=== PATIENT | male | born 1950 | race Caucasian/White ===

== ENCOUNTER → 2017-11-22 | Outpatient (CLI) | payer OTHER ==
[~2017-11-22] MED LIST: AMLO10TA2 PO; AMLO5TAB2 PO; ASP325T NG; CEFA-4 PO; ENAL10TA PO; HCT25T PO; METO100T5 PO; OLME20TA21 PO; OMG1KC PO; PRAS10TA6 PO; PRAV40TA PO; ROSU20TA PO; RT-ALBUINH IH; SIMV40TA4 PO
--- NOTE | 2017-11-22 08:09 | Diagnostic Imaging Report ---
PROCEDURE: CT head without contrast. TECHNIQUE: Multiple contiguous axial images were obtained through the brain without the use of intravenous contrast. INDICATION: Memory loss. No prior studies are available for comparison. The ventricles and sulci are within normal limits. There is moderate periventricular hypodensity consistent with chronic microvascular ischemia. 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 There is no sulcal effacement or midline shift. No acute intra-axial or extra-axial hemorrhage is seen. The cisterns are patent. The visualized paranasal sinuses are clear. Impression: Chronic changes, as described. No acute intracranial process is detected. Dictated by: Dictated on workstation # [id number]
== END ==
LOC: RAD 07:39
PROVIDERS: ATTEND Internal Medicine
DX: R41.3 Other amnesia (principal)
CPT/HCPCS: 70450

== ENCOUNTER → 2018-03-27 | Outpatient (CLI) | payer OTHER ==
[~2018-03-27] MED LIST changes: -AMLO10TA2 PO; +AMLO10TA6 PO
== END | disposition home or self-care (01) ==
LOC: PREOP 08:21
PROVIDERS: ATTEND Surgery
DX: Z01.818 Encounter for other preprocedural examination (principal)

== ENCOUNTER 2018-05-14 06:57 | Day surgery (SDC) | payer OTHER ==
[~2018-05-14] VITALS: Ht 172.7 cm; Wt 99.8 kg
[~2018-05-14 06:57] MED LIST changes: -AMLO10TA6 PO; +AMLO10TA7 PO; +CLOP75TA69 PO; +METO100T12 PO
--- OUTSIDE RECORDS SUMMARY | 2018-05-14 07:01 | XMS REPORT ---
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 [address] [address] Sep, Essential hypertension I10 ; Coronary artery disease involving eagle heart, angina presence unspecified, unspecified vessel or lesion type I25.10 and Tubular adenoma of colon D12.6 [facility] [address], [place] [address] Jul, Bronchitis J40 ; Mixed hyperlipidemia E78.2 ; Essential hypertension I10 and Noncompliance with medication regimen Z91.14 [facility] [id number] [place] [address] 28037- 2328 Apr, Coronary artery disease involving eagle heart, angina presence unspecified, unspecified vessel or lesion type I25.10 ; Mixed hyperlipidemia E78.2 ; Essential hypertension I10 and Thoracic aneurysm without mention of rupture I71.2 [place] [id number] [place] [address] 11265- 3626 Mar, [facility] [id number] [place] [address] 52963- 3529 August, Coronary artery disease involving eagle heart, angina presence unspecified, unspecified vessel or lesion type I25.10 ; Mixed hyperlipidemia E78.2 ; Essential hypertension I10 and Thoracic aneurysm without mention of rupture I71.2 [place] [id number] [place] [address] 66910- 7340 August, Coronary atherosclerosis of unspecified type of vessel, eagle or graft 414.00 ; Essential hypertension, benign 401.1 ; Thoracic aneurysm without mention of rupture 441.[address] [facility] [id number] [place] [address] 91540- 8439 Jul, [place] [id number] [place] [address] 74513- 0638 Jul, [place] [id number] [place] [address] 73377- 8587 Jul, [facility] [id number] [address] Jun, [facility] [id number] [address] Jun, [facility] [id number] [address] Mar, [facility] [id number] [address] Mar, [facility] [address] [address] Jan, [facility] [address] [address] Jan, [facility] [address] [address] Dec, [facility] [address] [address] Dec, [facility] [id number], [place] [address] Oct, [facility] [id number], [place] [address] Oct, IMMUNIZATIONS No Known Immunizations SOCIAL HISTORY Never Assessed REASON FOR VISIT Refill request PLAN OF CARE VITAL SIGNS MEDICATIONS Medication Instructions Dosage Frequency Start Date End Date Duration Status Amlodipine Besylate 10 mg Orally Once a day 1 tablet 24h Active RESULTS No Results PROCEDURES No Known procedures INSTRUCTIONS MEDICATIONS ADMINISTERED No Known Medications MEDICAL (GENERAL) HISTORY Type Description Date Medical History hypertension Medical History coronary artery disease Medical History abdominal aortic aneurysm- disected Surgical History coronary artery bypass graft x4 ([facility]) 2004 Surgical History abdominal aortic aneurysm repair ([facility]) 08/2013 Surgical History colon polyps removed 2015
--- OUTSIDE RECORDS SUMMARY | 2018-05-14 07:01 | XMS REPORT ---
Author Author WILVER SIMS [facility] Address [address] [place] [address] Care Team Providers Care Siebel Administrator Name Role Phone WILVER SIMS Unavailable PROBLEMS Type Condition ICD9-CM Code [id number]-SK Code Onset Dates Condition Status SNOMED Code Problem Essential hypertension I10 Active 58938456 Problem Memory loss R41.3 Active 504053422 Problem Mixed hyperlipidemia E78.2 Active 968018220 Problem Tubular adenoma of colon D12.6 Active 804305705 Problem Thoracic aneurysm without mention of rupture I71.2 Active 190596925 Problem Coronary artery disease involving [place] heart, angina presence unspecified, unspecified vessel or lesion type I25.10 Active 40617474 Problem Umbilical hernia without obstruction and without gangrene K42.9 Active 2494996 Problem Benign prostatic hyperplasia with lower urinary tract symptoms N40.1 Active 601442722 Problem Vascular dementia without behavioral disturbance F01.50 Active 718461954686692 Problem Unspecified atherosclerosis of [place] arteries of extremities, 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 Active 955286760623768 Problem Prediabetes R73.03 Active 346316835 Problem 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 [address], [place] [address] Feb, Urinary frequency R35.0 ; Prediabetes R73.03 ; Tubular adenoma of colon D12.6 ; Encounter for immunization Z23 ; Umbilical hernia without obstruction and without gangrene K42.9 and Benign prostatic hyperplasia with lower urinary tract symptoms N40.1 [facility] [address], [place] [address] Feb, 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 [id number] [place] [address] 81662- 3823 Nov, Unspecified atherosclerosis of [place] arteries of extremities, 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 and Vascular dementia without behavioral disturbance F01.50 [place] [id number] [place] [address] 37982- 6942 Nov, Essential hypertension I10 ; Memory loss R41.3 ; Mixed hyperlipidemia E78.2 and Coronary artery disease involving [place] heart, angina presence unspecified, unspecified vessel or lesion type I25.10 [place] [id number] [place] [address] 86855- 1907 Sep, Essential hypertension I10 ; Coronary artery disease involving [place] heart, angina presence unspecified, unspecified vessel or lesion type I25.10 and Tubular adenoma of colon D12.6 [facility] [id number] [place] [address]4029 -[address]10 Jul, Bronchitis J40 ; Mixed hyperlipidemia E78.2 ; Essential hypertension I10 and Noncompliance with medication regimen Z91.14 [place] [id number] [place] [address] 84955- 1243 Apr, Coronary artery disease involving big sandy heart, angina presence unspecified, unspecified vessel or lesion type I25.10 ; Mixed hyperlipidemia E78.2 ; Essential hypertension I10 and Thoracic aneurysm without mention of rupture I71.2 [place] [id number] [place] [address] 95578- 4993 Mar, [place] [id number] [place] [address] 74494- 6778 August, Coronary artery disease involving big sandy heart, angina presence unspecified, unspecified vessel or lesion type I25.10 ; Mixed hyperlipidemia E78.2 ; Essential hypertension I10 and Thoracic aneurysm without mention of rupture I71.2 [facility] [address] [address] August, Coronary atherosclerosis of unspecified type of vessel, big sandy or graft 414.00 ; Essential hypertension, benign 401.1 ; Thoracic aneurysm without mention of rupture 441.[address] [facility] [id number] [place] [address] 612105- 9416 Jul, [facility] [id number] [place] [address] 801230- 6924 Jul, [facility] [id number] [place] [address] 792187- 2989 Jul, [facility] [id number] [place] [address] 48661- 1306 Jun, [facility] [id number] [place] [address] 913777- 4113 Jun, [facility] [address] [address] Mar, [facility] [id number] [address] Mar, [facility] [address] [address] Jan, [facility] [address] [address] Jan, [facility] [address] [address] Dec, [facility] [id number] [address] Dec, [facility] [address], [place] [address]- [address] Oct, [facility] [address], [place] [address]- 4[address] Oct, IMMUNIZATIONS Vaccine Route Administration Date Status TDAP (BOOSTRIX) IM Intramuscular Feb 22, 2018 Administered FLULAVAL QUAD 0.5ML (6 MO & UP) 2018 IM Intramuscular Feb 22, 2018 Administered PPSV23 (PNEUMOVAX) IM Intramuscular Feb 22, 2018 Administered SOCIAL HISTORY Never Assessed REASON FOR VISIT blood sugar concerns Naida HICKMAN , A1C done in visit Naida Hickman , gets tired and has problem urinating then before Naida Hickman , will get shots in visit Naida Hickman PLAN OF CARE Activity Details Follow Up 6 Months Reason: VITAL SIGNS Height 68 in 2018-02-22 Weight 211 lbs 2018-02-22 Temperature 97.5 degrees Fahrenheit 2018-02-22 Heart Rate 58 bpm 2018-02-22 Respiratory Rate 20 2018-02-22 Oximetry on room air:96 % 2018-02-22 BMI 32.08 kg/m2 2018-02-22 Blood pressure systolic 142 mmHg 2018-02-22 Blood pressure diastolic 64 mmHg 2018-02-22 MEDICATIONS Medication Instructions Dosage Frequency Start Date End Date Duration Status Plavix 75 MG Orally Once a day 1 tablet 24h 30 day(s) Active Albuterol 90 mcg/actuation inhallation 3 times a day prn 2 puffs by Inhalation route 4 times per day PRN Mar, 30 days Not-Taking Clopidogrel Bisulfate 75 MG Orally Once a day 1 tablet 24h 30 Not- Taking Rosuvastatin Calcium 20 MG Orally Once a day 1 tablet 24h 30 day(s) Active Amlodipine Besylate 10 mg Orally Once a day 1 tablet 24h 30 Active Crestor 20 mg Orally Once a day 1 tablet 24h 30 days Not-Taking Metoprolol Tartrate 100 mg Orally Twice a day 1 tablet with food 12h 30 Active Benicar 20 mg Orally Once a day 1 tablet by Oral route 1 time per day 24h 30 Active RESULTS Name Result Date Reference Range A1C (IN HOUSE) 2018-02-22 A1C IN HOUSE 6.0 4.3 - 5.6 % Previous A1c Lot [id number] Exp date 06/2019 PROCEDURES Procedure Date Ordered Result Body Site GLYCATED HEMOGLOBIN TEST Feb 22, 2018 IMMUNIZATION ADMIN, EACH ADD (please include units) Feb 22, 2018 TDAP (BOOSTRIX) Feb 22, 2018 FLULAVAL QUAD 0.5ML (6 MO AND UP) 2018 Feb 22, 2018 SINGLE IMMUNIZATION ADMIN Feb 22, 2018 PPSV23 (PNEUMOVAX) Feb 22, 2018 INSTRUCTIONS MEDICATIONS ADMINISTERED No Known Medications MEDICAL (GENERAL) HISTORY Type Description Date Medical History hypertension Medical History coronary artery disease Medical History abdominal aortic aneurysm- disected Surgical History coronary artery bypass graft x4 ([facility]) 2004 Surgical History abdominal aortic aneurysm repair ([facility]) 08/2013 Surgical History colon polyps removed 2015
--- OUTSIDE RECORDS SUMMARY | 2018-05-14 07:01 | XMS REPORT ---
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 Active 69555490 Problem Vascular dementia without behavioral disturbance F01.50 Active 035528397750537 Problem Coronary artery disease involving [place] heart, angina presence unspecified, unspecified vessel or lesion type I25.10 Active 28607446 Problem Essential hypertension I10 Active 63677674 Problem Unspecified atherosclerosis of [place] arteries of extremities, 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 Active 226940291343943 Problem Memory loss R41.3 Active 011529871 ALLERGIES No Information ENCOUNTERS Encounter Location Date Diagnosis [place] [id number] [place] [address] 07988- 2448 Feb, [facility] [id number] [place] [address] 83564- 9695 Feb, [facility] [id number] [place] [address] 67894- 7473 Nov, Essential hypertension I10 [facility] [address] [address]- [address] Nov, 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 [facility] [id number] [place] [address] 95564- 2898 Nov, Unspecified atherosclerosis of [place] arteries of extremities, 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 and Vascular dementia without behavioral disturbance F01.50 [facility] [address] [address]- 1475 Nov, Essential hypertension I10 ; Memory loss R41.3 ; Mixed hyperlipidemia E78.2 and Coronary artery disease involving [place] heart, angina presence unspecified, unspecified vessel or lesion type I25.10 [place] [id number] [place] [address] 74865- 4378 Sep, Essential hypertension I10 ; Coronary artery disease involving [place] heart, angina presence unspecified, unspecified vessel or lesion type I25.10 and Tubular adenoma of colon D12.6 [facility] [id number] [place] [address] 71258 -3444 Jul, Bronchitis J40 ; Mixed hyperlipidemia E78.2 ; Essential hypertension I10 and Noncompliance with medication regimen Z91.14 [place] [id number] [place] [address] 08079- 7847 Apr, Coronary artery disease involving [place] heart, angina presence unspecified, unspecified vessel or lesion type I25.10 ; Mixed hyperlipidemia E78.2 ; Essential hypertension I10 and Thoracic aneurysm without mention of rupture I71.2 [place] [id number] [place] [address] 68775- 7537 Mar, [place] [id number] [place] [address] 16925- 3277 August, Coronary artery disease involving [place] heart, angina presence unspecified, unspecified vessel or lesion type I25.10 ; Mixed hyperlipidemia E78.2 ; Essential hypertension I10 and Thoracic aneurysm without mention of rupture I71.2 [place] [id number] [place] [address] 48281- 9164 August, Coronary atherosclerosis of unspecified type of vessel, [place] or graft 414.00 ; Essential hypertension, benign 401.1 ; Thoracic aneurysm without mention of rupture 441.2 and Hyperlipidemia 272.4 [place] [id number] [place] [address] 01251- 6606 Jul, [place] [address] [place] [address]- [address] 14 Jul, 2014 [facility] [id number] [address]- 0257 Jul, [facility] [id number] [address]- 4096 Jun, [facility] [address] [address]- 0946 Jun, [facility] [address] [address]- 7323 Mar, [facility] [address] [address]- 7323 Mar, [facility] [address] [address]- 5448 Jan, [facility] [address] [address]- 8283 Jan, [facility] [address] [address]- 7433 Dec, [facility] [id number] [address]- 3868 Dec, [facility] [id number] Oct, [facility] [id number] [address]- 8590 Oct, IMMUNIZATIONS No Known Immunizations SOCIAL HISTORY Never Assessed REASON FOR VISIT Blood Sugar concerns PLAN OF CARE VITAL SIGNS MEDICATIONS Unknown Medications RESULTS No Results PROCEDURES No Known procedures INSTRUCTIONS MEDICATIONS ADMINISTERED No Known Medications MEDICAL (GENERAL) HISTORY Type Description Date Medical History hypertension Medical History coronary artery disease Medical History abdominal aortic aneurysm- disected Surgical History coronary artery bypass graft x4 ([facility]) 2004 Surgical History abdominal aortic aneurysm repair ([facility]) 08/2013 Surgical History colon polyps removed 2015
--- OUTSIDE RECORDS SUMMARY | 2018-05-14 07:02 | XMS REPORT ---
Author Author WILVER SIMS 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 [id number] [place] [address] 39154- 2764 Nov, Unspecified atherosclerosis of elem arteries of extremities, 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 and Vascular dementia without behavioral disturbance F01.50 [place] [id number] [place] [address] 71568- 0536 Nov, Essential hypertension I10 ; Memory loss R41.3 ; Mixed hyperlipidemia E78.2 and Coronary artery disease involving elem heart, angina presence unspecified, unspecified vessel or lesion type I25.10 [facility] [address], [place] [address] Sep, Essential hypertension I10 ; Coronary artery disease involving elem heart, angina presence unspecified, unspecified vessel or lesion type I25.10 and Tubular adenoma of colon D12.6 [facility] [address], [place] [address] Jul, Bronchitis J40 ; Mixed hyperlipidemia E78.2 ; Essential hypertension I10 and Noncompliance with medication regimen Z91.14 [facility] [id number] [place] [address] 78254- 4191 Apr, Coronary artery disease involving elem heart, angina presence unspecified, unspecified vessel or lesion type I25.10 ; Mixed hyperlipidemia E78.2 ; Essential hypertension I10 and Thoracic aneurysm without mention of rupture I71.2 [place] [id number] [place] [address] 20109[address] 5489 Mar, [facility] [id number] [place] [address] 52327- 5091 August, Coronary artery disease involving elem heart, angina presence unspecified, unspecified vessel or lesion type I25.10 ; Mixed hyperlipidemia E78.2 ; Essential hypertension I10 and Thoracic aneurysm without mention of rupture I71.2 [place] [id number] [place] [address] 79244- 0579 August, Coronary atherosclerosis of unspecified type of vessel, elem or graft 414.00 ; Essential hypertension, benign 401.1 ; Thoracic aneurysm without mention of rupture 441.[address] [facility] [id number] [place] [address] 29721- 2367 Jul, [place] [id number] [place] [address] 20111- 9980 Jul, [place] [id number] [place] [address] 73479- [address]64 Jul, [facility] [id number] [place] [address] [place] [address] Jun, [facility] [id number] [address] Jun, [facility] [id number] [address] Mar, [facility] [id number] [address] Mar, [facility] [address] [address] Jan, [facility] [address] [address] Jan, [facility] [address] [address] Dec, [facility] [address] [address] Dec, [facility] [id number], [place] [address] Oct, [facility] [id number] [address] Oct, IMMUNIZATIONS No Known Immunizations SOCIAL HISTORY Never Assessed REASON FOR VISIT PLAN OF CARE VITAL SIGNS MEDICATIONS Unknown Medications RESULTS No Results PROCEDURES No Known procedures INSTRUCTIONS MEDICATIONS ADMINISTERED No Known Medications MEDICAL (GENERAL) HISTORY Type Description Date Medical History hypertension Medical History coronary artery disease Medical History abdominal aortic aneurysm- disected Surgical History coronary artery bypass graft x4 ([place]) 2004 Surgical History abdominal aortic aneurysm repair ([facility]) 08/2013 Surgical History colon polyps removed 2015
--- OUTSIDE RECORDS SUMMARY | 2018-05-14 07:02 | XMS REPORT ---
Author Author VICKI LISA [facility] Address [address] [place] [address] Care Team Providers Care Car Driver Name Role Phone VICKI LISA Unavailable PROBLEMS Type Condition ICD9-CM Code YAO14-LV Code Onset Dates Condition Status SNOMED Code Problem Mixed hyperlipidemia E78.2 Active 849017238 Problem Coronary artery disease involving [place] heart, angina presence unspecified, unspecified vessel or lesion type I25.10 Active 52252156 Problem Tubular adenoma of colon D12.6 Active 335229339 Problem Essential hypertension I10 Active 31514569 Problem Thoracic aneurysm without mention of rupture I71.2 Active 034186978 ALLERGIES No Known Allergies SOCIAL HISTORY No smoking Hx information available PLAN OF CARE VITAL SIGNS MEDICATIONS No Known Medications RESULTS No Results PROCEDURES No Known procedures IMMUNIZATIONS No Known Immunizations
--- OUTSIDE RECORDS SUMMARY | 2018-05-14 07:02 | XMS REPORT ---
Author Author VICKI LISA [facility] Address [address] [place] [address] Care Team Providers Care Trail Construction Worker Name Role Phone VICKI LISA Unavailable PROBLEMS Type Condition ICD9-CM Code RXB89-PB Code Onset Dates Condition Status SNOMED Code Problem Mixed hyperlipidemia E78.2 Active 494009796 Problem Essential hypertension I10 Active 30811903 Problem Tubular adenoma of colon D12.6 Active 214695049 Problem Coronary artery disease involving [place] heart, angina presence unspecified, unspecified vessel or lesion type I25.10 Active 06568069 Problem Thoracic aneurysm without mention of rupture I71.2 Active 900718563 ALLERGIES Substance Reaction Event Type Date Status Penicillin V Potassium Unknown Drug Allergy Apr, Active SOCIAL HISTORY No smoking Hx information available PLAN OF CARE Activity Details Follow Up 6 Months, prn Reason:BP VITAL SIGNS Height 68 in 2016-05-03 Weight 213 lbs 2016-05-03 Temperature 97.8 degrees Fahrenheit 2016-05-03 Heart Rate 92 bpm 2016-05-03 Respiratory Rate 20 2016-05-03 BMI 32.38 kg/m2 2016-05-03 Blood pressure systolic 196 mmHg 2016-05-03 Blood pressure diastolic 100 mmHg 2016-05-03 MEDICATIONS Medication Instructions Dosage Frequency Start Date End Date Duration Status Crestor 20 MG Orally Once a day 1 tablet 24h 30 days Active Clopidogrel Bisulfate 75 MG Orally Once a day 1 tablet 24h 30 Active Amlodipine Besylate 10 mg Orally Once a day 1 tablet 24h Active Benicar 20 MG Orally Once a day 1 tablet by Oral route 1 time per day 24h 30 days Active Crestor 20 MG TAKE ONE TABLET BY MOUTH ONCE DAILY 30 Active Albuterol 90 mcg/actuation inhallation 3 times a day prn 2 puffs by Inhalation route 4 times per day PRN Mar, 30 days Active Metoprolol Tartrate 100 MG Orally Twice a day 1 tablet with food 12h 30 Active RESULTS Name Result Date Reference Range CMP 2016-05-03 Glucose, Serum 89 65-99 BUN 17 8-27 Creatinine, Serum 1.04 0.76-1.27 eGFR If NonAfricn Am 76 >59 eGFR If Africn Am 87 >59 BUN/Creatinine Ratio 16 10-22 Sodium, Serum 143 134-144 Potassium, Serum 4.3 3.5-5.2 Chloride, Serum 102 96-106 Carbon Dioxide, Total 22 18-29 Calcium, Serum 9.3 8.6-10.2 Protein, Total, Serum 7.4 6.0-8.5 Albumin, Serum 4.5 3.6-4.8 Globulin, Total 2.9 1.5-4.5 A/G Ratio 1.6 1.1-2.5 Bilirubin, Total 0.4 0.0-1.2 Alkaline Phosphatase, S 64 39-117 AST (SGOT) 27 0-40 ALT (SGPT) 23 0-44 PROCEDURES Procedure Date Ordered Related Diagnosis Body Site COMPREHEN METABOLIC PANEL May 03, 2016 VENIPUNCT, ROUTINE* May 03, 2016 Office Visit, Est Pt., Level 4 May 03, 2016 IMMUNIZATIONS No Known Immunizations
--- OUTSIDE RECORDS SUMMARY | 2018-05-14 07:02 | XMS REPORT ---
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 Active 21054396 Problem Vascular dementia without behavioral disturbance F01.50 Active 677568936770412 Problem Coronary artery disease involving [place] heart, angina presence unspecified, unspecified vessel or lesion type I25.10 Active 24610004 Problem Essential hypertension I10 Active 58147342 Problem Unspecified atherosclerosis of [place] arteries of extremities, 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 Active 100530350133744 Problem Memory loss R41.3 Active 341010561 ALLERGIES No Information ENCOUNTERS Encounter Location Date Diagnosis [facility] [id number] [place] [address]2431- [address]1 Nov, Essential hypertension I10 [place] [id number] [place] [address] 67879- 1902 Nov, 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 [facility] [id number] [place] [address] 72504- 1427 Nov, Unspecified atherosclerosis of [place] arteries of extremities, 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 and Vascular dementia without behavioral disturbance F01.50 [place] [id number] [place] [address] 25190- 9620 Nov, Essential hypertension I10 ; Memory loss R41.3 ; Mixed hyperlipidemia E78.2 and Coronary artery disease involving [place] heart, angina presence unspecified, unspecified vessel or lesion type I25.10 [facility] [address] [address] Sep, Essential hypertension I10 ; Coronary artery disease involving [place] heart, angina presence unspecified, unspecified vessel or lesion type I25.10 and Tubular adenoma of colon D12.6 [facility] [address] [address] Jul, Bronchitis J40 ; Mixed hyperlipidemia E78.2 ; Essential hypertension I10 and Noncompliance with medication regimen Z91.14 [facility] [id number] [place] [address] 33666- 5505 Apr, Coronary artery disease involving [place] heart, angina presence unspecified, unspecified vessel or lesion type I25.10 ; Mixed hyperlipidemia E78.2 ; Essential hypertension I10 and Thoracic aneurysm without mention of rupture I71.2 [place] [id number] [place] [address] 60986- 6305 Mar, [facility] [id number] [place] [address] 87806- 8091 August, Coronary artery disease involving [place] heart, angina presence unspecified, unspecified vessel or lesion type I25.10 ; Mixed hyperlipidemia E78.2 ; Essential hypertension I10 and Thoracic aneurysm without mention of rupture I71.2 [place] [id number] [place] [address] 28410- 0772 August, Coronary atherosclerosis of unspecified type of vessel, [place] or graft 414.00 ; Essential hypertension, benign 401.1 ; Thoracic aneurysm without mention of rupture 441.2 and Hyperlipidemia 272.4 [facility] [address] [place] [address] 44304- 9746 Jul, [place] [id number] [place] [address] 78081- 5586 Jul, [place] [id number] [place] [address] 30753- 6365 Jul, [facility] [id number] [place] [address] [place] [address]- 3861 Jun, [facility] [id number] [address]- 4083 Jun, [facility] [id number] [address]- 3675 Mar, [facility] [id number] [address]- 3365 Mar, [facility] [address] [address]- 45[address] Jan, [facility] [address] [address]- 6[address] Jan, [facility] [address] Dec, [facility] [address] [address]- 7117 Dec, [facility] [id number] [address]- 0577 Oct, [facility] [id number] [address] Oct, IMMUNIZATIONS No Known Immunizations SOCIAL HISTORY [...] 2004 Surgical History abdominal aortic aneurysm repair ([facility]) 08/2013 Surgical History colon polyps removed 2015
--- OUTSIDE RECORDS SUMMARY | 2018-05-14 07:02 | XMS REPORT ---
Author Author VICKI LISA Organization [facility] Address [address] [place] [address] Care Team Providers Care Border Inspector Name Role Phone RAJESHBela VICKI Unavailable PROBLEMS Type Condition ICD9-CM Code PML76-EJ Code Onset Dates Condition Status SNOMED Code Problem Mixed hyperlipidemia E78.2 Active 229099366 Problem Essential hypertension I10 Active 02272154 Problem Tubular adenoma of colon D12.6 Active 716925324 Problem Coronary artery disease involving [place] heart, angina presence unspecified, unspecified vessel or lesion type I25.10 Active 01527332 Problem Thoracic aneurysm without mention of rupture I71.2 Active 056996010 ALLERGIES Substance Reaction Event Type Date Status Penicillin V Potassium Unknown Drug Allergy Jul, Active ENCOUNTERS Encounter Location Date Diagnosis [place] [address] [address] Nov, [facility] [address] [place] [address] 78800- 4671 Sep, Essential hypertension I10 ; Coronary artery disease involving [place] heart, angina presence unspecified, unspecified vessel or lesion type I25.10 and Tubular adenoma of colon D12.6 [facility] [id number] [place] [address] Jul, Bronchitis J40 ; Mixed hyperlipidemia E78.2 ; Essential hypertension I10 and Noncompliance with medication regimen Z91.14 [facility] [address] [address]- [address] Apr, Coronary artery disease involving [place] heart, angina presence unspecified, unspecified vessel or lesion type I25.10 ; Mixed hyperlipidemia E78.2 ; Essential hypertension I10 and Thoracic aneurysm without mention of rupture I71.2 [place] [address] [address]- 7565 Mar, [facility] [id number] [place] [address]65- 8087 August, Coronary artery disease involving [place] heart, angina presence unspecified, unspecified vessel or lesion type I25.10 ; Mixed hyperlipidemia E78.2 ; Essential hypertension I10 and Thoracic aneurysm without mention of rupture I71.2 [facility] [id number] [place] [address] 99632- 9325 August, Coronary atherosclerosis of unspecified type of vessel, [place] or graft 414.00 ; Essential hypertension, benign 401.1 ; Thoracic aneurysm without mention of rupture 441.2 and Hyperlipidemia 272.4 [facility] [id number] [place] [address] 20559- 8500 Jul, [facility] [id number] [place] [address] 26877- 1960 Jul, [facility] [id number] [place] [address] 87158- 2824 Jul, [facility] [id number] [place] [address] 13243- 1259 Jun, [facility] [id number] [place] [address] 66968- 3830 Jun, [facility] [address], [place] [address] Mar, [facility] [id number] [place] [address] 51173- 4455 Mar, [facility] [address] [place] [address] 62977- 0917 Jan, [facility] [id number] [place] [address] [id number]- 3706 Jan, [facility] [address] [address] 05 Dec, 2013 [facility] [id number] [place] [address] 91357- 2546 Dec, [facility] [address] [facility] [id number] [address]- 27[address] Oct, [facility] [address] [facility] [id number] [address] Oct, IMMUNIZATIONS No Known Immunizations SOCIAL HISTORY Never Assessed REASON FOR VISIT Cough, trouble breathing started about 2 weeks ago DUKE[facility] PLAN OF CARE Activity Details Follow Up if not improving with PCP or reg follow up Reason: VITAL SIGNS Height 68 in 2017-08-05 Weight 210.2 lbs 2017-08-05 Temperature 97.0 degrees Fahrenheit 2017-08-05 Heart Rate 90 bpm 2017-08-05 Respiratory Rate 20 2017-08-05 BMI 31.96 kg/m2 2017-08-05 Blood pressure systolic 170 mmHg 2017-08-05 Blood pressure diastolic 98 mmHg 2017-08-05 MEDICATIONS Medication Instructions Dosage Frequency Start Date End Date Duration Status Doxycycline Hyclate 100 mg Orally twice a day 1 capsule 12h Jul, August, 14 days Active Benzonatate 100 mg Orally Three times a day 1 capsule as needed 8h Jul, August, 10 days Active Metoprolol Tartrate 100 mg Orally Twice a day 1 tablet with food 12h 30 Active Crestor 20 mg Orally Once a day 1 tablet 24h 30 days Active Benicar 20 mg Orally Once a day 1 tablet by Oral route 1 time per day 24h 30 days Active Albuterol 90 mcg/actuation inhallation 3 times a day prn 2 puffs by Inhalation route 4 times per day PRN Mar, 30 days Active Amlodipine Besylate 10 mg Orally Once a day 1 tablet 24h Active PredniSONE 20 mg Orally Once a day 1 tablet 24h 05 days Active Crestor 20 MG TAKE ONE TABLET BY MOUTH ONCE DAILY 30 Active Clopidogrel Bisulfate 75 MG Orally Once a day 1 tablet 24h 30 Active RESULTS No Results PROCEDURES No Known procedures INSTRUCTIONS MEDICATIONS ADMINISTERED No Known Medications MEDICAL (GENERAL) HISTORY Type Description Date Medical History hypertension Medical History coronary artery disease Medical History abdominal aortic aneurysm- disected Surgical History coronary artery bypass graft x4 ([place]) 2004 Surgical History abdominal aortic aneurysm repair ([facility]) 08/2013 Surgical History colon polyps removed 2015
--- OUTSIDE RECORDS SUMMARY | 2018-05-14 07:02 | XMS REPORT ---
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 Active 09622042 Problem Vascular dementia without behavioral disturbance F01.50 Active 173119234137085 Problem Coronary artery disease involving [place] heart, angina presence unspecified, unspecified vessel or lesion type I25.10 Active 86552973 Problem Essential hypertension I10 Active 88473640 Problem Unspecified atherosclerosis of [place] arteries of extremities, 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 Active 353467571732085 Problem Memory loss R41.3 Active 251415564 ALLERGIES Substance Reaction Event Type Date Status Penicillin V Potassium Unknown Drug Allergy Sep, Active ENCOUNTERS Encounter Location Date Diagnosis [place] [address] [address] Nov, Essential hypertension I10 [place] [address] [address] Nov, 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 [facility] [address] [address] Nov, Unspecified atherosclerosis of [place] arteries of extremities, 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 and Vascular dementia without behavioral disturbance F01.50 [place] [address] [address] [place] [id number] [place] [address] Nov, Essential hypertension I10 ; Memory loss R41.3 ; Mixed hyperlipidemia E78.2 and Coronary artery disease involving [place] heart, angina presence unspecified, unspecified vessel or lesion type I25.10 [facility] [address] [place] [address] Sep, Essential hypertension I10 ; Coronary artery disease involving [place] heart, angina presence unspecified, unspecified vessel or lesion type I25.10 and Tubular adenoma of colon D12.6 [facility] [address] [place] [id number] [place] [address] Jul, Bronchitis J40 ; Mixed hyperlipidemia E78.2 ; Essential hypertension I10 and Noncompliance with medication regimen Z91.14 [facility] [address] [place] [id number] [place] [address] Apr, Coronary artery disease involving [place] heart, angina presence unspecified, unspecified vessel or lesion type I25.10 ; Mixed hyperlipidemia E78.2 ; Essential hypertension I10 and Thoracic aneurysm without mention of rupture I71.2 [place] [address] [place] [id number] [place] [address] Mar, [facility] [address] [place] [id number] [place] [address] August, Coronary artery disease involving [place] heart, angina presence unspecified, unspecified vessel or lesion type I25.10 ; Mixed hyperlipidemia E78.2 ; Essential hypertension I10 and Thoracic aneurysm without mention of rupture I71.2 [place] [address] [place] [id number] [place] [address] August, Coronary atherosclerosis of unspecified type of vessel, [place] or graft 414.00 ; Essential hypertension, benign 401.1 ; Thoracic aneurysm without mention of rupture 441.2 and Hyperlipidemia 272.4 [facility] [address] [place] [id number] [place] [address] Jul, [facility] [address] [place] [id number] [place] [address] Jul, [facility] [address] [place] [id number] [place] [address] Jul, [facility] [address] [place] [id number] [address] Jun, [facility] [address] [place] [id number] Jun, [facility] [address] [place] [id number] [address] Mar, [facility] [address] [facility] [id number] [address] Mar, [facility] [address] [facility] [id number] [address] Jan, [facility] [address] [address] Jan, [facility] [address] [place] [address] Dec, [facility] [address] [address] Dec, [facility] [address] [place] [address] Oct, [facility] [address] [place] [id number] [address] Oct, IMMUNIZATIONS No Known Immunizations SOCIAL HISTORY Never Assessed REASON FOR VISIT Establish Care-[facility] PLAN OF CARE Activity Details Follow Up 1 Year Reason: VITAL SIGNS Height 68 in 2017-10-02 Weight 211.4 lbs 2017-10-02 Temperature 98.9 degrees Fahrenheit 2017-10-02 Heart Rate 69 bpm 2017-10-02 Respiratory Rate 18 2017-10-02 Oximetry 96 % 2017-10-02 BMI 32.14 kg/m2 2017-10-02 Blood pressure systolic 148 mmHg 2017-10-02 Blood pressure diastolic 86 mmHg 2017-10-02 MEDICATIONS Medication Instructions Dosage Frequency Start Date End Date Duration Status Crestor 20 mg Orally Once a day 1 tablet 24h 30 days Active Clopidogrel Bisulfate 75 MG Orally Once a day 1 tablet 24h 30 Active Albuterol 90 mcg/actuation inhallation 3 times a day prn 2 puffs by Inhalation route 4 times per day PRN Mar, 30 days Active Amlodipine Besylate 10 mg Orally Once a day 1 tablet 24h Active Metoprolol Tartrate 100 mg Orally Twice a day 1 tablet with food 12h 30 Active Benicar 20 mg Orally Once a day 1 tablet by Oral route 1 time per day 24h 30 days Active RESULTS No Results PROCEDURES No Known procedures INSTRUCTIONS MEDICATIONS ADMINISTERED No Known Medications MEDICAL (GENERAL) HISTORY Type Description Date Medical History hypertension Medical History coronary artery disease Medical History abdominal aortic aneurysm- disected Surgical History coronary artery bypass graft x4 ([place]) 2004 Surgical History abdominal aortic aneurysm repair ([facility]) 08/2013 Surgical History colon polyps removed 2015
--- OUTSIDE RECORDS SUMMARY | 2018-05-14 07:02 | XMS REPORT ---
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 Active 89548485 Problem Vascular dementia without behavioral disturbance F01.50 Active 893298208343081 Problem Coronary artery disease involving [place] heart, angina presence unspecified, unspecified vessel or lesion type I25.10 Active 28103097 Problem Essential hypertension I10 Active 32183905 Problem Unspecified atherosclerosis of [place] arteries of extremities, 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 Active 134785595061561 Problem Memory loss R41.3 Active 223803325 ALLERGIES Substance Reaction Event Type Date Status Penicillin V Potassium Unknown Drug Allergy Nov, Active Watermelon anaphylaxis Non Drug Allergy Nov, Active ENCOUNTERS Encounter Location Date Diagnosis [place] [address] [place] [id number] [address] Nov, Essential hypertension I10 [facility] [address] [place] [address] Nov, 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 [facility] [address] [place] [address] Nov, Unspecified atherosclerosis of [place] arteries of extremities, 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 and Vascular dementia without behavioral disturbance F01.50 [facility] [address] [place] [id number] [address] Nov, Essential hypertension I10 ; Memory loss R41.3 ; Mixed hyperlipidemia E78.2 and Coronary artery disease involving [place] heart, angina presence unspecified, unspecified vessel or lesion type I25.10 [place] [address] [address] Sep, Essential hypertension I10 ; Coronary artery disease involving [place] heart, angina presence unspecified, unspecified vessel or lesion type I25.10 and Tubular adenoma of colon D12.6 [facility] [address] [address] Jul, Bronchitis J40 ; Mixed hyperlipidemia E78.2 ; Essential hypertension I10 and Noncompliance with medication regimen Z91.14 [place] [address] [address] Apr, Coronary artery disease involving [place] heart, angina presence unspecified, unspecified vessel or lesion type I25.10 ; Mixed hyperlipidemia E78.2 ; Essential hypertension I10 and Thoracic aneurysm without mention of rupture I71.2 [place] [address] [address] Mar, [place] [address] [address] August, Coronary artery disease involving [place] heart, angina presence unspecified, unspecified vessel or lesion type I25.10 ; Mixed hyperlipidemia E78.2 ; Essential hypertension I10 and Thoracic aneurysm without mention of rupture I71.2 [place] [address] [address] August, Coronary atherosclerosis of unspecified type of vessel, [place] or graft 414.00 ; Essential hypertension, benign 401.1 ; Thoracic aneurysm without mention of rupture 441.2 and Hyperlipidemia 272.4 [facility] [address] [address] Jul, [place] [address] [address] Jul, [place] [address] [address] Jul, [facility] [address] [place] [id number] [address] Jun, [facility] [address] [place] [id number] [address] Jun, [facility] [address] [address] Mar, [facility] [address] [address] Mar, [facility] [address] [address] Jan, [facility] [address] [place] [address] Jan, [facility] [address] [address] Dec, [facility] [address] [address] Dec, [facility] [address] [place] [id number] Oct, [facility] [address] [address] Oct, IMMUNIZATIONS No Known Immunizations SOCIAL HISTORY Never Assessed REASON FOR VISIT Physical - VICK Cool, Out of all medications, cannot afford to refill, Problems with short term memory PLAN OF CARE Activity Details Follow Up 3 Months Reason: VITAL SIGNS Height 68 in 2017-11-17 Weight 209.7 lbs 2017-11-17 Temperature 97.3 degrees Fahrenheit 2017-11-17 Heart Rate 74 bpm 2017-11-17 Respiratory Rate 20 2017-11-17 BMI 31.88 kg/m2 2017-11-17 Blood pressure systolic 160 mmHg 2017-11-17 Blood pressure diastolic 92 mmHg 2017-11-17 MEDICATIONS Medication Instructions Dosage Frequency Start Date End Date Duration Status Benicar 20 mg Orally Once a day 1 tablet by Oral route 1 time per day 24h 30 days Not-Taking Crestor 20 mg Orally Once a day 1 tablet 24h 30 days Not-Taking Albuterol 90 mcg/actuation inhallation 3 times a day prn 2 puffs by Inhalation route 4 times per day PRN Mar, 30 days Not-Taking Clopidogrel Bisulfate 75 MG Orally Once a day 1 tablet 24h 30 Not- Taking Amlodipine Besylate 10 mg Orally Once a day 1 tablet 24h Not- Taking Metoprolol Tartrate 100 mg Orally Twice a day 1 tablet with food 12h 30 Not-Taking RESULTS No Results PROCEDURES No Known procedures INSTRUCTIONS MEDICATIONS ADMINISTERED No Known Medications MEDICAL (GENERAL) HISTORY Type Description Date Medical History hypertension Medical History coronary artery disease Medical History abdominal aortic aneurysm- disected Surgical History coronary artery bypass graft x4 ([place]) 2004 Surgical History abdominal aortic aneurysm repair ([facility]) 08/2013 Surgical History colon polyps removed 2015
--- OUTSIDE RECORDS SUMMARY | 2018-05-14 07:03 | XMS REPORT | Continuity of Care Document ---
Author Author [facility] Address Unknown Phone Unavailable Allergies Active Description Code Type Severity Reaction Onset Reported/Identified Relationship to Patient Clinical Status Yes PENICILLIN PENICILLIN Unknown N/A 05/27/2010 Yes Penicillins Drug Allergy N/A N/A 11/13/2013 Yes Penicillins [id number] Drug Allergy Unknown N/A 07/16/2015 Medications There is no data. Problems Date Dx Coded Attending Type Code Diagnosis Diagnosed By 03/03/2013 ZEV TAVARES, BRADEN M Ot 250.00 03/03/2013 ZEV TAVARES, BRADEN M Ot 272.4 03/03/2013 ZEV TAVARES, BRADEN M Ot 278.00 03/03/2013 ZEV TAVARES, BRADEN M Ot 401.9 03/03/2013 ZEV TAVARES, BRADEN M Ot 414.00 03/03/2013 ZEV TAVARES, BRADEN M Ot 414.8 03/03/2013 ZEV TAVARES, BRADEN M Ot 424.1 03/03/2013 ZEV TAVARES, BRADEN M Ot 486 03/03/2013 ZEV TAVARES, BRADEN M Ot 553.1 03/03/2013 ZEV TAVARES, BRADEN M Ot 786.09 03/03/2013 ZEV TAVARES, BRADEN M Ot 786.59 03/03/2013 ZEV TAVARES, BRADEN M Ot 790.4 03/03/2013 BRADEN BROTHERS MD M Ot V15.81 03/03/2013 BRADEN BROTHERS MD M Ot V45.81 03/03/2013 BRADEN BROTHERS MD M Ot V85.34 11/13/2013 VICKI LISA APRN 401.1 HYPERTENSION, BENIGN ESSENTIAL 11/13/2013 VICKI LISA APRN L 414.00 CORONARY ATHEROSCLEROSIS OF UNSPECIFIED TYPE OF VESSEL COMANCHE OR GRAFT 11/13/2013 VICKI LISA APRN 441.2 THORACIC ANEURYSM WITHOUT RUPTURE 11/13/2013 WAYNE REYNA MD 401.1 HYPERTENSION, BENIGN ESSENTIAL 11/13/2013 WAYNE REYNA MD 414.00 CORONARY ATHEROSCLEROSIS OF UNSPECIFIED TYPE OF VESSEL COMANCHE OR GRAFT 11/13/2013 WAYNE REYNA MD 441.2 THORACIC ANEURYSM WITHOUT RUPTURE 07/15/2015 Ot 397.0 07/15/2015 Ot 414.00 07/15/2015 Ot 424.0 07/15/2015 Ot 786.09 07/15/2015 Ot 414.00 07/15/2015 Ot 786.09 07/15/2015 BRADEN BROTHERS MD Ot 786.50 07/15/2015 REBA REYNOLDS Ot 396.3 07/15/2015 REBA REYNOLDS Ot 397.0 07/15/2015 REBA REYNOLDS Ot 401.9 07/15/2015 REBA REYNOLDS Ot 414.00 07/15/2015 REBA REYNOLDS Ot 428.0 07/15/2015 AXEL TAVARES, WAYNE Bailey Ot 272.4 07/15/2015 AXEL TAVARES, WAYNE Bailey Ot 401.9 07/15/2015 AXEL TAVARES, WAYNE Bailey Ot 414.00 07/15/2015 AXEL TAVARES, WAYNE Bailey Ot 428.0 07/15/2015 AXEL TAVARES, WAYNE Bailey Ot 433.10 07/15/2015 WAYNE REYNA MD Ot 433.30 07/16/2015 Ot Z01.818 ENCOUNTER FOR OTHER PREPROCEDURAL EXAMIN 07/16/2015 Ot Z12.11 ENCOUNTER FOR SCREENING FOR MALIGNANT NE 07/20/2015 Ot 397.0 07/20/2015 Ot 414.00 07/20/2015 Ot 424.0 07/20/2015 Ot 786.09 07/20/2015 Ot 414.00 07/20/2015 Ot 786.09 07/20/2015 BRADEN BROTHERS MD Ot 786.50 07/20/2015 REBA REYNOLDS Ot 396.3 07/20/2015 REBA REYNOLDS Ot 397.0 07/20/2015 REBA REYNOLDS Ot 401.9 07/20/2015 REBA REYNOLDS Ot 414.00 07/20/2015 WILLIAM PA, REBA K Ot 428.0 07/20/2015 AXEL TAVARES, WAYNE Bailey Ot 272.4 07/20/2015 AXEL TAVARES, WAYNE Bailey Ot 401.9 07/20/2015 AXEL TAVARES, WAYNE Bailey Ot 414.00 07/20/2015 AXEL TAVARES, WAYNE Bailey Ot 428.0 07/20/2015 AXEL TAVARES, WAYNE Bailey Ot 433.10 07/20/2015 AXEL TAVARES, WAYNE Bailey Ot 433.30 07/20/2015 Ot 397.0 07/20/2015 Ot 414.00 07/20/2015 Ot 424.0 07/20/2015 Ot 786.09 07/20/2015 Ot 414.00 07/20/2015 Ot 786.09 07/20/2015 ZEV TAVARES, BRADEN Gandhi Ot 786.50 07/20/2015 WILLIAM KAPADIA, REBA K Ot 396.3 07/20/2015 WILLIAM KAPADIA, REBA K Ot 397.0 07/20/2015 WILLIAM PA, REBA K Ot 401.9 07/20/2015 WILLIAM PA, REBA K Ot 414.00 07/20/2015 WILLIAM KAPADIA, REBA K Ot 428.0 07/20/2015 AXEL TAVARES, WAYNE Bailey Ot 272.4 07/20/2015 AXEL TAVARES, WAYNE Bailey Ot 401.9 07/20/2015 AXEL TAVARES, WAYNE Bailey Ot 414.00 07/20/2015 AXEL TAVARES, WAYNE Bailey Ot 428.0 07/20/2015 WAYNE REYNA MD Ot 433.10 07/20/2015 WAYNE REYNA MD Ot 433.30 07/20/2015 MENDEZ TAVARES, FRED Gandhi Ot K57.90 DVRTCLOS OF INTEST, PART UNSP, W/O PERF 07/20/2015 FRED SIMMS MD Ot K63.5 POLYP OF COLON 07/20/2015 FRED SIMMS MD Ot Z12.11 ENCOUNTER FOR SCREENING FOR MALIGNANT NE 07/21/2015 FRED SIMMS MD Ot K57.90 07/21/2015 FRED SIMMS MD Ot K63.5 07/21/2015 APRIL SIMMS MDVIER M Ot Z12.11 03/28/2018 MENDEZ TAVARES, FRED Gandhi Ot Z01.818 ENCOUNTER FOR OTHER PREPROCEDURAL EXAMIN 05/08/2018 MENDEZ TAVARES, FRED Gandhi Ot Z01.818 ENCOUNTER FOR OTHER PREPROCEDURAL EXAMIN 05/08/2018 MENDEZ TAVARES, FRED Gandhi Ot Z01.818 ENCOUNTER FOR OTHER PREPROCEDURAL EXAMIN 05/08/2018 MENDEZ TAVARES, FRED Gandhi Ot Z01.818 ENCOUNTER FOR OTHER PREPROCEDURAL EXAMIN Procedures Code Description Performed By Performed On CARDIOLOG WAYNE REYNA 11/13/2013 Results Test Result Range Comp. Metabolic Panel (14) - 05/03/16 17:39 Glucose, Serum 89 mg/dL 65-99 BUN 17 mg/dL 8-27 Creatinine, Serum 1.04 mg/dL 0.76-1.27 eGFR If NonAfricn Am 76 mL/min/1.73 >59 eGFR If Africn Am 87 mL/min/1.73 >59 BUN/Creatinine Ratio 16 10-22 Sodium, Serum 143 mmol/L 134-144 Potassium, Serum 4.3 mmol/L 3.5-5.2 Chloride, Serum 102 mmol/L 96-106 Carbon Dioxide, Total 22 mmol/L 18-29 Calcium, Serum 9.3 mg/dL 8.6-10.2 Protein, Total, Serum 7.4 g/dL 6.0-8.5 Albumin, Serum 4.5 g/dL 3.6-4.8 Globulin, Total 2.9 g/dL 1.5-4.5 A/G Ratio 1.6 1.1-2.5 Bilirubin, Total 0.4 mg/dL 0.0-1.2 Alkaline Phosphatase, S 64 IU/L 39-117 AST (SGOT) 27 IU/L 0-40 ALT (SGPT) 23 IU/L 0-44 Encounters ACCT No. Visit Date/Time Discharge Status Pt. Type Provider Facility Loc./Unit Complaint [id number] 12/20/2013 10:14:00 12/20/2013 23:59:59 CLS Outpatient WAYNE REYNA MD [id number] 11/13/2013 14:45:00 11/13/2013 23:59:59 CLS Outpatient VICKI LISA APRN [id number] 05/04/2016 10:05:00 Document Registration [id number] 05/08/2018 12:56:00 05/08/2018 13:15:00 DIS Outpatient FRED SIMMS MD [facility] PREOP COLONOSCOPY [id number] 04/02/2018 12:45:00 04/02/2018 23:59:59 CLS Preadmit FRED SIMMS MD [facility] ENDO HX POLYPS/FX HX CANCER [id number] 03/27/2018 08:21:00 03/27/2018 23:59:59 CLS Outpatient FRED SIMMS MD [facility] PREOP COLONOSCOPY [id number] 07/20/2015 11:47:00 07/20/2015 14:50:00 DIS Outpatient FRED SIMMS MD [facility] [id number] 12/05/2013 14:31:00 12/05/2013 23:59:59 CLS Outpatient WAYNE REYNA MD [facility] RAD [id number] 10/22/2013 10:51:00 10/22/2013 23:59:59 CLS Outpatient REBA REYNOLDS [facility] CARD [id number] 03/19/2013 06:36:00 03/19/2013 23:59:59 CLS Outpatient BRADEN BROTHERS MD [facility] RAD [id number] 03/02/2013 04:15:00 03/03/2013 17:00:00 DIS Inpatient BRADEN BROTHERS MD [facility] [id number] 07/16/2015 05:38:00 Document Registration [id number] 05/30/2012 10:04:00 Document Registration [id number] 05/23/2012 13:36:00 Document Registration [id number] 08/05/2017 09:20:00 08/05/2017 23:59:59 CLS Outpatient [facility]
[2018-05-14] MEDS ORDERED: NS IV 500 ML 500 ML ONE (07:11)
[2018-05-14 07:23] VITALS: BP 163/89
[2018-05-14] MEDS ORDERED: NS IV 500 ML 500 ML IV PRN (07:25)
[2018-05-14] MEDS ORDERED: fentaNYL INJECTION 100 MCG/2 ML AMP IVP ONE (07:30)
[2018-05-14] MEDS ORDERED: MIDAZOLAM 2 MG/2 ML (VERSED) VIAL IVP ONE (07:30)
[2018-05-14] MEDS ORDERED: fentaNYL INJECTION 100 MCG/2 ML AMP ONE (07:54)
[2018-05-14] MEDS ORDERED: MIDAZOLAM 2 MG/2 ML (VERSED) VIAL ONE ×2 (07:54→07:55)
--- NOTE | 2018-05-14 07:56 | History & Physicial ---
History of Present Illness History of Present Illness Reason for visit/HPI to undergo surveillance colonoscopy. Personal history of adenomatous polyps 3 years ago Date of Admission 05/14/18 Date Seen by a Provider: May 14, 2018 Time Seen by a Provider: 07:54 I consulted on this patient on 05/14/18 07:53 Attending Physician Fred Simms MD Admitting Physician Gregory Stephenson MD Consult Allergies and Home Medications Allergies Coded Allergies: Penicillins (Verified Allergy, Unknown, 07/16/15) Home Medications Albuterol Sulfate 8.5 Gm Hfa.aer.ad, 1-2 PUFF IH Q4H PRN for WHEEZING, (Reported ) Amlodipine Besylate 10 Mg Tablet, 10 MG PO DAILY, (Reported) Clopidogrel Bisulfate 75 Mg Tablet, 75 MG PO DAILY, (Reported) Metoprolol Tartrate 100 Mg Tablet, 100 MG PO BID, (Reported) Olmesartan Medoxomil 20 Mg Tablet, 20 MG PO DAILY, (Reported) Rosuvastatin Calcium 20 Mg Tablet, 20 MG PO HS, (Reported) Patient Home Medication List Home Medication List Reviewed: Yes Past Cuukxym-Nlbpzg-Bqfvac Hx Patient Social History Marrital Status: Employed/Student: retired Alcohol Use: Denies Use Recreational Drug Use: No Smoking Status: Former Smoker Former Smoker, Quit: May 08, 1997 Type Used: Cigarettes 2nd Hand Smoke Exposure: Yes Recent Foreign Travel: No Contact w/other who traveled: No Recent Hopitalizations: No Recent Infectious Disease Expo: No Immunizations Up To Date Tetanus Booster (TDap): More than 5yrs Pediatric: No Seasonal Allergies Seasonal Allergies: No Surgeries Yes (QUAD BYPASS, AORTIC ANYERSUM, GANGLION CYST ON WRIST) CABG Respiratory Yes Currently Using CPAP: No Currently Using BIPAP: No Cardiovascular Yes (QUAD BYPASS, ) Aneurysm, Hypertension Neurological No Reproductive System Hx Reproductive Disorders: No Sexually Transmitted Disease: No HIV/AIDS: No Genitourinary No Gastrointestinal Yes Polyps Musculoskeletal No Endocrine History of Endocrine Disorders: No HEENT History of HEENT Disorders: No Loss of Vision: Bilateral Hearing Impairment: Denies Cancer No Psychosocial History of Psychiatric Problem: No Integumentary History of Skin or Integumenta: No Blood Transfusions History of Blood Disorders: No Family Medical History Family Hx: Alcoholism 09 BROTHER Cancer 03 MOTHER 09 SISTER Chest pain 03 FATHER 09 BROTHER Family history: Allergy Family history: Arthritis 09 SISTER Family history: Breast disease 03 MOTHER Family history: Cardiovascular disease 03 FATHER 03 MOTHER 09 BROTHER Family history: Coronary thrombosis 03 FATHER Family history: Diabetes mellitus 03 MOTHER Family history: Hypertension 03 FATHER 03 MOTHER 09 BROTHER Heart disease 03 FATHER 03 MOTHER 09 BROTHER History of drug abuse 09 SISTER Hypercholesterolemia 09 SISTER Myocardial infarction 03 FATHER 03 MOTHER Stroke 03 FATHER No Family History of: Abdominal aortic aneurysm [place]'s disease Aphasia Cancer of colon Cataract Congenital heart disease Congestive heart failure Cystic fibrosis Dementia Dysphagia Family history: Alzheimer's disease Family history: Asthma Family history: Gastrointestinal disease Family history: Glaucoma Family history: Osteoporosis Family history: Thyroid disorder Headache Hearing loss Hereditary disease History of - anemia History of - disorder History of - respiratory disease Human immunodeficiency virus (HIV) seropositivity Infertile Kidney disease Malignant neoplasm of lung Parkinson's disease Prostate cancer Psychotic disorder Seizure disorder Tuberculosis Visual impairment Review of Systems Constitutional: no symptoms reported EENTM: no symptoms reported Respiratory: no symptoms reported Cardiovascular: no symptoms reported Gastrointestinal: no symptoms reported Genitourinary: no symptoms reported Musculoskeletal: no symptoms reported Skin: no symptoms reported Psychiatric/Neurological: No Symptoms Reported Physical Exam Vital Signs Vital Signs - First Documented 05/14/18 07:23 Temp 97.7 Pulse 61 Resp 18 B/P (MAP) 163/89 (113) Pulse Ox 94 O2 Delivery Room Air Capillary Refill : Height, Weight, BMI Height: 5'8.00" Weight: 220lbs. 0.6oz. [id number]; 33.5 BMI Method:Stated General Appearance: No Apparent Distress Neck: Normal Inspection Respiratory: Lungs Clear Cardiovascular: Regular Rate, Rhythm Gastrointestinal: Non Tender, Soft Rectal: Deferred Extremity: Normal Inspection Neurologic/Psychiatric: Alert, Oriented x3 Skin: Warm/Dry Assessment/Plan Assessment and Plan gentleman with a personal history of adenomatous polyps. Endovascular repair of abdominal aortic aneurysm, antiplatelet therapy has been recommended to be continued and therefore risk of bleeding is high, should polypectomy be warranted. I have made him explicitly aware of this. With regard to the risk benefit analysis, benefits of continuing antiplatelet therapy outweigh the risks and therefore, it is reasonable to proceed. Admission Diagnosis Admission Status: Other (Outpt Proc) FRED SIMMS MD May 14, 2018 07:56
--- NOTE | 2018-05-14 07:57 | Conscious Sedation/ASA ---
Conscious Sedation Pre-Proced Time 07:56 ASA Score 2 For ASA 3 and 4: Consider anesthesia and medical clearance. Also, for patients with a history of failed moderate sedation consider anesthesia. Airway Lungs Heart ASA score ASA 1: a normal healthy patient ASA 2: a patient with a mild systemic disease (mid diabetes, controlled hypertension, obesity ASA 3: a patient with a severe systemic disease that limits activity (angina , COPD, prior Myocardial infarction) ASA 4: a patient with an incapacitating disease that is a constant threat to life (CHF, renal failure) ASA 5: a moribund patient not expected to survive 24 hrs. (ruptured aneurysm) ASA 6: a declared brain patient whose organs are being harvested. For emergent operations, add the letter E after the classification Mallampati Classification Grade 1 Sedation Plan Discussed options with patient/fam The patient is an appropriate candidate to undergo the planned procedure, sedation, and anesthesia. The patient immediately re-assessed prior to indication. FRED SIMMS MD May 14, 2018 07:57
--- NOTE | 2018-05-14 08:24 | Endo Procedure Record ---
Endo Procedure Report Date of Procedure Last Colonoscopy: Yes May 14, 2018 Surgeon (s) FRED SIMMS MD Post Procedure/Op Diagnosis sigmoid diverticulosis Procedure Performed colonoscopy to cecum Description of Procedure Anesthesia Type: Conscious Sedation Specimen(s) collected/removed none Description of the Procedure Indication for the procedure: This gentleman came in for surveillance colonoscopy. He was found to have adenomatous polyps, about 3 years ago. Informed consent was obtained after reviewing the procedure in detail. Due to endovascular intervention regarding an aortic aneurysm and coronary artery disease, it was felt reasonable to continue antiplatelet therapy. Description of the procedure: He was placed in left lateral rectus position and his vital signs were monitored. Conscious sedation was achieved using Versed and fentanyl. Digital rectal examination was unremarkable. The colonoscope was then introduced into the rectum and advanced all the way to the cecum. The scope was then withdrawn slowly and the mucosa examined in a systematic fashion. Finding: Very few sigmoid diverticulae. No recurrent polyps were found. He tolerated the procedure well and was taken back to the nursing area in a stable condition. Impression: Polyp surveillance. No recurrence. Recommend repeating in 5 years. Copy Copies To 1: WILVER SIMS MD, XAVIER M MD May 14, 2018 08:24
--- NOTE | 2018-05-14 08:26 | Discharge Inst-Simple/Standard ---
Discharge Inst-Standard Discharge Medications New, Converted or Re-Newed RX: Other Patient Instructions/Follow Up Plan of Care/Instructions/FU: repeat colonoscopy in 5 years Activity as Tolerated: Yes Discharge Diet: No Restrictions FRED SIMMS MD May 14, 2018 08:26
[2018-05-14 08:35] VITALS: BP 163/89
[2018-05-14 09:05] VITALS: BP 121/63
[2018-05-14 11:06] VITALS: BP 121/63
== END 2018-05-14 09:25 | disposition home or self-care (01) ==
LOC: ENDO 06:57
PROVIDERS: ATTEND Surgery
DX: Z12.11 Encounter for screening for malignant neoplasm of colon (principal); K57.30 Diverticulosis of large intestine without perforation or abscess without bleeding; Z86.010 Personal history of colon polyps; I10 Essential (primary) hypertension; Z87.891 Personal history of nicotine dependence; Z79.899 Other long term (current) drug therapy; Z86.79 Personal history of other diseases of the circulatory system; Z79.02 Long term (current) use of antithrombotics/antiplatelets

== ENCOUNTER 2018-12-03 09:22 | Emergency (ER) | payer OTHER ==
[~2018-12-03] VITALS: Ht 172.7 cm; Wt 96.6 kg
[~2018-12-03 09:22] MED LIST changes: -ROSU20TA PO; +ROSU20TA2 PO
[2018-12-03] MEDS ORDERED: RT-ALBUTEROL/IPRATROPIUM 3 ML (DUONEB) VIAL INH ONE (10:00)
[2018-12-03 10:12] LABS: BILIRUBIN,URINE NEGATIVE (NEGATIVE); CLARITY,URINE CLEAR; COLOR,URINE YELLOW; GLUCOSE, URINE (UA) NEGATIVE (NEGATIVE); KETONES,URINE NEGATIVE (NEGATIVE); LEUKOCYTE ESTERASE ,URINE 1+ (NEGATIVE); NITRITE,URINE NEGATIVE (NEGATIVE); PH,URINE 5 (5-9); PROTEIN,URINE 3+ (NEGATIVE); UROBILINOGEN,URINE NORMAL (NORMAL)
[2018-12-03 10:22] LABS: BACTERIA,URINE TRACE /HPF; SQUAMOUS EPITHELIAL CELL,UR RARE /HPF
[2018-12-03 10:24] LABS: BASOPHILS % (AUTO) 0 % (0-10); EOSINOPHILS # (AUTO) 0.2 10^3/uL (0.0-0.3); EOSINOPHILS % (AUTO) 2 % (0-10); HEMATOCRIT 43 % (40-54); HEMOGLOBIN 14.6 G/DL (13.3-17.7); LYMPHOCYTES # (AUTO) 2.2 X 10^3 (1.0-4.0); LYMPHOCYTES % (AUTO) 25 % (12-44); MEAN CORPUSCULAR HEMOGLOBIN 29 PG (25-34); MEAN CORPUSCULAR HGB CONC 34 G/DL (32-36); MEAN CORPUSCULAR VOLUME 86 FL (80-99); MEAN PLATELET VOLUME 11.2 FL (7.4-10.4); MONOCYTES # (AUTO) 0.7 X 10^3 (0.0-1.0); MONOCYTES % (AUTO) 8 % (0-12); NEUTROPHILS # (AUTO) 5.6 X 10^3 (1.8-7.8); NEUTROPHILS % (AUTO) 65 % (42-75); PLATELET COUNT 196 10^3/uL (130-400); RED CELL DISTRIBUTION WIDTH 14.6 % (10.0-14.5); WHITE BLOOD COUNT 8.6 10^3/uL (4.3-11.0)
--- NOTE | 2018-12-03 10:30 | NUR ---
PT SITTING ON SIDE OF BED. STATES HE IS BREATHING BETTER AND NEEDS NOTHING AT THIS TIME.
[2018-12-03 10:36] LABS: INR 0.9 (0.8-1.4); PROTHROMBIN TIME PATIENT 12.8 SEC (12.2-14.7)
[2018-12-03 10:44] LABS: ALANINE AMINOTRANSFERASE 31 U/L (0-55); ALBUMIN 4.3 GM/DL (3.2-4.5); ALKALINE PHOSPHATASE 68 U/L (40-136); BILIRUBIN,TOTAL 0.9 MG/DL (0.1-1.0); BUN/CREATININE RATIO 20; CARBON DIOXIDE 22 MMOL/L (21-32); CHLORIDE 106 MMOL/L (98-107); CREATININE SERUM 1.01 MG/DL (0.60-1.30); GFR ESTIMATED > 60; GLUCOSE 144 MG/DL (70-105); MAGNESIUM 1.7 MG/DL (1.6-2.4); POTASSIUM 4.8 MMOL/L (3.6-5.0); SODIUM 138 MMOL/L (135-145); TOTAL PROTEIN 7.5 GM/DL (6.4-8.2)
--- NOTE | 2018-12-03 10:50 | Diagnostic Imaging Report ---
CLINICAL INDICATION: Patient with shortness of air starting this morning at approximately 0600 hours. EXAM: Portable chest x-ray, upright view. COMPARISON: Chest x-ray dated 03/02/2013. FINDINGS: Again seen are postop changes to the chest, consistent with CABG, with sternotomy wires and mediastinal clips. There is cardiomegaly noted. There is interval progression of mild pulmonary vascular congestion and increased interstitial thickening. There is no pleural effusion. There are mild patchy airspace opacities and groundglass opacification seen bilaterally. There is No pneumothorax. The remainder of this exam shows no significant interval change compared to the prior study of comparison. IMPRESSION: 1. There is cardiomegaly with progression of pulmonary vascular congestion, concerning for congestive heart failure. 2. There are mild patchy airspace opacifications/ground glass opacifications which may related to pulmonary congestion. Superimposed infectious lung infiltrates cannot be completely excluded. 3. Again seen are postop changes to the chest, consistent with CABG. Dictated by: Dictated on workstation # [id number]
[2018-12-03] MEDS ORDERED: HOLD METFORMIN - RECEIVED CONTRAST 20 ML VIAL IV SCH (11:00)
[2018-12-03] MEDS ORDERED: NS 100 ML (IVPB) BAG IV ONE (11:00)
[2018-12-03] MEDS ORDERED: CATHETER FLUSH 10 ML SYR IV PRN (11:00)
[2018-12-03] MEDS ORDERED: IOHEXOL 350 MG/ML 100 ML (OMNIPAQUE 350) VIAL IV ONE (11:00)
--- NOTE | 2018-12-03 11:15 | NUR ---
PT SITTING ON SIDE OF BED IN TRIPOD POSITION ON BED SIDE TABLE. STATES HE IS BREATHING OKAY AND NEEDS NOTHING AT THIS TIME.
[2018-12-03] MEDS ORDERED: LEVOFLOXACIN 750 MG/150 ML IV 150 ML IV ONE (11:30)
--- NOTE | 2018-12-03 12:18 | Diagnostic Imaging Report ---
PROCEDURE: CT angiography of the chest with contrast. TECHNIQUE: Multiple contiguous axial images were obtained through the chest after uneventful bolus administration of intravenous contrast. 3D reconstructed CTA MIP acquisitions were also performed. Auto Exposure Controls were utilized during the CT exam to meet ALARA standards for radiation dose reduction. INDICATION: Elevated blood pressure and shortness of air. Patient's prior history of thoracic aortic dissection and repair. No prior studies are available for comparison. There are postsurgical changes involving the ascending thoracic aorta. No dissection is seen involving the ascending aorta or aortic arch. There appears to be dissection involving the descending thoracic aorta just proximal to the hiatus. This extends into the abdomen. The celiac and SMA appear to arise from the true lumen. The right renal artery arises from the true lumen. A left renal was not entirely included on the study. Contrast is seen within the false lumen. No definite aneurysmal dilatation is seen. No retroperitoneal hemorrhage is seen. No pericardial fluid is identified. There are changes of median sternotomy. There is a small right and trace left pleural effusion. There are some prominent lymph nodes in the mediastinum. AP window node measures 2.4 x 1.6 cm. There is fullness in the subcarinal region as well. Areas of subsegmental atelectasis or scarring in the right middle lobe and lingula as well as the right upper lobe is noted. Impression: Ascending thoracic aortic repair. 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 Contrast does extend into the false lumen. Small right and trace left pleural effusion. Bilateral regions of subsegmental atelectasis or scarring. Indeterminate mediastinal lymphadenopathy. Dictated by: Dictated on workstation # [id number]
--- NOTE | 2018-12-03 12:27 | ED General ---
General Chief Complaint: Respiratory Problems Stated Complaint: SOA Nursing Triage Note: PT AMBULATE TO ROOM 04 WITH C/O SOA STARTING THIS MORNING APPROX 0600. Nursing Sepsis Screen: No Definite Risk Source of Information: Patient Exam Limitations: No Limitations History of Present Illness Date Seen by Provider: Dec 03, 2018 Time Seen by Provider: 09:51 Initial Comments This 68 gentleman presents to the emergency room with complaints of shortness of breath and diaphoresis. He denies any chest pain. He is notably hypertensive on arrival. He has not taken most of his medications for the past week according to his . He did take his blood pressure medication this morning. He has a history of CABG and aortic dissection repair. His CABG was performed at [facility]. His aortic dissection was identified at [facility] and he was flown to [facility] in [place] for the repair. Patient is hypoxic on room air and nasal cannula was applied. He has had some mild cough recently as well. He woke this morning with the significant shortness of breath. He comments that he felt similar to this when he was diagnosed with aortic dissection. Allergies and Home Medications Allergies Coded Allergies: Penicillins (Verified Allergy, Unknown, 07/16/15) Home Medications Albuterol Sulfate 8.5 Gm Hfa.aer.ad, 1-2 PUFF IH Q4H PRN for WHEEZING, ( Reported) Amlodipine Besylate 10 Mg Tablet, 10 MG PO DAILY, (Reported) Clopidogrel Bisulfate 75 Mg Tablet, 75 MG PO DAILY, (Reported) Metoprolol Tartrate 100 Mg Tablet, 100 MG PO BID, (Reported) Olmesartan Medoxomil 20 Mg Tablet, 20 MG PO DAILY, (Reported) Rosuvastatin Calcium 20 Mg Tablet, 20 MG PO HS, (Reported) Patient Home Medication List Home Medication List Reviewed: Yes Review of Systems Review of Systems Constitutional: see HPI, diaphoresis EENTM: no symptoms reported Respiratory: see HPI Cardiovascular: see HPI Gastrointestinal: no symptoms reported Genitourinary: no symptoms reported Musculoskeletal: no symptoms reported Skin: see HPI Psychiatric/Neurological: No Symptoms Reported Hematologic/Lymphatic: No Symptoms Reported Immunological/Allergic: no symptoms reported Past Hvmidqp-Ujypou-Rrcdyn Hx Patient Social History Alcohol Use: Denies Use Recreational Drug Use: No Smoking Status: Former Smoker Type Used: Cigarettes Former Smoker, Quit: May 08, 1997 2nd Hand Smoke Exposure: Yes Recent Foreign Travel: No Contact w/Someone Who Travel: No Recent Infectious Disease Expo: No Recent Hopitalizations: No Physical Abuse: No Sexual Abuse: No Mistreated: No Fear: No Immunizations Up To Date Tetanus Booster (TDap): More than 5yrs PED Vaccines UTD: No Seasonal Allergies Seasonal Allergies: No Past Medical History Surgeries: Yes (QUAD BYPASS, AORTIC ANYERSUM, GANGLION CYST ON WRIST) CABG Respiratory: Yes COPD Currently Using CPAP: No Currently Using BIPAP: No Cardiac: Yes (thoracic aortic dissection with a sending aortic dissection repair, congestive heart failure) Aneurysm, Coronary Artery Disease, Hypertension Neurological: No Reproductive Disorders: No Sexually Transmitted Disease: No HIV/AIDS: No Genitourinary: No Gastrointestinal: Yes Polyps Musculoskeletal: No Endocrine: No HEENT: No Loss of Vision: Bilateral Hearing Impairment: Denies Cancer: No Psychosocial: No Integumentary: No Blood Disorders: No Family Medical History Alcoholism 09 BROTHER Cancer 03 MOTHER 09 SISTER Chest pain 03 FATHER 09 BROTHER Family history: Allergy Family history: Arthritis 09 SISTER Family history: Breast disease 03 MOTHER Family history: Cardiovascular disease 03 FATHER 03 MOTHER 09 BROTHER Family history: Coronary thrombosis 03 FATHER Family history: Diabetes mellitus 03 MOTHER Family history: Hypertension 03 FATHER 03 MOTHER 09 BROTHER Heart disease 03 FATHER 03 MOTHER 09 BROTHER History of drug abuse 09 SISTER Hypercholesterolemia 09 SISTER Myocardial infarction 03 FATHER 03 MOTHER Stroke 03 FATHER No Family History of: Abdominal aortic aneurysm Raymond's disease Aphasia Cancer of colon Cataract Congenital heart disease Congestive heart failure Cystic fibrosis Dementia Dysphagia Family history: Alzheimer's disease Family history: Asthma Family history: Gastrointestinal disease Family history: Glaucoma Family history: Osteoporosis Family history: Thyroid disorder Headache Hearing loss Hereditary disease History of - anemia History of - disorder History of - respiratory disease Human immunodeficiency virus (HIV) seropositivity Infertile Kidney disease Malignant neoplasm of lung Parkinson's disease Prostate cancer Psychotic disorder Seizure disorder Tuberculosis Visual impairment Physical Exam-Suspected Sepsis Physical Exam Vital Signs Vital Signs - First Documented Capillary Refill : Less Than 3 Seconds Blood Pressure Mean: 101 Height, Weight, BMI Height: 5'8.00" Weight: 213lbs. 0.6oz. 96.313000ug; 33.5 BMI Method:Stated General Appearance: WD/WN, Moderate Distress HEENT: PERRL/EOMI, Normal ENT Inspection Neck: Normal Inspection Respiratory: Accessory Muscle Use; No Crackles; Decreased Breath Sounds, Respiratory Distress, Wheezing Cardiovascular: Regular Rate, Rhythm, No Edema, No Murmur, Normal Peripheral Pulses Gastrointestinal: Non Tender, Soft Extremity: Normal Inspection, No Pedal Edema Neurologic/Psychiatric: Alert, Oriented x3, No Motor/Sensory Deficits, Normal Mood/Affect, attendant honor bar II-XII Norm as Tested Skin: normal color, diaphoresis Focused Exam Lactate Level 12/03/18 10:09: Lactic Acid Level 1.23 Lactic Acid Level Progress/Results/Core Measures Suspected Sepsis Recent Fever Within 48 Hours: No Infection Criteria Present: None New/Unexplained Altered Menta: No Sepsis Screen: No Definite Risk SIRS Temperature:98.6 Pulse: 75 Respiratory Rate: 19 Laboratory Tests 12/03/18 09:34: White Blood Count 8.6 Blood Pressure 138 /83 Mean: 101 12/03/18 10:09: Lactic Acid Level 1.23 Laboratory Tests 12/03/18 09:34: Creatinine 1.01, INR Comment 0.9, Platelet Count 196, Total Bilirubin 0.9 Results/Orders Lab Results Laboratory Tests Test 12/03/18 08:19 12/03/18 09:14 12/03/18 09:34 12/03/18 10:09 Range/Units Urine Color YELLOW Urine Clarity CLEAR Urine pH 5 5-9 Urine Specific [place] 1.020 1.016-1.022 Urine Protein 3+ H NEGATIVE Urine Glucose (UA) NEGATIVE NEGATIVE Urine Ketones NEGATIVE NEGATIVE Urine Nitrite NEGATIVE NEGATIVE Urine Bilirubin NEGATIVE NEGATIVE Urine Urobilinogen NORMAL NORMAL MG/DL Urine Leukocyte Esterase 1+ H NEGATIVE Urine RBC (Auto) NEGATIVE NEGATIVE Urine RBC NONE /HPF Urine WBC 5-10 H /HPF Urine Squamous Epithelial Cells RARE /HPF Urine Crystals NONE /LPF Urine Bacteria TRACE /HPF Urine Casts PRESENT /LPF Urine Hyaline Casts 5-10 H /LPF Urine Mucus SMALL H /LPF Urine Culture Indicated CULTURE PENDING C-Reactive Protein High Sensitivity 0.66 H 0.00-0.50 MG/DL White Blood Count 8.6 4.3-11.0 10^3/uL Red Blood Count 4.99 4.35-5.85 10^6/uL Hemoglobin 14.6 13.3-17.7 G/DL Hematocrit 43 40-54 % Mean Corpuscular Volume 86 80-99 FL Mean Corpuscular Hemoglobin 29 25-34 PG Mean Corpuscular Hemoglobin Concent 34 32-36 G/DL Red Cell Distribution Width 14.6 H 10.0-14.5 % Platelet Count 196 130-400 10^3/uL Mean Platelet Volume 11.2 H 7.4-10.4 FL Neutrophils (%) (Auto) 65 42-75 % Lymphocytes (%) (Auto) 25 12-44 % Monocytes (%) (Auto) 8 0-12 % Eosinophils (%) (Auto) 2 0-10 % Basophils (%) (Auto) 0 0-10 % Neutrophils # (Auto) 5.6 1.8-7.8 X 10^3 Lymphocytes # (Auto) 2.2 1.0-4.0 X 10^3 Monocytes # (Auto) 0.7 0.0-1.0 X 10^3 Eosinophils # (Auto) 0.2 0.0-0.3 10^3/uL Basophils # (Auto) 0.0 0.0-0.1 10^3/uL Prothrombin Time 12.8 12.2-14.7 SEC INR Comment 0.9 0.8-1.4 Activated Partial Thromboplast Time 35 24-35 SEC Sodium Level 138 135-145 MMOL/L Potassium Level 4.8 3.6-5.0 MMOL/L Chloride Level 106 98-107 MMOL/L Carbon Dioxide Level 22 21-32 MMOL/L Anion Gap 10 5-14 MMOL/L Blood Urea Nitrogen 20 H 7-18 MG/DL Creatinine 1.01 0.60-1.30 MG/DL Estimat Glomerular Filtration Rate > 60 BUN/Creatinine Ratio 20 Glucose Level 144 H 70-105 MG/DL Calcium Level 9.0 8.5-10.1 MG/DL Corrected Calcium 8.8 8.5-10.1 MG/DL Magnesium Level 1.7 1.6-2.4 MG/DL Total Bilirubin 0.9 0.1-1.0 MG/DL Aspartate Amino Transf (AST/SGOT) 37 H 5-34 U/L Alanine Aminotransferase (ALT/SGPT) 31 0-55 U/L Alkaline Phosphatase 68 40-136 U/L Myoglobin 63.9 10.0-92.0 NG/ML Troponin I 0.060 H <0.028 NG/ML B-Type Natriuretic Peptide 705.2 H <100.0 PG/ML Total Protein 7.5 6.4-8.2 GM/DL Albumin 4.3 3.2-4.5 GM/DL Lactic Acid Level 1.23 0.50-2.00 MMOL/L My Orders Orders - ANA MARIA VELAZQUEZ MD Cbc With Automated Diff (12/03/18 09:59) Comprehensive Metabolic Panel (12/03/18 09:59) Blood Culture (12/03/18 09:59) Sputum Culture (12/03/18 09:59) Urinalysis (12/03/18 09:59) Urine Culture (12/03/18 09:59) Protime With Inr (12/03/18 09:59) Partial Thromboplastin Time (12/03/18 09:59) Chest 1 View, Ap/Pa Only (12/03/18 09:59) Ed Iv/Invasive Line Start (12/03/18 09:59) Ed Iv/Invasive Line Start (12/03/18 09:59) Vital Signs Adult Sepsis Patie Q15M (12/03/18 09:59) O2 (12/03/18 09:59) Remove Rings In Anticipation O (12/03/18 09:59) Lactic Acid Analyzer (12/03/18 09:59) Magnesium (12/03/18 09:59) Ekg Tracing (12/03/18 09:59) Cardiac Profile 1 (12/03/18 09:59) Myoglobin Serum (12/03/18 09:59) O2 (12/03/18 09:59) Monitor-Rhythm Ecg Trace Only (12/03/18 09:59) Lipid Panel (12/04/18 06:00) Albuterol/Ipra Inhalation Soln (Duoneb I (12/03/18 10:00) Svn Small Volume Nebulizer (12/03/18 09:59) Ct Angio Chest W (12/03/18 10:53) Iohexol Injection (Omnipaque 350 Mg/Ml 1 (12/03/18 11:00) Received Contrast (Hold Metformin- Contr (12/03/18 11:00) Sodium Chloride Flush (Catheter Flush Sy (12/03/18 11:00) Ns (Ivpb) (Sodium Chloride 0.9% Ivpb Bag (12/03/18 11:00) Ekg Tracing (12/03/18 11:10) Levofloxacin 750 Mg/150 Ml Iv (Levaquin (12/03/18 11:30) BNP (12/03/18 12:38) Hs C Reactive Protein (12/03/18 12:47) Furosemide Injection (Lasix Injection) (12/03/18 13:45) Medications Given in ED Current Medications Medications Dose Ordered Sig/Reyes Route Start Time Stop Time Status Last Admin Dose Admin Albuterol/ Ipratropium 3 ml ONCE ONCE INH 12/03/18 10:00 12/03/18 10:02 DC 12/03/18 10:15 3 ML Furosemide 40 mg ONCE ONCE IVP 12/03/18 13:45 12/03/18 13:46 DC 12/03/18 13:47 40 MG Iohexol 100 ml ONCE ONCE IV 12/03/18 11:00 12/03/18 11:05 DC 12/03/18 11:35 80 ML Levofloxacin/ Dextrose 150 ml @ 100 mls/hr ONCE ONCE IV 12/03/18 11:30 12/03/18 12:59 DC 12/03/18 12:27 100 MLS/HR Sodium Chloride 10 ml NEEDED PRN IV 12/03/18 11:00 12/03/18 11:36 10 ML Sodium Chloride 100 ml ONCE ONCE IV 12/03/18 11:00 12/03/18 11:05 DC 12/03/18 11:36 80 ML Vital Signs/I&O 12/03/18 12/03/18 12/03/18 12/03/18 09:31 09:31 10:15 10:57 Temp 97.6 98.6 Pulse 81 75 Resp 19 B/P (MAP) 175/122 (139) 138/83 Pulse Ox 94 94 95 94 O2 Delivery Nasal Cannula Nasal Cannula Nasal Cannula Nasal Cannula O2 Flow Rate 2.00 2.00 2.00 2.00 Capillary Refill : Less Than 3 Seconds Blood Pressure Mean: 101 Progress Note #1: Time: 13:27 Progress Note Patient was immediately assessed. Chest pain and septic workups were initiated. DuoNeb treatment was administered which improved his breathing. Chest x-ray showed scarring versus infiltrate. Blood cultures and lactic acid were drawn. Levaquin was started for empiric antibiotic therapy. CT angiogram of the chest was pursued due to history of aortic dissection in patients, that his presentation today similar to the presentation he had with his aortic dissection. CT did show aortic dissection. This was discussed with the radiolo gist. Repair could be seen at the ascending aorta. The more distal dissection could be chronic in nature. Patient denied any chest pain throughout his ER stay. Troponin was slightly elevated at 0.06 but was not critical. EKG showed no significant change from prior. CT images were loaded to the clouded at [facility] for comparison review wih his prior CT. CT suggested possible pulmonary edema versus scarring. Case was discussed with Dr. Leone at [facility] who accepted transfer. She communicated the last ejection fraction at [facility] was 35 percent. Further evaluation was pursued with CRP and BNP. BNP was elevated but CRP was not significantly elevated. I communicated this update to Dr. Clayton who recommended Lasix 40 mg. Patient is awaiting transfer at this time and is much more comfortable. Progress Note #2: Time: 18:43 Progress Note Patient remained stable and fairly comfortable throughout the remainder of his ER stay. Transfer was delayed due to bed availability at [facility] and EMS transport availability with [facility]. Patient was eventually transferred. After Lasix 40 mg IV he diuresed about 1500 mL. Vital signs remained stable. ECG EKG #1: EKG Time: 10:10 Rate: 87 Rhythm: Normal Sinus Comment Sinus rhythm with ST elevation in the anterior leads, likely secondary to LVH. EKG #2: EKG Time: 11:40 Rate: 74 Rhythm: Normal Sinus Comment Sinus rhythm with ST elevation secondary to LVH. This was compared with old EKG and with prior EKG today. There is no significant change. There is questionable incomplete left bundle branch block. Diagnostic Imaging Diagonstic Imaging: Xray Plain Films/CT/US/NM/MRI: chest Comments Chest x-ray viewed by me and report reviewed. See report below: NAME: LUCINA PATEL [facility] REC#: [id number] PT STATUS: REG ER : 1950 PHYSICIAN: ANA MARIA VELAZQUEZ MD ADMIT DATE: 12/03/18/ER Draft Date of Exam:12/03/18 CHEST 1 VIEW, AP/PA ONLY CLINICAL INDICATION: Patient with shortness of air starting this morning at approximately 0600 hours. EXAM: Portable chest x-ray, upright view. COMPARISON: Chest x-ray dated 03/02/2013. FINDINGS: Again seen are postop changes to the chest, consistent with CABG, with sternotomy wires and mediastinal clips. There is cardiomegaly noted. There is interval progression of mild pulmonary vascular congestion and increased interstitial thickening. There is no pleural effusion. There are mild patchy airspace opacities and groundglass opacification seen bilaterally. There is No pneumothorax. The remainder of this exam shows no significant interval change compared to the prior study of comparison. IMPRESSION: 1. There is cardiomegaly with progression of pulmonary vascular congestion, concerning for congestive heart failure. 2. There are mild patchy airspace opacifications/ground glass opacifications which may related to pulmonary congestion. Superimposed infectious lung infiltrates cannot be completely excluded. 3. Again seen are postop changes to the chest, consistent with CABG. Dictated on workstation # [id number] Dict: 12/03/18 1042 Trans: 12/03/18 1049 [id number] Interpreted by: JENIFER OROZCO MD Diagonstic Imaging: CT Plain Films/CT/US/NM/MRI: chest Comments CT angiogram of the chest viewed by me. Discussed with radiologist. Report reviewed. See report below: NAME: LUCINA PATEL [facility] REC#: [id number] PT STATUS: REG ER : 1950 PHYSICIAN: ANA MARIA VELAZQUEZ MD ADMIT DATE: 12/03/18/ER Draft Date of Exam:12/03/18 CT ANGIO CHEST W PROCEDURE: CT angiography of the chest with contrast. TECHNIQUE: Multiple contiguous axial images were obtained through the chest after uneventful bolus administration of intravenous contrast. 3D reconstructed CTA MIP acquisitions were also performed. Auto Exposure Controls were utilized during the CT exam to meet ALARA standards for radiation dose reduction. INDICATION: Elevated blood pressure and shortness of air. Patient's prior history of thoracic aortic dissection and repair. No prior studies are available for comparison. There are postsurgical changes involving the ascending thoracic aorta. No dissection is seen involving the ascending aorta or aortic arch. There appears to be dissection involving the descending thoracic aorta just proximal to the hiatus. This extends into the abdomen. The celiac and SMA appear to arise from the true lumen. The right renal artery arises from the true lumen. A left renal was not entirely included on the study. Contrast is seen within the false lumen. No definite aneurysmal dilatation is seen. No retroperitoneal hemorrhage is seen. No pericardial fluid is identified. There are changes of median sternotomy. There is a small right and trace left pleural effusion. There are some prominent lymph nodes in the mediastinum. AP window node measures 2.4 x 1.6 cm. There is fullness in the subcarinal region as well. Areas of subsegmental atelectasis or scarring in the right middle lobe and lingula as well as the right upper lobe is noted. Impression: Ascending thoracic aortic repair. 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 Contrast does extend into the false lumen. Small right and trace left pleural effusion. Bilateral regions of subsegmental atelectasis or scarring. Indeterminate mediastinal lymphadenopathy. Dictated on workstation # [id number] Dict: 12/03/18 1205 Trans: 12/03/18 1217 [facility] [id number] Interpreted by: ISMAEL BRAN MD Departure Impression Primary Impression: Respiratory failure Qualified Codes: J96.01 - Acute respiratory failure with hypoxia Additional Impressions: Pneumonia Qualified Codes: J18.1 - Lobar pneumonia, unspecified organism Hypoxia Chronic thoracic aortic dissection Congestive heart failure Qualified Codes: I50.9 - Heart failure, unspecified Disposition: 02 XFER SHT-TRM HOSP Condition: Improved Transfer Time Spoke to Accepting Phy: 12:18 Transfer Progress Notes Transfer accepted by Dr. Leone at [facility] Transfer Time: 18:40 Transfer Facility: [facility] Method of Transfer: EMS Departure-Patient Inst. Referrals: WILVER SIMS MD (PCP/Family) Primary Care Physician ANA MARIA VELAZQUEZ MD Dec 03, 2018 12:27
--- NOTE | 2018-12-03 12:45 | NUR ---
PT REMAINS SITTING ON SIDE OF BED. PT HAS NO NEEDS AT THIS TIME.
[2018-12-03] MEDS ORDERED: FUROSEMIDE 40 MG/4 ML INJ (LASIX) IVP ONE (13:45)
--- NOTE | 2018-12-03 13:55 | NUR ---
PT GIVEN LASIX. PT GIVEN URINAL AND INSTRUCTED TO USE URINAL TO DRAIN BLADDER. PT INSTRUCTED TO USE CALL LIGHT IF HE NEEDS ASSISTANCE. PT VOICED UNDERSTANDING.
--- NOTE | 2018-12-03 14:20 | NUR ---
[facility] ONE-CALL REPROTS STILL WAITING ON BED ASSIGNMENT AT THIS TIME.
--- NOTE | 2018-12-03 14:31 | NUR ---
PT AND INFORMED OF TRANSPORT AND BED ASSIGNMENT STATUS AT [facility] AT THIS TIME.
--- NOTE | 2018-12-03 15:17 | NUR ---
PT SITTING ON SIDE OF BED. PT INFORMED THAT [facility] PT STATES UNDERSTANDING. PT REMAINS IN PLEASANT MOOD.
--- NOTE | 2018-12-03 16:16 | NUR ---
PT SITTING ON SIDE OF BED WITH FAMILY IN ROOM. PT STATES THERE IS NOTHING HE NEEDS AT THIS TIME. PT INSTRUCTED TO USE CALL LIGHT IF HE NEEDS ANYTHING.
--- NOTE | 2018-12-03 17:01 | NUR ---
REPORT CALLED TO NORAH VILLAFUERTE AT [facility]. PT INFORMED THAT A ROOM NUMBER HAS BEEN ASSIGNED AND WE ARE WAITING ON TRANSPORT.
[2018-12-03 18:45] VITALS: BP 159/81
== END 2018-12-03 18:44 | disposition short-term general hospital (02) ==
LOC: EDUNIT# 09:22 → ER 09:23
DX: J96.91 Respiratory failure, unspecified with hypoxia (principal); J18.9 Pneumonia, unspecified organism; I71.01 Dissection of thoracic aorta; I11.0 Hypertensive heart disease with heart failure; I50.9 Heart failure, unspecified; J44.9 Chronic obstructive pulmonary disease, unspecified; I25.10 Atherosclerotic heart disease of native coronary artery without angina pectoris; Z95.1 Presence of aortocoronary bypass graft; Z88.0 Allergy status to penicillin; Z79.02 Long term (current) use of antithrombotics/antiplatelets; Z87.891 Personal history of nicotine dependence; Z77.22 Contact with and (suspected) exposure to environmental tobacco smoke (acute) (chronic); Z82.49 Family history of ischemic heart disease and other diseases of the circulatory system
CPT/HCPCS: 36415; 71045; 71275; 80053; 81000; 83605; 83735; 83874; 83880; 84484; 85025; 85610; 85730; 86141; 87040; 87088; 93005; 93041; 94640

== ENCOUNTER 2019-01-17 08:23 | Outpatient (CLI) | payer OTHER ==
[~2019-01-17] VITALS: Ht 172.7 cm; Wt 100.2 kg
[2019-01-17 08:43] VITALS: BP 170/88
[2019-01-17 09:28] LABS: BASOPHILS % (AUTO) 0 % (0-10); EOSINOPHILS # (AUTO) 0.2 10^3/uL (0.0-0.3); EOSINOPHILS % (AUTO) 4 % (0-10); HEMATOCRIT 41 % (40-54); HEMOGLOBIN 14.1 G/DL (13.3-17.7); LYMPHOCYTES # (AUTO) 1.6 X 10^3 (1.0-4.0); LYMPHOCYTES % (AUTO) 33 % (12-44); MEAN CORPUSCULAR HEMOGLOBIN 29 PG (25-34); MEAN CORPUSCULAR HGB CONC 34 G/DL (32-36); MEAN CORPUSCULAR VOLUME 85 FL (80-99); MEAN PLATELET VOLUME 10.8 FL (7.4-10.4); MONOCYTES # (AUTO) 0.4 X 10^3 (0.0-1.0); MONOCYTES % (AUTO) 9 % (0-12); NEUTROPHILS # (AUTO) 2.5 X 10^3 (1.8-7.8); NEUTROPHILS % (AUTO) 54 % (42-75); PLATELET COUNT 145 10^3/uL (130-400); RED CELL DISTRIBUTION WIDTH 13.7 % (10.0-14.5); WHITE BLOOD COUNT 4.7 10^3/uL (4.3-11.0)
[2019-01-18] MEDS ORDERED: FURO-124 PO (11:16)
[2019-01-18] MEDS ORDERED: POTA10TA10 PO (11:16)
== END 2019-01-17 10:11 | disposition home or self-care (01) ==
LOC: PREOP 08:23
PROVIDERS: ATTEND Surgery
DX: Z01.818 Encounter for other preprocedural examination (principal); K42.9 Umbilical hernia without obstruction or gangrene
CPT/HCPCS: 36415; 85025; 87081

== ENCOUNTER 2019-01-25 06:00 | Day surgery (SDC) | payer OTHER ==
[~2019-01-25] VITALS: Ht 172 cm; Wt 100.2 kg
[2019-01-25] VITALS (11 sets, daily range): BP systolic 121–148; BP diastolic 67–83
[~2019-01-25 06:00] MED LIST changes: +FURO-124 PO; +POTA10TA10 PO
[2019-01-25] MEDS ORDERED: CLINDAMYCIN 600 MG/50 ML IVPB 50 ML IV ONE ×2 (06:30→06:33)
[2019-01-25] MEDS: LACTATED RINGERS 1,000 ML IV PRN ×2 (06:31→08:50)
[2019-01-25] MEDS ORDERED: CATHETER FLUSH 10 ML SYR IV PRN (07:00)
[2019-01-25] MEDS ORDERED: MIDAZOLAM 2 MG/2 ML (VERSED) VIAL ONE (07:20)
[2019-01-25] MEDS ORDERED: fentaNYL INJECTION 100 MCG/2 ML AMP ONE (07:20)
--- NOTE | 2019-01-25 08:05 | Progress Note-Pre Operative ---
Pre-Operative Progress Note H&P Reviewed The H&P was reviewed, patient examined and no changes noted. Date Seen by Provider: Jan 25, 2019 Time Seen by Provider: 08:05 Date H&P Reviewed: Jan 25, 2019 Time H&P Reviewed: 08:05 Pre-Operative Diagnosis: umbilical hernia DERECK DECKER DO Jan 25, 2019 08:05
[2019-01-25] MEDS ORDERED: BUP/EPI 0.5% 1:200,000 (SENSORCAINE) 30 ML VIAL ONE (08:10)
[2019-01-25] MEDS ORDERED: ONDANSETRON 4 MG/2 ML (SDV) Z0FRAN ONE (08:55)
[2019-01-25] MEDS ORDERED: SEVOFLURANE (ULTANE) 15 ML INHAL SOLN ONE ×2 (08:55→09:36)
[2019-01-25] MEDS ORDERED: LIDOCAINE PF 2% 5 ML (XYLOCAINE) VIAL ONE (08:55)
[2019-01-25] MEDS ORDERED: proPOfol 200 MG/20 ML (DIPRIVAN) VIAL IV ONE (08:55)
[2019-01-25] MEDS ORDERED: DEXAMETHASONE 10 MG/ML (DECADRON) 1 ML VIAL ONE (08:55)
--- NOTE | 2019-01-25 09:09 | Progress Note-Post Operative ---
Post-Operative Progess Note Surgeon (s)/Bulk Tank Car Unloader (s) Surgeon DERECK DECKER DO Bulk Tank Car Unloader: Dr. Irwin Pre-Operative Diagnosis umbilical hernia Post-Operative Diagnosis incarcerated umbilical hernia Procedure & Operative Findings Date of Procedure 01/25/19 Procedure Performed/Findings lap incarcerated umbilical hernia repair Anesthesia Type gen Estimated Blood Loss Estimated blood loss (mL): min Specimens/Packing Specimens Removed none DERECK DECKER DO Jan 25, 2019 09:09
[2019-01-25] MEDS ORDERED: DOCU-143 PO (09:11)
[2019-01-25] MEDS ORDERED: ACHD5005 PO (09:11)
--- NOTE | 2019-01-25 09:13 | Discharge Inst-Simple/Standard ---
Discharge Inst-Standard Discharge Medications New, Converted or Re-Newed RX: RX on Chart Patient Instructions/Follow Up Plan of Care/Instructions/FU: 2-3 weeks Brian Activity as Tolerated: Yes Discharge Diet: Regular Diet Other Inst to Patient Follow up Appt: Make appointment for 2-3 weeks. Instructions: No lifting greater than 10 pounds. No strenuous activity. May shower in 24 hours, no tub bath or soaking. Use incentive spirometer at home as directed. No Smoking Skin/Wound Care: May remove bandage in 48 hours. You need to leave the glue over incisions it will fall off on its own. Symptoms to Report: Appetite Changes, Extremity Discoloration, Numbness/Tingling, Swelling Increased, Bleeding Excessive, Eyesight Changes, Pain Increased, Urine Color Change, Constipation(Persistent), Fever over 101 degree F, Pain/Pressure in chest, Urinating Difficulty, Cough Up/Vomit Blood, Heart Beat Irreg/Pounding, Pain/Pressure in jaw, Vaginal Bleeding Increase, Cramps in feet or legs, Lightheadedness, Pain/Pressure in shoulder, Diarrhea(Persistent), Memory Changes Suddenly, Questions/Concerns, Weight gain consecutive days, Dizziness/Fainting, Nausea/Vomiting, Shortness of Breath, Weight gain over 2 pounds If questions or concerns contact your physician Or seek help at emergency department. DERECK DECKER DO Jan 25, 2019 09:13
[2019-01-25] MEDS ORDERED: KETOROLAC 30 MG/ML VIAL ONE ×2 (09:17→09:36)
[2019-01-25] MEDS ORDERED: morphine INJ 10 MG/ML 1ML (SYR OR VIAL) IVP ONE (09:45)
[2019-01-25] MEDS ORDERED: ONDANSETRON 4 MG/2 ML (SDV) Z0FRAN IVP PRN (09:45)
[2019-01-25] MEDS ORDERED: HYDROmorphone 2 MG/ML VIAL (DILAUDID) IV ONE (09:45)
[2019-01-25] MEDS ORDERED: ACETAMINOPHEN 500 MG TAB (TYLENOL) ONE (10:42)
[2019-01-25] MEDS ORDERED: ACETAMINOPHEN 500 MG TAB (TYLENOL) PO ONE (10:45)
--- NOTE | 2019-01-25 11:18 | Anesthesia-General Post-Op ---
General Patient Condition Mental Status/LOC: Same as Preop Cardiovascular: Satisfactory Nausea/Vomiting: Absent Respiratory: Satisfactory Pain: Controlled Complications: Absent Post Op Complications Complications None Follow Up Care/Instructions Patient Instructions None needed. Anesthesia/Patient Condition Patient Condition Patient is doing well, no complaints, stable vital signs, no apparent adverse anesthesia problems. No complications reported per nursing. ANDRE HOLT CRNA Jan 25, 2019 11:18
--- NOTE | 2019-01-25 19:22 | OPERATIVE REPORT ---
DATE OF SERVICE: 01/25/2019 PREOPERATIVE DIAGNOSIS: Umbilical hernia. POSTOPERATIVE DIAGNOSIS: Incarcerated incisional hernia. PROCEDURE PERFORMED: Laparoscopic incarcerated umbilical hernia repair. SURGEON: Dereck Torres DO CLASSROOM TECHNOLOGY COACH: Addison Irwin DO, assisted in retraction, dissection and closure. ESTIMATED BLOOD LOSS: Minimal. COMPLICATIONS: None. ANESTHESIA: General. INDICATIONS: The patient is a 68-year-old male with umbilical hernia. He understands risks and benefits of procedure and he would like to have it repaired. He wishes to proceed. Consent was signed in the chart. DESCRIPTION OF PROCEDURE: The patient was taken to the operating suite, was prepped and draped in sterile fashion. Surgical pause was performed. Local anesthetic was infiltrated in left upper quadrant. An incision was made and cautery dissection was taken down through the abdominal wall. After the muscle was bluntly divided, the abdomen was then entered. A balloon trocar was inserted and pneumoperitoneum was achieved. Under direct visualization of the laparoscope, a 5 mm trocar was placed in the right lower quadrant and one in the left lower quadrant. The hernia was incarcerated with omental fat. This was then taken down and reduced with a hook dissection as well. The falciform ligament was divided with a L-hook cautery. Once the contents were reduced, the hernia defect was then closed using Gary-Viky and a #0 Vicryl. An Echo 4-inch Ventralight mesh was then inserted in the abdomen and grasped with a Gary-Viky and then this was then secured with SecureStrap Tacker circumferentially. The balloon was removed and inner crown was created as well holding it in place. Adequate coverage was present. When the mesh was being placed, the abdominal pressure was decreased. The 12 mm fascial defect was then closed using Gary-Viky and #0 Vicryl in a eeczid-mo-ofpma fashion. The abdomen was then desufflated, the trocars were removed. The skin was then closed with 4-0 Monocryl in subcuticular fashion and Skin Affix was placed over the incisions. The patient tolerated procedure well without any complications. He was taken to recovery room in stable condition. Job ID: [id number] DocumentID: [id number] Dictated Date: 01/25/2019 10:38:30 Test Equipment Mechanic Date: 01/25/2019 19:21:49 Dictated By: DERECK TORRES DO
== END 2019-01-25 12:00 | disposition home or self-care (01) ==
LOC: SDC 06:00
PROVIDERS: ATTEND Surgery
DX: K42.0 Umbilical hernia with obstruction, without gangrene (principal); I10 Essential (primary) hypertension; I08.3 Combined rheumatic disorders of mitral, aortic and tricuspid valves; I25.10 Atherosclerotic heart disease of native coronary artery without angina pectoris; E78.5 Hyperlipidemia, unspecified; E66.9 Obesity, unspecified; Z88.0 Allergy status to penicillin; Z79.899 Other long term (current) drug therapy; Z87.891 Personal history of nicotine dependence; Z95.1 Presence of aortocoronary bypass graft; Z68.39 Body mass index [BMI] 39.0-39.9, adult; Z79.02 Long term (current) use of antithrombotics/antiplatelets; Z82.49 Family history of ischemic heart disease and other diseases of the circulatory system; Z83.3 Family history of diabetes mellitus

== ENCOUNTER 2019-01-27 02:14 | Inpatient (IN) | payer OTHER ==
[2019-01-27] VITALS (8 sets, daily range): BP systolic 96–152; BP diastolic 55–78
[~2019-01-27] VITALS: Ht 172 cm; Wt 100.0 kg
[~2019-01-27 02:14] MED LIST changes: +ACHD5005 PO; +DOCU-143 PO
--- NOTE | 2019-01-27 02:20 | NUR ---
Patient placed on oxygen via 2 LPM by NC due to oxygen saturation of 88% on room air. Patient's oxygen saturation rises to 94% with oxygen.
[2019-01-27] MEDS ORDERED: methylPREDNISolone 125 MG (Solu-MEDROL) VIAL IV STA (02:27)
[2019-01-27] MEDS ORDERED: RT-ALBUTEROL/IPRATROPIUM 3 ML (DUONEB) VIAL INH ONE (02:30)
--- NOTE | 2019-01-27 02:35 | ED Respiratory ---
General Chief Complaint: Respiratory Problems Stated Complaint: COUGHING UP BLOOD Source: patient History of Present Illness Date Seen by Provider: Jan 27, 2019 Time Seen by Provider: 02:20 Initial Comments PT ARRIVES VIA POV FROM HOME STATES HE HAS HAD A COUGH ALL DAY TODAY STATES AROUND 2000 TONIGHT, HE COUGHED UP BLOOD, AND HAS STARTED GETTING SHORT O F BREATH NO KNOWN FEVER NO CHEST PAIN OR PAIN WITH BREATHING PT HAD HERNIA SURGERY ON Monday01/24/[address] DECKER, AND HAS HAD SWELLING IN HIS LEGS SINCE SURGERY PT HAS HX OF 4 VESSEL CABG IN 2004, AND HAD AORTIC DISSECTION REPAIR 2013 PT STOPPED TAKING PLAVIX 01/17/19, AND HAS NOT RESTARTED IT YET. NO HISTORY OF CHF, NO ACTUAL DX OF COPD--QUIT SMOKING 30 YEARS AGO. DOES NOT N ORMALLY HAVE ANY RESPIRATORY PROBLEMS. PT WAS SEEN HERE 12/03/18 FOR RESPIRATORY FAILURE AND TRANSFERRED TO [facility] AT THAT TIME. PCP: DR. SIMS SURGEON: DR. DECKER Allergies and Home Medications Allergies Coded Allergies: Penicillins (Verified Allergy, Unknown, 07/16/15) Home Medications Albuterol Sulfate 8.5 Gm Hfa.aer.ad, 1-2 PUFF IH Q4H PRN for WHEEZING, (Reported) Amlodipine Besylate 10 Mg Tablet, 10 MG PO DAILY, (Reported) Clopidogrel Bisulfate 75 Mg Tablet, 75 MG PO DAILY, (Reported) Docusate Sodium 100 Mg Capsule, 100 MG PO BID Prescribed by: DERECK DECKER on 01/25/19910 Furosemide 40 Mg Tablet, 40 MG PO DAILY, (Reported) Hydrocodone Bit/Acetaminophen 1 Tab Tab, 1-2 TAB PO Q6H PRN for PAIN-MODERATE Prescribed by: DERECK DECKER on 01/25/19 09 Metoprolol Tartrate 100 Mg Tablet, 100 MG PO BID, (Reported) Olmesartan Medoxomil 20 Mg Tablet, 20 MG PO DAILY, (Reported) Potassium Chloride 10 Meq Tablet.er, 10 MEQ PO DAILY, (Reported) Rosuvastatin Calcium 20 Mg Tablet, 20 MG PO HS, (Reported) Review of Systems Review of Systems Constitutional: No chills, No diaphoresis, No dizziness, No fever EENTM: no symptoms reported Respiratory: see HPI, cough, dyspnea on exertion, hemoptysis, short of breath, wheezing Cardiovascular: see HPI; No chest pain; edema; No palpitations, No syncope; vascular heart diseas Gastrointestinal: see HPI; No nausea, No vomiting Genitourinary: no symptoms reported Musculoskeletal: no symptoms reported Skin: no symptoms reported Psychiatric/Neurological: No Symptoms Reported Hematologic/Lymphatic: See HPI Immunological/Allergic: no symptoms reported Past Jhomoha-Cvecfn-Hvmhml Hx Patient Social History Alcohol Use: Denies Use Recreational Drug Use: No Smoking Status: Former Smoker (QUIT 30 YEARS AGO) Type Used: Cigarettes Former Smoker, Quit: Jan 17, 1989 2nd Hand Smoke Exposure: Yes Recent Foreign Travel: No Contact w/Someone Who Travel: No Recent Hopitalizations: No (12/2018-RESP PROBLEMS, "FLUID ON LUNGS"; HERNIA REPAIR 01/24/19) Immunizations Up To Date Tetanus Booster (TDap): More than 5yrs PED Vaccines UTD: No Date of Pneumonia Vaccine: Jan 22, 2018 Date of Influenza Vaccine: Jan 22, 2018 Seasonal Allergies Seasonal Allergies: Yes Past Medical History Surgeries: Yes (4 VESSEL CABG-2003; THORACIC AORTIC ANEURYSM REPAIR-2013; GANGLION CYST ON WRIST; HERNIA REPAIR 01/24/19--DR. DECKER) Abdominal, Cardiac, CABG, Orthopedic, Vascular Surgery Respiratory: Yes (POSSIBLE COPD, ASTHMA CHILD) COPD Currently Using CPAP: No Currently Using BIPAP: No Cardiac: Yes (4 VESSEL CABG 2004; THORACIC AORTIC ANEURYSM DISSECTION/REPAIR 2013) Aneurysm, Coronary Artery Disease, High Cholesterol, Hypertension Neurological: No Reproductive Disorders: No Sexually Transmitted Disease: No HIV/AIDS: No Genitourinary: No Gastrointestinal: Yes (UMBILICAL HERNIA REPAIR 01/24/19) Abdominal Hernia, Polyps Musculoskeletal: No Endocrine: No HEENT: No (GLASSES) Loss of Vision: Denies Hearing Impairment: Denies Cancer: No Psychosocial: No Integumentary: No Blood Disorders: No Adverse Reaction/Blood Tranf: No (N/A) Family Medical History Alcoholism 09 BROTHER Cancer 03 MOTHER 09 SISTER Chest pain 03 FATHER 09 BROTHER Family history: Allergy Family history: Arthritis 09 SISTER Family history: Breast disease 03 MOTHER Family history: Cardiovascular disease 03 FATHER 03 MOTHER 09 BROTHER Family history: Coronary thrombosis 03 FATHER Family history: Diabetes mellitus 03 MOTHER Family history: Hypertension 03 FATHER 03 MOTHER 09 BROTHER Heart disease 03 FATHER 03 MOTHER 09 BROTHER History of drug abuse 09 SISTER Hypercholesterolemia 09 SISTER Myocardial infarction 03 FATHER 03 MOTHER Stroke 03 FATHER No Family History of: Abdominal aortic aneurysm Raphael's disease Aphasia Cancer of colon Cataract Congenital heart disease Congestive heart failure Cystic fibrosis Dementia Dysphagia Family history: Alzheimer's disease Family history: Asthma Family history: Gastrointestinal disease Family history: Glaucoma Family history: Osteoporosis Family history: Thyroid disorder Headache Hearing loss Hereditary disease History of - anemia History of - disorder History of - respiratory disease Human immunodeficiency virus (HIV) seropositivity Infertile Kidney disease Malignant neoplasm of lung Parkinson's disease Prostate cancer Psychotic disorder Seizure disorder Tuberculosis Visual impairment Physical Exam Capillary Refill : Height: 5'8.00" Weight: 213lbs. 0.6oz. 96.547557cf; 33.86 BMI Method:Stated General Appearance: WD/WN, other (MILDLY DYSPNEIC) Neck: non-tender, full range of motion, supple, other (+JVD) Respiratory: other (AUDIBLE RHONCHI; MILDLY DYSPNEIC BUT ABLE TO TALK IN FULL SENTENCES; DIFFUSE WHEEZING/RALES / RHONCHI ON RIGHT, FAINT RALES/WHEEZING ON LEFT. ) Cardiovascular: regular rate, rhythm, no murmur, JVD Gastrointestinal: soft, other (SURGICAL WOUNDS ALL INTACT, DRESSINGS IN PLACE. 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, no motor/sensory deficits, alert, normal mood/affect, oriented x 3 Skin: normal color, warm/dry Progress/Results/Core Measures Suspected Sepsis SIRS Temperature: Pulse: Respiratory Rate: Blood Pressure / Mean: Results/Orders My Orders Orders - WESTON CEDEÑO DO Chest Pa/Lat (2 View) (01/27/19 02:20) Ed Iv/Invasive Line Start (01/27/19 02:27) Ekg Tracing (01/27/19 02:27) O2 (01/27/19 02:27) Monitor-Rhythm Ecg Trace Only (01/27/19 02:27) BNP (01/27/19 02:27) Cbc With Automated Diff (01/27/19 02:27) Comprehensive Metabolic Panel (01/27/19 02:27) Creatine Kinase (01/27/19 02:27) Creatine Kinase Mb (01/27/19 02:27) Lactic Acid Analyzer (01/27/19 02:27) Magnesium (01/27/19 02:27) Protime With Inr (01/27/19 02:) Partial Thromboplastin Time (01/27/19 02:) Ua Culture If Indicated (01/27/19:) Blood Culture (01/27/19) Influenza A And B Antigens (01/27/19:) Myoglobin Serum (01/27/19:) Troponin I (01/27/19:) Sputum Culture (01/27/19:) Urine Culture (01/27/19:) Ed Iv/Invasive Line Start (01/27/19:) Ed Iv/Invasive Line Start (01/27/19:) Vital Signs Adult Sepsis Patie Q15M (01/27/19:) O2 (01/27/19:) Remove Rings In Anticipation O (01/27/19:) Albuterol/Ipra Inhalation Soln (Duoneb I (01/27/19 02:30) Rt Request For Service (01/27/19:) Methylprednisolone Sod Succ (Solu-Medrol (01/27/19 02:27) Svn Small Volume Nebulizer (01/27/19 02:27) Vital Signs/I&O Capillary Refill : Diagnostic Imaging Comments CXR--RLL INFILTRATE, ? CHF ? --PENDING RADIOLOGIST REVIEW Reviewed: Reviewed by Me Departure Impression Primary Impression: RLL pneumonia Departure-Patient Inst. Referrals: WILVER SIMS MD (PCP/Family) Primary Care Physician WESTON CEDEÑO DO Jan 27, 2019 02:35
[2019-01-27 02:50] LABS: BASOPHILS % (AUTO) 0 % (0-10); EOSINOPHILS # (AUTO) 0.1 10^3/uL (0.0-0.3); EOSINOPHILS % (AUTO) 0 % (0-10); HEMATOCRIT 41 % (40-54); LYMPHOCYTES # (AUTO) 1.9 X 10^3 (1.0-4.0); LYMPHOCYTES % (AUTO) 14 % (12-44); MEAN CORPUSCULAR HEMOGLOBIN 29 PG (25-34); MEAN CORPUSCULAR HGB CONC 34 G/DL (32-36); MEAN CORPUSCULAR VOLUME 86 FL (80-99); MEAN PLATELET VOLUME 10.5 FL (7.4-10.4); MONOCYTES # (AUTO) 0.9 X 10^3 (0.0-1.0); MONOCYTES % (AUTO) 7 % (0-12); NEUTROPHILS # (AUTO) 10.8 X 10^3 (1.8-7.8); NEUTROPHILS % (AUTO) 79 % (42-75); PLATELET COUNT 152 10^3/uL (130-400); RED CELL DISTRIBUTION WIDTH 14.1 % (10.0-14.5); WHITE BLOOD COUNT 13.7 10^3/uL (4.3-11.0)
--- NOTE | 2019-01-27 02:50 | NUR ---
Patient states he is supposed to take lasix but stopped taking it on Monday due to the surgery. Patient has +2 edema to bilateral lower extremities. Patient has healing surgical incisions to abdomen. Bandage present over umbulicus area.
[2019-01-27] MEDS ORDERED: CEFEPIME INJECTION 1,000 MG in WATER (STERILE) FOR INJECTION 10 ML IV ONE (03:00)
[2019-01-27 03:01] LABS: PROTHROMBIN TIME PATIENT 13.4 SEC (12.2-14.7)
[2019-01-27 03:09] LABS: ALANINE AMINOTRANSFERASE 33 U/L (0-55); ALBUMIN 4.5 GM/DL (3.2-4.5); ALKALINE PHOSPHATASE 66 U/L (40-136); BILIRUBIN,TOTAL 0.9 MG/DL (0.1-1.0); BUN/CREATININE RATIO 21; CALCIUM 9.2 MG/DL (8.5-10.1); CARBON DIOXIDE 27 MMOL/L (21-32); CHLORIDE 101 MMOL/L (98-107); CREATINE KINASE 321 U/L (30-200); CREATININE SERUM 1.16 MG/DL (0.60-1.30); GFR ESTIMATED > 60; GLUCOSE 126 MG/DL (70-105); MAGNESIUM 1.9 MG/DL (1.6-2.4); POTASSIUM 3.9 MMOL/L (3.6-5.0); SODIUM 140 MMOL/L (135-145); TOTAL PROTEIN 7.5 GM/DL (6.4-8.2)
[2019-01-27] MEDS ORDERED: 1/2 NS IV SOLUTION 1,000 ML IV SCH (03:15)
[2019-01-27] MEDS ORDERED: DEXAMETHASONE 4 MG/ML SDV (DECADRON) IH ONE (03:15)
[2019-01-27 03:16] LABS: CREATINE KINASE MB 3.6 NG/ML (<6.6)
[2019-01-27] MEDS ORDERED: IOHEXOL 350 MG/ML 100 ML (OMNIPAQUE 350) VIAL IV ONE (03:30)
[2019-01-27] MEDS ORDERED: HOLD METFORMIN - RECEIVED CONTRAST 20 ML VIAL IV SCH (03:30)
[2019-01-27] MEDS ORDERED: NS 100 ML (IVPB) BAG IV ONE (03:30)
[2019-01-27 04:05] LABS: BACTERIA,URINE TRACE /HPF; BILIRUBIN,URINE NEGATIVE (NEGATIVE); CLARITY,URINE CLEAR; COLOR,URINE YELLOW; GLUCOSE, URINE (UA) NEGATIVE (NEGATIVE); KETONES,URINE NEGATIVE (NEGATIVE); LEUKOCYTE ESTERASE ,URINE NEGATIVE (NEGATIVE); NITRITE,URINE NEGATIVE (NEGATIVE); PH,URINE 7 (5-9); PROTEIN,URINE NEGATIVE (NEGATIVE); UROBILINOGEN,URINE NORMAL (NORMAL)
[2019-01-27] MEDS ORDERED: FUROSEMIDE 40 MG/4 ML INJ (LASIX) IVP ONE (05:00)
--- NOTE | 2019-01-27 05:29 | NUR ---
Report given to Chiquis VILLAFUERTE in ICU.
--- NOTE | 2019-01-27 06:47 | Pulmonary Consultation ---
History of Present Illness History of Present Illness Date of Consultation 01/27/19 06:42 Date of Admission Allergies and Home Medications Allergies Coded Allergies: Penicillins (Verified Allergy, Unknown, 07/16/15) Home Medications Albuterol Sulfate 8.5 Gm Hfa.aer.ad, 1-2 PUFF IH Q4H PRN for WHEEZING, (Reported) Amlodipine Besylate 10 Mg Tablet, 10 MG PO DAILY, (Reported) Clopidogrel Bisulfate 75 Mg Tablet, 75 MG PO DAILY, (Reported) Docusate Sodium 100 Mg Capsule, 100 MG PO BID Prescribed by: DERECK DECKER on 01/25/19910 Furosemide 40 Mg Tablet, 40 MG PO DAILY, (Reported) Hydrocodone Bit/Acetaminophen 1 Tab Tab, 1-2 TAB PO Q6H PRN for PAIN-MODERATE Prescribed by: DERECK DECKER on 01/25/19 09 Metoprolol Tartrate 100 Mg Tablet, 100 MG PO BID, (Reported) Olmesartan Medoxomil 20 Mg Tablet, 20 MG PO DAILY, (Reported) Potassium Chloride 10 Meq Tablet.er, 10 MEQ PO DAILY, (Reported) Rosuvastatin Calcium 20 Mg Tablet, 20 MG PO HS, (Reported) Past Umalvpz-Zzlphc-Pmsmsu Hx Patient Social History Alcohol Use: Denies Use Recreational Drug Use: No Smoking Status: Former Smoker (QUIT 30 YEARS AGO) Type Used: Cigarettes Former Smoker, Quit: Jan 17, 1989 2nd Hand Smoke Exposure: Yes Recent Foreign Travel: No Contact w/Someone Who Travel: No Recent Infectious Disease Expo: No Recent Hopitalizations: No (12/2018-RESP PROBLEMS, "FLUID ON LUNGS"; HERNIA REPAIR 01/24/19) Physical Abuse: No Sexual Abuse: No Mistreated: No Fear: No Immunizations Up To Date Tetanus Booster (TDap): More than 5yrs PED Vaccines UTD: No Date of Pneumonia Vaccine: Apr 17, 2016 Date of Influenza Vaccine: Jan 22, 2018 Seasonal Allergies Seasonal Allergies: Yes Past Medical History Surgeries: Yes (4 VESSEL CABG-2003; THORACIC AORTIC ANEURYSM REPAIR-2013; GANGL ION CYST ON WRIST; HERNIA REPAIR 01/24/19--DR. DECKER) Abdominal, Cardiac, CABG, Orthopedic, Vascular Surgery Respiratory: Yes (POSSIBLE COPD, ASTHMA CHILD) Asthma, COPD Currently Using CPAP: No Currently Using BIPAP: No Cardiac: Yes (4 VESSEL CABG 2004; THORACIC AORTIC ANEURYSM DISSECTION/REPAIR 2013) Aneurysm, Coronary Artery Disease, High Cholesterol, Hypertension Neurological: No Reproductive Disorders: No Sexually Transmitted Disease: No HIV/AIDS: No Genitourinary: No Gastrointestinal: Yes (UMBILICAL HERNIA REPAIR 01/24/19) Abdominal Hernia, Polyps Musculoskeletal: No Endocrine: No HEENT: No (GLASSES) Loss of Vision: Denies Hearing Impairment: Hard of Hearing, Bilateral Hearing Aide Cancer: No Psychosocial: No Integumentary: No Blood Disorders: No Adverse Reaction/Blood Tranf: No (N/A) Family Medical History Alcoholism 09 BROTHER Cancer 03 MOTHER 09 SISTER Chest pain 03 FATHER 09 BROTHER Family history: Allergy Family history: Arthritis 09 SISTER Family history: Breast disease 03 MOTHER Family history: Cardiovascular disease 03 FATHER 03 MOTHER 09 BROTHER Family history: Coronary thrombosis 03 FATHER Family history: Diabetes mellitus 03 MOTHER Family history: Hypertension 03 FATHER 03 MOTHER 09 BROTHER Heart disease 03 FATHER 03 MOTHER 09 BROTHER History of drug abuse 09 SISTER Hypercholesterolemia 09 SISTER Myocardial infarction 03 FATHER 03 MOTHER Stroke 03 FATHER No Family History of: Abdominal aortic aneurysm Citrus's disease Aphasia Cancer of colon Cataract Congenital heart disease Congestive heart failure Cystic fibrosis Dementia Dysphagia Family history: Alzheimer's disease Family history: Asthma Family history: Gastrointestinal disease Family history: Glaucoma Family history: Osteoporosis Family history: Thyroid disorder Headache Hearing loss Hereditary disease History of - anemia History of - disorder History of - respiratory disease Human immunodeficiency virus (HIV) seropositivity Infertile Kidney disease Malignant neoplasm of lung Parkinson's disease Prostate cancer Psychotic disorder Seizure disorder Tuberculosis Visual impairment Sepsis Event Evaluation Height, Weight, BMI Height: 5'8.00" Weight: 213lbs. 0.6oz. 96.270429gd; 33.80 BMI Method:Stated Exam Exam Vital Signs Date Time Temp Pulse Resp B/P (MAP) Pulse Ox O2 Delivery O2 Flow Rate FiO2 01/27/19 06:16 Nasal Cannula 2.00 01/27/19 06:05 36.6 88 18 152/68 94 Nasal Cannula 2.00 2.00 01/27/19 06:00 88 18 152/68 (96) 94 Nasal Cannula 2.00 01/27/19 05:34 36.6 78 20 137/71 94 Nasal Cannula 2.00 01/27/19 03:11 97 Nasal Cannula 2.00 01/27/19 02:20 36.4 94 20 163/84 (110) 88 Room Air I & O 01/27/19 07:00 Intake Total 1010 ml Output Total 575 ml Balance 435 ml Height & Weight Height: 5'8.00" Weight: 213lbs. 0.6oz. 96.917902ws; 33.80 BMI Method:Stated Capillary Refill: Less Than 3 Seconds Gastrointestinal: soft, other (SURGICAL WOUNDS ALL INTACT, DRESSINGS IN PLACE. NO BLEEDING) Results Lab Laboratory Tests 01/27/19 02:41 Assessment/Plan Assessment/Plan Pneumonia Multi lobar -With sepsis -Reviewed CT of chest - Continue Cefepime and azithromycin -Gupta cultures -Check echo COPDAE -Decrease solumedrol to 40 Q 6 -SVNS -Continue to monitor Hemoptysis - small amount -Monitor -May need bronchoscopy Hx of tobacco use LUIS HENRIQUEZ DO Jan 27, 2019 06:47
--- NOTE | 2019-01-27 06:59 | Diagnostic Imaging Report ---
PROCEDURE: CT angiography of the chest with contrast. TECHNIQUE: Multiple contiguous axial images were obtained through the chest after uneventful bolus administration of intravenous contrast. 3D reconstructed CTA MIP acquisitions were also performed. Auto Exposure Controls were utilized during the CT exam to meet ALARA standards for radiation dose reduction. DATE: January 272018. COMPARISON: Chest radiograph December 28, 2018. CT chest December 03, 2018. INDICATION: 68-year-old male, hemoptysis. Shortness of breath. FINDINGS: There are multifocal areas of patchy alveolar consolidation and groundglass lung attenuation in the right upper lobe, right middle lobe, and more prominently in the right lower lobe. There are also smaller and less extensive areas of abnormal alveolar and groundglass lung attenuation in the left upper lobe and left lower lobe. There is no pneumothorax. There is no pleural effusion. There is nonspecific opacification within the right lateral trachea on axial image 37. The central airways are otherwise patent. There is no identified pulmonary embolus. The main pulmonary artery is normal in caliber. There are coronary artery calcifications and additional areas of atherosclerotic disease. There is a dissection involving the distal aspect of the descending thoracic aorta and extending to involve the imaged portions of the abdominal aorta. The diameter of the distal descending thoracic aorta on axial image 122 measures up to 3.2 x 3.8 cm in diameter and is aneurysmal. The true lumen of the dissection supplies the celiac axis, superior mesenteric artery, and a right renal artery. The left renal artery is supplied by the false lumen. There is no extension of the dissection into the abdominal aorta arterial branches. There is a low-attenuation left renal lesion measuring 1.9 cm in size consistent with a benign cyst on axial image 166. There is an 8 mm benign right renal cyst on axial image 175. There are median sternotomy wires. There is no identified acute bony abnormality. IMPRESSION: CT CHEST. 1. Multifocal patchy alveolar and groundglass attenuation within the right greater than left lungs. Differential diagnostic considerations would include multifocal pneumonia and atypical infectious etiologies, process associated with alveolar hemorrhage, and less likely a pneumonitis. This is a new finding since December 03, 2018. 2. No identified pulmonary embolus. 3. 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 Dictated by: Dictated on workstation # [id number]
[2019-01-27] MEDS: 1/2 NS IV SOLUTION 1,000 ML IV SCH (07:19)
[2019-01-27] MEDS ORDERED: FLU QUADRIvalent (5+ YOA) 2019-2020 (AFLURIA) 0.5 ML IM ONE (07:45)
--- NOTE | 2019-01-27 08:24 | Diagnostic Imaging Report ---
EXAMINATION: CHEST (PA AND LATERAL) CLINICAL INDICATION: 68-year-old male, hemoptysis. COMPARISON: Chest radiograph December 03, 2018. FINDINGS: There are median sternotomy wires. Heart size and mediastinal contours are unchanged. There is no identified pneumothorax. There is no pleural effusion. There is airspace consolidation in the right lower lobe and right upper lobe. There also is question of slight hazy consolidation in the right lung. IMPRESSION: 1. Multifocal airspace consolidation in the right lung with additional hazy opacities. Multifocal pneumonia, process causing alveolar hemorrhage, and pneumonitis would be differential diagnostic considerations. Dictated by: Dictated on workstation # [id number]
[2019-01-27] MEDS ORDERED: methylPREDNISolone 125 MG (Solu-MEDROL) VIAL IV SCH ×2 (09:00)
[2019-01-27] MEDS: AZITHROMYCIN 500 MG/NS 250 ML IVPB IV SCH ×2 (09:20)
[2019-01-27] MEDS: methylPREDNISolone 40 MG/ML (Solu-MEDROL) VIAL IV SCH ×3 (09:20→20:59)
[2019-01-27] MEDS: RT-ALBUTEROL/IPRATROPIUM 3 ML (DUONEB) VIAL INH SCH ×4 (11:00→22:45)
--- NOTE | 2019-01-27 11:05 | Consultation - Surgery ---
[facility] 01/27/19 1105: History of Present Illness History of Present Illness Patient Consulted On(yenni/time) 01/27/19 11:00 Date Seen by Provider: Jan 27, 2019 Time Seen by Provider: 07:45 History of Present Illness Hemoptysis Patient is feeling much better. Patient does have pain from recent abdominal surgery but rates it as a 2/10. Patient is no longer coughing, and no longer has shortness of breath. Patient is having gas, but has not had a bowel movement. Patient denies n/v, fevers, chills, chest pain. WBC at 13.7 Allergies and Home Medications Allergies Coded Allergies: Penicillins (Verified Allergy, Unknown, 07/16/15) Home Medications Acetaminophen 500 Mg Tablet, 1,000 MG PO Q48H PRN for PAIN-MILD, (Reported) Albuterol Sulfate 8.5 Gm Hfa.aer.ad, 1-2 PUFF IH Q4H PRN for WHEEZING, (Reported) Amlodipine Besylate 10 Mg Tablet, 10 MG PO DAILY, (Reported) Clopidogrel Bisulfate 75 Mg Tablet, 75 MG PO DAILY, (Reported) Furosemide 40 Mg Tablet, 40 MG PO DAILY, (Reported) Metoprolol Tartrate 100 Mg Tablet, 100 MG PO BID, (Reported) Olmesartan Medoxomil 20 Mg Tablet, 20 MG PO DAILY, (Reported) Potassium Chloride 10 Meq Tablet.er, 10 MEQ PO BID, (Reported) Rosuvastatin Calcium 20 Mg Tablet, 20 MG PO HS, (Reported) Past Rblhaun-Zdkbxu-Yhvowi Hx Patient Social History Alcohol Use: Denies Use Recreational Drug Use: No Smoking Status: Former Smoker (QUIT 30 YEARS AGO) Former Smoker, Quit: Jan 17, 1989 Type Used: Cigarettes 2nd Hand Smoke Exposure: Yes Recent Foreign Travel: No Contact w/Someone Who Travel: No Recent Infectious Disease Expo: No Recent Hopitalizations: No (12/2018-RESP PROBLEMS, "FLUID ON LUNGS"; HERNIA REPAIR 01/24/19) Immunizations Up To Date Tetanus Booster (TDap): More than 5yrs PED Vaccines UTD: No Date of Pneumonia Vaccine: Apr 17, 2016 Date of Influenza Vaccine: Jan 22, 2018 Seasonal Allergies Seasonal Allergies: Yes Surgeries History of Surgeries: Yes (4 VESSEL CABG-2003; THORACIC AORTIC ANEURYSM REPAIR- 2013; GANGLION CYST ON WRIST; HERNIA REPAIR 01/24/19--DR. TORRES) Surgeries: Abdominal, Cardiac, CABG, Orthopedic, Vascular Surgery Respiratory History of Respiratory Disorde: Yes (POSSIBLE COPD, ASTHMA CHILD) Respiratory Disorders: Asthma, COPD Cardiovascular History of Cardiac Disorders: Yes (4 VESSEL CABG 2004; THORACIC AORTIC ANEURYSM DISSECTION/REPAIR 2013) Cardiac Disorders: Aneurysm, Coronary Artery Disease, High Cholesterol, Hypertension Neurological History of Neurological Disord: No Reproductive System Hx Reproductive Disorders: No Sexually Transmitted Disease: No HIV/AIDS: No Genitourinary History of Genitourinary Disor: No Gastrointestinal History of Gastrointestinal Di: Yes (UMBILICAL HERNIA REPAIR 01/24/19) Gastrointestinal Disorders: Abdominal Hernia, Polyps Musculoskeletal History of Musculoskeletal Dis: No Endocrine History of Endocrine Disorders: No HEENT History of HEENT Disorders: No (GLASSES) Loss of Vision: Denies Hearing Impairment: Hard of Hearing, Bilateral Hearing Aide Cancer History of Cancer: No Psychosocial History of Psychiatric Problem: No Integumentary History of Skin or Integumenta: No Blood Transfusions History of Blood Disorders: No Adverse Reaction to a Blood Tr: No (N/A) Family Medical History Family Medial History: Alcoholism 09 BROTHER Cancer 03 MOTHER 09 SISTER Chest pain 03 FATHER 09 BROTHER Family history: Allergy Family history: Arthritis 09 SISTER Family history: Breast disease 03 MOTHER Family history: Cardiovascular disease 03 FATHER 03 MOTHER 09 BROTHER Family history: Coronary thrombosis 03 FATHER Family history: Diabetes mellitus 03 MOTHER Family history: Hypertension 03 FATHER 03 MOTHER 09 BROTHER Heart disease 03 FATHER 03 MOTHER 09 BROTHER History of drug abuse 09 SISTER Hypercholesterolemia 09 SISTER Myocardial infarction 03 FATHER 03 MOTHER Stroke 03 FATHER No Family History of: Abdominal aortic aneurysm Raphael's disease Aphasia Cancer of colon Cataract Congenital heart disease Congestive heart failure Cystic fibrosis Dementia Dysphagia Family history: Alzheimer's disease Family history: Asthma Family history: Gastrointestinal disease Family history: Glaucoma Family history: Osteoporosis Family history: Thyroid disorder Headache Hearing loss Hereditary disease History of - anemia History of - disorder History of - respiratory disease Human immunodeficiency virus (HIV) seropositivity Infertile Kidney disease Malignant neoplasm of lung Parkinson's disease Prostate cancer Psychotic disorder Seizure disorder Tuberculosis Visual impairment Review of Systems-General Constitutional: No chills, No fever, No weakness Respiratory: No cough, No dyspnea on exertion, No hemoptysis, No short of breath Cardiovascular: No chest pain; edema Gastrointestinal: LLQ (secondary to surgery); No nausea, No vomiting Genitourinary: No dysuria; frequency (secondary to diuretics); No pain Physical Exam-General Problems Physical Exam Vital Signs Vital Signs - First Documented 01/27/19 01/27/19 02:20 03:11 Temp 36.4 Pulse 94 Resp 20 B/P (MAP) 163/84 (110) Pulse Ox 88 O2 Delivery Room Air O2 Flow Rate 2.00 Capillary Refill : Less Than 3 Seconds General Appearance: WD/WN, no apparent distress HEENT: PERRL/EOMI Neck: supple, normal inspection Respiratory: chest non-tender, lungs clear, normal breath sounds, no respiratory distress, no accessory muscle use, other (Using Nasal cannula) Cardiovascular: regular rate, rhythm, no murmur, other (1+ edema) Gastrointestinal: soft, no organomegaly, distended (Slight distension) Neurologic/Psychiatric: alert, normal mood/affect, oriented x 3 Data Review Labs Laboratory Tests 01/27/19 02:41: White Blood Count 13.7H, Red Blood Count 4.81, Hemoglobin 14.0, Hematocrit 41, Mean Corpuscular Volume 86, Mean Corpuscular Hemoglobin 29, Mean Corpuscular Hemoglobin Concent 34, Red Cell Distribution Width 14.1, Platelet Count 152, Mean Platelet Volume 10.5H, Neutrophils (%) (Auto) 79H, Lymphocytes (%) (Auto) 14, Monocytes (%) (Auto) 7, Eosinophils (%) (Auto) 0, Basophils (%) (Auto) 0, Neutrophils # (Auto) 10.8H, Lymphocytes # (Auto) 1.9, Monocytes # (Auto) 0.9, Eosinophils # (Auto) 0.1, Basophils # (Auto) 0.0, Prothrombin Time 13.4, INR Comment 1.0, Activated Partial Thromboplast Time 30, Sodium Level 140, Potassium Level 3.9, Chloride Level 101, Carbon Dioxide Level 27, Anion Gap 12, Blood Urea Nitrogen 24H, Creatinine 1.16, Estimat Glomerular Filtration Rate > 60, BUN/Creatinine Ratio 21, Glucose Level 126H, Lactic Acid Level 1.19, Calcium Level 9.2, Corrected Calcium 8.8, Magnesium Level 1.9, Total Bilirubin 0.9, Aspartate Amino Transf (AST/SGOT) 31, Alanine Aminotransferase (ALT/SGPT) 33, Alkaline Phosphatase 66, Total Creatine Kinase 321H, Creatine Kinase MB 3.6, Myoglobin 116.2H, Troponin I 0.048H, B-Type Natriuretic Peptide 916.4H, Total Protein 7.5, Albumin 4.5, Procalcitonin 0.05 01/27/19 03:33: Urine Color YELLOW, Urine Clarity CLEAR, Urine pH 7, Urine Specific [place] 1.010L, Urine Protein NEGATIVE, Urine Glucose (UA) NEGATIVE, Urine Ketones NEGATIVE, Urine Nitrite NEGATIVE, Urine Bilirubin NEGATIVE, Urine Urobilinogen NORMAL, Urine Leukocyte Esterase NEGATIVE, Urine RBC (Auto) NEGATIVE, Urine RBC NONE, Urine WBC NONE, Urine Squamous Epithelial Cells NONE, Urine Crystals NONE, Urine Bacteria TRACE, Urine Casts NONE, Urine Mucus NEGATIVE, Urine Culture Indicated NO Microbiology 01/27/19 Influenza Types A,B Antigen ([place]) - Final, Complete Assessment/Plan Assessment/Plan Assessment/Plan Iatrogenic cause of hemoptysis (intubation) edema Constipation Pain control diuretics Constipation IV fluid no surgical intervention at this time. Clinical Quality Measures DVT/VTE Risk/Contraindication: Risk Factor Score Per Nursin RFS Level Per Nursing on Admit: 4+=Very High DERECK TORRES DO 01/27/192048: History of Present Illness History of Present Illness History of Present Illness Patient is a 68 year old male who on 01/25/19 underwent uncomplicated incarcerated umbilical hernia repair. Patient began having some shortness of breath last night, tried his inhaler and not have any relief. He has slight cough and noted coughing up small specs of blood. went to er to be and cta chest noting patchy alveolar and ground glass attenuations right greater than left, no pe. Patient using IS at home. Patient minimal pain from hernia incisions. Passing flatus no bm. Patient cough has improved and no more blood. Denies nv fever sweats chills shortness of breath or chest pain. Allergies and Home Medications Allergies Coded Allergies: Penicillins (Verified Allergy, Unknown, 07/16/15) Home Medications Acetaminophen 500 Mg Tablet, 1,000 MG PO Q48H PRN for PAIN-MILD, (Reported) Albuterol Sulfate 8.5 Gm Hfa.aer.ad, 1-2 PUFF IH Q4H PRN for WHEEZING, (Reported) Amlodipine Besylate 10 Mg Tablet, 10 MG PO DAILY, (Reported) Clopidogrel Bisulfate 75 Mg Tablet, 75 MG PO DAILY, (Reported) Furosemide 40 Mg Tablet, 40 MG PO DAILY, (Reported) Metoprolol Tartrate 100 Mg Tablet, 100 MG PO BID, (Reported) Olmesartan Medoxomil 20 Mg Tablet, 20 MG PO DAILY, (Reported) Potassium Chloride 10 Meq Tablet.er, 10 MEQ PO BID, (Reported) Rosuvastatin Calcium 20 Mg Tablet, 20 MG PO HS, (Reported) Patient Home Medication List Home Medication List Reviewed: Yes Past Ypmsemt-Adckhq-Sccnhm Hx Surgeries Surgeries: Abdominal (hernia), Cardiac, CABG, Orthopedic, Vascular Surgery Respiratory Respiratory Disorders: Asthma, COPD Cardiovascular Cardiac Disorders: Aneurysm, Coronary Artery Disease, High Cholesterol, Hypertension Gastrointestinal Gastrointestinal Disorders: Abdominal Hernia, Polyps HEENT Hearing Impairment: Hard of Hearing, Bilateral Hearing Aide Family Medical History Significant Family History: No Pertinent Family Hx Family Medial History: Alcoholism 09 BROTHER Cancer 03 MOTHER 09 SISTER Chest pain 03 FATHER 09 BROTHER Family history: Allergy Family history: Arthritis 09 SISTER Family history: Breast disease 03 MOTHER Family history: Cardiovascular disease 03 FATHER 03 MOTHER 09 BROTHER Family history: Coronary thrombosis 03 FATHER Family history: Diabetes mellitus 03 MOTHER Family history: Hypertension 03 FATHER 03 MOTHER 09 BROTHER Heart disease 03 FATHER 03 MOTHER 09 BROTHER History of drug abuse 09 SISTER Hypercholesterolemia 09 SISTER Myocardial infarction 03 FATHER 03 MOTHER Stroke 03 FATHER No Family History of: Abdominal aortic aneurysm Raphael's disease Aphasia Cancer of colon Cataract Congenital heart disease Congestive heart failure Cystic fibrosis Dementia Dysphagia Family history: Alzheimer's disease Family history: Asthma Family history: Gastrointestinal disease Family history: Glaucoma Family history: Osteoporosis Family history: Thyroid disorder Headache Hearing loss Hereditary disease History of - anemia History of - disorder History of - respiratory disease Human immunodeficiency virus (HIV) seropositivity Infertile Kidney disease Malignant neoplasm of lung Parkinson's disease Prostate cancer Psychotic disorder Seizure disorder Tuberculosis Visual impairment Review of Systems-General Constitutional: no symptoms reported EENTM: no symptoms reported Respiratory: see HPI, cough, hemoptysis Cardiovascular: no symptoms reported, edema Genitourinary: no symptoms reported Musculoskeletal: no symptoms reported Skin: no symptoms reported Psychiatric/Neurological: No Symptoms Reported Physical Exam-General Problems Physical Exam General Appearance: WD/WN, no apparent distress HEENT: PERRL/EOMI, normal ENT inspection Neck: supple, normal inspection Respiratory: chest non-tender, no respiratory distress, no accessory muscle use Cardiovascular: regular rate, rhythm Gastrointestinal: soft, no organomegaly, distended (Slight distension), other (incision c/d/i) Extremities: non-tender, normal inspection Neurologic/Psychiatric: broadcast producer II-XII nml as tested, no motor/sensory deficits, alert, normal mood/affect, oriented x 3 Skin: normal color, warm/dry Lymphatic: no adenopathy Assessment/Plan Assessment/Plan Assessment/Plan hemoptysis most likely from intubation and it has stopped pneumonia Constipation s/p laparoscopic incarcerated umbilical hernia repair on antibiotics hemoptysis patient not having now and most likely from recent intubation diet as tolerates IS Supervisory-Addendum Brief Verification & Attestation Participated in pt care: history, MDM, physical Personally performed: exam, history, MDM, supervision of care Care discussed with: Medical Student Procedures: n/a Results interpretation: Verified all documentation Verification and Attestation of Medical Student E/M Service A medical student performed and documented this service in my presence. I reviewed and verified all information documented by the medical student and made modifications to such information, when appropriate. I personally performed the physical exam and medical decision making. Dereck Torres, Jan 27, 2019,20:58 [facility] Jan 27, 2019 11:05 DERECK TORRES DO Jan 27, 2019 20:49
[2019-01-27] MEDS ORDERED: ACET-2267 PO (11:59)
[2019-01-27] MEDS ORDERED: FUROSEMIDE 40 MG/4 ML INJ (LASIX) IV NR (12:00)
--- NOTE | 2019-01-27 12:52 | History & Physical-Hospitalist ---
History of Present Illness HPI/Chief Complaint Chief complaint: Dyspnea History of present illness: This is a 68-year-old white male clinic patient of [facility] with a past medical history of tobacco abuse and COPD who recently had a ventral hernia repair by Dr. Torres last week who presented with shortness of breath found to have new onset volume overload in addition to bilateral pneumonia with sepsis and elevated troponin. Currently patient has received Lasix and had good luck with diuresis and feels much better. His daughter is at the bedside. Source: patient, family, RN/MD, old records Exam Limitations: no limitations Date Seen 01/27/19 Time Seen by a Provider: 11:45 Attending Physician Ximena Day DO PCP Gregory Stephenson MD Referring Physician Date of Admission Jan 27, 2019 at 05:05 Home Medications & Allergies Home Medications Reviewed patient Home Medication Reconciliation performed by pharmacy medication reconciliations air launch weapons technician and/or nursing. Patients Allergies have been reviewed. Allergies Allergies Coded Allergies Penicillins (Verified Allergy, Unknown, 07/16/15) Past Hkglhlb-Riprin-Ghzfhy Hx Past Med/Social Hx: Reviewed Nursing Past Med/Soc Hx, Reviewed and Corrections made Patient Social History Marrital Status: Alcohol Use: Denies Use Recreational Drug Use: No Smoking Status: Former Smoker (QUIT 30 YEARS AGO) Former Smoker, Quit: Jan 17, 1989 Type Used: Cigarettes 2nd Hand Smoke Exposure: Yes Recent Foreign Travel: No Contact w/other who traveled: No Recent Hopitalizations: No (12/2018-RESP PROBLEMS, "FLUID ON LUNGS"; HERNIA REPAIR 01/24/19) Recent Infectious Disease Expo: No Immunizations Up To Date Tetanus Booster (TDap): More than 5yrs Pediatric: No Date of Pneumonia Vaccine: Apr 17, 2016 Date of Influenza Vaccine: Jan 22, 2018 Seasonal Allergies Seasonal Allergies: Yes Past Medical History Surgeries: Abdominal, Cardiac, CABG, Orthopedic, Vascular Surgery Currently Using CPAP: No Currently Using BIPAP: No Cardiac: Aneurysm, Coronary Artery Disease, High Cholesterol, Hypertension Reproductive: No Sexually Transmitted Disease: No HIV/AIDS: No Gastrointestinal: Abdominal Hernia, Polyps Loss of Vision: Denies Hearing Impairment: Hard of Hearing, Bilateral Hearing Aide History of Blood Disorders: No Adverse Reaction to Blood [place]: No (N/A) Family History Alcoholism 09 BROTHER Cancer 03 MOTHER 09 SISTER Chest pain 03 FATHER 09 BROTHER Family history: Allergy Family history: Arthritis 09 SISTER Family history: Breast disease 03 MOTHER Family history: Cardiovascular disease 03 FATHER 03 MOTHER 09 BROTHER Family history: Coronary thrombosis 03 FATHER Family history: Diabetes mellitus 03 MOTHER Family history: Hypertension 03 FATHER 03 MOTHER 09 BROTHER Heart disease 03 FATHER 03 MOTHER 09 BROTHER History of drug abuse 09 SISTER Hypercholesterolemia 09 SISTER Myocardial infarction 03 FATHER 03 MOTHER Stroke 03 FATHER No Family History of: Abdominal aortic aneurysm [place]'s disease Aphasia Cancer of colon Cataract Congenital heart disease Congestive heart failure Cystic fibrosis Dementia Dysphagia Family history: Alzheimer's disease Family history: Asthma Family history: Gastrointestinal disease Family history: Glaucoma Family history: Osteoporosis Family history: Thyroid disorder Headache Hearing loss Hereditary disease History of - anemia History of - disorder History of - respiratory disease Human immunodeficiency virus (HIV) seropositivity Infertile Kidney disease Malignant neoplasm of lung Parkinson's disease Prostate cancer Psychotic disorder Seizure disorder Tuberculosis Visual impairment Review of Systems Constitutional: see HPI EENTM: no symptoms reported Respiratory: cough, dyspnea on exertion Cardiovascular: no symptoms reported Gastrointestinal: no symptoms reported Genitourinary: no symptoms reported Musculoskeletal: no symptoms reported Skin: no symptoms reported Psychiatric/Neurological: No Symptoms Reported All Other Systems Reviewed Negative Unless Noted: Yes Physical Exam Physical Exam Vital Signs Vital Signs - First Documented 01/27/19 01/27/19 02:20 03:11 Temp 36.4 Pulse 94 Resp 20 B/P (MAP) 163/84 (110) Pulse Ox 88 O2 Delivery Room Air O2 Flow Rate 2.00 Capillary Refill : Less Than 3 Seconds Height, Weight, BMI Height: 5'8.00" Weight: 213lbs. 0.6oz. 96.880643nd; 33.80 BMI Method:Stated General Appearance: WD/WN, Anxious, Chronically ill, Mild Distress Eyes: Right Eye Normal Inspection, Right Eye PERRL HEENT: PERRL/EOMI, Normal ENT Inspection, Pharynx Normal, Moist Mucous Membranes Neck: Full Range of Motion, Normal Inspection, Non Tender Respiratory: Chest Non Tender, No Accessory Muscle Use, No Respiratory Distress, Crackles, Decreased Breath Sounds Cardiovascular: Regular Rate, Rhythm, No Edema, No Gallop, No JVD, No Murmur, Normal Peripheral Pulses Gastrointestinal: Normal Bowel Sounds, No Organomegaly, No Pulsatile Mass, Non Tender, Soft Back: Normal Inspection, No CVA Tenderness, No Vertebral Tenderness Extremity: Normal Capillary Refill, Normal Inspection, Normal Range of Motion, Non Tender, No Calf Tenderness, No Pedal Edema Neurologic/Psychiatric: Alert, Oriented x3, No Motor/Sensory Deficits, Normal Mood/Affect Skin: Normal Color, Warm/Dry Lymphatic: No Adenopathy Results Results/Procedures Labs Laboratory Tests 01/27/19 02:41 Patient resulted labs reviewed. Assessment/Plan Admission Diagnosis Assessment: Bilateral pneumonia Sepsis Elevated BNP CAD Acute exacerbation of COPD requiring steroids Plan: Empiric antibiotics IV abx Supportive care Lasix Cardiology and pulmonology consultations are appreciated Admission Status: Inpatient Order (span 2 midnights) Reason for Inpatient Admission: CHF sepsis and pneumonia Diagnosis/Problems Diagnosis/Problems (1) RLL pneumonia Status: Acute (2) Hypoxia Status: Acute (3) Respiratory failure Status: Acute (4) Chronic thoracic aortic dissection Status: Acute (5) Congestive heart failure Status: Acute (6) Umbilical hernia Clinical Quality Measures DVT/VTE Risk/Contraindication: Risk Factor Score Per Nursin RFS Level Per Nursing on Admit: 4+=Very High XIMENA DAY DO Jan 27, 2019 12:52
--- NOTE | 2019-01-27 13:32 | Consultation-Cardiology ---
HPI-Cardiology Cardiology Consultation: Date of Consultation 01/27/19 Time Seen by a Provider: 13:15 Date of Admission Attending Physician Ximena Rodgers DO Admitting Physician Gregory Stephenson MD Consulting Physician PASQUALE JEFFREY MD, MA, FACP, FACC, [facility] [place], CCDS Physician requesting consult: Dr Rodgers HPI: Chief Complaint: Reason for consultation: Hemoptysis, elevated BNP HPI 68 yo man with CV history described below, who sees Dr Beth in [facility] f/u at [facility], and who had umbilical hernia surgery on 01/25/19 and was admitted this am for some hemoptysis (small amounts of bright red blood in sputum) and mod shortness of breath. No cp. Feels well now. Denies fever or chills. Denies ankle swelling Denies palp or syncope. States has been holding Plavix and furosemide, which are part of his usual cardiac regimen, for a few days periop (umbilical hernia surgery) Review of Systems-Cardiology Review of Systems Constitutional: malaise, tiredness; No weight loss, No weight gain Eyes: No vision change Ears/Nose/Throat: No ear discharge, No nasal drainage, No recent hearing loss Respiratory: As described under HPI Cardiovascular: As described under HPI Gastrointestinal: No diarrhea, No nausea, No vomiting Genitourinary: No dysuria, No hematuria, No urine frequency changes Musculoskeletal: No back pain, No joint pain Skin: No rash, No ulcerations Psychiatric/Neurological: No seizure, No focal weakness, No syncope Hematologic: No bleeding abnormalities [id number] Hx Patient Social History Alcohol Use: Denies Use Recreational Drug Use: No Smoking Status: Former Smoker (QUIT 30 YEARS AGO) Former smoker/When Quit: Apr 17, 1995 Type Used: Cigarettes 2nd Hand Smoke Exposure: Yes Recent Foreign Travel: No Recent Infectious Disease Expo: No Hospitalization with Isolation: Denies Immunizations Up To Date Tetanus Booster (TDap): More than 5yrs Date of Pneumonia Vaccine: Apr 17, 2016 Date of Influenza Vaccine: Jan 22, 2018 Past Medical History PMH As described under Assessment. Family Medical History Family History: Alcoholism 09 BROTHER Cancer 03 MOTHER 09 SISTER Chest pain 03 FATHER 09 BROTHER Family history: Allergy Family history: Arthritis 09 SISTER Family history: Breast disease 03 MOTHER Family history: Cardiovascular disease 03 FATHER 03 MOTHER 09 BROTHER Family history: Coronary thrombosis 03 FATHER Family history: Diabetes mellitus 03 MOTHER Family history: Hypertension 03 FATHER 03 MOTHER 09 BROTHER Heart disease 03 FATHER 03 MOTHER 09 BROTHER History of drug abuse 09 SISTER Hypercholesterolemia 09 SISTER Myocardial infarction 03 FATHER 03 MOTHER Stroke 03 FATHER No Family History of: Abdominal aortic aneurysm Castine's disease Aphasia Cancer of colon Cataract Congenital heart disease Congestive heart failure Cystic fibrosis Dementia Dysphagia Family history: Alzheimer's disease Family history: Asthma Family history: Gastrointestinal disease Family history: Glaucoma Family history: Osteoporosis Family history: Thyroid disorder Headache Hearing loss Hereditary disease History of - anemia History of - disorder History of - respiratory disease Human immunodeficiency virus (HIV) seropositivity Infertile Kidney disease Malignant neoplasm of lung Parkinson's disease Prostate cancer Psychotic disorder Seizure disorder Tuberculosis Visual impairment Allergies and Home Medications Allergies Coded Allergies: Penicillins (Verified Allergy, Unknown, 07/16/15) Home Medications Acetaminophen 500 Mg Tablet, 1,000 MG PO Q48H PRN for PAIN-MILD, (Reported) Albuterol Sulfate 8.5 Gm Hfa.aer.ad, 1-2 PUFF IH Q4H PRN for WHEEZING, (Reported) Amlodipine Besylate 10 Mg Tablet, 10 MG PO DAILY, (Reported) Clopidogrel Bisulfate 75 Mg Tablet, 75 MG PO DAILY, (Reported) Furosemide 40 Mg Tablet, 40 MG PO DAILY, (Reported) Metoprolol Tartrate 100 Mg Tablet, 100 MG PO BID, (Reported) Olmesartan Medoxomil 20 Mg Tablet, 20 MG PO DAILY, (Reported) Potassium Chloride 10 Meq Tablet.er, 10 MEQ PO BID, (Reported) Rosuvastatin Calcium 20 Mg Tablet, 20 MG PO HS, (Reported) Patient Home Medication List Home Medication List Reviewed: Yes Physical Exam-Cardiology Physical Exam Vital Signs/I&O 01/27/19 01/27/19 01/27/19 01/27/19 02:20 03:11 05:34 06:00 Temp 36.4 36.6 Pulse 94 78 88 Resp 20 20 18 B/P (MAP) 163/84 (110) 137/71 152/68 (96) Pulse Ox 88 97 94 94 O2 Delivery Room Air Nasal Cannula Nasal Cannula Nasal Cannula O2 Flow Rate 2.00 2.00 2.00 01/27/19 01/27/19 01/27/19 01/27/19 06:05 06:16 07:15 08:00 Temp 36.6 Pulse 88 77 Resp 18 B/P (MAP) 152/68 Pulse Ox 94 O2 Delivery Nasal Cannula Nasal Cannula Room Air O2 Flow Rate 2.00 2.00 2.00 01/27/19 01/27/19 01/27/19 01/27/19 08:00 08:13 11:00 12:00 Temp 37.1 36.2 Pulse 72 97 Resp 18 14 B/P (MAP) 131/66 (87) 151/55 (87) Pulse Ox 96 95 93 O2 Delivery Room Air Room Air Room Air Room Air Capillary Refill : Less Than 3 Seconds Constitutional: AAO x 3, well-developed, well-nourished HEENT: EOMI, hearing is well preserved; No xanthelasmas are seen Neck: carotid pulses are 2 + bilaterally, with good upstrokes Respiratory: No accessory muscle use; other (good bilat air entry, a few coarse basal crackles) Cardiovascular: regular rate-rhythm, S1 and S2, systolic murmur (soft JEAN PAUL at card base) Gastrointestinal: soft; No guarding; audible bowel sounds, other (due to recent post-op state, we didn't attemp any deep palpation) Extremities: No clubbing, No cyanosis, No significant edema Neurologic/Psychiatric: grossly intact, power is 5/5 both on sides Data Review Labs Laboratory Tests 01/27/19 02:41: White Blood Count 13.7H, Red Blood Count 4.81, Hemoglobin 14.0, Hematocrit 41, Mean Corpuscular Volume 86, Mean Corpuscular Hemoglobin 29, Mean Corpuscular Hemoglobin Concent 34, Red Cell Distribution Width 14.1, Platelet Count 152, Mean Platelet Volume 10.5H, Neutrophils (%) (Auto) 79H, Lymphocytes (%) (Auto) 14, Monocytes (%) (Auto) 7, Eosinophils (%) (Auto) 0, Basophils (%) (Auto) 0, Neutrophils # (Auto) 10.8H, Lymphocytes # (Auto) 1.9, Monocytes # (Auto) 0.9, Eosinophils # (Auto) 0.1, Basophils # (Auto) 0.0, Prothrombin Time 13.4, INR Comment 1.0, Activated Partial Thromboplast Time 30, Sodium Level 140, Potassium Level 3.9, Chloride Level 101, Carbon Dioxide Level 27, Anion Gap 12, Blood Urea Nitrogen 24H, Creatinine 1.16, Estimat Glomerular Filtration Rate > 60, BUN/Creatinine Ratio 21, Glucose Level 126H, Lactic Acid Level 1.19, Calcium Level 9.2, Corrected Calcium 8.8, Magnesium Level 1.9, Total Bilirubin 0.9, Aspartate Amino Transf (AST/SGOT) 31, Alanine Aminotransferase (ALT/SGPT) 33, Alkaline Phosphatase 66, Total Creatine Kinase 321H, Creatine Kinase MB 3.6, Myoglobin 116.2H, Troponin I 0.048H, B-Type Natriuretic Peptide 916.4H, Total Protein 7.5, Albumin 4.5, Procalcitonin 0.05 01/27/19 03:33: Urine Color YELLOW, Urine Clarity CLEAR, Urine pH 7, Urine Specific [place] 1.010L, Urine Protein NEGATIVE, Urine Glucose (UA) NEGATIVE, Urine Ketones NEGATIVE, Urine Nitrite NEGATIVE, Urine Bilirubin NEGATIVE, Urine Urobilinogen NORMAL, Urine Leukocyte Esterase NEGATIVE, Urine RBC (Auto) NEGATIVE, Urine RBC NONE, Urine WBC NONE, Urine Squamous Epithelial Cells NONE, Urine Crystals NONE, Urine Bacteria TRACE, Urine Casts NONE, Urine Mucus NEGATIVE, Urine Culture Indicated NO Microbiology 01/27/19 Influenza Types A,B Antigen ([place]) - Final, Complete Laboratory Tests 01/27/19 02:41 A/P-Cardiology Assessment/Admission Diagnosis Minimal troponin elevation, likely due to recent gen anesthesia on 01/25/19 for umbilical hernia surgery (type 2 [place]) Mild BNP elevation likely due to perioperative volume overload (mild diastolic CHF) Hemoptysis likely due to intubation on 01/25/19 for umbilical hernia surg Coronary artery disease: status post CABG 4 in 2004 Aortic dissection repaired at [facility] in August 2013: ascending aortic root replacement with a 32 mm Dacron graft, aortic root reconstruction wit re- suspension of the aortic valve and re-implantation of 3 coronary bypass grafts Hypertension, by history Hyperlipidemia, by history Discussion and Recomendations * iv diuretics as needed * Monitor labs * Consider resuming antiplatelet agents tomorrow * Echo Clinical Quality Measures DVT/VTE Risk/Contraindication: Risk Factor Score Per Nursin RFS Level Per Nursing on Admit: 4+=Very High PASQUALE JEFFREY MD [facility] Jan 27, 2019 13:32
[2019-01-27] MEDS ORDERED: CEFEPIME 2,000 MG/SWFI 20 ML IV PUSH IV SCH ×2 (15:00)
[2019-01-27] MEDS: CEFEPIME 2,000 MG/SWFI 20 ML IV PUSH IV SCH ×2 (15:33)
[2019-01-27] MEDS: ACETAMINOPHEN 500 MG TAB (TYLENOL) PO PRN ×2 (15:36→20:59)
[2019-01-28] VITALS: BP 135/65
[2019-01-28] MEDS: RT-ALBUTEROL/IPRATROPIUM 3 ML (DUONEB) VIAL INH SCH ×3 (03:34→10:26)
[2019-01-28 03:40] VITALS: BP 146/68
[2019-01-28] MEDS: CEFEPIME 2,000 MG/SWFI 20 ML IV PUSH IV SCH ×2 (03:40)
--- NOTE | 2019-01-28 07:50 | Pulmonary Progress Note ---
Subjective Time Seen by a Provider: 06:00 Subjective/Events-last exam Pt appears to be doing better. Sepsis Event Evaluation Height, Weight, BMI Height: 5'8.00" Weight: 213lbs. 0.6oz. 96.099193ng; 33.80 BMI Method:Stated Focused Exam Lactate Level 01/27/19 02:41: Lactic Acid Level 1.19 Exam Exam Vital Signs Date Time Temp Pulse Resp B/P (MAP) Pulse Ox O2 Delivery O2 Flow Rate FiO2 01/28/19 06:22 95 Room Air 01/28/19 04:00 Room Air 01/28/19 03:40 36.1 89 16 146/68 (94) 93 Room Air 01/28/19 03:32 98 Room Air 01/28/19 01:00 93 01/28/19 00:00 36.4 91 16 135/65 (88) 96 Room Air 01/28/19 00:00 Room Air 01/27/19 22:45 94 Room Air 01/27/19 21:00 Room Air 01/27/19 20:00 36.5 101 18 143/76 (98) 96 Room Air 01/27/19 20:00 Room Air 01/27/19 19:52 98 Room Air 01/27/19 19:00 91 01/27/19 16:00 Room Air 01/27/19 16:00 36.8 95 16 148/56 (86) 93 Room Air 01/27/19 14:45 95 Room Air 01/27/19 12:59 101 01/27/19 12:00 Room Air 01/27/19 12:00 36.2 97 14 151/55 (87) 93 Room Air 01/27/19 11:00 95 Room Air 01/27/19 08:13 37.1 72 18 131/66 (87) 96 Room Air 01/27/19 08:00 Room Air 01/27/19 08:00 Room Air I & O 01/28/19 07:00 Intake Total 930 ml Output Total 3500 ml Balance -2570 ml Height & Weight Height: 5'8.00" Weight: 213lbs. 0.6oz. 96.812583vm; 33.80 BMI Method:Stated General Appearance: No Apparent Distress, WD/WN, Anxious, Chronically ill HEENT: PERRL/EOMI, Normal ENT Inspection, Pharynx Normal, Moist Mucous Membranes Neck: Full Range of Motion, Normal Inspection, Non Tender Respiratory: Chest Non Tender, No Accessory Muscle Use, No Respiratory Distress, Crackles, Decreased Breath Sounds Cardiovascular: Regular Rate, Rhythm, No Edema, No Gallop, No JVD, No Murmur, Normal Peripheral Pulses Capillary Refill: Less Than 3 Seconds Gastrointestinal: soft, no organomegaly, distended (Slight distension), other (incision c/d/i) Extremity: Normal Capillary Refill, Normal Inspection, Normal Range of Motion, Non Tender, No Calf Tenderness, No Pedal Edema Neurologic/Psychiatric: Alert, Oriented x3, No Motor/Sensory Deficits, Normal Mood/Affect Skin: Normal Color, Warm/Dry Lymphatic: No Adenopathy Results Lab Laboratory Tests 01/27/19 02:41 Assessment/Plan Assessment/Plan Pneumonia Multi lobar -With sepsis -Reviewed CT of chest -Will need repeat CT of chest in 8 wks after discharge to ensure complete resolution. - Continue Cefepime and azithromycin -Gupta cultures -Check echo COPDAE -SVNS -Continue to monitor Diastolic CHF grade II per echo report -Lasix -SL IVF Hemoptysis - small amount -Pt was intubation on 01/25/19 for umbilical hernia surg -Monitor -May need bronchoscopy Hypokalemia -replace Hx of tobacco use LUIS HENRIQUEZ DO Jan 28, 2019 07:50
--- NOTE | 2019-01-28 08:30 | Diagnostic Imaging Report ---
INDICATION: Pneumonia. COMPARISON: 01/27/2019. FINDINGS: There has been considerable decrease in the pulmonary infiltrates especially within the right lower lobe when compared with previous exam. Cardiomegaly and median sternotomy changes are again noted. There is no pulmonary edema. No pneumothorax or pleural effusion. IMPRESSION: 1. Postoperative residue with cardiomegaly and no evidence of pulmonary edema. 2. Significant decrease in alveolar infiltrates especially in the right lower lung. Dictated by: Dictated on workstation # [id number]
[2019-01-28 08:35] LABS: BASOPHILS % (AUTO) 0 % (0-10); EOSINOPHILS % (AUTO) 0 % (0-10); HEMATOCRIT 39 % (40-54); LYMPHOCYTES # (AUTO) 0.5 X 10^3 (1.0-4.0); LYMPHOCYTES % (AUTO) 4 % (12-44); MEAN CORPUSCULAR HEMOGLOBIN 28 PG (25-34); MEAN CORPUSCULAR HGB CONC 33 G/DL (32-36); MEAN CORPUSCULAR VOLUME 85 FL (80-99); MONOCYTES # (AUTO) 0.5 X 10^3 (0.0-1.0); MONOCYTES % (AUTO) 3 % (0-12); NEUTROPHILS # (AUTO) 13.1 X 10^3 (1.8-7.8); NEUTROPHILS % (AUTO) 93 % (42-75); PLATELET COUNT 153 10^3/uL (130-400); RED CELL DISTRIBUTION WIDTH 14.6 % (10.0-14.5); WHITE BLOOD COUNT 14.1 10^3/uL (4.3-11.0)
[2019-01-28] MEDS: 1/2 NS IV SOLUTION 1,000 ML IV SCH (08:41)
[2019-01-28 08:59] LABS: BUN/CREATININE RATIO 26; CALCIUM 9.5 MG/DL (8.5-10.1); CARBON DIOXIDE 25 MMOL/L (21-32); CHLORIDE 100 MMOL/L (98-107); CREATININE SERUM 1.05 MG/DL (0.60-1.30); GFR ESTIMATED > 60; GLUCOSE 234 MG/DL (70-105); MAGNESIUM 2.1 MG/DL (1.6-2.4); PHOSPHORUS 3.1 MG/DL (2.3-4.7); POTASSIUM 3.2 MMOL/L (3.6-5.0); SODIUM 139 MMOL/L (135-145)
[2019-01-28 09:12] LABS: BAND NEUTROPHILS 6 %; LYMPHOCYTES % (MANUAL) 1 %; MONOCYTES % (MANUAL) 1 %; NEUTROPHILS % (MANUAL) 92 %
[2019-01-28 09:13] LABS: RBC MORPH NORMAL
[2019-01-28] MEDS: AZITHROMYCIN 500 MG/NS 250 ML IVPB IV SCH ×2 (09:27)
[2019-01-28] MEDS ORDERED: KCL 20 MEQ TAB (K-DUR) PO NR ×2 (09:45→10:30)
--- NOTE | 2019-01-28 09:55 | Progress Note - Cardiology ---
Cardiology SOAP Progress Note Subjective: No cp or palp or syncope No further hemoptysis Shortness of breath improved Objective: I&O/Vital Signs 01/27/19 01/28/19 01/28/19 01/28/19 22:45 00:00 00:00 01:00 Temp 36.4 Pulse 91 93 Resp 16 B/P (MAP) 135/65 (88) Pulse Ox 94 96 O2 Delivery Room Air Room Air Room Air 01/28/19 01/28/19 01/28/19 01/28/19 03:32 03:40 04:00 06:22 Temp 36.1 Pulse 89 Resp 16 B/P (MAP) 146/68 (94) Pulse Ox 98 93 95 O2 Delivery Room Air Room Air Room Air Room Air 01/28/19 01/28/19 01/28/19 07:00 08:00 08:00 Pulse 94 O2 Delivery Room Air Room Air 01/28/19 00:00 Intake Total 440 ml Output Total 2300 ml Balance -1860 ml Weight (Pounds): 213 Weight (Ounces): 0.6 Weight (Calculated Kilograms): 96.747617 Constitutional: AAO x 3, well-developed, well-nourished Respiratory: No accessory muscle use; other (good bilat air entry, a few coarse basal crackles) Cardiovascular: regular rate-rhythm, S1 and S2, systolic murmur (soft JEAN PAUL at card base) Gastrointestional: soft; No guarding; audible bowel sounds, other (due to recent post-op state, we didn't attemp any deep palpation) Extremities: No clubbing, No cyanosis, No significant edema Neurologic/Psychiatric: grossly intact, power is 5/5 both on sides Results/Procedures: Labs Laboratory Tests 01/28/19 08:10: White Blood Count 14.1H, Red Blood Count 4.57, Hemoglobin 13.0L, Hematocrit 39L, Mean Corpuscular Volume 85, Mean Corpuscular Hemoglobin 28, Mean Corpuscular Hemoglobin Concent 33, Red Cell Distribution Width 14.6H, Platelet Count 153, Mean Platelet Volume 11.0H, Neutrophils (%) (Auto) 93H, Lymphocytes (%) (Auto) 4L, Monocytes (%) (Auto) 3, Eosinophils (%) (Auto) 0, Basophils (%) (Auto) 0, Neutrophils # (Auto) 13.1H, Lymphocytes # (Auto) 0.5L, Monocytes # (Auto) 0.5, Eosinophils # (Auto) 0.0, Basophils # (Auto) 0.0, Neutrophils % (Manual) 92, Lymphocytes % (Manual) 1, Monocytes % (Manual) 1, Band Neutrophils 6, Blood Morphology Comment NORMAL, Sodium Level 139, Potassium Level 3.2L, Chloride Level 100, Carbon Dioxide Level 25, Anion Gap 14, Blood Urea Nitrogen 27H, Creatinine 1.05, Estimat Glomerular Filtration Rate > 60, BUN/Creatinine Ratio 26, Glucose Level 234H, Calcium Level 9.5, Phosphorus Level 3.1, Magnesium Level 2.1, B-Type Natriuretic Peptide 307.7H Microbiology 01/27/19 Blood Culture - Preliminary, Resulted No growth 01/27/19 Influenza Types A,B Antigen ([place]) - Final, Complete Laboratory Tests 01/27/19 02:41 01/28/19 08:10 A/P: Assessment: Ac diastolic CHF and perioperative volume overload, improving Minimal troponin elevation, probably due to ac diastolic CHF (type 2 [place]) Echo of 01/27/19: LVEF 50-55%, grade 2 diastolic dysfunction, mod LA dilatation, mild MR, AoV sclerosis w/o stenosis Hemoptysis likely due to intubation on 01/25/19 for umbilical hernia surg Coronary artery disease: status post CABG 4 in 2004 Aortic dissection repaired at [facility] in August 2013: ascending aortic root replacement with a 32 mm Dacron graft, aortic root reconstruction wit re- suspension of the aortic valve and re-implantation of 3 coronary bypass grafts Hypertension, by history Hyperlipidemia, by history Plan: * Replenish * Monitor labs * Resume Plavix, if ok with the Medical PASQUALE Bauman MD FACP FAC CCDS Jan 28, 2019 09:55
[2019-01-28 10:00] VITALS: BP 165/86
[2019-01-28] MEDS ORDERED: CLOPIDOGREL 75 MG (PLAVIX) TABLET PO NR (10:30)
--- NOTE | 2019-01-28 10:52 | NUR ---
SPOKE WITH THE PATIENT ABOUT HIS MEDICATIONS. I CALLED [facility] FOR A LIST OF RECENTLY FILLED MEDS AND THEY MATCHED WHAT WAS REVIEWED BY THE NURSE PRIOR TO MED REC TECH AVAILABILITY EXCEPT FOR THE PLAVIX AND INHALER. [facility] DOES NOT HAVE RECORD OF FILLING PLAVIX OR THE INHALER. HE STATES HE DOES GET ONE MED FROM THE REPOSITORY AND IT MAY BE THE PLAVIX, HE KNOWS HE TAKES IT DAILY. HE STATES HE DOES NOT USE THE INHALER VERY OFTEN BUT HAS IT AVAILABLE IF NEEDED, HE GOT IT FROM THE GOVERNMENT. [facility] FILLED: 01-17-19 POTASSIUM 10MEQ BID #60 01-17-19 LASIX 40MG DAILY #30 01-14-19 NORVASC 10MG DAILY #30 01-14-19 BENICAR 20MG DAILY #30 01-04-19 CRESTOR 20MG DAILY #30 12-13-18 METOPROLOL TARTRATE 100MG BID #60
--- NOTE | 2019-01-28 11:27 | Discharge Summary ---
Diagnosis/Chief Complaint Date of Admission Jan 27, 2019 at 05:05 Date of Discharge Discharge Summary-Simple/Stand Consultations Discharge Physical Examination Allergies: Coded Allergies: Penicillins (Verified Allergy, Unknown, 07/16/15) Vitals & I&Os Vital Sign - Last 12Hours Date Time Temp Pulse Resp B/P (MAP) Pulse Ox O2 Delivery O2 Flow Rate FiO2 01/28/19 10:26 97 Room Air 01/28/19 10:00 36.6 94 18 165/86 (112) 01/27/19 06:16 2.00 Intake and Output 01/28/19 00:00 Intake Total 440 ml Output Total 2300 ml Balance -1860 ml Hospital Course See final discharge diagnosis. Discharge Instructions to patient/family Please see electronic discharge instructions given to patient. Discharge Medications Reviewed and agree with Discharge Medication list on patient's Discharge Instruction sheet Clinical Quality Measures DVT/VTE Risk/Contraindication: Risk Factor Score Per Nursin RFS Level Per Nursing on Admit: 4+=Very High MAHNAZ INIGUEZ MD Jan 28, 2019 11:27
[2019-01-28] MEDS ORDERED: CEFD300C3 PO (11:30)
[2019-01-28] MEDS ORDERED: AZIT250T12 PO (11:30)
--- NOTE | 2019-01-28 11:33 | Discharge Instructions ---
Discharge [facility] Reconcile Patient Problems Problems Reviewed?: Yes Discharge Medications New, Converted or Re-Newed RX: Transmitted to Pharmacy New Medications: Azithromycin (Azithromycin) 250 Mg Tablet 250 MG PO DAILY for 3 Days, #3 TAB Cefdinir (Cefdinir) 300 Mg Capsule 300 MG PO BID for 5 Days, #10 CAP Continued Medications: Acetaminophen (Tylenol Extra Strength) 500 Mg Tablet 1000 MG PO Q48H PRN for PAIN-MILD, TAB Albuterol Sulfate (Proair Hfa) 8.5 Gm Hfa.aer.ad 1-2 PUFF IH Q4H PRN for WHEEZING, INHALER Amlodipine Besylate (Amlodipine Besylate) 10 Mg Tablet 10 MG PO DAILY, TAB Clopidogrel Bisulfate (Plavix) 75 Mg Tablet 75 MG PO DAILY, TAB Furosemide (Lasix) 40 Mg Tablet 40 MG PO DAILY, TAB Metoprolol Tartrate (Metoprolol Tartrate) 100 Mg Tablet 100 MG PO BID, TAB LAST FILLED #60 12-13-18 Olmesartan Medoxomil (Benicar) 20 Mg Tablet 20 MG PO DAILY, TAB Potassium Chloride (Potassium Chloride) 10 Meq Tablet.er 10 MEQ PO BID, TAB Rosuvastatin Calcium (Crestor) 20 Mg Tablet 20 MG PO HS, TAB Patient Instructions Goal/Follow Up Appt: - f/u with PCP Dr Sims on Jan @ 120 PM - F.u with Cardiology w/n a week Patient Instructions: - Make sure to complete your antibioitics Activity & Diet Discharge Diet: Cardiac Diet Copy Copies To 1: WILVER SIMS MD, HOLLY R MD Jan 28, 2019 11:33
[2019-01-29] MEDS ORDERED: CLOPIDOGREL 75 MG (PLAVIX) TABLET PO SCH (09:00)
== END 2019-01-28 13:15 | disposition home or self-care (01) | DRG 871 ==
LOC: EDUNIT# 02:14 → ER 02:16 → ICU 05:05 → ER 05:05 → ICU 05:05 → ER 05:57
PROVIDERS: ADMIT Internal Medicine; ATTEND Internal Medicine
DX: A41.9 Sepsis, unspecified organism (principal); J18.1 Lobar pneumonia, unspecified organism; I21.A1 Myocardial infarction type 2; I50.31 Acute diastolic (congestive) heart failure; J44.1 Chronic obstructive pulmonary disease with (acute) exacerbation; R04.2 Hemoptysis; E78.00 Pure hypercholesterolemia, unspecified; E87.6 Hypokalemia; I25.10 Atherosclerotic heart disease of native coronary artery without angina pectoris; E78.5 Hyperlipidemia, unspecified; I11.0 Hypertensive heart disease with heart failure; K59.00 Constipation, unspecified; R78.89 Finding of other specified substances, not normally found in blood; T41.205A Adverse effect of unspecified general anesthetics, initial encounter; H91.93 Unspecified hearing loss, bilateral; Z87.891 Personal history of nicotine dependence
CPT/HCPCS: 36415; 71045; 71046; 71275; 80048; 80053; 81000; 82550; 82553; 83605; 83735; 83874; 83880; 84100; 84145; 84484; 85007; 85025; 85027; 85610; 85730; 87040; 87077; 87088; 87804; 93005; 93041; 93306; 94640

== ENCOUNTER 2020-03-31 10:57 | Inpatient (IN) | payer OTHER ==
[~2020-03-31] VITALS: Ht 168 cm; Wt 97.0 kg
[~2020-03-31 10:57] MED LIST changes: +ACET-2267 PO; +AMLO-251 PO; -AMLO10TA7 PO; +AZIT250T12 PO; +CEFD300C3 PO
[2020-03-31] MEDS ORDERED: methylPREDNISolone 125 MG (Solu-MEDROL) VIAL IVP ONE (11:15)
--- NOTE | 2020-03-31 11:30 | NUR ---
ATTEMPT FOR A ABGX2 UNSUCCESSFUL.
[2020-03-31 11:47] LABS: BASOPHILS % (AUTO) 1 % (0-10); EOSINOPHILS # (AUTO) 0.2 10^3/uL (0.0-0.3); EOSINOPHILS % (AUTO) 5 % (0-10); HEMATOCRIT 41 % (40-54); HEMOGLOBIN 13.3 g/dL (13.3-17.7); LYMPHOCYTES # (AUTO) 1.2 X 10^3 (1.0-4.0); LYMPHOCYTES % (AUTO) 24 % (12-44); MEAN CORPUSCULAR HEMOGLOBIN 29 pg (25-34); MEAN CORPUSCULAR HGB CONC 33 g/dL (32-36); MEAN CORPUSCULAR VOLUME 87 fL (80-99); MEAN PLATELET VOLUME 10.2 fL (9.0-12.2); MONOCYTES # (AUTO) 0.4 X 10^3 (0.0-1.0); MONOCYTES % (AUTO) 7 % (0-12); NEUTROPHILS # (AUTO) 3.3 X 10^3 (1.8-7.8); NEUTROPHILS % (AUTO) 64 % (42-75); PLATELET COUNT 194 10^3/uL (130-400); WHITE BLOOD COUNT 5.1 10^3/uL (4.3-11.0)
[2020-03-31 11:52] LABS: ALBUMIN 3.9 GM/DL (3.2-4.5); CHLORIDE 103 MMOL/L (98-107); POTASSIUM 3.8 MMOL/L (3.6-5.0); SODIUM 136 MMOL/L (135-145)
[2020-03-31 11:53] LABS: CALCIUM 8.5 MG/DL (8.5-10.1)
[2020-03-31 11:54] LABS: GLUCOSE 126 MG/DL (70-105); TOTAL PROTEIN 7.2 GM/DL (6.4-8.2)
[2020-03-31 11:55] LABS: CARBON DIOXIDE 24 MMOL/L (21-32)
[2020-03-31 11:56] LABS: BILIRUBIN,TOTAL 1.5 MG/DL (0.1-1.0)
[2020-03-31 11:57] LABS: ABG BASE EXCESS 1.8 MMOL/L (-2.5-2.5); ABG OXYGEN SATURATION 92 % (94-100); ABG PCO2 44 MMHG (35-45); ABG PO2 66 MMHG (79-93); ABG TCO2 27.5 MMOL/L (21.0-31.0)
[2020-03-31 11:58] LABS: ALLENS TEST YES-POS; INSPIRED O2 RA; PATIENT TEMP 37.1; VENTILATOR NO
[2020-03-31 11:58] LABS: ALKALINE PHOSPHATASE 71 U/L (40-136); GFR ESTIMATED > 60
[2020-03-31 11:59] LABS: BUN/CREATININE RATIO 18
--- NOTE | 2020-03-31 12:00 | NUR ---
UPDATE GIVEN TO FRIEND LISTED.
[2020-03-31 12:01] LABS: ALANINE AMINOTRANSFERASE 57 U/L (0-55)
--- NOTE | 2020-03-31 12:08 | ED Cough/URI ---
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 PT HAS NOT BEEN TAKING HIS BP OR DIURETIC MEDS. Sepsis Screen: No Definite Risk Source: patient Exam Limitations: no limitations History of Present Illness Date Seen by Provider: Mar 31, 2020 Time Seen by Provider: 12:06 Initial Comments To ER with reports of dyspnea on exertion when walking from the mailbox to the house prior to arrival today. No fevers no chills no cough. He does have COPD. He has been off of his Lasix for a few days as he is transitioning care from [facility] to [place]. Does not notice any increased pedal edema. Also states that he fell off of his porch landing on his back about 8 to 9 days ago. Has some lower back pain but he states it is getting a lot better. Timing/Duration: constant Severity/Quality: moderate Associated Symptoms: shortness of breath, wheezing Allergies and Home Medications Allergies Coded Allergies: Penicillins (Verified Allergy, Unknown, 07/16/15) Home Medications Acetaminophen 500 Mg Tablet, 1,000 MG PO Q48H PRN for PAIN-MILD, (Reported) Albuterol Sulfate 8.5 Gm Hfa.aer.ad, 1-2 PUFF IH Q4H PRN for WHEEZING, (Reported) Amlodipine Besylate 10 Mg Tablet, 10 MG PO DAILY, (Reported) Azithromycin 250 Mg Tablet, 250 MG PO DAILY Prescribed by: MAHNAZ INIGUEZ on 01/28/19 1130 Cefdinir 300 Mg Capsule, 300 MG PO BID Prescribed by: MAHNAZ INIGUEZ on 01/28/19 1130 Clopidogrel Bisulfate 75 Mg Tablet, 75 MG PO DAILY, (Reported) Furosemide 40 Mg Tablet, 40 MG PO DAILY, (Reported) Metoprolol Tartrate 100 Mg Tablet, 100 MG PO BID, (Reported) LAST FILLED #60 12-13-18 Olmesartan Medoxomil 20 Mg Tablet, 20 MG PO DAILY, (Reported) Potassium Chloride 10 Meq Tablet.er, 10 MEQ PO BID, (Reported) Rosuvastatin Calcium 20 Mg Tablet, 20 MG PO HS, (Reported) Patient Home Medication List Home Medication List Reviewed: Yes Review of Systems Review of Systems Constitutional: see HPI EENTM: see HPI Respiratory: see HPI, dyspnea on exertion Cardiovascular: no symptoms reported Genitourinary: no symptoms reported Musculoskeletal: no symptoms reported Skin: no symptoms reported Psychiatric/Neurological: No Symptoms Reported Hematologic/Lymphatic: No Symptoms Reported Immunological/Allergic: no symptoms reported Past Bhehrba-Rjjviy-Bthrje Hx Patient Social History Alcohol Use: Denies Use Recreational Drug Use: No Smoking Status: Former Smoker Type Used: Cigarettes Former Smoker, Quit: Jan 17, 1989 2nd Hand Smoke Exposure: Yes Recent Foreign Travel: No Contact w/Someone Who Travel: No Recent Infectious Disease Expo: No Recent Hopitalizations: No Immunizations Up To Date Tetanus Booster (TDap): More than 5yrs PED Vaccines UTD: No Date of Pneumonia Vaccine: Apr 17, 2016 Date of Influenza Vaccine: Jan 22, 2018 Seasonal Allergies Seasonal Allergies: Yes Past Medical History Surgeries: Yes Abdominal, Cardiac, CABG, Orthopedic, Vascular Surgery Respiratory: Yes (POSSIBLE COPD, ASTHMA CHILD) Asthma, COPD Currently Using CPAP: No Currently Using BIPAP: No Cardiac: Yes (4 VESSEL CABG 2004; THORACIC AORTIC ANEURYSM DISSECTION/REPAIR 2013) Aneurysm, Coronary Artery Disease, High Cholesterol, Hypertension Neurological: No Reproductive Disorders: No Sexually Transmitted Disease: No HIV/AIDS: No Genitourinary: No Gastrointestinal: Yes (UMBILICAL HERNIA REPAIR 01/24/19) Abdominal Hernia, Polyps Musculoskeletal: No Endocrine: No HEENT: No (GLASSES) Loss of Vision: Denies Hearing Impairment: Hard of Hearing, Bilateral Hearing Aide Cancer: No Psychosocial: No Integumentary: No Blood Disorders: No Adverse Reaction/Blood Tranf: No (N/A) Family Medical History Alcoholism 09 BROTHER Cancer 03 MOTHER 09 SISTER Chest pain 03 FATHER 09 BROTHER Family history: Allergy Family history: Arthritis 09 SISTER Family history: Breast disease 03 MOTHER Family history: Cardiovascular disease 03 FATHER 03 MOTHER 09 BROTHER Family history: Coronary thrombosis 03 FATHER Family history: Diabetes mellitus 03 MOTHER Family history: Hypertension 03 FATHER 03 MOTHER 09 BROTHER Heart disease 03 FATHER 03 MOTHER 09 BROTHER History of drug abuse 09 SISTER Hypercholesterolemia 09 SISTER Myocardial infarction 03 FATHER 03 MOTHER Stroke 03 FATHER No Family History of: Abdominal aortic aneurysm Panna Maria's disease Aphasia Cancer of colon Cataract Congenital heart disease Congestive heart failure Cystic fibrosis Dementia Dysphagia Family history: Alzheimer's disease Family history: Asthma Family history: Gastrointestinal disease Family history: Glaucoma Family history: Osteoporosis Family history: Thyroid disorder Headache Hearing loss Hereditary disease History of - anemia History of - disorder History of - respiratory disease Human immunodeficiency virus (HIV) seropositivity Infertile Kidney disease Malignant neoplasm of lung Parkinson's disease Prostate cancer Psychotic disorder Seizure disorder Tuberculosis Visual impairment No Pertinent Family Hx Physical Exam Vital Signs - First Documented 03/31/20 11:10 Temp 37.1 Pulse 91 Resp 16 B/P (MAP) 192/102 (132) Pulse Ox 95 O2 Delivery Room Air Capillary Refill : Less Than 3 Seconds Height: 5'8.00" Weight: 213lbs. 0.6oz. 96.783243uo; 34.00 BMI Method:Stated General Appearance: WD/WN, no apparent distress, other (No distress alert and oriented oxygen saturation 92 to 93% on room air. Wheezing on arrival which cleared after a couple of puffs from an albuterol inhaler.) Eyes: Bilateral Eye Normal Inspection, Bilateral Eye PERRL, Bilateral Eye EOMI HEENT: PERRL/EOMI, normal ENT inspection Neck: other (Mild JVD) Respiratory: no respiratory distress, no accessory muscle use; No accessory muscle use; other (After the albuterol treatment he is clear with good air movement but crackling in both posterior bases) Gastrointestinal: normal bowel sounds, non tender, soft Neurologic/Psychiatric: alert, normal mood/affect, oriented x 3 Skin: normal color, warm/dry Speaks in full sentences no distress Progress/Results/Core Measures Suspected Sepsis Recent Fever Within 48 Hours: No Infection Criteria Present: Suspected New Infection New/Unexplained Altered Menta: No Sepsis Screen: No Definite Risk SIRS Temperature: Pulse: 91 Respiratory Rate: 16 Laboratory Tests 03/31/20 11:25: White Blood Count 5.1 Blood Pressure 192 /102 Mean: 132 Laboratory Tests 03/31/20 11:25: Creatinine 1.00, Platelet Count 194, Total Bilirubin 1.5H Results/Orders Lab Results Laboratory Tests Test 03/31/20 11:17 03/31/20 11:25 03/31/20 11:45 Range/Units Coronavirus 2019 (CARLOS) Negative Negative White Blood Count 5.1 4.3-11.0 10^3/uL Red Blood Count 4.67 4.30-5.52 10^6/uL Hemoglobin 13.3 13.3-17.7 g/dL Hematocrit 41 40-54 % Mean Corpuscular Volume 87 80-99 fL Mean Corpuscular Hemoglobin 29 25-34 pg Mean Corpuscular Hemoglobin Concent 33 32-36 g/dL Red Cell Distribution Width 14.3 10.0-14.5 % Platelet Count 194 130-400 10^3/uL Mean Platelet Volume 10.2 9.0-12.2 fL Immature Granulocyte % (Auto) 0 % Neutrophils (%) (Auto) 64 42-75 % Lymphocytes (%) (Auto) 24 12-44 % Monocytes (%) (Auto) 7 0-12 % Eosinophils (%) (Auto) 5 0-10 % Basophils (%) (Auto) 1 0-10 % Neutrophils # (Auto) 3.3 1.8-7.8 X 10^3 Lymphocytes # (Auto) 1.2 1.0-4.0 X 10^3 Monocytes # (Auto) 0.4 0.0-1.0 X 10^3 Eosinophils # (Auto) 0.2 0.0-0.3 10^3/uL Basophils # (Auto) 0.0 0.0-0.1 10^3/uL Immature Granulocyte # (Auto) 0.0 0.0-0.1 10^3/uL D-Dimer 2.10 H 0.00-0.49 UG/ML Sodium Level 136 135-145 MMOL/L Potassium Level 3.8 3.6-5.0 MMOL/L Chloride Level 103 98-107 MMOL/L Carbon Dioxide Level 24 21-32 MMOL/L Anion Gap 9 5-14 MMOL/L Blood Urea Nitrogen 18 7-18 MG/DL Creatinine 1.00 0.60-1.30 MG/DL Estimat Glomerular Filtration Rate > 60 BUN/Creatinine Ratio 18 Glucose Level 126 H 70-105 MG/DL Calcium Level 8.5 8.5-10.1 MG/DL Corrected Calcium 8.6 8.5-10.1 MG/DL Total Bilirubin 1.5 H 0.1-1.0 MG/DL Aspartate Amino Transf (AST/SGOT) 49 H 5-34 U/L Alanine Aminotransferase (ALT/SGPT) 57 H 0-55 U/L Alkaline Phosphatase 71 40-136 U/L Troponin I 0.083 H <0.028 NG/ML B-Type Natriuretic Peptide 683.6 H <100.0 PG/ML Total Protein 7.2 6.4-8.2 GM/DL Albumin 3.9 3.2-4.5 GM/DL Procalcitonin 0.04 <0.10 NG/ML Blood Gas Puncture Site UNK Blood Gas Patient Temperature 37.1 Arterial Blood pH 7.40 7.37-7.43 Arterial Blood Partial Pressure CO2 44 35-45 MMHG Arterial Blood Partial Pressure O2 66 L 79-93 MMHG Arterial Blood HCO3 26 23-27 MMOL/L Arterial Blood Total CO2 27.5 21.0-31.0 MMOL/L Arterial Blood Oxygen Saturation 92 L 94-100 % Arterial Blood Base Excess 1.8 -2.5-2.5 MMOL/L Jw Test YES-POS Blood Gas Ventilator Setting NO Blood Gas Inspired Oxygen RA My Orders Orders - YUAN CARTER APRN Arterial Blood Gas (03/31/20 11:10) Chest 1 View, Ap/Pa Only (03/31/20 11:10) Cbc With Automated Diff (03/31/20 11:10) Comprehensive Metabolic Panel (03/31/20 11:10) Procalcitonin (Pct) (03/31/20 11:10) Fibrin Degradation Products (03/31/20 11:10) Ed Iv/Invasive Line Start (03/31/20 11:10) Methylprednisolone Sod Succ (Solu-Medrol (03/31/20 11:15) Albuterol Inhaler (Ventolin Hfa) (03/31/20 14:00) Covid 19 Inhouse Test (03/31/20 11:10) BNP (03/31/20 11:42) Ct Angio Chest W (03/31/20 12:17) Troponin I (03/31/20 12:40) Ekg Tracing (03/31/20 12:40) Furosemide Injection (Lasix Injection) (03/31/20 13:00) Medications Given in ED Current Medications Medications Dose Ordered Sig/Reyes Route Start Time Stop Time Status Last Admin Dose Admin Furosemide 40 mg ONCE ONCE IVP 03/31/20 13:00 03/31/20 13:01 DC 03/31/20 13:17 40 MG Iohexol 100 ml ONCE ONCE IV 03/31/20 12:30 03/31/20 12:31 DC 03/31/20 12:42 81 ML Methylprednisolone Sodium Succinate 125 mg ONCE ONCE IVP 03/31/20 11:15 03/31/20 11:16 DC 03/31/20 11:33 125 MG Sodium Chloride 100 ml ONCE ONCE IV 03/31/20 12:30 03/31/20 12:31 DC 03/31/20 12:42 80 ML Vital Signs/I&O 03/31/20 11:10 Temp 37.1 Pulse 91 Resp 16 B/P (MAP) 192/102 (132) Pulse Ox 95 O2 Delivery Room Air Capillary Refill : Less Than 3 Seconds Blood Pressure Mean: 132 Diagnostic Imaging Diagonstic Imaging: CT Comments NAME: LUCINA PATEL JR [facility] REC#: [id number] PT STATUS: REG ER : 1950 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 TECHNIQUE: Multiple contiguous axial images were obtained through the chest after uneventful bolus administration of intravenous contrast. 3D reconstructed CTA MIP acquisitions were also performed. Auto Exposure Controls were utilized during the CT exam to meet ALARA standards for radiation dose reduction. INDICATION: Dyspnea, COPD, history of the thoracic aneurysm repair. Compared with the chest CT performed 01/27/2019. There are no intraluminal pulmonary arterial filling defects. There is no pulmonary arterial embolus. This patient has developed small right and tiny left pleural effusions without evidence for the loculation on the right layering to an average maximal depth of 2.2 cm. The heart is enlarged and there is some prominence of the pulmonary venous structures as well as smooth septal thickening and groundglass opacity in the lungs favoring pulmonary edema owing to failure or hypervolemia. Infectious lung disease could not be excluded. Few mediastinal lymph nodes paratracheal and in the para-aortic and aorticopulmonary window regions are again noted, an AP window lymph node today 2.9 cm long axis previously 2.2 cm long axis. Subcarinal adenopathy today 3.5 x 2.2 cm, previously 2.5 x 1.5 cm. Some bilateral hilar adenopathy also shows similar mild increase. No dominant soft tissue density lung mass. There is no axillary adenopathy. The thoracic aorta is stable in caliber with the distal descending thoracic aortic dissection extending into the visualized upper abdomen, unchanged, no evidence for aortic rupture. Upper abdomen showing the celiac and superior mesenteric as well as right renal arteries arising off the true lumen, the left renal artery arising off the false lumen unchanged. There is no pericardial fluid. There is no pneumothorax. IMPRESSION: 1. No evidence for PE. 2. Cardiomegaly, vascular congestion, bilateral pleural effusions and likely an element of pulmonary edema suspicious for sequelae of failure or hypervolemia. 3. Increased immediate thoracic lymphadenopathy without demonstrated lung mass of uncertain etiology. 4. Stable thoracic aorta without evidence for its rupture or caliber progression, descending thoracic aortic dissection extending into the upper abdomen is an unchanged finding from comparison. Dictated on workstation # [id number] Dict: 03/31/20 1243 Trans: 03/31/20 1253 [id number] [id number] Interpreted by: LENORE DOTY Electronically signed by: Departure Communication (Admissions) Time/Spoke to Admitting Phy: 13:[address] Gomez given the bumped troponin likely an effect of the CHF. Will admit, spoke with Dr. Rodgers, agrees with plan. At this time no value in imaging the low back given the significantly improving symptoms, ability to walk without radicular symptoms. Impression Primary Impression: CHF (congestive heart failure) Qualified Codes: I50.9 - Heart failure, unspecified Additional Impression: Reactive airway disease Disposition: ADMITTED INPATIENT Condition: Stable Admissions Decision to Admit Reason: Admit from ER (General) Decision to Admit/Date: Mar 31, 2020 Time/Decision to Admit Time: 13:24 Departure-Patient Inst. Referrals: WILVER SIMS MD (PCP/Family) Primary Care Physician YUAN CARTER APRN Mar 31, 2020 12:08
--- NOTE | 2020-03-31 12:21 | Diagnostic Imaging Report ---
Portable erect AP chest at 11:40. Indication: Shortness of breath The cardiomegaly and the sternotomy wires and surgical clips noted in the prior exam of 01/28/2019 are again evident and not significantly changed. The central pulmonary vasculature is somewhat prominent but no different than on the prior exam. There is still no evidence for failure, pneumonia or for pleural effusion. The mediastinum is not widened. The osseous structures are intact. Impression: There is cardiomegaly and evidence of prior cardiac surgery but there is no sign of an acute cardiopulmonary abnormality. Dictated by: Dictated on workstation # [id number]
[2020-03-31] MEDS ORDERED: IOHEXOL 350 MG/ML 100 ML (OMNIPAQUE 350) VIAL IV ONE (12:30)
[2020-03-31] MEDS ORDERED: NS 100 ML (IVPB) BAG IV ONE (12:30)
[2020-03-31] MEDS ORDERED: HOLD METFORMIN - RECEIVED CONTRAST 20 ML VIAL IV SCH (12:30)
--- NOTE | 2020-03-31 12:54 | Diagnostic Imaging Report ---
PROCEDURE: CT angiography of the chest with contrast. TECHNIQUE: Multiple contiguous axial images were obtained through the chest after uneventful bolus administration of intravenous contrast. 3D reconstructed CTA MIP acquisitions were also performed. Auto Exposure Controls were utilized during the CT exam to meet ALARA standards for radiation dose reduction. INDICATION: Dyspnea, COPD, history of the thoracic aneurysm repair. Compared with the chest CT performed 01/27/2019. There are no intraluminal pulmonary arterial filling defects. There is no pulmonary arterial embolus. This patient has developed small right and tiny left pleural effusions without evidence for the loculation on the right layering to an average maximal depth of 2.2 cm. The heart is enlarged and there is some prominence of the pulmonary venous structures as well as smooth septal thickening and groundglass opacity in the lungs favoring pulmonary edema owing to failure or hypervolemia. Infectious lung disease could not be excluded. Few mediastinal lymph nodes paratracheal and in the para-aortic and aorticopulmonary window regions are again noted, an AP window lymph node today 2.9 cm long axis previously 2.2 cm long axis. Subcarinal adenopathy today 3.5 x 2.2 cm, previously 2.5 x 1.5 cm. Some bilateral hilar adenopathy also shows similar mild increase. No dominant soft tissue density lung mass. There is no axillary adenopathy. The thoracic aorta is stable in caliber with the distal descending thoracic aortic dissection extending into the visualized upper abdomen, unchanged, no evidence for aortic rupture. Upper abdomen showing the celiac and superior mesenteric as well as right renal arteries arising off the true lumen, the left renal artery arising off the false lumen unchanged. There is no pericardial fluid. There is no pneumothorax. IMPRESSION: 1. No evidence for PE. 2. Cardiomegaly, vascular congestion, bilateral pleural effusions and likely an element of pulmonary edema suspicious for sequelae of failure or hypervolemia. 3. Increased immediate thoracic lymphadenopathy without demonstrated lung mass of uncertain etiology. 4. Stable thoracic aorta without evidence for its rupture or caliber progression, descending thoracic aortic dissection extending into the upper abdomen is an unchanged finding from comparison. Dictated by: Dictated on workstation # [id number]
--- NOTE | 2020-03-31 12:57 | NUR ---
YUAN IN TALKING WITH THE PT AT THIS TIME.
[2020-03-31] MEDS ORDERED: FUROSEMIDE 40 MG/4 ML INJ (LASIX) IVP ONE (13:00)
--- NOTE | 2020-03-31 13:26 | NUR ---
update given to friend.
--- NOTE | 2020-03-31 13:56 | NUR ---
ATTEMPT TO CALL REPORT ET NURSE UNAVAILABLE AT THIS TIME.
[2020-03-31] MEDS ORDERED: RT-ALBUTEROL INHALER HFA (VENTOLIN HFA) 18 GM IH SCH ×2 (14:00→18:00)
--- NOTE | 2020-03-31 14:28 | Consultation-Cardiology ---
HPI-Cardiology Cardiology Consultation Date of Consultation 03/31/20 Date of Admission Time Seen by Provider: 16:08 Indication: shortness of breath HPI Cardiology consult for medical management of patient with Shortness of breath, chest tightness, elevated troponin and extensive cardiac history. CAD, hyperlipidemia, Hx of multivessel CABG, Hx of aortic root dissection and repair 69yo M that has had dyspnea on exertion started Monday and improved with use of his albuterol inhaler but continued to persist through Monday, monday and into today. This morning he endorsed having chest tightness along with worsening of his dyspnea on exertion that now persists at rest. Patient has an extensive medical history that includes CAD, HTN, hyperlipidemia, COPD, T2DM, hx of multivessel CABG. and aortic root dissection and repair. Patient follows with Dr. Beth at [place] for his heart and is establishing himself with the [facility] for primary care. Patient says that he has not taken his lasix or blood pressure meds in the last couple of days. Patient also says that he feel on his back recently and is still having some lower back pain. Home Medications & Allergies Allergies: Coded Allergies: Penicillins (Verified Allergy, Unknown, 07/16/15) Home Medication List Reviewed: Yes REK-Oipvva-Sqgfkq Hx Patient Social History Marital Status: Alcohol Use: Denies Use Recreational Drug Use: No Smoking Status: Former Smoker Former smoker/When Quit: Apr 17, 1995 Type Used: Cigarettes 2nd Hand Smoke Exposure: Yes Recent Foreign Travel: No Recent Infectious Disease Expo: No Recent Hopitalizations: No Immunizations Up To Date Tetanus Booster (TDap): More than 5yrs Date of Pneumonia Vaccine: Apr 17, 2016 Date of Influenza Vaccine: Jan 22, 2018 Past Medical History Discussed below Family Medical History Significant Family History: No Pertinent Family Hx Family History: 03 FATHER Chest pain Family history: Cardiovascular disease Family history: Coronary thrombosis Family history: Hypertension Heart disease Myocardial infarction Stroke 03 MOTHER Cancer Family history: Breast disease Family history: Cardiovascular disease Family history: Diabetes mellitus Family history: Hypertension Heart disease Myocardial infarction 09 BROTHER Alcoholism Chest pain Family history: Cardiovascular disease 09 BROTHER Family history: Hypertension Heart disease 09 SISTER Cancer Family history: Arthritis History of drug abuse Hypercholesterolemia Relation not specified for: Family history: Allergy Review of Systems-General Review of Systems Constitutional: see HPI; No chills, No dizziness, No fever EENTM: see HPI Respiratory: see HPI; No cough; dyspnea on exertion; No hemoptysis, No orthopnea, No phlegm; short of breath (@rest ); No stridor; wheezing; No other Cardiovascular: no symptoms reported, see HPI, chest pain, edema, Hx of Intervention (Hx of CABG and aortic root dissection repair ); No palpitations, No syncope, No vascular heart diseas, No other Gastrointestinal: see HPI; No abdominal pain, No constipation, No diarrhea Genitourinary: no symptoms reported, see HPI Musculoskeletal: no symptoms reported, see HPI Skin: no symptoms reported, see HPI Psychiatric/Neurological: No Symptoms Reported, See HPI Reviewed Test Results Reviewed Test Results Lab Laboratory Tests Test 03/31/20 11:17 03/31/20 11:25 03/31/20 11:45 Range/Units Coronavirus 2019 ([facility]) Negative Negative White Blood Count 5.1 4.3-11.0 10^3/uL Red Blood Count 4.67 4.30-5.52 10^6/uL Hemoglobin 13.3 13.3-17.7 g/dL Hematocrit 41 40-54 % Mean Corpuscular Volume 87 80-99 fL Mean Corpuscular Hemoglobin 29 25-34 pg Mean Corpuscular Hemoglobin Concent 33 32-36 g/dL Red Cell Distribution Width 14.3 10.0-14.5 % Platelet Count 194 130-400 10^3/uL Mean Platelet Volume 10.2 9.0-12.2 fL Immature Granulocyte % (Auto) 0 % Neutrophils (%) (Auto) 64 42-75 % Lymphocytes (%) (Auto) 24 12-44 % Monocytes (%) (Auto) 7 0-12 % Eosinophils (%) (Auto) 5 0-10 % Basophils (%) (Auto) 1 0-10 % Neutrophils # (Auto) 3.3 1.8-7.8 X 10^3 Lymphocytes # (Auto) 1.2 1.0-4.0 X 10^3 Monocytes # (Auto) 0.4 0.0-1.0 X 10^3 Eosinophils # (Auto) 0.2 0.0-0.3 10^3/uL Basophils # (Auto) 0.0 0.0-0.1 10^3/uL Immature Granulocyte # (Auto) 0.0 0.0-0.1 10^3/uL D-Dimer 2.10 H 0.00-0.49 UG/ML Sodium Level 136 135-145 MMOL/L Potassium Level 3.8 3.6-5.0 MMOL/L Chloride Level 103 98-107 MMOL/L Carbon Dioxide Level 24 21-32 MMOL/L Anion Gap 9 5-14 MMOL/L Blood Urea Nitrogen 18 7-18 MG/DL Creatinine 1.00 0.60-1.30 MG/DL Estimat Glomerular Filtration Rate > 60 BUN/Creatinine Ratio 18 Glucose Level 126 H 70-105 MG/DL Calcium Level 8.5 8.5-10.1 MG/DL Corrected Calcium 8.6 8.5-10.1 MG/DL Total Bilirubin 1.5 H 0.1-1.0 MG/DL Aspartate Amino Transf (AST/SGOT) 49 H 5-34 U/L Alanine Aminotransferase (ALT/SGPT) 57 H 0-55 U/L Alkaline Phosphatase 71 40-136 U/L Troponin I 0.083 H <0.028 NG/ML B-Type Natriuretic Peptide 683.6 H <100.0 PG/ML Total Protein 7.2 6.4-8.2 GM/DL Albumin 3.9 3.2-4.5 GM/DL Procalcitonin 0.04 <0.10 NG/ML Blood Gas Puncture Site UNK Blood Gas Patient Temperature 37.1 Arterial Blood pH 7.40 7.37-7.43 Arterial Blood Partial Pressure CO2 44 35-45 MMHG Arterial Blood Partial Pressure O2 66 L 79-93 MMHG Arterial Blood HCO3 26 23-27 MMOL/L Arterial Blood Total CO2 27.5 21.0-31.0 MMOL/L Arterial Blood Oxygen Saturation 92 L 94-100 % Arterial Blood Base Excess 1.8 -2.5-2.5 MMOL/L Jw Test YES-POS Blood Gas Ventilator Setting NO Blood Gas Inspired Oxygen RA Physical Exam Physical Exam Vital Signs Vital Signs - First Documented 03/31/20 11:10 Temp 37.1 Pulse 91 Resp 16 B/P (MAP) 192/102 (132) Pulse Ox 95 O2 Delivery Room Air Capillary Refill : Less Than 3 Seconds Height, Weight, BMI Height: 5'8.00" Weight: 213lbs. 0.6oz. 96.124536ks; 34.00 BMI Method:Stated General Appearance: No Apparent Distress, WD/WN, Obese Eyes: Bilateral Eye Normal Inspection, Bilateral Eye PERRL, Bilateral Eye EOMI HEENT: PERRL/EOMI Respiratory: Chest Non Tender, No Respiratory Distress, Expiration, Wheezing Cardiovascular: Regular Rate, Rhythm, Normal Peripheral Pulses, Systolic Murmur (over the aortic listen post suggesting aortic stenosis ) Extremity: Pedal Edema Neurologic/Psychiatric: Alert, Oriented x3, No Motor/Sensory Deficits, Normal Mood/Affect A/P-Cardiology Admission Diagnosis Shortness of breath Non-ST elevation myocardial infarction Congestive heart failure Hypertension Assessment/Plan SOB at rest: Elevated D-dimer, CTA of chest/thoracic preformed and showed no signs of PE. CTA of chest/thoracic show signs vascular congestion and bilateral pleural effusions suggestive of heart failure exacerbation or hypervolemia. Based on patients history, it is most likely a result of an acute exacerbation of chronic congestive heart failure. Exspirtory wheezing heard on ausculation in all lung cunningham suggestive of a pulmonary component in worsening SOB of breath. * Start on IV Lasix 40 mg daily and monitor renal function * Start bronchodilator, MAT protocol * Will continue to monitor response Acute exacerbation of chronic CHF: * Echo to evaluate ventricular and valvular function. * Continue metoprolol, ASA, ARB, Lasix * Give 20mg of KCl with daily for potassium supplementation * Will continue to monitor Asthma/COPD: management by medicine team CAD with hx of multivessel CABG 2004, reporting that he had a cardiac catheterization done in [place] about 6 months ago did not require any stenting: * serial troponin, will consider heart catheterization if troponin trends up, no change, or patient chest tightness does not improve/worsens * Continue Plavix * Planning for Lexiscan stress test in the morning Hx of Aortic root dissection repair with ascending aortic root replacement with a 32 mm Dacron graft, aortic root reconstruction wit re-suspension of the aortic valve and re-implantation of 3 coronary bypass grafts: * Follows with Dr. Beth, will discuss if patient needs a heart catheterization HTN: elevated BP 186/104, has not taken blood pressure meds or lasix in the past 4 days * Restart amlodipine and olmesartan; continue lasix * Will continue to monitor Elevated live transaminases: most likely result of venous congestion secondary to acute on chronic CHF exacerbation. Will continue to monitor T2DM: managed by medicine team * Takes metformin at home Hyperlipidemia: * Continue statin therapy; takes rosuvastatin at home. * Will continue to monitor Former smoker who quit 30yrs ago. This is Dr. Gomez, I have seen and evaluated the patient with the medical student, peripheral physical examination and interviewed the patient. I reviewed the consultation note and discussed the management plan in details, agree with the current scribed note Management as described above FERMIN SY,MED STUDENT Mar 31, 2020 14:28 WAYNE GOMEZ MD Mar 31, 2020 16:13
[2020-03-31 14:33] VITALS: BP 186/104
[2020-03-31] MEDS ORDERED: HYDROcodone/APAP 5 MG/325 MG (LORTAB) TAB PO PRN (15:00)
[2020-03-31 16:00] VITALS: BP 179/83
[2020-03-31] MEDS ORDERED: FLU QUAD HIGH DOSE 240 MCG/0.7 ML 2020-21 (FLUZONE) IM ONE (16:15)
[2020-03-31] MEDS ORDERED: REGADENOSON 0.4 MG/5 ML SYR (LEXISCAN) IV ONE (16:30)
--- NOTE | 2020-03-31 17:30 | NUR ---
CALL DAUGHTER BELKIS 1ST WITH INFORMATION. DAD (PATIENT) HAS SHORT TERM MEMORY LOSS AND MOM (PATIENT'S GETS CONFUSED SOMETIMES)
[2020-03-31] MEDS: ENOXAPARIN 100 MG/1 ML (LOVENOX) SYR SC SCH (17:54)
[2020-03-31] MEDS: KCL 10 MEQ TAB (MICRO K) PO SCH (17:54)
[2020-03-31 18:22] VITALS: BP 179/83
[2020-03-31 20:00] VITALS: BP 141/99
[2020-03-31] MEDS ORDERED: DOCUSATE SODIUM 100 MG (COLACE) CAP PO PRN (20:30)
[2020-03-31] MEDS ORDERED: ACETAMINOPHEN 500 MG TAB (TYLENOL) PO PRN (20:30)
[2020-03-31] MEDS ORDERED: LOPERAMIDE 2 MG (IMODIUM) TABLET PO PRN (20:30)
[2020-03-31] MEDS ORDERED: diphenhydrAMINE 25 MG TAB (BENADRYL) PO PRN (20:30)
[2020-03-31] MEDS ORDERED: ONDANSETRON 4 MG/2 ML (SDV) Z0FRAN IVP PRN (20:30)
[2020-03-31] MEDS ORDERED: CALCIUM CARBONATE 500 MG (TUMS) TAB.CHEW PO PRN (20:30)
[2020-03-31] MEDS ORDERED: MELATONIN 3 MG TABLET PO PRN (20:30)
[2020-03-31] MEDS ORDERED: ALPRAZolam 0.25 MG (XANAX) TAB PO PRN (20:30)
[2020-03-31] MEDS ORDERED: ONDANSETRON 4 MG (ZOFRAN) ORAL DISSOLVE TAB PO PRN (20:30)
[2020-03-31] MEDS: ROSUVASTATIN 20 MG (CRESTOR) TABLET PO SCH (20:40)
[2020-03-31] MEDS: meTOprolol TARTRATE 50 MG (LOPRESSOR) TAB PO SCH (20:42)
[2020-03-31] MEDS: SENNA W/DOCUSATE (SENOKOT S) TABLET PO SCH (20:43)
[2020-03-31] MEDS ORDERED: NON-FORMULARY MEDICATION 1 EA EA (Metoprolol Tartrate 100 MG) PO SCH (21:00)
[2020-03-31] MEDS: HYDROcodone/APAP 5 MG/325 MG (LORTAB) TAB PO PRN (23:28)
[2020-04-01] VITALS: BP 169/88
[2020-04-01 04:00] VITALS: BP 175/98
[2020-04-01] MEDS: ENOXAPARIN 100 MG/1 ML (LOVENOX) SYR SC SCH ×2 (05:13→17:30)
[2020-04-01 05:31] LABS: BASOPHILS % (AUTO) 0 % (0-10); EOSINOPHILS % (AUTO) 0 % (0-10); HEMATOCRIT 39 % (40-54); HEMOGLOBIN 12.7 g/dL (13.3-17.7); LYMPHOCYTES # (AUTO) 1.4 10^3/uL (1.0-4.0); LYMPHOCYTES % (AUTO) 15 % (12-44); MEAN CORPUSCULAR HEMOGLOBIN 28 pg (25-34); MEAN CORPUSCULAR HGB CONC 33 g/dL (32-36); MEAN CORPUSCULAR VOLUME 87 fL (80-99); MONOCYTES # (AUTO) 0.6 10^3/uL (0.0-1.0); MONOCYTES % (AUTO) 6 % (0-12); NEUTROPHILS # (AUTO) 7.2 10^3/uL (1.8-7.8); NEUTROPHILS % (AUTO) 78 % (42-75); PLATELET COUNT 207 10^3/uL (130-400); WHITE BLOOD COUNT 9.1 10^3/uL (4.3-11.0)
[2020-04-01 06:00] LABS: CHLORIDE 104 MMOL/L (98-107); POTASSIUM 4.4 MMOL/L (3.6-5.0); SODIUM 138 MMOL/L (135-145)
[2020-04-01 06:01] LABS: ALBUMIN 3.8 GM/DL (3.2-4.5)
[2020-04-01 06:02] LABS: CALCIUM 8.6 MG/DL (8.5-10.1); TRIGLYCERIDES 103 MG/DL (<150); VLDL CHOLESTEROL 21 MG/DL (5-40)
[2020-04-01 06:03] LABS: GLUCOSE 132 MG/DL (70-105); TOTAL PROTEIN 6.9 GM/DL (6.4-8.2)
[2020-04-01 06:04] LABS: CARBON DIOXIDE 25 MMOL/L (21-32)
[2020-04-01 06:05] LABS: BILIRUBIN,TOTAL 0.8 MG/DL (0.1-1.0)
[2020-04-01 06:07] LABS: ALKALINE PHOSPHATASE 72 U/L (40-136); CHOLESTEROL 190 MG/DL (< 200); CREATININE SERUM 1.12 MG/DL (0.60-1.30); GFR ESTIMATED > 60
[2020-04-01 06:08] LABS: BUN/CREATININE RATIO 23
[2020-04-01 06:09] LABS: HDL CHOLESTEROL 33 MG/DL (40-60)
[2020-04-01 06:10] LABS: ALANINE AMINOTRANSFERASE 68 U/L (0-55)
[2020-04-01] MEDS ORDERED: KCL 20 MEQ TAB (K-DUR) PO SCH (07:00)
[2020-04-01] MEDS: FUROSEMIDE 40 MG/4 ML INJ (LASIX) IV SCH (07:05)
[2020-04-01] MEDS: KCL 10 MEQ TAB (MICRO K) PO SCH ×3 (08:00→17:30)
[2020-04-01] MEDS: RT-ALBUTEROL INHALER HFA (VENTOLIN HFA) 18 GM IH SCH ×3 (08:47→20:29)
[2020-04-01] MEDS ORDERED: OLMESARTAN 20 MG (BENICAR) TABLET PO SCH (09:00)
[2020-04-01] MEDS ORDERED: REGADENOSON 0.4 MG/5 ML SYR (LEXISCAN) IV ONE (09:01)
[2020-04-01 09:10] VITALS: BP 163/94
--- NOTE | 2020-04-01 10:28 | History & Physical-Hospitalist ---
History of Present Illness HPI/Chief Complaint CC: SOB HPI: This is a 69yoWM clinic pt of [facility] and [facility] in [place] who presents with back pain and SOB. Covid was negative and he reports that he fell off his porch about a week ago and he feels like this put his breathing in a worse status. He does have a hx of CHF and cardiology has given IV Lasix and stress test has been completed. He does not use O2 at home. Source: patient Exam Limitations: no limitations Date Seen 04/01/20 Time Seen by a Provider: 10:00 Attending Physician Ximena Day DO PCP Gregory Stephenson MD Referring Physician Date of Admission Mar 31, 2020 at 13:33 Home Medications & Allergies Home Medications Reviewed patient Home Medication Reconciliation performed by pharmacy medication reconciliations quality control technician and/or nursing. Patients Allergies have been reviewed. Allergies Allergies Coded Allergies Penicillins (Verified Allergy, Unknown, 07/16/15) Past Isdzxrc-Ocvilm-Jaryjl Hx Past Med/Social Hx: Reviewed Nursing Past Med/Soc Hx, Reviewed and Corrections made Patient Social History Marrital Status: Alcohol Use: Denies Use Recreational Drug Use: No Smoking Status: Former Smoker Former Smoker, Quit: Jan 17, 1989 Type Used: Cigarettes 2nd Hand Smoke Exposure: Yes Recent Foreign Travel: No Contact w/other who traveled: No Recent Hopitalizations: No Recent Infectious Disease Expo: No Immunizations Up To Date Tetanus Booster (TDap): More than 5yrs Pediatric: No Date of Pneumonia Vaccine: Apr 17, 2016 Date of Influenza Vaccine: Jan 30, 2020 Seasonal Allergies Seasonal Allergies: Yes Past Medical History Surgeries: Abdominal, Cardiac, CABG, Orthopedic, Vascular Surgery Currently Using CPAP: No Currently Using BIPAP: No Cardiac: Aneurysm, Coronary Artery Disease, High Cholesterol, Hypertension Reproductive: No Sexually Transmitted Disease: No HIV/AIDS: No Gastrointestinal: Abdominal Hernia, Polyps Loss of Vision: Denies Hearing Impairment: Hard of Hearing, Bilateral Hearing Aide History of Blood Disorders: No Adverse Reaction to Blood [place]: No (N/A) Family History Alcoholism 09 BROTHER Cancer 03 MOTHER 09 SISTER Chest pain 03 FATHER 09 BROTHER Family history: Allergy Family history: Arthritis 09 SISTER Family history: Breast disease 03 MOTHER Family history: Cardiovascular disease 03 FATHER 03 MOTHER 09 BROTHER Family history: Coronary thrombosis 03 FATHER Family history: Diabetes mellitus 03 MOTHER Family history: Hypertension 03 FATHER 03 MOTHER 09 BROTHER Heart disease 03 FATHER 03 MOTHER 09 BROTHER History of drug abuse 09 SISTER Hypercholesterolemia 09 SISTER Myocardial infarction 03 FATHER 03 MOTHER Stroke 03 FATHER No Family History of: Abdominal aortic aneurysm Pembina's disease Aphasia Cancer of colon Cataract Congenital heart disease Congestive heart failure Cystic fibrosis Dementia Dysphagia Family history: Alzheimer's disease Family history: Asthma Family history: Gastrointestinal disease Family history: Glaucoma Family history: Osteoporosis Family history: Thyroid disorder Headache Hearing loss Hereditary disease History of - anemia History of - disorder History of - respiratory disease Human immunodeficiency virus (HIV) seropositivity Infertile Kidney disease Malignant neoplasm of lung Parkinson's disease Prostate cancer Psychotic disorder Seizure disorder Tuberculosis Visual impairment No Pertinent Family Hx Review of Systems Constitutional: see HPI Respiratory: short of breath Physical Exam Physical Exam Vital Signs Vital Signs - First Documented 03/31/20 11:10 Temp 37.1 Pulse 91 Resp 16 B/P (MAP) 192/102 (132) Pulse Ox 95 O2 Delivery Room Air Capillary Refill : Less Than 3 Seconds Height, Weight, BMI Height: 5'8.00" Weight: 213lbs. 0.6oz. 96.844302ie; 34.36 BMI Method:Stated General Appearance: No Apparent Distress, Chronically ill, Obese Eyes: Right Eye Normal Inspection, Right Eye PERRL HEENT: PERRL/EOMI, Normal ENT Inspection, Pharynx Normal, Moist Mucous Membranes Neck: Full Range of Motion, Normal Inspection, Non Tender Respiratory: Chest Non Tender, No Accessory Muscle Use, No Respiratory Distress, Decreased Breath Sounds, Wheezing Cardiovascular: Regular Rate, Rhythm, No Gallop, No JVD, No Murmur, Normal Peripheral Pulses Gastrointestinal: Normal Bowel Sounds, No Organomegaly, No Pulsatile Mass, Non Tender, Soft Back: Normal Inspection, No CVA Tenderness, No Vertebral Tenderness Extremity: Normal Capillary Refill, Normal Inspection, Normal Range of Motion, Non Tender, No Calf Tenderness, Pedal Edema Neurologic/Psychiatric: Alert, Oriented x3, No Motor/Sensory Deficits, Normal Mood/Affect Skin: Normal Color, Warm/Dry Lymphatic: No Adenopathy Results Results/Procedures Labs Laboratory Tests 03/31/20 11:25 04/01/20 05:05 Patient resulted labs reviewed. Assessment/Plan Admission Diagnosis Assessment: AECHF CAD prev CABG Hypoxia COVID negative Plan: IV Lasix ECHO EST Cardiology evaluation Admission Status: Inpatient Order (span 2 midnights) Reason for Inpatient Admission: chf Diagnosis/Problems Diagnosis/Problems (1) CHF (congestive heart failure) Status: Acute Qualifiers: Heart failure type: unspecified Heart failure chronicity: unspecified Qualified Codes: I50.9 - Heart failure, unspecified (2) Reactive airway disease Status: Acute Qualifiers: Asthma severity: moderate Asthma complication type: uncomplicated (3) Hypoxia Status: Acute Clinical Quality Measures DVT/VTE Risk/Contraindication: Risk Factor Score Per Nursin RFS Level Per Nursing on Admit: 4+=Very High XIMENA DAY DO Apr 01, 2020 10:28
--- NOTE | 2020-04-01 10:30 | Cardiology Progress Note ---
Subjective Date Seen by Provider: Apr 01, 2020 Time Seen by Provider: 09:00 Subjective/Events-last exam Patient is in heart center for stress test, continues to complain of dyspnea with exertion. Denies any chest pain. Review of Systems General: No Chills, No Night Sweats, No Fatigue, No Malaise, No Appetite, No Other HEENT: No Head Aches, No Visual Changes, No Eye Pain, No Ear Pain, No Dysphasia, No Sinus Congestion, No Post Nasal Drip, No Sore Throat, No Other Pulmonary: No Dyspnea, No Cough, No Pleuritic Chest Pain, No Other Cardiovascular: No: Chest Pain, Palpitations, Orthopnea, Paroxysmal Noc. Dyspnea, Edema, Lt Headedness, Other Objective-Cardiology Exam Last Set of Vital Signs Vital Signs 04/01/20 04/01/20 12:00 12:35 Temp 35.5 Pulse 99 Resp 18 B/P (MAP) 185/86 (119) Pulse Ox 91 O2 Delivery Room Air Capillary Refill : Less Than 3 Seconds I&O Intake and Output 04/01/20 00:00 Intake Total 750 ml Balance 750 ml Intake Oral 750 ml # Voids 2 Daily Weight Change No No General: Alert, Oriented X3, Cooperative HEENT: Atraumatic, PERRLA Neck: Supple, No JVD, No Thyromegaly Lungs: Other (bilat wheezing) Heart: Regular Rate, Normal S1, Normal S2 Abdomen: Normal Bowel Sounds, Soft Extremities: No Edema Skin: No Rashes Neuro: Cranial Nerves 3-12 NL Psych/Mental Status: Mental Status NL, Mood NL Results Lab Laboratory Tests 04/01/20 05:05 A/P-Cardiology Admission Diagnosis Shortness of breath Non-ST elevation myocardial infarction Congestive heart failure Hypertension Assessment/Plan Dyspnea with rest and exertion: Elevated D-dimer, CTA of chest/thoracic preformed and showed no signs of PE. CTA of chest/thoracic show signs vascular congestion and bilateral pleural effusions suggestive of heart failure exacerbation or hypervolemia. Based on patients history, it is most likely a result of an acute exacerbation of chronic congestive heart failure. Exspirtory wheezing heard on ausculation in all lung cunningham suggestive of a pulmonary component in worsening SOB of breath. Continue to diurese Acute exacerbation of chronic CHF, maintained on ARB, beta pj, Lasix. 2D Echo done 03/31/2020 showing EF 40-45%, grade 2 diastolic dysfunciton, LA dilated 5.1cm, mild , PA 35-40mmHg. Asthma/COPD: management by medicine team CAD with hx of multivessel CABG 2004, reporting that he had a cardiac catheterization done in [place] about 6 months ago did not require any stenting, stress test showed decreased uptake involving the inferior wall with subtle reversibility, I discussed with the patient the management plan, there is no significant ischemia on his stress test. Conservative management is recommended especially that he had a cardiac catheterization done about 6 months ago and did not require any intervention, probably has underlying small vessel disease, continue on aspirin and Plavix for now Hx of Aortic root dissection repair with ascending aortic root replacement with a 32 mm Dacron graft, aortic root reconstruction wit re-suspension of the aortic valve and re-implantation of 3 coronary bypass grafts. Follows with Dr. Beth, continue to monitor HTN, restarted home blood pressure medications, continue to monitor Elevated live transaminases: most likely result of venous congestion secondary to acute on chronic CHF exacerbation. Will continue to monitor T2DM: managed by medicine team Hyperlipidemia, continue statin therapy; takes rosuvastatin at home. Former smoker who quit 30yrs ago. Patient was seen and evaluated with Tatiana, examination performed, management plan was discussed, agree with the current scribed note, I made few changes to the note using Italic font Patient was seen and evaluated, discussed with him the management plan, recommended conservative management especially with his extensive history as described above. He still having some shortness of breath, requiring oxygen with minimal exertion, continue with bronchodilators, continue diuretics and monitor tolerance and response Clinical Quality Measures DVT/VTE Risk/Contraindication: Risk Factor Score Per Nursin RFS Level Per Nursing on Admit: 4+=Very High TATIANA THOMAS Apr 01, 2020 10:30 WAYNE REYNA MD Apr 01, 2020 13:14
[2020-04-01] MEDS ORDERED: NS IV 1000 ML 1,000 ML ONE (11:43)
--- NOTE | 2020-04-01 11:46 | Cardiology Stress Test Report ---
Stress Test Report Date of Procedure/Referring: Date of Procedure: Apr 01, 2020 PCP Ximena Rodgers DO Admitting Physician Gregory Stephenson MD Indications: Chest pain Baseline Blood Pressure: Blood Pressure Systolic: 163 Blood Pressure Diastolic: 94 Baseline Vitals Vital Signs Date Time Temp Pulse Resp B/P (MAP) Pulse Ox O2 Delivery O2 Flow Rate FiO2 03/31/20 11:10 37.1 91 16 192/102 (132) 95 Room Air Baseline EKG: Baseline EKG: normal sinus rhythm, poor R-wave progression Summary After explaining the procedure to the patient, he signed a consent and then brought to the stress nuclear laboratory. Patient received 0.4 mg Lexiscan for stress test, ECG, heart rate and blood pressure were monitored continuously. Resting and stress dose of radio tracer were injected, imaging was acquired and reviewed in short axis, horizontal long axis and vertical long axis views. TID: 0.97 SSS: 12 SDS: 1 EF: 35 1. Patient tolerated Lexiscan well 2. Decreased uptake involving the whole inferior wall and inferolateral wall with mild reversibility 3. Prominent left ventricle, diffuse left ventricular hypokinesia, EF 35 percent WAYNE REYNA MD Apr 01, 2020 11:46
[2020-04-01 12:00] VITALS: BP 185/86
[2020-04-01] MEDS ORDERED: NS IV 1000 ML 1,000 ML IV SCH (12:00)
[2020-04-01] MEDS: SENNA W/DOCUSATE (SENOKOT S) TABLET PO SCH ×2 (12:00→20:55)
[2020-04-01] MEDS: amLODIPine 10 MG (NORVASC) TAB PO SCH (12:08)
[2020-04-01] MEDS: LOSARTAN 100 MG (COZAAR) TABLET PO SCH (12:08)
[2020-04-01] MEDS: CLOPIDOGREL 75 MG (PLAVIX) TABLET PO SCH (12:08)
[2020-04-01] MEDS: ASPIRIN 81 MG CHEW (CHILDREN'S ASA) PO SCH (12:08)
[2020-04-01] MEDS: meTOprolol TARTRATE 50 MG (LOPRESSOR) TAB PO SCH ×2 (12:09→20:55)
[2020-04-01] MEDS ORDERED: HEParin (CATH LAB) 0 ML IV ONE (12:21)
[2020-04-01] MEDS ORDERED: LIDOCAINE 1% INJ 20 ML 20 ML VIAL ONE (12:21)
[2020-04-01] MEDS ORDERED: MIDAZOLAM 5 MG/5 ML (VERSED) VIAL ONE (12:21)
[2020-04-01] MEDS ORDERED: fentaNYL INJECTION 100 MCG/2 ML AMP ONE (12:21)
[2020-04-01] MEDS: HYDROcodone/APAP 5 MG/325 MG (LORTAB) TAB PO PRN (12:45)
[2020-04-01] MEDS ORDERED: FUROSEMIDE 40 MG/4 ML INJ (LASIX) IVP ONE (12:45)
--- NOTE | 2020-04-01 12:50 | NUR ---
RD ASSESSMENT PMHx: COPD; HTN; hypercholesterolemia; CAD; DM; PT INTERACTION: Pt was awake and pleasant during nutrition assessment. Pt states current appetite is "not bad." Note pt currently NPO for a procedure, but prior to NPO, PO intake 75% x1meal, per chart review. Pt states following a regular diet at home, and has no issues with chewing/swallowing food. Pt states no recent issues with nausea, vomiting, constipation, or diarrhea, and that his last BM was 03/30. Note pt currently on bowel regimen of senna BID, per chart review. Pt states some recent wt gain and attributes it to fluid retention. Note unable to determine recent wt hx, per chart review. Pt states recent diagnosis of DM. ABNORMAL NUTRITION-RELATED LAB VALUES LOW: HDL 33; HIGH: BUN 26; glu 132; AST 51; ALT 68; LDL 154; Est. kcal needs: 6226-8961 kcal | 15-20 kcal/kg Est. Pro needs: 78-97 g Pro | 0.8-1.0 g Pro/kg PES STATEMENT: Inadequate oral intake (NI-2.1) related to NPO status as evidenced by chart review. Food- and nutrition-related knowledge deficit (NB-1.1) related to lack of prior nutrition-related recommendations as evidenced by pt interview, and recent DM diagnosis. INTERVENTION: Note pt currently NPO. Would recommend diet advancement to consistent CHO diet for glucose control. Offered and provided diet education on DM management. Provided handout on CHO counting. Discussed fiber intake and nutrition label reading as well. Pt verbalized understanding of information provided. Provided contact information should pt have questions prior to and upon discharge. Will continue to follow and reassess as pt needs, intake, and status change. Any GAMBOA, MS RD LD [phone] cell
--- NOTE | 2020-04-01 14:05 | Physician Query Clarification ---
PQ-Further Specificity Admission/Discharge Admission Date: Mar 31, 2020 at 13:33 Discharge Date: Dr. Gomez, The medical record reflects the following clinical scenario: History/Risk Factors: acute on chronic diastolic CHF, HTN, COPD Clinical Findings: Troponin 0.083>0.092, SOB Treatment: IVP 40 mg Lasix, stress test, monitor troponin Question: Can you further specify NSTEMI per the clinical indicators above? Please document a response in the Progress Notes or Discharge Summary. 1. Type 2 NSTEMI 2. NSTEMI 3. Other, with explanation of the clinical findings. 4. Clinically undetermined, no explanation for the clinical findings. PHYSICIAN RESPONSE Can you specify per above: 2 Please remember a lack of response to the above will prompt a phone page by CDI/Coding staff. In responding to this query, please exercise your independent professional judgment. The purpose of this communication is to more accurately reflect the complexity of your patients condition. The fact that a question is asked does not imply that any particular answer is desired or expected. Thank you for your timely response to this clarification. Requestors name: Sawyer THIS PHYSICIAN QUERY FORM IS A PERMANENT PART OF THE MEDICAL RECORD SAWYER DE LA GARZA Apr 01, 2020 14:05 WAYNE GOMEZ MD Apr 01, 2020 15:24
--- NOTE | 2020-04-01 14:10 | Physician Query Clarification ---
PQ-Intro New Diagnosis Admission/Discharge Admission Date: Mar 31, 2020 at 13:33 Discharge Date: Dr. Rodgers, The medical record reflects the following clinical scenario: History/Risk Factors: COPD, acute on chronic diastolic CHF, NSTEMI Clinical Findings: Exspirtory wheezing heard on ausculation in all lung cunningham suggestive of a pulmonary component in worsening SOB of breath Treatment: IV solumedrol, Albuterol Question: What condition best reflects the above clinical scenario? Please document a response in the Progress Noter or Discharge Summary. 1. COPD with acute exacerbation 2. COPD no exacerbation 3. Other, with explanation of the clinical findings. 4. Clinically undetermined, no explanation for the clinical findings. PHYSICIAN RESPONSE What condition reflects above: 2 Please remember a lack of response to the above will prompt a phone page by CDI/Coding staff. In responding to this query, please exercise your independent professional judgment. The purpose of this communication is to more accurately reflect the complexity of your patients condition. The fact that a question is asked does not imply that any particular answer is desired or expected. Thank you for your timely response to this clarification. Requestors name: Sawyer Phone # [phone] THIS PHYSICIAN QUERY FORM IS A PERMANENT PART OF THE MEDICAL RECORD SAWYER DE LA GARZA Apr 01, 2020 14:10 JOHN RODGERS DO Apr 01, 2020 20:25
[2020-04-01 15:31] VITALS: BP 110/63
--- NOTE | 2020-04-01 16:18 | NUR ---
CALLED PATIENT'S DAUGHTER BELKIS TO UPDATE HER ON PROCEDURES DONE TODAY AND WHY DR REYNA DECIDED NOT TO DO A HEART CATH TODAY.
[2020-04-01 19:19] VITALS: BP 142/75
[2020-04-01] MEDS: ROSUVASTATIN 20 MG (CRESTOR) TABLET PO SCH (20:55)
[2020-04-02] VITALS: BP 126/70
[2020-04-02] MEDS: HYDROcodone/APAP 5 MG/325 MG (LORTAB) TAB PO PRN ×2 (01:40→11:18)
[2020-04-02 04:17] VITALS: BP 124/77
--- NOTE | 2020-04-02 05:55 | Progress Note - Hospitalist ---
Subjective HPI/CC On Admission Date Seen by Provider: Apr 02, 2020 CC: SOB HPI: This is a 69yoWM clinic pt of [facility] and [facility] in [place] who presents with back pain and SOB. Covid was negative and he reports that he fell off his porch about a week ago and he feels like this put his breathing in a worse status. He does have a hx of CHF and cardiology has given IV Lasix and stress test has been completed. He does not use O2 at home. Objective Exam Vital Signs Vital Signs Date Time Temp Pulse Resp B/P (MAP) Pulse Ox O2 Delivery O2 Flow Rate FiO2 04/02/20 13:39 35.8 66 20 156/93 92 Room Air Capillary Refill : Less Than 3 Seconds Results/Procedures Lab Patient resulted labs reviewed. Diagnosis/Problems Diagnosis/Problems (1) CHF (congestive heart failure) Status: Acute Qualifiers: Heart failure type: unspecified Heart failure chronicity: unspecified Qualified Codes: I50.9 - Heart failure, unspecified (2) Reactive airway disease Status: Acute Qualifiers: Asthma severity: moderate Asthma complication type: uncomplicated (3) Hypoxia Status: Acute Clinical Quality Measures DVT/VTE Risk/Contraindication: Risk Factor Score Per Nursin RFS Level Per Nursing on Admit: 4+=Very High JOHN DAY DO Apr 02, 2020 05:55
[2020-04-02] MEDS: ENOXAPARIN 100 MG/1 ML (LOVENOX) SYR SC SCH (06:01)
[2020-04-02] MEDS: FUROSEMIDE 40 MG/4 ML INJ (LASIX) IV SCH (06:02)
[2020-04-02 06:13] LABS: BASOPHILS # (AUTO) 0.1 10^3/uL (0.0-0.1); BASOPHILS % (AUTO) 1 % (0-10); EOSINOPHILS # (AUTO) 0.2 10^3/uL (0.0-0.3); EOSINOPHILS % (AUTO) 3 % (0-10); HEMATOCRIT 40 % (40-54); HEMOGLOBIN 12.8 g/dL (13.3-17.7); LYMPHOCYTES # (AUTO) 1.7 10^3/uL (1.0-4.0); LYMPHOCYTES % (AUTO) 26 % (12-44); MEAN CORPUSCULAR HEMOGLOBIN 28 pg (25-34); MEAN CORPUSCULAR HGB CONC 32 g/dL (32-36); MEAN CORPUSCULAR VOLUME 87 fL (80-99); MEAN PLATELET VOLUME 11.1 fL (9.0-12.2); MONOCYTES # (AUTO) 0.5 10^3/uL (0.0-1.0); MONOCYTES % (AUTO) 8 % (0-12); NEUTROPHILS # (AUTO) 4.2 10^3/uL (1.8-7.8); NEUTROPHILS % (AUTO) 62 % (42-75); PLATELET COUNT 202 10^3/uL (130-400); WHITE BLOOD COUNT 6.7 10^3/uL (4.3-11.0)
[2020-04-02 06:36] LABS: ALBUMIN 3.8 GM/DL (3.2-4.5); CALCIUM 8.5 MG/DL (8.5-10.1); CREATININE SERUM 1.22 MG/DL (0.60-1.30); POTASSIUM 4.3 MMOL/L (3.6-5.0)
[2020-04-02] MEDS: RT-ALBUTEROL INHALER HFA (VENTOLIN HFA) 18 GM IH SCH (07:27)
[2020-04-02 08:00] VITALS: BP 140/64
--- NOTE | 2020-04-02 08:27 | Cardiology Progress Note ---
Subjective Date Seen by Provider: Apr 02, 2020 Time Seen by Provider: 08:22 Subjective/Events-last exam Patient is a 69yo M here on hospital day 3 after having a 3day day history of increasing shortness of breath. His SOB of breath has improved will treatment and he is no longer short of breath. He denies having any complaints. Review of Systems General: No Chills, No Night Sweats; Fatigue; No Malaise, No Appetite, No Other HEENT: No Head Aches, No Visual Changes, No Eye Pain, No Ear Pain, No Dysphasia, No Sinus Congestion, No Post Nasal Drip, No Sore Throat, No Other Pulmonary: No Dyspnea, No Cough Cardiovascular: Lt Headedness (occurs when he gets up too fast ); No: Chest Pain, Palpitations, Orthopnea Objective-Cardiology Exam Last Set of Vital Signs Vital Signs 04/02/20 04/02/20 04/02/20 04:17 07:00 07:27 Temp 35.7 Pulse 80 Resp 18 B/P (MAP) 124/77 (93) Pulse Ox 92 O2 Delivery Room Air Capillary Refill : Less Than 3 Seconds I&O Intake and Output 04/02/20 00:00 Intake Total 1730 ml Balance 1730 ml Intake Oral 1630 ml IV Total 100 ml # Voids 21 # Bowel Movements 1 General: Alert, Oriented X3, Cooperative HEENT: Atraumatic, PERRLA Lungs: Clear to Auscultation, Normal Air Movement Heart: Regular Rate, Normal S1, Normal S2 Abdomen: Normal Bowel Sounds, Soft Extremities: Other (lower extremity edema is still present but has improved. ) Skin: No Rashes Neuro: Normal Speech, Strength at 5/5 X4 Ext, Cranial Nerves 3-12 NL Psych/Mental Status: Mental Status NL, Mood NL Results Lab Laboratory Tests 04/02/20 05:31 A/P-Cardiology Admission Diagnosis Shortness of breath Non-ST elevation myocardial infarction Congestive heart failure Hypertension Assessment/Plan Shortness of breath, acute exacerbation of COPD, improved, currently no active wheezing. Reporting improvement in his symptoms. Okay for discharge from Cardiology standpoint. Congestive heart failure, acute on chronic left ventricular systolic and diastolic dysfunction,, maintained on ARB, beta pj, Lasix. 2D Echo done 03/31/2020 showing EF 40-45%, grade 2 diastolic dysfunciton, LA dilated 5.1cm, mild , PA 35-40mmHg. responded well to current treatment. Okay for discharge from cardiology standpoint Asthma/COPD: management by medicine team CAD with hx of multivessel CABG 2004, reporting that he had a cardiac catheterization done in [place] about 6 months ago did not require any stenting, stress test showed decreased uptake involving the inferior wall with subtle reversibility, I discussed with the patient the management plan, there is no significant ischemia on his stress test. Conservative management is recommended especially that he had a cardiac catheterization done about 6 months ago and did not require any intervention, probably has underlying small vessel disease, continue on aspirin and Plavix for now Hx of Aortic root dissection repair with ascending aortic root replacement with a 32 mm Dacron graft, aortic root reconstruction wit re-suspension of the aortic valve and re-implantation of 3 coronary bypass grafts. Follows with Dr. Beth, continue to monitor HTN, restarted home blood pressure medications, continue to monitor Elevated live transaminases: most likely result of venous congestion secondary to acute on chronic CHF exacerbation. Will continue to monitor T2DM: managed by medicine team Hyperlipidemia, continue statin therapy; takes rosuvastatin at home. Former smoker who quit 30yrs ago. From a cardiology standpoint the patient can be discharged when medicine see fit. Thank you for the consult Clinical Quality Measures DVT/VTE Risk/Contraindication: Risk Factor Score Per Nursin RFS Level Per Nursing on Admit: 4+=Very High Supervisory-Addendum Brief Supervisory Addendum Participated in pt care: history, MDM, physical Personally performed: exam, history, MDM Care discussed with: Medical Student Results interpretation: Verified all documentation Notes: Patient was seen and evaluated, feeling better and breathing better No active wheezing was noted on this exam Responded well to treatment Discussed the management plan with the patient and conservative management is recommended Follow-up as an outpatient, okay for discharge from Cardiology standpoint FERMIN SY,MED STUDENT Apr 02, 2020 08:27 WAYNE REYNA MD Apr 02, 2020 09:21
[2020-04-02] MEDS: KCL 10 MEQ TAB (MICRO K) PO SCH (09:17)
[2020-04-02] MEDS: meTOprolol TARTRATE 50 MG (LOPRESSOR) TAB PO SCH (09:17)
[2020-04-02] MEDS: ASPIRIN 81 MG CHEW (CHILDREN'S ASA) PO SCH (09:17)
[2020-04-02] MEDS: amLODIPine 10 MG (NORVASC) TAB PO SCH (09:17)
[2020-04-02] MEDS: LOSARTAN 100 MG (COZAAR) TABLET PO SCH (09:17)
[2020-04-02] MEDS: CLOPIDOGREL 75 MG (PLAVIX) TABLET PO SCH (09:17)
[2020-04-02] MEDS: SENNA W/DOCUSATE (SENOKOT S) TABLET PO SCH (09:18)
[2020-04-02] MEDS ORDERED: ASPI-999 PO (11:56)
--- NOTE | 2020-04-02 11:57 | Discharge Summary ---
Discharge Summary Hospital Course Was the Problem List Reviewed?: Yes Problems/Dx: (1) CHF (congestive heart failure) Status: Acute Qualifiers: Qualified Codes: I50.9 - Heart failure, unspecified (2) Reactive airway disease Status: Acute Qualifiers: (3) Hypoxia Status: Acute Hospital Course Date of Admission: Mar 31, 2020 at 13:33 Admission Diagnosis : Family Physician/Provider: Gregory Stephenson MD Date of Discharge: 04/02/20 Discharge Diagnosis: dyspnea COVID negative, volume overload, HTN, COPD Hospital Course: short course after admitted and given IV Lasix. Underwent EST without any reversible ischemia noted. Hypoxia resolved and overall felt good so he was DC in improved condition and f/u ID clinic and Card[facility] [place]. Labs and Pending Lab Test: Laboratory Tests 04/02/20 05:31: White Blood Count 6.7, Red Blood Count 4.54, Hemoglobin 12.8L, Hematocrit 40, Mean Corpuscular Volume 87, Mean Corpuscular Hemoglobin 28, Mean Corpuscular Hemoglobin Concent 32, Red Cell Distribution Width 14.5, Platelet Count 202, Mean Platelet Volume 11.1, Immature Granulocyte % (Auto) 0, Neutrophils (%) (Auto) 62, Lymphocytes (%) (Auto) 26, Monocytes (%) (Auto) 8, Eosinophils (%) (A uto) 3, Basophils (%) (Auto) 1, Neutrophils # (Auto) 4.2, Lymphocytes # (Auto) 1.7, Monocytes # (Auto) 0.5, Eosinophils # (Auto) 0.2, Basophils # (Auto) 0.1, Immature Granulocyte # (Auto) 0.0, Sodium Level 136, Potassium Level 4.3, Chloride Level 102, Carbon Dioxide Level 23, Anion Gap 11, Blood Urea Nitrogen 35H, Creatinine 1.22, Estimat Glomerular Filtration Rate 59, BUN/Creatinine Ratio 29, Glucose Level 114H, Calcium Level 8.5, Corrected Calcium 8.7, Total Bilirubin 1.0, Aspartate Amino Transf (AST/SGOT) 52H, Alanine Aminotransferase (ALT/SGPT) 71H, Alkaline Phosphatase 75, Total Protein 7.0, Albumin 3.8 Home Meds Active Aspirin 81 Mg Tab.chew 81 Mg PO DAILY@0900 365 Days Azithromycin 250 Mg Tablet 250 Mg PO DAILY 3 Days Cefdinir 300 Mg Capsule 300 Mg PO BID 5 Days Reported Tylenol Extra Strength (Acetaminophen) 500 Mg Tablet 1,000 Mg PO Q48H PRN Potassium Chloride 10 Meq Tablet.er 10 Meq PO BID Lasix (Furosemide) 40 Mg Tablet 40 Mg PO DAILY Plavix (Clopidogrel Bisulfate) 75 Mg Tablet 75 Mg PO DAILY Metoprolol Tartrate 100 Mg Tablet 100 Mg PO BID LAST FILLED #60 8-29-19 Proair Hfa (Albuterol Sulfate) 8.5 Gm Hfa.aer.ad 1-2 Puff IH Q4H PRN Benicar (Olmesartan Medoxomil) 20 Mg Tablet 20 Mg PO DAILY Crestor (Rosuvastatin Calcium) 20 Mg Tablet 20 Mg PO HS Amlodipine Besylate 10 Mg Tablet 10 Mg PO DAILY Assessment/Pt Instructions va 1 week Discharge Planning: <30 minutes discharge planning Discharge Physical Examination Vital Signs Vital Signs Date Time Temp Pulse Resp B/P (MAP) Pulse Ox O2 Delivery O2 Flow Rate FiO2 04/02/20 08:00 36.4 76 20 140/64 (89) 93 Room Air General Appearance: No Apparent Distress, WD/WN, Chronically ill Respiratory: Chest Non Tender, Lungs Clear, Normal Breath Sounds, No Accessory Muscle Use, No Respiratory Distress Cardiovascular: Regular Rate, Rhythm, No Edema, No Gallop, No JVD, No Murmur, Normal Peripheral Pulses Neurologic/Psychiatric: Alert, Oriented x3, No Motor/Sensory Deficits, Normal Mood/Affect Allergies: Coded Allergies: Penicillins (Verified Allergy, Unknown, 07/16/15) Discharge Summary Date of Admission Mar 31, 2020 at 13:33 Date of Discharge Discharge Date: Apr 02, 2020 Admission Diagnosis Assessment: AECHF CAD prev CABG Hypoxia COVID negative Plan: IV Lasix ECHO EST Cardiology evaluation Discharge Diagnosis (1) CHF (congestive heart failure) Status: Acute Qualifiers: Qualified Codes: I50.9 - Heart failure, unspecified (2) Reactive airway disease Status: Acute Qualifiers: (3) Hypoxia Status: Acute Clinical Quality Measures DVT/VTE Risk/Contraindication: Risk Factor Score Per Nursin RFS Level Per Nursing on Admit: 4+=Very High JOHN DAY DO Apr 02, 2020 11:56
[2020-04-02 12:00] VITALS: BP 156/93
--- NOTE | 2020-04-02 13:30 | NUR ---
1DISCHARGE INSTRUCTIONS GIVEN, VERBALIZED UNDERSTANDING, EDUCATED ON CHF, IV DC, SITE WITHOUT REDNESS OR SWELLING, TELEMETRY DC,
--- NOTE | 2020-04-02 13:36 | NUR ---
LUCINA PATEL JR demonstrates understanding of discharge instructions and accurately returns instructions upon questioning. Copy of Post-Discharge Instructions and Medication Discharge Instructions given to PATIENT. LUCINA PATEL JR is able to manage continuing needs after discharge. Patients belongings returned to PATIENT. Skin dry and intact; no breakdown noted. Patient discharged from [facility]- on 04/02/20 at 1335. LUCINA PATEL JR left floor via W/C, accompanied by STAFF.
[2020-04-02 13:39] VITALS: BP 156/93
== END 2020-04-02 13:35 | disposition home or self-care (01) | DRG 280 ==
LOC: EDUNIT# 10:57 → ER 11:00 → 4TH 13:33 → EDLOC 13:33 → 4TH 14:14
PROVIDERS: ADMIT Internal Medicine; ATTEND Internal Medicine
DX: I21.4 Non-ST elevation (NSTEMI) myocardial infarction (principal); I50.43 Acute on chronic combined systolic (congestive) and diastolic (congestive) heart failure; I11.0 Hypertensive heart disease with heart failure; J44.9 Chronic obstructive pulmonary disease, unspecified; R09.02 Hypoxemia; E11.9 Type 2 diabetes mellitus without complications; I25.10 Atherosclerotic heart disease of native coronary artery without angina pectoris; E78.5 Hyperlipidemia, unspecified; E78.00 Pure hypercholesterolemia, unspecified; Z87.891 Personal history of nicotine dependence; Z95.1 Presence of aortocoronary bypass graft; Z20.828 Contact with and (suspected) exposure to other viral communicable diseases
CPT/HCPCS: 36415; 71045; 71275; 78452; 80053; 80061; 82805; 83880; 84145; 84484; 85025; 85027; 85379; 87635; 93005; 93017; 93306; 94640; 94760

== ENCOUNTER 2021-05-07 12:00 | Emergency (ER) | payer OTHER ==
[~2021-05-07] VITALS: Ht 172.7 cm; Wt 104.3 kg
[~2021-05-07 12:00] MED LIST changes: +ASPI-999 PO
[2021-05-07 12:09] VITALS: BP 185/96
--- NOTE | 2021-05-07 12:18 | ED Cough/URI ---
General Stated Complaint: SORE THROAT,FEVER,COUGH,BODY ACHES Source: patient Exam Limitations: no limitations History of Present Illness Date Seen by Provider: May 07, 2021 Time Seen by Provider: 12:15 Initial Comments To ER by private vehicle from home with reports of sore throat fever cough body aches. He has a history of congestive heart failure and COPD. He is unvaccinated against COVID because he "dont believe in 'em". He was able to sleep lying flat last night. Denies any new or worsening swelling in his ankles. His cough is nonproductive. He is on Lasix and has not missed any doses. Timing/Duration: constant Severity/Quality: moderate Associated Symptoms: cough, fever/chills, shortness of breath Allergies and Home Medications Allergies Coded Allergies: Penicillins (Verified Allergy, Unknown, 07/16/15) watermelon (Verified Allergy, Unknown, 05/07/21) Patient Home Medication List Home Medication List Reviewed: Yes Acetaminophen (Tylenol Extra Strength) 500 Mg Tablet, 1,000 MG PO Q48H PRN for PAIN-MILD, (Reported) Entered as Reported by: URMILA MCGRATH on 01/27/19 1159 Albuterol Sulfate (Proair Hfa) 8.5 Gm Hfa.aer.ad, 1-2 PUFF IH Q4H PRN for WHEEZING, (Reported) Entered as Reported by: GWENDOLYN MONROY on 07/16/15 1014 Amlodipine Besylate (Amlodipine Besylate) 10 Mg Tablet, 10 MG PO DAILY, (Reported) Entered as Reported by: GWENDOLYN MONROY on 07/16/15 1014 Aspirin (Aspirin) 81 Mg Tab.chew, 81 MG PO DAILY@0900 Prescribed by: JOHN DAY on 04/02/20 1156 Cefdinir (Cefdinir) 300 Mg Capsule, 300 MG PO BID Prescribed by: YUAN CARTER on 05/07/21 1401 Clopidogrel Bisulfate (Plavix) 75 Mg Tablet, 75 MG PO DAILY, (Reported) Entered as Reported by: GWENDOLYN MONROY on 05/08/18 1254 Furosemide (Lasix) 40 Mg Tablet, 40 MG PO DAILY, (Reported) Entered as Reported by: JIMI ALMANZAR on 01/18/19 1116 Metoprolol Tartrate (Metoprolol Tartrate) 100 Mg Tablet, 100 MG PO BID, (Reported) Entered as Reported by: GWENDOLYN MONROY on 05/08/18 1254 Olmesartan Medoxomil (Benicar) 20 Mg Tablet, 20 MG PO DAILY, (Reported) Entered as Reported by: GWENDOLYN MONROY on 07/16/15 1014 Potassium Chloride (Potassium Chloride) 10 Meq Tablet.er, 10 MEQ PO BID, (Reported) Entered as Reported by: JIMI ALMANZAR on 01/18/19 1116 Prednisone (Prednisone) 20 Mg Tab, 40 MG PO DAILY Prescribed by: YUAN CARTER on 05/07/21 1401 Rosuvastatin Calcium (Crestor) 20 Mg Tablet, 20 MG PO HS, (Reported) Entered as Reported by: GEWNDOLYN MONROY on 07/16/15 1014 Review of Systems Review of Systems Constitutional: see HPI, chills, fever EENTM: see HPI Respiratory: see HPI, cough, short of breath Cardiovascular: no symptoms reported; No chest pain Genitourinary: no symptoms reported Musculoskeletal: no symptoms reported Skin: no symptoms reported Psychiatric/Neurological: No Symptoms Reported Hematologic/Lymphatic: No Symptoms Reported Immunological/Allergic: no symptoms reported Past Petxlcp-Jpgtkf-Uyvskq Hx Immunizations Up To Date Tetanus Booster (TDap): More than 5yrs PED Vaccines UTD: No Seasonal Allergies Seasonal Allergies: Yes Past Medical History Surgeries: Yes Abdominal, Cardiac, CABG, Orthopedic, Vascular Surgery Respiratory: Yes (POSSIBLE COPD, ASTHMA CHILD) Asthma, COPD Currently Using CPAP: No Currently Using BIPAP: No Cardiac: Yes (4 VESSEL CABG 2004; THORACIC AORTIC ANEURYSM DISSECTION/REPAIR 2013) Aneurysm, Coronary Artery Disease, High Cholesterol, Hypertension Neurological: No Reproductive Disorders: No Sexually Transmitted Disease: No HIV/AIDS: No Genitourinary: No Gastrointestinal: Yes (UMBILICAL HERNIA REPAIR 01/24/19) Abdominal Hernia, Polyps Musculoskeletal: No Endocrine: No HEENT: No (GLASSES) Loss of Vision: Denies Hearing Impairment: Hard of Hearing, Bilateral Hearing Aide Cancer: No Psychosocial: No Integumentary: No Blood Disorders: No Adverse Reaction/Blood Tranf: No (N/A) Family Medical History Alcoholism 09 BROTHER Cancer 03 MOTHER 09 SISTER Chest pain 03 FATHER 09 BROTHER Family history: Allergy Family history: Arthritis 09 SISTER Family history: Breast disease 03 MOTHER Family history: Cardiovascular disease 03 FATHER 03 MOTHER 09 BROTHER Family history: Coronary thrombosis 03 FATHER Family history: Diabetes mellitus 03 MOTHER Family history: Hypertension 03 FATHER 03 MOTHER 09 BROTHER Heart disease 03 FATHER 03 MOTHER 09 BROTHER History of drug abuse 09 SISTER Hypercholesterolemia 09 SISTER Myocardial infarction 03 FATHER 03 MOTHER Stroke 03 FATHER No Family History of: Abdominal aortic aneurysm Crowley's disease Aphasia Cancer of colon Cataract Congenital heart disease Congestive heart failure Cystic fibrosis Dementia Dysphagia Family history: Alzheimer's disease Family history: Asthma Family history: Gastrointestinal disease Family history: Glaucoma Family history: Osteoporosis Family history: Thyroid disorder Headache Hearing loss Hereditary disease History of - anemia History of - disorder History of - respiratory disease Human immunodeficiency virus (HIV) seropositivity Infertile Kidney disease Malignant neoplasm of lung Parkinson's disease Prostate cancer Psychotic disorder Seizure disorder Tuberculosis Visual impairment No Pertinent Family Hx Physical Exam Vital Signs - First Documented 05/07/21 12:09 Temp 36.5 Pulse 91 Resp 22 B/P (MAP) 185/96 (125) Pulse Ox 94 O2 Delivery Room Air Capillary Refill : Height: 5'8.00" Weight: 213lbs. 0.6oz. 96.229333rh; 34.36 BMI Method:Stated General Appearance: WD/WN, no apparent distress, other (Oxygen saturation 92 to 95% on room air. No distress speaks in full sentences there is no jugular vein distention there is no pedal edema. His lungs are clear without wheezing or crackle. Clinically he does not show evidence of CHF exacerbation. Very pleasant alert and oriented.) Neck: non-tender, full range of motion Respiratory: normal breath sounds, no respiratory distress, no accessory muscle use Cardiovascular: regular rate, rhythm, no edema Gastrointestinal: normal bowel sounds, non tender, soft Neurologic/Psychiatric: alert, normal mood/affect, oriented x 3 Skin: normal color, warm/dry Progress/Results/Core Measures Suspected Sepsis SIRS Temperature: Pulse: Respiratory Rate: Blood Pressure / Mean: Results/Orders Lab Results Laboratory Tests Test 05/07/21 12:12 Range/Units Influenza Type A (RT-PCR) Not Detected Not Detecte Influenza Type B (RT-PCR) Not Detected Not Detecte SARS-CoV-2 RNA (RT-PCR) Detected H Not Detecte My Orders Orders - YUAN CARTER APRN Covid 19 Inhouse Test (05/07/21 12:05) Influenza A And B By Pcr (05/07/21 12:05) Chest 1 View, Ap/Pa Only (05/07/21 12:05) Vital Signs/I&O 05/07/21 12:09 Temp 36.5 Pulse 91 Resp 22 B/P (MAP) 185/96 (125) Pulse Ox 94 O2 Delivery Room Air Capillary Refill : Departure Communication (Admissions) Given the infiltrate on his chest x-ray with history of COPD I will put him on some steroids and antibiotics. I advised him that he is COVID-positive. I did offer him monoclonal antibody infusion and he would prefer not to get that either. Agrees to return for any worsening. NAME: LUCINA PATEL JR [facility] REC#: [id number] PT STATUS: REG ER : 1950 PHYSICIAN: YUAN CARTER APRN ADMIT DATE: 05/07/21/ER Draft Date of Exam:05/07/21 CHEST 1 VIEW, AP/PA ONLY INDICATION: Cough, sore throat since yesterday. EXAMINATION: Chest, 05/07/2021. COMPARISON: 03/31/2020. FINDINGS: The heart is prominent. The pulmonary vasculature is unremarkable. There is a suspected infiltrate at the left lung base medially. There are no effusions. There is no pneumothorax. There are sternotomy wires and mediastinal clips present. IMPRESSION: 1. Left base infiltrate suspected. Correlate with symptoms. Dictated on workstation # [id number] Dict: 05/07/21 1342 Trans: 05/07/21 1345 [id number] Interpreted by: MONSTER SMITH MD Electronically signed by: Impression Primary Impression: COVID-19 Disposition: 01 HOME, SELF-CARE Condition: Stable Departure-Patient Inst. Decision time for Depature: 13:26 Referrals: WILVER SIMS MD (PCP/Family) Primary Care Physician Patient Instructions: COVID-19 Overview Add. Discharge Instructions: 1. Return to ER if any concerns 2. Follow-up with your doctor next week Return to ER for any worsening such as shortness of breath high fevers or other concerns. Scripts Cefdinir (Cefdinir) 300 Mg Capsule 300 MG PO BID, #14 CAP Prov: YUAN CARTER APRN 05/07/21 Prednisone (Prednisone) 20 Mg Tab 40 MG PO DAILY, #8 TAB 0 Refills Prov: YUAN CARTER APRN 05/07/21 Work/School Note: Work Release Form Date Seen in the Emergency Department: May 07, 2021 Return to Work: May 13, 2021 YUAN CARTER APRN May 07, 2021 12:18
--- NOTE | 2021-05-07 13:46 | Diagnostic Imaging Report ---
INDICATION: Cough, sore throat since yesterday. EXAMINATION: Chest, 05/07/2021. COMPARISON: 03/31/2020. FINDINGS: The heart is prominent. The pulmonary vasculature is unremarkable. There is a suspected infiltrate at the left lung base medially. There are no effusions. There is no pneumothorax. There are sternotomy wires and mediastinal clips present. IMPRESSION: 1. Left base infiltrate suspected. Correlate with symptoms. Dictated by: Dictated on workstation # [id number]
[2021-05-07] MEDS ORDERED: CEFD300C3 PO (14:01)
[2021-05-07] MEDS ORDERED: PRD20T PO (14:01)
== END 2021-05-07 14:28 | disposition home or self-care (01) ==
LOC: EDUNIT# 12:00 → ER 12:02
DX: U07.1 COVID-19 (principal); I11.0 Hypertensive heart disease with heart failure; I50.9 Heart failure, unspecified; J44.9 Chronic obstructive pulmonary disease, unspecified; Z95.1 Presence of aortocoronary bypass graft; E78.00 Pure hypercholesterolemia, unspecified; I25.10 Atherosclerotic heart disease of native coronary artery without angina pectoris; H91.90 Unspecified hearing loss, unspecified ear; Z97.4 Presence of external hearing-aid; Z79.899 Other long term (current) drug therapy
CPT/HCPCS: 71045; 87636

== ENCOUNTER 2021-12-21 07:16 | Inpatient (IN) | payer OTHER, MEDICARE ==
[2021-12-21] VITALS (10 sets, daily range): BP systolic 130–172; BP diastolic 59–102
[~2021-12-21] VITALS: Ht 172.7 cm; Wt 87.5 kg
[~2021-12-21 07:16] MED LIST changes: +PRD20T PO
[2021-12-21 07:43] LABS: BASOPHILS % (AUTO) 0 % (0-10); EOSINOPHILS # (AUTO) 0.2 10^3/uL (0.0-0.3); EOSINOPHILS % (AUTO) 3 % (0-10); HEMATOCRIT 40 % (40-54); HEMOGLOBIN 13.6 g/dL (13.3-17.7); LYMPHOCYTES # (AUTO) 1.6 10^3/uL (1.0-4.0); LYMPHOCYTES % (AUTO) 21 % (12-44); MEAN CORPUSCULAR HEMOGLOBIN 30 pg (25-34); MEAN CORPUSCULAR HGB CONC 34 g/dL (32-36); MEAN CORPUSCULAR VOLUME 89 fL (80-99); MEAN PLATELET VOLUME 10.9 fL (9.0-12.2); MONOCYTES # (AUTO) 0.6 10^3/uL (0.0-1.0); MONOCYTES % (AUTO) 9 % (0-12); NEUTROPHILS # (AUTO) 4.9 10^3/uL (1.8-7.8); NEUTROPHILS % (AUTO) 67 % (42-75); PLATELET COUNT 146 10^3/uL (130-400); WHITE BLOOD COUNT 7.4 10^3/uL (4.3-11.0)
[2021-12-21] MEDS ORDERED: RT-ALBUTEROL/IPRATROPIUM 3 ML (DUONEB) VIAL INH ONE (07:45)
[2021-12-21] MEDS ORDERED: ASPIRIN 81 MG CHEW (CHILDREN'S ASA) PO ONE (07:45)
--- NOTE | 2021-12-21 07:49 | ED Chest Pain ---
General Chief Complaint: Chest Pain Stated Complaint: CHEST PAIN Nursing Triage Note: PT AMB TO [facility] 5 WITH HIS . PT STATED THAT HE HAS CHEST PAIN/PRESSURE THAT STARTED AT 0530 THIS MORNING WITH SOB. Source: patient Exam Limitations: no limitations History of Present Illness Date Seen by Provider: Dec 21, 2021 Time Seen by Provider: 07:24 Initial Comments Patient to the ER by private conveyance with his and chief complaint of shortness of air over the past 2 weeks progressively getting worse and endorsing orthopnea. He is also endorsing chest pain this morning since 5:00 in the morning woken up with substernal midline chest pain. He describes it as burning, 2 out of 10. He took his regular medications and took a couple puffs of his albuterol which he thought may be helped a little bit. He does not feel wheezy. He has an occasional dry cough sometimes producing a little bit of phlegm. He quit smoking 20 years ago. He has a history of heart disease with CABG and a stent. He has Dr. Hale and Dangelo [facility] [place] [facility]. He has a history of hypertension, hyperlipidemia, diabetes on metformin. He takes 80 mg Lasix daily. He denies any increased swelling in his legs. He is not having any fevers chills, vomiting, diarrhea. History of COPD, heart failure, echocardiogram in 2019 demonstrating EF of 40 to 45% with grade 2 diastolic dysfunction. Allergies and Home Medications Allergies Coded Allergies: Penicillins (Verified Allergy, Unknown, 07/16/15) watermelon (Verified Allergy, Unknown, 05/07/21) Patient Home Medication List Home Medication List Reviewed: Yes Acetaminophen (Tylenol Extra Strength) 500 Mg Tablet, 1,000 MG PO Q48H PRN for PAIN-MILD, (Reported) Entered as Reported by: URMILA MCGRATH on 01/27/19 1159 Albuterol Sulfate (Proair Hfa) 8.5 Gm Hfa.aer.ad, 1-2 PUFF IH Q4H PRN for WHEEZING, (Reported) Entered as Reported by: GWENDOLYN MONROY on 07/16/15 1014 Amlodipine Besylate (Amlodipine Besylate) 10 Mg Tablet, 10 MG PO DAILY, (Reported) Entered as Reported by: GWENDOLYN MONROY on 07/16/15 1014 Aspirin (Aspirin) 81 Mg Tab.chew, 81 MG PO DAILY@0900 Prescribed by: JOHN DAY on 04/02/20 1156 Cefdinir (Cefdinir) 300 Mg Capsule, 300 MG PO BID Prescribed by: YUAN CARTER on 05/07/21 1401 Clopidogrel Bisulfate (Plavix) 75 Mg Tablet, 75 MG PO DAILY, (Reported) Entered as Reported by: GWENDOLYN MONROY on 05/08/18 1254 Furosemide (Lasix) 40 Mg Tablet, 40 MG PO DAILY, (Reported) Entered as Reported by: JIMI ALMANZAR on 01/18/19 1116 Metoprolol Tartrate (Metoprolol Tartrate) 100 Mg Tablet, 100 MG PO BID, (Reported) Entered as Reported by: GWENDOLYN MONROY on 05/08/18 1254 Olmesartan Medoxomil (Benicar) 20 Mg Tablet, 20 MG PO DAILY, (Reported) Entered as Reported by: GWENDOLYN MONROY on 07/16/15 1014 Potassium Chloride (Potassium Chloride) 10 Meq Tablet.er, 10 MEQ PO BID, (Reported) Entered as Reported by: JIMI ALMANZAR on 01/18/19 1116 Prednisone (Prednisone) 20 Mg Tab, 40 MG PO DAILY Prescribed by: YUAN CARTER on 05/07/21 1401 Rosuvastatin Calcium (Crestor) 20 Mg Tablet, 20 MG PO HS, (Reported) Entered as Reported by: GWENDOLYN MONROY on 07/16/15 1014 Review of Systems Review of Systems Constitutional: No chills, No diaphoresis EENTM: No Blurred Vision, No Double Vision Respiratory: Cough, Orthopnea, Shortness of Air; Denies Wheezing Cardiovascular: See HPI, Chest Pain; Denies Lightheadedness Gastrointestinal: Denies Constipated, Denies Diarrhea, Denies Nausea Genitourinary: Denies Burning, Denies Discharge Musculoskeletal: No back pain, No joint pain Skin: No change in color, No pruritus, No rash All Other Systems Reviewed Negative Unless Noted: Yes Past Gwbpoee-Mczbbq-Ijykrc Hx Patient Social History Tobacco Use?: No Smoking Status: Former Smoker Substance use?: No Alcohol Use?: No Pt feels they are or have been: Unable to obtain Immunizations Up To Date Tetanus Booster (TDap): More than 5yrs PED Vaccines UTD: No Influenza Vaccine Up-to-Date: No; Not Current First/Initial COVID19 Vaccinat: NONE Second COVID19 Vaccination Rajat: NONE Third COVID19 Vaccination Date: NONE Seasonal Allergies Seasonal Allergies: Yes Past Medical History Surgeries: Yes Abdominal, Cardiac, CABG, Orthopedic, Vascular Surgery Respiratory: Yes (POSSIBLE COPD, ASTHMA CHILD) Asthma, COPD Currently Using CPAP: No Currently Using BIPAP: No Cardiac: Yes (4 VESSEL CABG 2004; THORACIC AORTIC ANEURYSM DISSECTION/REPAIR 2013) Aneurysm, Coronary Artery Disease, High Cholesterol, Hypertension Neurological: No Reproductive Disorders: No Sexually Transmitted Disease: No HIV/AIDS: No Genitourinary: No Gastrointestinal: Yes (UMBILICAL HERNIA REPAIR 01/24/19) Abdominal Hernia, Polyps Musculoskeletal: No Endocrine: No HEENT: No (GLASSES) Loss of Vision: Denies Hearing Impairment: Hard of Hearing, Bilateral Hearing Aide Cancer: No Psychosocial: No Integumentary: No Blood Disorders: No Adverse Reaction/Blood Tranf: No (N/A) Family Medical History Alcoholism 09 BROTHER Cancer 03 MOTHER 09 SISTER Chest pain 03 FATHER 09 BROTHER Family history: Allergy Family history: Arthritis 09 SISTER Family history: Breast disease 03 MOTHER Family history: Cardiovascular disease 03 FATHER 03 MOTHER 09 BROTHER Family history: Coronary thrombosis 03 FATHER Family history: Diabetes mellitus 03 MOTHER Family history: Hypertension 03 FATHER 03 MOTHER 09 BROTHER Heart disease 03 FATHER 03 MOTHER 09 BROTHER History of drug abuse 09 SISTER Hypercholesterolemia 09 SISTER Myocardial infarction 03 FATHER 03 MOTHER Stroke 03 FATHER No Family History of: Abdominal aortic aneurysm Raphael's disease Aphasia Cancer of colon Cataract Congenital heart disease Congestive heart failure Cystic fibrosis Dementia Dysphagia Family history: Alzheimer's disease Family history: Asthma Family history: Gastrointestinal disease Family history: Glaucoma Family history: Osteoporosis Family history: Thyroid disorder Headache Hearing loss Hereditary disease History of - anemia History of - disorder History of - respiratory disease Human immunodeficiency virus (HIV) seropositivity Infertile Kidney disease Malignant neoplasm of lung Parkinson's disease Prostate cancer Psychotic disorder Seizure disorder Tuberculosis Visual impairment No Pertinent Family Hx Physical Exam Vital Signs Vital Signs - First Documented 12/21/21 07:20 Temp 36.0 Pulse 80 Resp 20 B/P (MAP) 184/117 (139) Pulse Ox 93 O2 Delivery Room Air Capillary Refill : Less Than 3 Seconds Height, Weight, BMI Height: 5'8.00" Weight: 213lbs. 0.6oz. [id number]; 30.00 BMI Method:Stated General Appearance: No Apparent Distress, WD/WN HEENT: PERRL/EOMI, TMs Normal, Pharynx Normal, Moist Mucous Membranes Neck: Full Range of Motion, Normal Inspection Respiratory: Chest Non Tender, Lungs Clear, No Accessory Muscle Use, No Respiratory Distress, Decreased Breath Sounds Cardiovascular: Regular Rate, Rhythm, No Edema, Normal Peripheral Pulses Gastrointestinal: Normal Bowel Sounds, Non Tender, Soft Extremity: Normal Capillary Refill, Normal Inspection, Pedal Edema (Mild bilateral), Other Neurologic/Psychiatric: Alert, Oriented x3, No Motor/Sensory Deficits Skin: Normal Color, Warm/Dry Progress/Results/Core Measures Results/Orders Lab Results Laboratory Tests Test 12/21/21 07:35 12/21/21 08:00 Range/Units White Blood Count 7.4 4.3-11.0 10^3/uL Red Blood Count 4.48 4.30-5.52 10^6/uL Hemoglobin 13.6 13.3-17.7 g/dL Hematocrit 40 40-54 % Mean Corpuscular Volume 89 80-99 fL Mean Corpuscular Hemoglobin 30 25-34 pg Mean Corpuscular Hemoglobin Concent 34 32-36 g/dL Red Cell Distribution Width 13.8 10.0-14.5 % Platelet Count 146 130-400 10^3/uL Mean Platelet Volume 10.9 9.0-12.2 fL Immature Granulocyte % (Auto) 0 % Neutrophils (%) (Auto) 67 42-75 % Lymphocytes (%) (Auto) 21 12-44 % Monocytes (%) (Auto) 9 0-12 % Eosinophils (%) (Auto) 3 0-10 % Basophils (%) (Auto) 0 0-10 % Neutrophils # (Auto) 4.9 1.8-7.8 10^3/uL Lymphocytes # (Auto) 1.6 1.0-4.0 10^3/uL Monocytes # (Auto) 0.6 0.0-1.0 10^3/uL Eosinophils # (Auto) 0.2 0.0-0.3 10^3/uL Basophils # (Auto) 0.0 0.0-0.1 10^3/uL Immature Granulocyte # (Auto) 0.0 0.0-0.1 10^3/uL Prothrombin Time 13.2 12.2-14.7 SEC INR Comment 1.0 0.8-1.4 Activated Partial Thromboplast Time 34 24-35 SEC Sodium Level 142 135-145 MMOL/L Potassium Level 4.1 3.6-5.0 MMOL/L Chloride Level 108 H 98-107 MMOL/L Carbon Dioxide Level 24 21-32 MMOL/L Anion Gap 10 5-14 MMOL/L Blood Urea Nitrogen 21 H 7-18 MG/DL Creatinine 0.91 0.60-1.30 MG/DL Estimat Glomerular Filtration Rate 91 BUN/Creatinine Ratio 23 Glucose Level 134 H 70-105 MG/DL Calcium Level 8.7 8.5-10.1 MG/DL Corrected Calcium 8.7 8.5-10.1 MG/DL Magnesium Level 2.0 1.6-2.4 MG/DL Total Bilirubin 0.7 0.1-1.0 MG/DL Aspartate Amino Transf (AST/SGOT) 24 5-34 U/L Alanine Aminotransferase (ALT/SGPT) 19 0-55 U/L Alkaline Phosphatase 57 40-136 U/L Myoglobin 60.2 10.0-92.0 NG/ML Troponin I 0.059 H <0.028 NG/ML B-Type Natriuretic Peptide 888.5 H <100.0 PG/ML Total Protein 6.9 6.4-8.2 GM/DL Albumin 4.0 3.2-4.5 GM/DL Lipase 17 8-78 U/L Bedside Blood Gas pH (LAB) 7.363 7.310-7.410 Bedside Blood Gas pCO2 (LAB) 42.6 41.0-51.0 mmHg Bedside Blood Gas pO2 (LAB) 72 L 80-105 mmHg Bedside Blood Gas HCO3 (LAB) 24.2 23.0-28.0 mmol/L POC Blood Gas Total CO2 Calc 26 24-29 mmol/L Bedside Bl Gas O2 Saturation (Calc) 94 L 95-98 % Bedside Arterial Blood Base Excess -1 -2-3 mmol/L My Orders Orders - MORA JAY Continuous Ekg Monitoring (12/21/21 07:18) Ekg Tracing (12/21/21 07:18) Cbc With Automated Diff (12/21/21 07:35) Magnesium (12/21/21 07:35) Chest 1 View, Ap/Pa Only (12/21/21 07:35) Comprehensive Metabolic Panel (12/21/21 07:35) Myoglobin Serum (12/21/21 07:35) Protime With Inr (12/21/21 07:35) Partial Thromboplastin Time (12/21/21 07:35) O2 (12/21/21 07:35) Lipid Panel (12/22/21 06:00) Ed Iv/Invasive Line Start (12/21/21 07:35) Lipase (12/21/21 07:35) Bnp [place]arton (12/21/21 07:35) Troponin I Brayan (12/21/21 07:35) Aspirin Chewable Tablet (Baby Aspirin Ch (12/21/21 07:45) Albuterol/Ipra Inhalation Soln (Duoneb I (12/21/21 07:45) Svn Small Volume Nebulizer (12/21/21 07:35) Furosemide Injection (Lasix Injection) (12/21/21 09:30) Potassium Chloride (Tablet) (K Dur Table (12/21/21 09:30) Medications Given in ED Current Medications Medications Dose Ordered Sig/Reyes Route Start Time Stop Time Status Last Admin Dose Admin Albuterol/ Ipratropium 3 ml ONCE ONCE INH 12/21/21 07:45 12/21/21 07:46 DC 12/21/21 08:47 3 ML Aspirin 324 mg ONCE ONCE PO 12/21/21 07:45 12/21/21 07:46 DC 12/21/21 07:40 324 MG Furosemide 40 mg ONCE ONCE IVP 12/21/21 09:30 12/21/21 09:31 DC 12/21/21 09:54 40 MG Potassium Chloride 20 meq ONCE ONCE PO 12/21/21 09:30 12/21/21 09:31 DC 12/21/21 09:54 20 MEQ Vital Signs/I&O 12/21/21 12/21/21 07:20 08:48 Temp 36.0 Pulse 80 Resp 20 B/P (MAP) 184/117 (139) Pulse Ox 93 92 O2 Delivery Room Air Room Air Blood Pressure Mean: 139 Progress Progress Note : Time: 07:47 Progress Note We will give him a DuoNeb and 324 mg aspirin. Do not hear any wheezing just very diminished. We will get a chest x-ray labs and check a troponin level, give him a GI cocktail and/or nitroglycerin if his pain worsens. Initial ECG Impression Date: Dec 21, 2021 Initial ECG Impression Time: 07:24 Initial ECG Rate: 77 Initial ECG Rhythm: Normal Sinus Initial ECG Intervals: QT (449) Initial ECG Impression: Normal, Nonspecific Changes Initial ECG Comparisson: Unchanged Comment Left bundle branch block. No clinically relevant ST elevation. No Sgarbossa criteria. Diagnostic Imaging Diagonstic Imaging: Xray Plain Films/CT/US/NM/MRI: chest Comments [facility] [place], [place] NAME: LUCINA PATEL JR [facility] REC#: [id number] PT STATUS: REG ER : 1950 PHYSICIAN: MORA JAY MD ADMIT DATE: 12/21/21/ER Draft Date of Exam:12/21/21 CHEST 1 VIEW, AP/PA ONLY INDICATION: Chest pain. TECHNIQUE: Single view chest 7:40 AM. CORRELATION STUDY: 05/07/2021 FINDINGS: Poststernotomy changes. Cardiac enlargement with pulmonary vascular congestion, perihilar edema along with Eboni B lines. Overall appears adversely changed from prior. No definitive consolidating infiltrate. IMPRESSION: 1. Congestive heart failure, adversely changed from prior. Dictated on workstation # [id number] Dict: 12/21/21751 Trans: 12/21/21 0755 [id number] Interpreted by: EDA LARSON DO Electronically signed by: Reviewed: Reviewed by Me Departure Communication (Admissions) Time/Spoke to Admitting Phy: 10:13 Discussed the case with Dr. Vanegas who agrees to admit the patient with consult to cardiology she will do acute orders. Time/Spoke to Consulting Phy: 10:[address] Cuevas who agrees with consult. He wants an echocardiogram, Lasix 80 twice daily, potassium 10 twice daily, aspirin and metoprolol 50 XL. Impression Primary Impression: CHF (congestive heart failure) Qualified Codes: I50.43 - Acute on chronic combined systolic (congestive) and diastolic (congestive) heart failure Additional Impression: Acute on chronic respiratory failure with hypoxemia Disposition: ADMITTED INPATIENT Condition: Stable Admissions Decision to Admit Reason: Admit from ER (General) Decision to Admit/Date: Dec 21, 2021 Time/Decision to Admit Time: 10:09 Departure-Patient Inst. Referrals: NO,LOCAL PHYSICIAN (PCP) Primary Care Physician WILVER SIMS MD (Family) Primary Care Physician MORA JAY Dec 21, 2021 07:49
--- NOTE | 2021-12-21 07:55 | Diagnostic Imaging Report ---
INDICATION: Chest pain. TECHNIQUE: Single view chest 7:40 AM. CORRELATION STUDY: 05/07/2021 FINDINGS: Poststernotomy changes. Cardiac enlargement with pulmonary vascular congestion, perihilar edema along with Eboni B lines. Overall appears adversely changed from prior. No definitive consolidating infiltrate. IMPRESSION: 1. Congestive heart failure, adversely changed from prior. Dictated by: Dictated on workstation # [id number]
[2021-12-21 08:02] LABS: PROTHROMBIN TIME PATIENT 13.2 SEC (12.2-14.7)
[2021-12-21 08:07] LABS: POTASSIUM 4.1 MMOL/L (3.6-5.0)
[2021-12-21 08:08] LABS: CALCIUM 8.7 MG/DL (8.5-10.1)
[2021-12-21 08:09] LABS: TOTAL PROTEIN 6.9 GM/DL (6.4-8.2)
[2021-12-21 08:11] LABS: BILIRUBIN,TOTAL 0.7 MG/DL (0.1-1.0)
[2021-12-21 08:12] LABS: CREATININE SERUM 0.91 MG/DL (0.60-1.30)
[2021-12-21] MEDS ORDERED: FUROSEMIDE 40 MG/4 ML INJ (LASIX) IVP ONE ×2 (09:30→10:15)
[2021-12-21] MEDS ORDERED: KCL 20 MEQ TAB (K-DUR) PO ONE (09:30)
[2021-12-21] MEDS ORDERED: meTOproloL SUCCINATE 50 MG (TOPROL XL) TAB PO SCH (10:15)
[2021-12-21] MEDS ORDERED: ENOXAPARIN 100 MG/1 ML (LOVENOX) SYR SC ONE (10:15)
[2021-12-21] MEDS ORDERED: AMIODARONE FOR BOLUS 150 MG in NS (IVPB) 100 ML IV ONE (12:30)
--- NOTE | 2021-12-21 12:51 | Consultation-Cardiology ---
HPI-Cardiology Cardiology Consultation: Date of Consultation 12/21/21 Time Seen by a Provider: 12:30 Date of Admission 12-21-21 Attending Physician Gregory Stephenson MD Admitting Physician Admitting Physician: Malinda Vanegas MD Attending Physician: Malinda Vanegas MD Consulting Physician Jocelynn Cuevas MD HPI: Chief Complaint: Chest pain with progressive dyspnea Mr. Bright is a 71 yr old male admitted to 510 from the ED with c/o progressive dyspnea over the course of approx 3 weeks. He reports he woke up this morning with mid-sternal chest pressure without radiation and significant SOB. He denies any diaphoresis. He states the severe chest pressure lasted for 3-4 minutes. He got up and used his inhaler which did help somewhat with the SOB, but it did not go away. He reports continued mild chest pressure and SOB which persisted for over an hour prompting him to come to the ED. He reports the SOB has improved, but has still not gone away. He reports he still has some chest pressure, but reports it as mild. No c/o palpitations, syncope or near syncope. No c/o LE swelling. He reports he follows with Dr. Hunt, but has not seen him since his stenting in early 2000. Review of Systems-Cardiology Review of Systems Constitutional: No chills, No fever, No malaise Eyes: No vision change Ears/Nose/Throat: No epistaxis, No recent hearing loss Respiratory: As described under HPI Cardiovascular: As described under HPI Gastrointestinal: As described under HPI Genitourinary: No dysuria; frequency; No hematuria Musculoskeletal: no symptoms reported Skin: No rash on exposed areas, No ulcerations on exposed areas Psychiatric/Neurological: No anxiety, No depression, No seizure, No focal weakness, No syncope Hematologic: No bleeding abnormalities All Other Systems Reviewed Negative Unless Noted: Yes ITS-Vyrrji-Tcsemp Hx Patient Social History Smoking Status: Former Smoker Former smoker/When Quit: Apr 17, 1995 2nd Hand Smoke Exposure: Yes Have you traveled recently?: No Alcohol Use?: No Pt feels they are or have been: No Immunizations Up To Date Tetanus Booster (TDap): More than 5yrs Date of Pneumonia Vaccine: Apr 17, 2016 Date of Influenza Vaccine: Jan 30, 2020 Past Medical History PMH As described under Assessment. Family Medical History Family Medical History: He reports his father had a CVA and CAD first dx in his 60's. He reports his mother had CAD. He reports a brother with CAD. Family History: 03 FATHER Chest pain Family history: Cardiovascular disease Family history: Coronary thrombosis Family history: Hypertension Heart disease Myocardial infarction Stroke 03 MOTHER Cancer Family history: Breast disease Family history: Cardiovascular disease Family history: Diabetes mellitus Family history: Hypertension Heart disease Myocardial infarction 09 BROTHER Alcoholism Chest pain Family history: Cardiovascular disease 09 BROTHER Family history: Hypertension Heart disease 09 SISTER Cancer Family history: Arthritis History of drug abuse Hypercholesterolemia Relation not specified for: Family history: Allergy Allergies and Home Medications Allergies Coded Allergies: Penicillins (Verified Allergy, Unknown, 07/16/15) watermelon (Verified Allergy, Unknown, 05/07/21) Patient Home Medication List Acetaminophen (Tylenol Extra Strength) 500 Mg Tablet, 1,000 MG PO Q48H PRN for PAIN-MILD, (Reported) Entered as Reported by: URMILA MCGRATH on 01/27/19 1159 Albuterol Sulfate (Proair Hfa) 8.5 Gm Hfa.aer.ad, 1-2 PUFF IH Q4H PRN for WHEEZING, (Reported) Entered as Reported by: GWENDOLYN MONROY on 07/16/15 1014 Amlodipine Besylate (Amlodipine Besylate) 10 Mg Tablet, 10 MG PO DAILY, (Reported) Entered as Reported by: GWENDOLYN MONROY on 07/16/15 1014 Aspirin (Aspirin) 81 Mg Tab.chew, 81 MG PO DAILY@0900 Prescribed by: JOHN DAY on 04/02/20 1156 Cefdinir (Cefdinir) 300 Mg Capsule, 300 MG PO BID Prescribed by: YUAN CARTER on 05/07/21 1401 Clopidogrel Bisulfate (Plavix) 75 Mg Tablet, 75 MG PO DAILY, (Reported) Entered as Reported by: GWENDOLYN MONROY on 05/08/18 1254 Furosemide (Lasix) 40 Mg Tablet, 40 MG PO DAILY, (Reported) Entered as Reported by: JIMI ALMANZAR on 01/18/19 1116 Metoprolol Tartrate (Metoprolol Tartrate) 100 Mg Tablet, 100 MG PO BID, (Reported) Entered as Reported by: GWENDOLYN MONROY on 05/08/18 1254 Olmesartan Medoxomil (Benicar) 20 Mg Tablet, 20 MG PO DAILY, (Reported) Entered as Reported by: GWENDOLYN MONROY on 07/16/15 1014 Potassium Chloride (Potassium Chloride) 10 Meq Tablet.er, 10 MEQ PO BID, (Reported) Entered as Reported by: JIMI ALMANZAR on 01/18/19 1116 Prednisone (Prednisone) 20 Mg Tab, 40 MG PO DAILY Prescribed by: YUAN CARTER on 05/07/21 1401 Rosuvastatin Calcium (Crestor) 20 Mg Tablet, 20 MG PO HS, (Reported) Entered as Reported by: GWENDOLYN MONROY on 07/16/15 1014 Physical Exam-Cardiology Physical Exam Vital Signs/I&O 12/21/21 12/21/21 12/21/21 12/21/21 07:20 08:48 10:44 10:56 Temp 36.0 Pulse 80 70 68 Resp 20 95 B/P (MAP) 184/117 (139) 172/93 Pulse Ox 93 92 O2 Delivery Room Air Room Air Room Air 12/21/21 12/21/21 11:00 11:00 Pulse 64 Resp 15 B/P (MAP) 157/91 (113) Pulse Ox 94 94 O2 Delivery Room Air Room Air Capillary Refill : Less Than 3 Seconds Constitutional: AAO x 3, well-developed, well-nourished HEENT: PERRL, hearing is well preserved, oral hygience is good Neck: No carotid bruit; carotid pulses are 2 + bilaterally Respiratory: No accessory muscle use, No respiratory distress; chest expansion is symmetric, chest is bilaterally symmetric, lungs clear to auscultation Cardiovascular: regular rate-rhythm; No JVD; S1 and S2 Gastrointestinal: No tender; soft, round, audible bowel sounds Extremities: no lower extremity edema bilateral Neurologic/Psychiatric: grossly intact (moves all extremities) Skin: No rash on exposed areas, No ulcerations on exposed areas Data Review Labs Laboratory Tests 12/21/21 07:35: White Blood Count 7.4, Red Blood Count 4.48, Hemoglobin 13.6, Hematocrit 40, Mean Corpuscular Volume 89, Mean Corpuscular Hemoglobin 30, Mean Corpuscular Hemoglobin Concent 34, Red Cell Distribution Width 13.8, Platelet Count 146, Mean Platelet Volume 10.9, Immature Granulocyte % (Auto) 0, Neutrophils (%) (Auto) 67, Lymphocytes (%) (Auto) 21, Monocytes (%) (Auto) 9, Eosinophils (%) (Auto) 3, Basophils (%) (Auto) 0, Neutrophils # (Auto) 4.9, Lymphocytes # (Auto) 1.6, Monocytes # (Auto) 0.6, Eosinophils # (Auto) 0.2, Basophils # (Auto) 0.0, Immature Granulocyte # (Auto) 0.0, Prothrombin Time 13.2, INR Comment 1.0, Activated Partial Thromboplast Time 34, Sodium Level 142, Potassium Level 4.1, Chloride Level 108H, Carbon Dioxide Level 24, Anion Gap 10, Blood Urea Nitrogen 21H, Creatinine 0.91, Estimat Glomerular Filtration Rate 91, BUN/Creatinine Ratio 23, Glucose Level 134H, Calcium Level 8.7, Corrected Calcium 8.7, Magnesium Level 2.0, Total Bilirubin 0.7, Aspartate Amino Transf (AST/SGOT) 24, Alanine Aminotransferase (ALT/SGPT) 19, Alkaline Phosphatase 57, Myoglobin 60.2, Troponin I 0.059H, B-Type Natriuretic Peptide 888.5H, Total Protein 6.9, Albumin 4.0, Lipase 17 12/21/21 08:00: Bedside Blood Gas pH (LAB) 7.363, Bedside Blood Gas pCO2 (LAB) 42.6, Bedside Blood Gas pO2 (LAB) 72L, Bedside Blood Gas HCO3 (LAB) 24.2, POC Blood Gas Total CO2 Calc 26, Bedside Bl Gas O2 Saturation (Calc) 94L, Bedside Arterial Blood Base Excess -1 Laboratory Tests 12/21/21 07:35 Radiology NAME: LUCINA BRIGHT [facility] REC#: [id number] PT STATUS: ADM IN : 1950 PHYSICIAN: MORA JAY MD ADMIT DATE: 12/21/21/[facility] Signed Date of Exam:12/21/21 CHEST 1 VIEW, AP/PA ONLY INDICATION: Chest pain. TECHNIQUE: Single view chest 7:40 AM. CORRELATION STUDY: 05/07/2021 FINDINGS: Poststernotomy changes. Cardiac enlargement with pulmonary vascular congestion, perihilar edema along with Eboni B lines. Overall appears adversely changed from prior. No definitive consolidating infiltrate. IMPRESSION: 1. Congestive heart failure, adversely changed from prior. Dictated by: Dictated on workstation # [id number] Dict: 12/21/21 0752 Trans: 12/21/21 1057 [id number] Interpreted by: EDA LARSON DO Electronically signed by: EDA LARSON DO 12/21/21 1057 ECG Impression ECG Comment SR with LBBB A/P-Cardiology Assessment/Admission Diagnosis Chest pain with progressive dyspnea NSTEMI 11 beat run of WCT on 12-21-21 - asymptomatic CAD - H/O 4 vessel CABG in 2004 at [facility] - reported coronary stent placed in Mar 2021 at [facility] by Dr. Hunt CHF, systolic - 2D Echo done 03/31/[address] Gomez showing EF 40-45%, grade 2 diastolic dysfunciton, LA dilated 5.1cm, mild , PA 35-40mmHg Hx of Aortic root dissection repair with ascending aortic root replacement with a 32 mm Dacron graft, aortic root reconstruction wit re-suspension of the aortic valve and re-implantation of 3 coronary bypass grafts per Dr. Gomez's note of Mar 2020 HTN HLD - statin tx DM 2 H/O tobaccoism Discussion and Recomendations Chest pain with progressive BHAKTA NSTEMI - continue ASA and Plavix (home medications) 11 beat run of WCT on 12-21-21 - start Amiodarone Start BB tx CHF, systolic - treat with diuretics - Echocardiogram today HLD - continue home statin Request records from [facility] Further recs will be based on his hospital course We would like to thank medical services for this consult Plan of care has been discussed with Dr. Vanegas of medical services TATUM FRANKS Dec 21, 2021 12:51
--- NOTE | 2021-12-21 13:07 | History & Physical-Hospitalist ---
History of Present Illness HPI/Chief Complaint Patient is a 71-year-old male with a past medical history of coronary artery disease status post 5 vessel CABG, CHF, aortic aneurysm repair, COPD, hypertension, hyperlipidemia who presented to the emergency department due to shortness of breath. He reports that he has had shortness of breath times the past 2 weeks that has been getting worse and worse. He also complains of orthopnea though states sometimes it is just pain when he lays down. His reports that he quit taking his Lasix and she believes that is why he has gotten worse. He complains of a dry cough as well. He has followed with cardiology in [place] but has not seen them since his last stent. He was seen here by Dr. Gomez roughly 2 years ago and had an echo that revealed an EF of 40% with grade 2 diastolic dysfunction. He attempted to take his inhaler to help with his breathing but this did not help so his decided to bring him to the emergency department. In the emergency department he was found to have a CHF exacerbation and was mildly hypoxic and so was admitted for further management. Shortly before I entered the room the build technician was in the room and noticed a short run of V. tach. I discussed with the library media technician and it appears he had an 11 beat run of V. tach. Patient denies any symptoms during that time. Source: patient Date Seen 12/21/21 Time Seen by a Provider: 13:02 Attending Physician Gregory Stephenson MD PCP Admitting Physician: Rosa Vanegas MD Attending Physician: Rosa Vanegas MD Referring Physician Date of Admission Dec 21, 2021 at 10:16 Home Medications & Allergies Home Medications Reviewed patient Home Medication Reconciliation performed by pharmacy medication reconciliations certified medication technician and/or nursing. Patients Allergies have been reviewed. Allergies Allergies Coded Allergies Penicillins (Verified Allergy, Unknown, 07/16/15) watermelon (Verified Allergy, Unknown, 05/07/21) Past Tamtmio-Xooeny-Sxvxkb Hx Patient Social History Tobacco Use?: No Smoking Status: Former Smoker Smokeless Tobacco Frequency: Never a User Use of E-Cig and/or Vaping [place]: Never a User Substance use?: No Alcohol Use?: No Pt feels they are or have been: No Immunizations Up To Date Date of Influenza Vaccine: Jan 30, 2020 First/Initial COVID19 Vaccinat: NONE Second COVID19 Vaccination Rajat: NONE Tetanus Booster (TDap): Unknown Hepatitis A: No Hepatitis B: No PED Vaccines UTD: No Date of Pneumonia Vaccine: Apr 17, 2016 Seasonal Allergies Seasonal Allergies: Yes Current Status Advance Directives: No Communicates: Verbally Primary Language: Senegalese Preferred Spoken Language: Senegalese Is interpretation needed?: No Sensory deficits: Vision impairment, Hearing impairment Implanted or Applied Medical D: None Past Medical History Surgeries: Abdominal, Cardiac, CABG, Orthopedic, Vascular Surgery Asthma, COPD Currently Using CPAP: No Currently Using BIPAP: No Aneurysm, Coronary Artery Disease, High Cholesterol, Hypertension Sexually Transmitted Disease: No HIV/AIDS: No Abdominal Hernia, Polyps Loss of Vision: Denies Hearing Impairment: Hard of Hearing, Bilateral Hearing Aide Blood Disorders: No Adverse Reaction/Blood Tranf: No (N/A) Family Medical History Reviewed Nursing Family Hx Alcoholism 09 BROTHER Cancer 03 MOTHER 09 SISTER Chest pain 03 FATHER 09 BROTHER Family history: Allergy Family history: Arthritis 09 SISTER Family history: Breast disease 03 MOTHER Family history: Cardiovascular disease 03 FATHER 03 MOTHER 09 BROTHER Family history: Coronary thrombosis 03 FATHER Family history: Diabetes mellitus 03 MOTHER Family history: Hypertension 03 FATHER 03 MOTHER 09 BROTHER Heart disease 03 FATHER 03 MOTHER 09 BROTHER History of drug abuse 09 SISTER Hypercholesterolemia 09 SISTER Myocardial infarction 03 FATHER 03 MOTHER Stroke 03 FATHER No Family History of: Abdominal aortic aneurysm Raphael's disease Aphasia Cancer of colon Cataract Congenital heart disease Congestive heart failure Cystic fibrosis Dementia Dysphagia Family history: Alzheimer's disease Family history: Asthma Family history: Gastrointestinal disease Family history: Glaucoma Family history: Osteoporosis Family history: Thyroid disorder Headache Hearing loss Hereditary disease History of - anemia History of - disorder History of - respiratory disease Human immunodeficiency virus (HIV) seropositivity Infertile Kidney disease Malignant neoplasm of lung Parkinson's disease Prostate cancer Psychotic disorder Seizure disorder Tuberculosis Visual impairment Review of Systems Constitutional: No chills, No fever Respiratory: cough, dyspnea on exertion, orthopnea, short of breath Cardiovascular: chest pain, edema, Hx of Intervention; No palpitations, No syncope Gastrointestinal: no symptoms reported Genitourinary: no symptoms reported Musculoskeletal: no symptoms reported Skin: no symptoms reported Psychiatric/Neurological: No Symptoms Reported Physical Exam Physical Exam Vital Signs Vital Signs - First Documented 12/21/21 12/22/21 07:20 11:16 Temp 36.0 Pulse 80 Resp 20 B/P (MAP) 184/117 (139) Pulse Ox 93 O2 Delivery Room Air FiO2 21 Capillary Refill : Less Than 3 Seconds Height, Weight, BMI Height: 5'8.00" Weight: 213lbs. 0.6oz. 96.461949rv; 30.10 BMI Method:Stated General Appearance: No Apparent Distress, WD/WN, Chronically ill HEENT: PERRL/EOMI, Moist Mucous Membranes; No Scleral Icterus (L), No Scleral Icterus (R) Neck: Normal Inspection, Supple; No JVD Respiratory: Lungs Clear, No Accessory Muscle Use, No Respiratory Distress Cardiovascular: Regular Rate, Rhythm, No JVD, No Murmur Gastrointestinal: Normal Bowel Sounds, Non Tender, Soft Extremity: Normal Capillary Refill, No Calf Tenderness, Pedal Edema Neurologic/Psychiatric: Alert, Oriented x3, Normal Mood/Affect Skin: Normal Color, Warm/Dry Results Results/Procedures Labs Laboratory Tests 12/21/21 07:35 12/22/21 05:00 Patient resulted labs reviewed. Imaging: Reviewed Imaging Report Imaging [facility] [place] NAME: AMANDALUCINA [facility] REC#: [id number] PT STATUS: ADM IN : 1950 PHYSICIAN: MORA JAY MD ADMIT DATE: 12/21/21/[facility] Signed Date of Exam:12/21/21 CHEST 1 VIEW, AP/PA ONLY INDICATION: Chest pain. TECHNIQUE: Single view chest 7:40 AM. CORRELATION STUDY: 05/07/2021 FINDINGS: Poststernotomy changes. Cardiac enlargement with pulmonary vascular congestion, perihilar edema along with Eboni B lines. Overall appears adversely changed from prior. No definitive consolidating infiltrate. IMPRESSION: 1. Congestive heart failure, adversely changed from prior. Dictated by: Dictated on workstation # [id number] Dict: 12/21/21 0752 Trans: 12/21/21 1057 [id number] Interpreted by: EDA LARSON DO Electronically signed by: EDA LARSON DO 12/21/21 1057 Assessment/Plan Admission Diagnosis CHF exacerbation Admission Status: Inpatient Order (span 2 midnights) Reason for Inpatient Admission: see below Assessment and Plan Acutely decompensated systolic heart failure CAD s/p CABG HTN HLD nonsustained v-tach Type II TN Admitted to [facility] Cardiology consulted, appreciate recs Continue IV lasix Amiodarone started Continue home meds troponin slightly elevated, trend Telemetry COPD Continue home inhalers MAT protocol Diagnosis/Problems Diagnosis/Problems (1) CAD (coronary artery disease) (2) Essential (primary) hypertension (3) HLD (hyperlipidemia) (4) COPD (chronic obstructive pulmonary disease) (5) S/P CABG x 5 (6) Thoracic aortic aneurysm (TAA) (7) Acute on chronic respiratory failure with hypoxemia Status: Acute (8) CHF (congestive heart failure) Status: Acute Qualifiers: Heart failure type: combined systolic and diastolic Heart failure chronicity: acute on chronic Qualified Codes: I50.43 - Acute on chronic combined systolic (congestive) and diastolic (congestive) heart failure (9) Hypoxia Status: Acute (10) Elevated troponin Status: Acute (11) NON-COMPLIANCY Status: Acute ROSA VANEGAS MD Dec 21, 2021 13:07
[2021-12-21] MEDS: AMIODARONE INJECTION 450 MG in NORMAL SALINE 250 ML IV SCH ×2 (13:21→21:10)
[2021-12-21] MEDS ORDERED: LIDOCAINE UROJET 2% GEL 10 ML PKG TOP NR (13:30)
[2021-12-21] MEDS: ENOXAPARIN 100 MG/1 ML (LOVENOX) SYR SC SCH (13:30)
[2021-12-21] MEDS ORDERED: amLODIPine 5 MG (NORVASC) TAB PO NR (14:30)
--- NOTE | 2021-12-21 14:49 | Consultation-Cardiology ---
HPI-Cardiology Cardiology Consultation: Date of Consultation 12/21/21 Time Seen by a Provider: 14:00 Date of Admission Attending Physician Gregory Stephenson MD Admitting Physician Admitting Physician: Malinda Vanegas MD Attending Physician: Malinda Vanegas MD Consulting Physician PASQUALE JEFFREY MD, MA, FACP, FACC, FSCAI, CCDS Primary marble worker: Dr Goldman ([place], [place]) HPI: Chief Complaint: Chest pain with progressive dyspnea Mr. Bright is a 71 yr old male admitted to 510 from the ED with c/o progressive dyspnea over the course of approx 3 weeks. He reports he woke up this morning with mid-sternal chest pressure without radiation and significant SOB. He denies any diaphoresis. He states the severe chest pressure lasted for 3-4 minutes. He got up and used his inhaler which did help somewhat with the SOB, but it did not go away. He reports continued mild chest pressure and SOB which persisted for over an hour prompting him to come to the ED. He reports the SOB has improved, but has still not gone away. He reports he still has some chest pressure, but reports it as mild. No c/o palpitations, syncope or near syncope. No c/o LE swelling. He reports he follows with Dr. Hunt, but has not seen him since his stenting in early 2000. Review of Systems-Cardiology Review of Systems Constitutional: No chills, No fever, No malaise Eyes: No vision change Ears/Nose/Throat: No epistaxis, No recent hearing loss Respiratory: As described under HPI Cardiovascular: As described under HPI Gastrointestinal: As described under HPI Genitourinary: No dysuria; frequency; No hematuria Musculoskeletal: no symptoms reported Skin: No rash on exposed areas, No ulcerations on exposed areas Psychiatric/Neurological: No anxiety, No depression, No seizure, No focal weakness, No syncope Hematologic: No bleeding abnormalities All Other Systems Reviewed Negative Unless Noted: Yes MHW-Hropkg-Thjixp Hx Patient Social History Smoking Status: Former Smoker Former smoker/When Quit: Apr 17, 1995 2nd Hand Smoke Exposure: Yes Have you traveled recently?: No Alcohol Use?: No Pt feels they are or have been: No Immunizations Up To Date Tetanus Booster (TDap): More than 5yrs Date of Pneumonia Vaccine: Apr 17, 2016 Date of Influenza Vaccine: Jan 30, 2020 Past Medical History PMH As described under Assessment. Family Medical History Family Medical History: He reports his father had a CVA and CAD first dx in his 60's. He reports his mother had CAD. He reports a brother with CAD. Family History: Alcoholism 09 BROTHER Cancer 03 MOTHER 09 SISTER Chest pain 03 FATHER 09 BROTHER Family history: Allergy Family history: Arthritis 09 SISTER Family history: Breast disease 03 MOTHER Family history: Cardiovascular disease 03 FATHER 03 MOTHER 09 BROTHER Family history: Coronary thrombosis 03 FATHER Family history: Diabetes mellitus 03 MOTHER Family history: Hypertension 03 FATHER 03 MOTHER 09 BROTHER Heart disease 03 FATHER 03 MOTHER 09 BROTHER History of drug abuse 09 SISTER Hypercholesterolemia 09 SISTER Myocardial infarction 03 FATHER 03 MOTHER Stroke 03 FATHER No Family History of: Abdominal aortic aneurysm Athelstane's disease Aphasia Cancer of colon Cataract Congenital heart disease Congestive heart failure Cystic fibrosis Dementia Dysphagia Family history: Alzheimer's disease Family history: Asthma Family history: Gastrointestinal disease Family history: Glaucoma Family history: Osteoporosis Family history: Thyroid disorder Headache Hearing loss Hereditary disease History of - anemia History of - disorder History of - respiratory disease Human immunodeficiency virus (HIV) seropositivity Infertile Kidney disease Malignant neoplasm of lung Parkinson's disease Prostate cancer Psychotic disorder Seizure disorder Tuberculosis Visual impairment Allergies and Home Medications Allergies Coded Allergies: Penicillins (Verified Allergy, Unknown, 07/16/15) watermelon (Verified Allergy, Unknown, 05/07/21) Patient Home Medication List Home Medication List Reviewed: Yes Acetaminophen (Tylenol Extra Strength) 500 Mg Tablet, 1,000 MG PO Q48H PRN for PAIN-MILD, (Reported) Entered as Reported by: URMILA MCGRATH on 01/27/19 1159 Albuterol Sulfate (Proair Hfa) 8.5 Gm Hfa.aer.ad, 1-2 PUFF IH Q4H PRN for WHEEZING, (Reported) Entered as Reported by: GWENDOLYN MONROY on 07/16/15 1014 Amlodipine Besylate (Amlodipine Besylate) 10 Mg Tablet, 10 MG PO DAILY, (Report ed) Entered as Reported by: GWENDOLYN MONROY on 07/16/15 1014 Aspirin (Aspirin) 81 Mg Tab.chew, 81 MG PO DAILY@0900 Prescribed by: JOHN DAY on 04/02/20 1156 Cefdinir (Cefdinir) 300 Mg Capsule, 300 MG PO BID Prescribed by: YUAN CARTER on 05/07/21 1401 Clopidogrel Bisulfate (Plavix) 75 Mg Tablet, 75 MG PO DAILY, (Reported) Entered as Reported by: GWENDOLYN MONROY on 05/08/18 1254 Furosemide (Lasix) 40 Mg Tablet, 40 MG PO DAILY, (Reported) Entered as Reported by: JIMI ALMANZAR on 01/18/19 1116 Metoprolol Tartrate (Metoprolol Tartrate) 100 Mg Tablet, 100 MG PO BID, (Reported) Entered as Reported by: GWENDOLYN MONROY on 05/08/18 1254 Olmesartan Medoxomil (Benicar) 20 Mg Tablet, 20 MG PO DAILY, (Reported) Entered as Reported by: GWENDOLYN MONROY on 07/16/15 1014 Potassium Chloride (Potassium Chloride) 10 Meq Tablet.er, 10 MEQ PO BID, (Reported) Entered as Reported by: JIMI ALMANZAR on 01/18/19 1116 Prednisone (Prednisone) 20 Mg Tab, 40 MG PO DAILY Prescribed by: YUAN CARTER on 05/07/21 1401 Rosuvastatin Calcium (Crestor) 20 Mg Tablet, 20 MG PO HS, (Reported) Entered as Reported by: GWENDOLYN MONROY on 07/16/15 1014 Physical Exam-Cardiology Physical Exam Vital Signs/I&O 12/21/21 12/21/21 12/21/21 12/21/21 07:20 08:48 10:44 10:56 Temp 36.0 Pulse 80 70 68 Resp 20 95 B/P (MAP) 184/117 (139) 172/93 Pulse Ox 93 92 O2 Delivery Room Air Room Air Room Air 12/21/21 12/21/21 12/21/21 12/21/21 11:00 11:00 12:00 13:00 Temp 36.6 Pulse 64 75 62 Resp 15 15 25 B/P (MAP) 157/91 (113) 156/97 (116) 163/77 (105) Pulse Ox 94 94 93 96 O2 Delivery Room Air Room Air Room Air Room Air 12/21/21 12/21/21 13:08 13:21 Pulse 65 65 B/P (MAP) 156/97 Capillary Refill : Less Than 3 Seconds Constitutional: AAO x 3, well-developed, well-nourished HEENT: PERRL, hearing is well preserved, oral hygience is good Neck: No carotid bruit; carotid pulses are 2 + bilaterally Respiratory: No accessory muscle use, No respiratory distress; chest expansion is symmetric, chest is bilaterally symmetric, lungs clear to auscultation Cardiovascular: regular rate-rhythm; No JVD; S1 and S2 Gastrointestinal: No tender; soft, round, audible bowel sounds Extremities: no lower extremity edema bilateral Neurologic/Psychiatric: grossly intact (moves all extremities) Skin: No rash on exposed areas, No ulcerations on exposed areas Data Review Labs Laboratory Tests 12/21/21 07:35: White Blood Count 7.4, Red Blood Count 4.48, Hemoglobin 13.6, Hematocrit 40, Mean Corpuscular Volume 89, Mean Corpuscular Hemoglobin 30, Mean Corpuscular Hemoglobin Concent 34, Red Cell Distribution Width 13.8, Platelet Count 146, Mean Platelet Volume 10.9, Immature Granulocyte % (Auto) 0, Neutrophils (%) (Auto) 67, Lymphocytes (%) (Auto) 21, Monocytes (%) (Auto) 9, Eosinophils (%) (Auto) 3, Basophils (%) (Auto) 0, Neutrophils # (Auto) 4.9, Lymphocytes # (Auto) 1.6, Monocytes # (Auto) 0.6, Eosinophils # (Auto) 0.2, Basophils # (Auto) 0.0, Immature Granulocyte # (Auto) 0.0, Prothrombin Time 13.2, INR Comment 1.0, Activated Partial Thromboplast Time 34, Sodium Level 142, Potassium Level 4.1, Chloride Level 108H, Carbon Dioxide Level 24, Anion Gap 10, Blood Urea Nitrogen 21H, Creatinine 0.91, Estimat Glomerular Filtration Rate 91, BUN/Creatinine Rat io 23, Glucose Level 134H, Calcium Level 8.7, Corrected Calcium 8.7, Magnesium Level 2.0, Total Bilirubin 0.7, Aspartate Amino Transf (AST/SGOT) 24, Alanine Aminotransferase (ALT/SGPT) 19, Alkaline Phosphatase 57, Myoglobin 60.2, Troponin I 0.059H, B-Type Natriuretic Peptide 888.5H, Total Protein 6.9, Albumin 4.0, Lipase 17 12/21/21 08:00: Bedside Blood Gas pH (LAB) 7.363, Bedside Blood Gas pCO2 (LAB) 42.6, Bedside Blood Gas pO2 (LAB) 72L, Bedside Blood Gas HCO3 (LAB) 24.2, POC Blood Gas Total CO2 Calc 26, Bedside Bl Gas O2 Saturation (Calc) 94L, Bedside Arterial Blood Base Excess -1 12/21/21 13:00: Troponin I 0.055H A/P-Cardiology Assessment/Admission Diagnosis Unstable angina / NSTEMI Dilated cardiomyopathy - Echo of 12/21/21: mod cardiomegaly, mod global hypo, LVEF 30-35%, mod MR, mild to mod AI, pulm htn with PASP approx 60-65 mmHg 11 beat run of WCT on 12-21-21 - asymptomatic CAD and aortic root disease - H/o 4 vessel CABG in 2004 at [facility] - Hx of Aortic root dissection repair with ascending aortic root replacement with a 32 mm Dacron graft, aortic root reconstruction wit re-suspension of the aortic valve and re-implantation of 3 coronary bypass grafts per Dr. Gomez's note of Mar 2020 - reported coronary stent placed in Mar 2021 at [facility] by Dr. Hunt CHF, systolic - see echo report of 12/21/21 above HTN HLD - statin tx DM 2 H/O tobaccoism Discussion and Recomendations * Complex management due to multiple CV comorbidities * BB and amio for VT * Diuretics for decomp CHF * BB and Entresto for dilated cardiomyopathy * DAPT and enoxaparin for ACS * Try to obtain records from [place] * I called and spoke with patient's regular marble worker, Dr Goldman. Dr. Goldman will review his record and get back with us * Monitor labs closely PASQUALE JEFFREY MD FACP FAC CCDS Dec 21, 2021 14:49
[2021-12-21] MEDS: FUROSEMIDE 40 MG/4 ML INJ (LASIX) IV SCH (17:28)
[2021-12-21] MEDS ORDERED: ACETAMINOPHEN 500 MG TAB (TYLENOL) ONE (21:08)
[2021-12-21] MEDS: ACETAMINOPHEN 500 MG TAB (TYLENOL) PO PRN (21:11)
[2021-12-22] VITALS (8 sets, daily range): BP systolic 116–149; BP diastolic 60–82
[2021-12-22] MEDS: ENOXAPARIN 100 MG/1 ML (LOVENOX) SYR SC SCH ×3 (00:50→23:27)
[2021-12-22 05:20] LABS: HEMATOCRIT 39 % (40-54); HEMOGLOBIN 13.3 g/dL (13.3-17.7); MEAN CORPUSCULAR HEMOGLOBIN 30 pg (25-34); MEAN CORPUSCULAR HGB CONC 34 g/dL (32-36); MEAN CORPUSCULAR VOLUME 87 fL (80-99); MEAN PLATELET VOLUME 11.2 fL (9.0-12.2); PLATELET COUNT 150 10^3/uL (130-400); WHITE BLOOD COUNT 9.3 10^3/uL (4.3-11.0)
[2021-12-22 05:36] LABS: POTASSIUM 3.4 MMOL/L (3.6-5.0)
[2021-12-22 05:37] LABS: CALCIUM 9.1 MG/DL (8.5-10.1); TRIGLYCERIDES 77 MG/DL (<150); VLDL CHOLESTEROL 15 MG/DL (5-40)
[2021-12-22 05:41] LABS: CREATININE SERUM 0.96 MG/DL (0.60-1.30)
[2021-12-22 05:42] LABS: CHOLESTEROL 112 MG/DL (< 200)
[2021-12-22 05:43] LABS: HDL CHOLESTEROL 38 MG/DL (40-60)
[2021-12-22] MEDS: FUROSEMIDE 40 MG/4 ML INJ (LASIX) IV SCH ×2 (06:18→17:13)
[2021-12-22] MEDS: ACETAMINOPHEN 500 MG TAB (TYLENOL) PO PRN (06:27)
--- NOTE | 2021-12-22 08:55 | Progress Note - Hospitalist ---
Subjective HPI/CC On Admission Date Seen by Provider: Dec 22, 2021 Patient is a 71-year-old male with a past medical history of coronary artery disease status post 5 vessel CABG, CHF, aortic aneurysm repair, COPD, hypertension, hyperlipidemia who presented to the emergency department due to shortness of breath. He reports that he has had shortness of breath times the past 2 weeks that has been getting worse and worse. He also complains of o rthopnea though states sometimes it is just pain when he lays down. His reports that he quit taking his Lasix and she believes that is why he has gotten worse. He complains of a dry cough as well. He has followed with cardiology in [place] but has not seen them since his last stent. He was seen here by Dr. Gomez roughly 2 years ago and had an echo that revealed an EF of 40% with grade 2 diastolic dysfunction. He attempted to take his inhaler to help with his breathing but this did not help so his decided to bring him to the emergency department. In the emergency department he was found to have a CHF exacerbation and was mildly hypoxic and so was admitted for further management. Shortly before I entered the room the dental laboratory technology teacher was in the room and noticed a short run of V. tach. I discussed with the hvac engineering technician and it appears he had an 11 beat run of V. tach. Patient denies any symptoms during that time. Subjective/Events-last exam Pt reports doing well. Plan for cardiac cath today. Reports breathing is much improved. Objective Exam Vital Signs Vital Signs Date Time Temp Pulse Resp B/P (MAP) Pulse Ox O2 Delivery O2 Flow Rate FiO2 12/22/21 11:16 35.6 54 90 21 12/22/21 08:00 Room Air 12/22/21 08:00 23 118/69 (85) Capillary Refill : Less Than 3 Seconds General Appearance: No Apparent Distress, WD/WN Respiratory: Lungs Clear, No Respiratory Distress Cardiovascular: Regular Rate, Rhythm, No Murmur Gastrointestinal: Normal Bowel Sounds, Non Tender, Soft Neurologic/Psychiatric: Alert, Oriented x3 Results/Procedures Lab Laboratory Tests 12/22/21 05:00 Patient resulted labs reviewed. Imaging: Reviewed Imaging Report Assessment/Plan Assessment and Plan Assess & Plan/Chief Complaint Acutely decompensated systolic heart failure CAD s/p CABG HTN HLD nonsustained v-tach Type II MD Admitted to [facility] Cardiology consulted, appreciate recs- discussed with ANNIA Velarde for Dr Cuevas Continue IV lasix, negative 3.2L already Amiodarone gtt Continue home meds troponin slightly elevated, but stable Telemetry Plan for cath today COPD Continue home inhalers MAT protocol DVT ppx; Lovenox Diagnosis/Problems Diagnosis/Problems (1) CAD (coronary artery disease) (2) Essential (primary) hypertension (3) HLD (hyperlipidemia) (4) COPD (chronic obstructive pulmonary disease) (5) S/P CABG x 5 (6) Thoracic aortic aneurysm (TAA) (7) Acute on chronic respiratory failure with hypoxemia Status: Acute (8) CHF (congestive heart failure) Status: Acute Qualifiers: Heart failure type: combined systolic and diastolic Heart failure chronicity: acute on chronic Qualified Codes: I50.43 - Acute on chronic combined systolic (congestive) and diastolic (congestive) heart failure (9) Hypoxia Status: Acute (10) Elevated troponin Status: Acute (11) NON-COMPLIANCY Status: Acute ROSA REYNAGA MD Dec 22, 2021 08:55
[2021-12-22] MEDS ORDERED: meTOproloL SUCCINATE 50 MG (TOPROL XL) TAB PO SCH (09:00)
[2021-12-22] MEDS ORDERED: amLODIPine 5 MG (NORVASC) TAB PO SCH (09:00)
[2021-12-22] MEDS ORDERED: KCL 20 MEQ TAB (K-DUR) PO ONE ×2 (09:30→14:00)
[2021-12-22] MEDS: NS IV 1000 ML 1,000 ML IV SCH (09:47)
[2021-12-22] MEDS: AMIODARONE INJECTION 450 MG in NORMAL SALINE 250 ML IV SCH (09:58)
[2021-12-22] MEDS ORDERED: LIDOCAINE 1% INJ 20 ML VIAL ONE (09:59)
[2021-12-22] MEDS ORDERED: HEParin (CATH LAB) 2,000 ML IV ONE (09:59)
[2021-12-22] MEDS ORDERED: RT-ALBUTEROL/IPRATROPIUM 3 ML (DUONEB) VIAL INH PRN (11:30)
[2021-12-22] MEDS ORDERED: fentaNYL INJ 100 MCG/2 ML AMP ONE (11:31)
[2021-12-22] MEDS ORDERED: MIDAZOLAM 5 MG/5 ML (VERSED) VIAL ONE (11:31)
[2021-12-22] MEDS ORDERED: CARV25TA PO (12:01)
[2021-12-22] MEDS ORDERED: EZET10TA49 PO (12:01)
[2021-12-22] MEDS ORDERED: POTA-51 PO (12:01)
[2021-12-22] MEDS ORDERED: RT-ALBUINH IH (12:01)
[2021-12-22] MEDS ORDERED: LOSA50TA63 PO (12:01)
[2021-12-22] MEDS ORDERED: ASPI-1238 PO (12:01)
[2021-12-22] MEDS ORDERED: TMSL.4C PO (12:01)
[2021-12-22] MEDS ORDERED: METF-478 PO (12:01)
--- NOTE | 2021-12-22 12:43 | Cardiac Procedure Note-CS/ASA ---
Pre-Procedure Note Pre-Op Procedure Note Date of Available H&P: Dec 21, 2021 Date H&P Reviewed: Dec 22, 2021 Time H&P Reviewed: 09:30 History & Physical: No changes noted Conscious Sedation Pre-Proced ASA Score 3 For ASA 3 and 4: Consider anesthesia and medical clearance. Also, for patients with a history of failed moderate sedation consider anesthesia. Airway Lungs Heart ASA score ASA 1: a normal healthy patient ASA 2: a patient with a mild systemic disease (mid diabetes, controlled hypertension, obesity ASA 3: a patient with a severe systemic disease that limits activity (angina, COPD, prior Myocardial infarction) ASA 4: a patient with an incapacitating disease that is a constant threat to life (CHF, renal failure) ASA 5: a moribund patient not expected to survive 24 hrs. (ruptured aneurysm) ASA 6: a declared brain- patient whose organs are being harvested. For emergent operations, add the letter E after the classification Mallampati Classification Grade 2 Sedation Plan Analgesia, Amnesia, Plan communicated to team members The patient is an appropriate candidate to undergo the planned procedure, sedation, and anesthesia. The patient immediately re-assessed prior to indication. PASQUALE JEFFREY MD FACP FACC CCDS Dec 22, 2021 12:43
[2021-12-22] MEDS ORDERED: NS IV 1000 ML 1,000 ML IV SCH (12:45)
[2021-12-22] MEDS ORDERED: PATIENT MAY USE OWN MEDS, ALL PO SCH (12:45)
--- NOTE | 2021-12-22 13:02 | Progress Note - Cardiology ---
Cardiology SOAP Progress Note Subjective: Short of breath with activity No cp or palp or syncope No n/v/d No swelling Gen weakness and malaise Objective: I&O/Vital Signs 12/22/21 12/22/21 12/22/21 12/22/21 01:00 03:00 04:00 05:43 Temp 36.4 Pulse 61 57 Resp 18 B/P (MAP) 132/71 (91) Pulse Ox 92 92 O2 Delivery Room Air Room Air Room Air 12/22/21 12/22/21 12/22/21 12/22/21 07:48 08:00 08:00 08:00 Temp 35.6 Pulse 53 54 Resp 23 B/P (MAP) 118/69 (85) Pulse Ox 90 95 O2 Delivery Room Air Room Air 12/22/21 11:16 Temp 35.6 Pulse 54 Pulse Ox 90 FiO2 21 12/22/21 00:00 Intake Total 859 ml Output Total 4100 ml Balance -3241 ml Weight (Pounds): 213 Weight (Ounces): 0.6 Weight (Calculated Kilograms): 96.199303 Constitutional: AAO x 3, well-developed, well-nourished Respiratory: No accessory muscle use, No respiratory distress; chest expansion is symmetric, chest is bilaterally symmetric, lungs clear to auscultation Cardiovascular: regular rate-rhythm; No JVD; S1 and S2 Gastrointestional: No tender; soft, round, audible bowel sounds Extremities: no lower extremity edema bilateral Neurologic/Psychiatric: other (moves all limbs equally) Skin: No rash on exposed areas, No ulcerations on exposed areas Results/Procedures: Labs Laboratory Tests 12/21/21 13:00: Troponin I 0.055H 12/21/21 16:40: Glucometer 92 12/21/21 19:04: Troponin I 0.058H 12/21/21 20:50: Glucometer 101 12/22/21 05:00: White Blood Count 9.3, Red Blood Count 4.50, Hemoglobin 13.3, Hematocrit 39L, Mean Corpuscular Volume 87, Mean Corpuscular Hemoglobin 30, Mean Corpuscular Hemoglobin Concent 34, Red Cell Distribution Width 13.8, Platelet Count 150, Mean Platelet Volume 11.2, Sodium Level 140, Potassium Level 3.4L, Chloride Level 103, Carbon Dioxide Level 24, Anion Gap 13, Blood Urea Nitrogen 23H, Creatinine 0.96, Estimat Glomerular Filtration Rate 86, BUN/Creatinine Ratio 24, Glucose Level 105, Calcium Level 9.1, Magnesium Level 2.0, Triglycerides Level 77, Cholesterol Level 112, LDL Cholesterol Direct 63, VLDL Cholesterol 15, HDL Cholesterol 38L Laboratory Tests 12/21/21 07:35 12/22/21 05:00 A/P: Assessment: Unstable angina / NSTEMI - card cath on 12/22/21: LMCA ok, LAD 100% after D1, mod disease of prox LAD and D1, patent MOREAU to mid LAD, distal LAD has diffuse disease that is moderate. LCX has a patent stent in its prox portion. Distal LCX has mod, diffuse disease in its distal portion. RCA is occluded in its prox portion. SVG x 3 occluded (SVG to OM occluded in prox portion and has slow distal flow). This anatomy is unchanged compared to his last cath at [facility] with Dr Goldman during which his LCX was stented due to severe degen disease of the SVG to OM. This is per my telephonic conversation with Dr Goldman on 12/21/21. 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 Gomez's note of Mar 2020 - reported coronary stent placed in Mar 2021 at [facility] by Dr. Hunt CHF, systolic - see echo report of 12/21/21 above HTN HLD - statin tx DM 2 H/o tobaccoism Plan: * Complex management due to multiple CV comorbidities * BB and amio for VT * Diuretics for decomp CHF * BB and Entresto and Jardiance and spironolactone for dilated cardiomyopathy * DAPT for CAD * Monitor labs * I called and spoke with patient's regular inspector weights and measures, Dr Goldman on 12/21/21 (see above) * I discussed his CV issues in detail with him and his family * Would need Life PASQUALE Mack MD FACP [facility] Dec 22, 2021 13:01
[2021-12-22] MEDS: RT-ALBUTEROL/IPRATROPIUM 3 ML (DUONEB) VIAL INH SCH ×3 (14:42→22:44)
--- NOTE | 2021-12-22 15:55 | CARDIAC CATHETERIZATION ---
DATE OF SERVICE: CARDIAC CATHETERIZATION REPORT The patient is a 71-year-old man, who was admitted with acute, decompensated congestive heart failure and a troponin elevation that was suggestive of acute coronary syndrome. I discussed his case with his banquet kitchen supervisor, Dr. Goldman, at [facility] in [place], [place]. Dr. Goldman informed us that, on his last cardiac catheterization of early 2019, all of the patient's saphenous vein grafts were found to be occluded. One of these vein grafts was used to the obtuse marginal to artery vein graft was used to the left circumflex. It was occluded proximally with sluggish distal flow. Dr. Goldman proceeded with percutaneous intervention to the left circumflex artery itself, therefore, the graft was redundant. The left anterior descending artery was reported to be occluded in its mid portion and there was a patent left internal mammary artery graft to left anterior descending with [id number] severe distal disease. The right coronary artery was chronically occluded. Because of the patient's symptoms and evidence of significant dilated cardiomyopathy on echocardiography, we proceeded with repeat cardiac catheterization today. PROCEDURE: He was brought to the cardiac catheterization laboratory in a fasting state. The right groin was prepared and draped in the usual sterile fashion. Utilizing 1% lidocaine for local anesthesia. Modified Seldinger technique was used to advance a 5-Persian sheath in the right femoral artery. Catheter advancements and exchanges were carried out over wires. We used a JL3.5 catheter for left coronary angiography and JR4 catheter for angiography of the saphenous vein graft to the circumflex. 1. Other saphenous vein graft reported to be chronically occluded and we did not attempt to cannulate these grafts. We used an LELIA catheter to carry out angiography of the left internal mammary artery graft to the left anterior descending. We used a pigtail catheter. Left heart catheterization and left ventricular angiography. The catheter was then pulled back into the aortic root and aortic root angiography was performed. Aortic root angiography was performed because the patient is known to have had aortic root replacement. Angiography helped in cannulating the left coronary system. Angiography of the right femoral artery had been carried out through the sheath at the beginning of the procedure. At the end of the procedure, Mynx was used to achieve hemostasis. He tolerated the procedure well. HEMODYNAMICS: Left ventricular end-diastolic pressure following coronary angiography was 22 mmHg. There was no significant pressure gradient on pullback across the aortic valve. LEFT VENTRICULAR ANGIOGRAPHY: Left ventricular angiography was carried out in the right anterior oblique projection. There is severe global hypokinesis of left ventricle. Ejection fraction approximately 20%. AORTIC ROOT ANGIOGRAPHY: Aortic root angiography did not indicate any aortic root dissection. The ascending aorta, beyond the aortic root replacement segment shows moderate dilatation. No significant aortic regurgitation is seen. CORONARY ANGIOGRAPHY: Left main coronary artery does not exhibit significant disease. Left anterior descending and the first diagonal have diffuse moderate disease. Left anterior descending artery is occluded in its mid portion following the origin of the first diagonal. The left internal mammary artery graft is patent to the mid left anterior descending. The distal left anterior descending artery has moderate to moderately severe diffuse disease. The left circumflex artery has a patent stent in its proximal portion. There is diffuse moderate disease of the distal left circumflex. Right coronary artery is occluded in its proximal portion. SAPHENOUS VEIN GRAFT ANGIOGRAPHY: The saphenous vein grafts are reported to be chronically occluded. We cannulated only one of these three grafts. This is the saphenous vein graft to the left circumflex. This occluded in its proximal portion and there was slow distal flow in this graft. This graft was felt to be redundant, because the left circumflex artery itself is open and the stent in the left circumflex artery (placed in 2019) is patent and free of significant disease. LEFT INTERNAL MAMMARY GRAFT ANGIOGRAPHY: Left internal mammary artery graft to mid left anterior descending artery is patent and free of significant disease. CONCLUSION: 1. Three-vessel coronary artery disease as described above. This includes mid vessel occlusion of the left anterior and proximal occlusion of the right coronary. The left circumflex artery is patent with patent proximal stented segment (stents placed in [place], [place] in 2019). 2. Chronically occluded saphenous vein grafts. 3. Patent left internal mammary artery graft to left anterior descending, but the distal left anterior descending artery has moderately severe diffuse disease. 4. Severe impairment of global left ventricular systolic function with global hypokinesis and left ventricular ejection fraction approximately 20%. 6. Elevated left ventricular end-diastolic pressure. Job ID: [id number] DocumentID: [id number] Dictated Date: 12/22/2021 13:13:06 Metropolitan Editor Date: 12/22/2021 15:55:04 Dictated By: PASQUALE JEFFREY MD, MA, FACP, FACC, MTDD
[2021-12-22] MEDS: ASPIRIN 81 MG CHEW (CHILDREN'S ASA) PO SCH (17:12)
[2021-12-22] MEDS: CLOPIDOGREL 75 MG (PLAVIX) TABLET PO SCH (17:12)
[2021-12-22] MEDS: AMIODARONE 200 MG (CORDARONE) TAB PO SCH (20:42)
[2021-12-22] MEDS: SACUBITRIL/VALSARTAN 24/26 MG (ENTRESTO) TABLET PO SCH (20:42)
[2021-12-23] VITALS: BP 99/44
[2021-12-23 01:00] VITALS: BP 136/71
[2021-12-23] MEDS: RT-ALBUTEROL/IPRATROPIUM 3 ML (DUONEB) VIAL INH SCH ×3 (02:43→10:40)
[2021-12-23 04:00] VITALS: BP 141/97
[2021-12-23] MEDS: FUROSEMIDE 40 MG/4 ML INJ (LASIX) IV SCH (05:33)
[2021-12-23 05:35] LABS: BASOPHILS % (AUTO) 0 % (0-10); EOSINOPHILS # (AUTO) 0.2 10^3/uL (0.0-0.3); EOSINOPHILS % (AUTO) 2 % (0-10); HEMATOCRIT 40 % (40-54); HEMOGLOBIN 13.8 g/dL (13.3-17.7); LYMPHOCYTES # (AUTO) 2.1 10^3/uL (1.0-4.0); LYMPHOCYTES % (AUTO) 23 % (12-44); MEAN CORPUSCULAR HEMOGLOBIN 30 pg (25-34); MEAN CORPUSCULAR HGB CONC 34 g/dL (32-36); MEAN CORPUSCULAR VOLUME 87 fL (80-99); MEAN PLATELET VOLUME 11.2 fL (9.0-12.2); MONOCYTES # (AUTO) 0.8 10^3/uL (0.0-1.0); MONOCYTES % (AUTO) 9 % (0-12); NEUTROPHILS # (AUTO) 6.1 10^3/uL (1.8-7.8); NEUTROPHILS % (AUTO) 66 % (42-75); PLATELET COUNT 149 10^3/uL (130-400); WHITE BLOOD COUNT 9.2 10^3/uL (4.3-11.0)
[2021-12-23 05:48] LABS: POTASSIUM 4.4 MMOL/L (3.6-5.0)
[2021-12-23 05:50] LABS: CALCIUM 9.2 MG/DL (8.5-10.1)
[2021-12-23 05:54] LABS: CREATININE SERUM 1.07 MG/DL (0.60-1.30)
[2021-12-23] MEDS ORDERED: KCL 20 MEQ TAB (K-DUR) PO SCH (07:00)
[2021-12-23] MEDS ORDERED: ASPI81TA64 PO (07:34)
[2021-12-23] MEDS ORDERED: FURO80TA83 PO (07:34)
[2021-12-23] MEDS ORDERED: CLOP75TA28 PO (07:34)
[2021-12-23] MEDS ORDERED: SPIR25TA5 PO (07:34)
[2021-12-23] MEDS ORDERED: AMIO400T5 PO (07:34)
[2021-12-23] MEDS ORDERED: SACU1TAB2 PO (07:34)
[2021-12-23] MEDS ORDERED: EMPA10TA PO (07:34)
[2021-12-23] MEDS ORDERED: CARV3.122 PO (07:34)
--- NOTE | 2021-12-23 07:43 | Progress Note - Cardiology ---
Cardiology SOAP Progress Note Subjective: Feels better No cp or palp or syncope or shortness of breath at rest No n/v/d No focal weakness Objective: I&O/Vital Signs 12/22/21 12/22/21 12/22/21 12/22/21 20:00 20:00 20:00 22:44 Temp 36.5 Pulse 69 71 Resp 25 19 B/P (MAP) 140/64 (89) 137/73 (91) Pulse Ox 92 92 90 O2 Delivery Room Air Room Air Room Air 12/22/21 12/23/21 12/23/21 12/23/21 23:06 00:00 00:00 01:00 Temp 36.4 Pulse 60 61 Resp 28 B/P (MAP) 99/44 (62) Pulse Ox 90 94 O2 Delivery Room Air Room Air Room Air 12/23/21 12/23/21 12/23/21 12/23/21 01:00 02:43 03:12 04:00 Temp 36.4 Pulse 61 76 Resp 29 B/P (MAP) 136/71 (92) 141/97 (112) Pulse Ox 93 95 92 O2 Delivery Room Air Room Air Room Air Room Air 12/23/21 04:54 Pulse Ox 95 O2 Delivery Room Air 12/23/21 00:00 Intake Total 920 ml Output Total 1750 ml Balance -830 ml Weight (Pounds): 213 Weight (Ounces): 0.6 Weight (Calculated Kilograms): 96.953511 Constitutional: AAO x 3, well-developed, well-nourished Respiratory: No accessory muscle use, No respiratory distress; chest expansion is symmetric, chest is bilaterally symmetric, lungs clear to auscultation Cardiovascular: regular rate-rhythm; No JVD; S1 and S2 Gastrointestional: No tender; soft, round, audible bowel sounds Extremities: no lower extremity edema bilateral Neurologic/Psychiatric: other (moves all limbs equally) Skin: No rash on exposed areas, No ulcerations on exposed areas Results/Procedures: Labs Laboratory Tests 12/22/21 16:12: Glucometer 85 12/22/21 20:42: Glucometer 104 12/23/21 05:25: White Blood Count 9.2, Red Blood Count 4.62, Hemoglobin 13.8, Hematocrit 40, Mean Corpuscular Volume 87, Mean Corpuscular Hemoglobin 30, Mean Corpuscular Hemoglobin Concent 34, Red Cell Distribution Width 14.0, Platelet Count 149, Mean Platelet Volume 11.2, Immature Granulocyte % (Auto) 0, Neutrophils (%) (Auto) 66, Lymphocytes (%) (Auto) 23, Monocytes (%) (Auto) 9, Eosinophils (%) (Auto) 2, Basophils (%) (Auto) 0, Neutrophils # (Auto) 6.1, Lymphocytes # (Auto) 2.1, Monocytes # (Auto) 0.8, Eosinophils # (Auto) 0.2, Basophils # (Auto) 0.0, Immature Granulocyte # (Auto) 0.0, Sodium Level 139, Potassium Level 4.4, Chloride Level 102, Carbon Dioxide Level 24, Anion Gap 13, Blood Urea Nitrogen 25H, Creatinine 1.07, Estimat Glomerular Filtration Rate 75, BUN/Creatinine Ratio 23, Glucose Level 102, Calcium Level 9.2, Magnesium Level 2.0 Laboratory Tests 12/22/21 05:00 12/23/21 05:25 A/P: Assessment: Unstable angina / NSTEMI - card cath on 12/22/21: LMCA ok, LAD 100% after D1, mod disease of prox LAD and D1, patent MOREAU to mid LAD, distal LAD has diffuse disease that is moderate. LCX has a patent stent in its prox portion. Distal LCX has mod, diffuse disease in its distal portion. RCA is occluded in its prox portion. SVG x 3 occluded (SVG to OM occluded in prox portion and has slow distal flow). This anatomy is unchanged compared to his last cath at [facility] with Dr Goldman during which his LCX was stented due to severe degen disease of the SVG to OM. This is per my telephonic conversation with Dr Goldman on 12/21/21. 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 Gomez's note of Mar 2020 - reported coronary stent placed in Mar 2021 at [facility] by Dr. Hunt CHF, systolic - see echo report of 12/21/21 above HTN HLD - statin tx DM 2 H/o tobaccoism Plan: * Complex management due to multiple CV comorbidities * BB and amio for VT * Diuretics for decomp CHF * BB and Entresto and Jardiance and spironolactone for dilated cardiomyopathy * DAPT for CAD * Monitor labs * I called and spoke with patient's regular band tier, Dr Goldman on 12/21/21 (see above) * Would need Life Vest * Dr Gomez covering our service over the weekend PASQUALE JEFFREY MD FACP [facility] Dec 23, 2021 07:43
[2021-12-23 08:08] VITALS: BP 129/74
[2021-12-23] MEDS ORDERED: CARV6.25 PO (08:25)
[2021-12-23] MEDS ORDERED: ENOXAPARIN 40 MG/0.4 ML (LOVENOX) SYR SC SCH (09:00)
[2021-12-23] MEDS ORDERED: SPIRONOLACTONE 25 MG (ALDACTONE) TAB PO SCH (09:00)
[2021-12-23] MEDS ORDERED: EMPAGLIFLOZIN 10 MG TABLET (JARDIANCE) PO SCH (09:00)
[2021-12-23] MEDS: ASPIRIN 81 MG CHEW (CHILDREN'S ASA) PO SCH (09:39)
[2021-12-23] MEDS: NS IV 1000 ML 1,000 ML IV SCH (09:40)
[2021-12-23] MEDS: SACUBITRIL/VALSARTAN 24/26 MG (ENTRESTO) TABLET PO SCH (09:40)
[2021-12-23] MEDS: CLOPIDOGREL 75 MG (PLAVIX) TABLET PO SCH (09:40)
[2021-12-23] MEDS: AMIODARONE 200 MG (CORDARONE) TAB PO SCH (09:40)
[2021-12-23 11:52] VITALS: BP 126/65
--- NOTE | 2021-12-23 14:09 | Discharge Inst-Simple/Standard ---
Discharge Inst-Standard Discharge Medications New, Converted or Re-Newed RX: Transmitted to Pharmacy Patient Instructions/Follow Up Plan of Care/Instructions/FU: Please continue to take your medications as written. Please follow up with your primary care doctor to follow up this hospital stay. Activity as Tolerated: Yes Discharge Diet: Cardiac Diet Return to The Hospital For: Chest pain, shortness of breath, fever, weakness, if you feel you are getting worse. ROSA REYNAGA MD Dec 23, 2021 14:09
--- NOTE | 2021-12-23 14:10 | Discharge Summary ---
Diagnosis/Chief Complaint Date of Admission Dec 21, 2021 at 10:16 Date of Discharge Discharge Date: Dec 23, 2021 Admission Diagnosis CHF exacerbation Primary Care Gregory Stephenson MD Discharge Diagnosis (1) CAD (coronary artery disease) (2) Essential (primary) hypertension (3) HLD (hyperlipidemia) (4) COPD (chronic obstructive pulmonary disease) (5) S/P CABG x 5 (6) Thoracic aortic aneurysm (TAA) (7) Acute on chronic respiratory failure with hypoxemia Status: Acute (8) CHF (congestive heart failure) Status: Acute (9) Hypoxia Status: Acute (10) Elevated troponin Status: Acute (11) NON-COMPLIANCY Status: Acute Discharge Summary Discharge Physical Exam Allergies: Coded Allergies: Penicillins (Verified Allergy, Unknown, 07/16/15) watermelon (Verified Allergy, Unknown, 05/07/21) Vitals & I&Os Vital Signs Date Time Temp Pulse Resp B/P (MAP) Pulse Ox O2 Delivery O2 Flow Rate FiO2 12/23/21 12:31 76 12/23/21 11:52 36.6 19 126/65 (85) 94 Room Air 12/22/21 11:16 21 General Appearance: No Apparent Distress, Chronically ill Respiratory: Lungs Clear, No Respiratory Distress Cardiovascular: Regular Rate, Rhythm, No Murmur Gastrointestinal: Normal Bowel Sounds, Soft Neurologic/Psychiatric: Alert, Oriented x3 Hospital Course Patient was admitted to the hospital secondary to acutely decompensated systolic heart failure with pulmonary edema. He was treated with IV Lasix and diuresed well. While admitted he was monitored on telemetry and was noted to have nonsustained ventricular tachycardia. Cardiology was consulted and took him to [facility] for evaluation. He was found to have an ejection fraction of 20% during the cath but no interventions were warranted. He was treated with maximum medical therapy and a LifeVest was fitted for him. He diuresed nearly 4 L and was breathing well. He has a history of noncompliance and was instructed on the importance of complying with medications and follow-up. He was discharged home in stable and improved condition to follow-up with his primary magnetic resonance technologist and primary care provider. Labs (last 24 hrs) Laboratory Tests 12/22/21 16:12: Glucometer 85 12/22/21 20:42: Glucometer 104 12/23/21 05:25: White Blood Count 9.2, Red Blood Count 4.62, Hemoglobin 13.8, Hematocrit 40, Mean Corpuscular Volume 87, Mean Corpuscular Hemoglobin 30, Mean Corpuscular Hemoglobin Concent 34, Red Cell Distribution Width 14.0, Platelet Count 149, Mean Platelet Volume 11.2, Immature Granulocyte % (Auto) 0, Neutrophils (%) (Auto) 66, Lymphocytes (%) (Auto) 23, Monocytes (%) (Auto) 9, Eosinophils (%) (Auto) 2, Basophils (%) (Auto) 0, Neutrophils # (Auto) 6.1, Lymphocytes # (Auto) 2.1, Monocytes # (Auto) 0.8, Eosinophils # (Auto) 0.2, Basophils # (Auto) 0.0, Immature Granulocyte # (Auto) 0.0, Sodium Level 139, Potassium Level 4.4, Chloride Level 102, Carbon Dioxide Level 24, Anion Gap 13, Blood Urea Nitrogen 25H, Creatinine 1.07, Estimat Glomerular Filtration Rate 75, BUN/Creatinine Ratio 23, Glucose Level 102, Calcium Level 9.2, Magnesium Level 2.0 12/23/21 10:44: Glucometer 123H Patient resulted labs reviewed. Pending Labs Laboratory Tests 12/23/21 10:44: Glucometer 123 Imaging: Reviewed Imaging Report Discussion & Recommendations Discharge Planning: >30 minutes discharge planning Discharge Home Medications: Active Scripts Active Coreg (Carvedilol) 6.25 Mg Tablet 6.25 Mg PO BID Lasix (Furosemide) 80 Mg Tablet 80 Mg PO DAILY Amiodarone HCl 400 Mg Tablet 400 Mg PO BID Jardiance (Empagliflozin) 10 Mg Tablet 10 Mg PO DAILY Children's Aspirin (Aspirin) 81 Mg Tab.chew 81 Mg PO DAILY@0900 Spironolactone 25 Mg Tablet 25 Mg PO DAILY Entresto 24 mg-26 mg Tablet (Sacubitril/Valsartan) 24 Mg-26 Mg Tablet 1 Tab PO BID Clopidogrel (Clopidogrel Bisulfate) 75 Mg Tablet 75 Mg PO DAILY Reported Flomax (Tamsulosin HCl) 0.4 Mg Cap 0.8 Mg PO 1800 TAKES 2 (0.4MG) CAPS Ezetimibe 10 Mg Tablet 10 Mg PO DAILY Carvedilol 25 Mg Tablet 25 Mg PO BID Proair Hfa (Albuterol Sulfate) 1 Puff Puff 2 Puff IH Q4H PRN Aspirin EC (Aspirin) 81 Mg Tablet.dr 81 Mg PO DAILY Potassium Chloride 20 Meq Tablet.er 10 Meq PO BID TAKES OF A 20MEQ Losartan Potassium 50 Mg Tablet 50 Mg PO DAILY Metformin HCl ER (Metformin HCl) 500 Mg Tab.er.24 500 Mg PO DAILY Lasix (Furosemide) 40 Mg Tablet 40 Mg PO Q48H Instructions to patient/family Please see electronic discharge instructions given to patient. Problem Qualifiers (1) CHF (congestive heart failure): Heart failure type: combined systolic and diastolic Heart failure chronicity: acute on chronic Qualified Codes: I50.43 - Acute on chronic combined systolic (congestive) and diastolic (congestive) heart failure ROSA REYNAGA MD Dec 23, 2021 14:10
[2021-12-23 16:00] VITALS: BP 132/75
[2021-12-24] MEDS ORDERED: FUROSEMIDE 40 MG (LASIX) TAB PO SCH (09:00)
== END 2021-12-23 17:26 | disposition home or self-care (01) | DRG 280 ==
LOC: EDUNIT# 07:16 → ER 07:19 → CSD 10:16
PROVIDERS: ADMIT Family Medicine; ATTEND Family Medicine
DX: I11.0 Hypertensive heart disease with heart failure (principal); I50.23 Acute on chronic systolic (congestive) heart failure; I21.A1 Myocardial infarction type 2; J96.21 Acute and chronic respiratory failure with hypoxia; I47.2 Ventricular tachycardia; I42.0 Dilated cardiomyopathy; E78.00 Pure hypercholesterolemia, unspecified; E11.9 Type 2 diabetes mellitus without complications; J44.9 Chronic obstructive pulmonary disease, unspecified; I25.10 Atherosclerotic heart disease of native coronary artery without angina pectoris; I44.7 Left bundle-branch block, unspecified; Z91.19 Patient's noncompliance with other medical treatment and regimen; H91.93 Unspecified hearing loss, bilateral; Z87.891 Personal history of nicotine dependence; Z95.5 Presence of coronary angioplasty implant and graft; Z95.1 Presence of aortocoronary bypass graft; Z79.84 Long term (current) use of oral hypoglycemic drugs; Z97.4 Presence of external hearing-aid; Z88.0 Allergy status to penicillin; Z91.018 Allergy to other foods; Z79.02 Long term (current) use of antithrombotics/antiplatelets; Z79.82 Long term (current) use of aspirin; Z79.52 Long term (current) use of systemic steroids; Z83.3 Family history of diabetes mellitus; Z82.49 Family history of ischemic heart disease and other diseases of the circulatory system; Z28.310 Unvaccinated for COVID-19; Z28.9 Immunization not carried out for unspecified reason
CPT/HCPCS: 36415; 71045; 80048; 80053; 80061; 82805; 82947; 83690; 83735; 83874; 83880; 84484; 85025; 85027; 85610; 85730; 93005; 93306; 93458; 94640; 94760

== ENCOUNTER → 2021-12-28 | Outpatient (CLI) | payer OTHER ==
[~2021-12-28] MED LIST changes: +AMIO400T5 PO; +ASPI-1238 PO; +ASPI81TA64 PO; +CARV25TA PO; +CARV3.122 PO; +CARV6.25 PO; +CLOP75TA28 PO; +EMPA10TA PO; +EZET10TA49 PO; +FURO80TA83 PO; +LOSA50TA63 PO; +METF-478 PO; +POTA-51 PO; +SACU1TAB2 PO; +SPIR25TA5 PO; +TMSL.4C PO
[2021-12-28 10:22] LABS: CALCIUM 9.3 MG/DL (8.5-10.1)
[2021-12-28 10:26] LABS: CREATININE SERUM 1.33 MG/DL (0.60-1.30)
[2021-12-28 10:29] LABS: MAGNESIUM 2.5 MG/DL (1.6-2.4)
== END ==
LOC: LAB 09:46
PROVIDERS: ATTEND Nurse Practitioner Family
DX: I50.43 Acute on chronic combined systolic (congestive) and diastolic (congestive) heart failure (principal)
CPT/HCPCS: 36415; 80048; 83735

== ENCOUNTER 2022-04-21 20:48 | Observation (INO) | payer OTHER ==
[~2022-04-21] VITALS: Ht 172.7 cm; Wt 88.9 kg
[~2022-04-21 20:48] MED LIST changes: +ALBU8.5H6 IH; +CLOP-31 PO; -CLOP75TA69 PO; -OLME20TA21 PO; +OLME20TA75 PO; -RT-ALBUINH IH
[2022-04-21 21:06] LABS: BASOPHILS % (AUTO) 0 % (0-10); EOSINOPHILS # (AUTO) 0.1 10^3/uL (0.0-0.3); EOSINOPHILS % (AUTO) 1 % (0-10); HEMATOCRIT 43 % (40-54); HEMOGLOBIN 14.4 g/dL (13.3-17.7); LYMPHOCYTES # (AUTO) 0.7 10^3/uL (1.0-4.0); LYMPHOCYTES % (AUTO) 9 % (12-44); MEAN CORPUSCULAR HEMOGLOBIN 30 pg (25-34); MEAN CORPUSCULAR HGB CONC 34 g/dL (32-36); MEAN CORPUSCULAR VOLUME 89 fL (80-99); MEAN PLATELET VOLUME 10.1 fL (9.0-12.2); MONOCYTES # (AUTO) 0.8 10^3/uL (0.0-1.0); MONOCYTES % (AUTO) 10 % (0-12); NEUTROPHILS # (AUTO) 6.8 10^3/uL (1.8-7.8); NEUTROPHILS % (AUTO) 81 % (42-75); PLATELET COUNT 141 10^3/uL (130-400); WHITE BLOOD COUNT 8.5 10^3/uL (4.3-11.0)
[2022-04-21 21:31] LABS: ALANINE AMINOTRANSFERASE 28 U/L (0-55); ALBUMIN 4.2 GM/DL (3.2-4.5); ALKALINE PHOSPHATASE 61 U/L (40-136); BILIRUBIN,TOTAL 0.6 MG/DL (0.1-1.0); BUN/CREATININE RATIO 19; CALCIUM 8.9 MG/DL (8.5-10.1); CARBON DIOXIDE 20 MMOL/L (21-32); CHLORIDE 103 MMOL/L (98-107); CREATINE KINASE 119 U/L (30-200); CREATININE SERUM 1.24 MG/DL (0.60-1.30); GFR ESTIMATED 63; GLUCOSE 130 MG/DL (70-105); MAGNESIUM 1.7 MG/DL (1.6-2.4); POTASSIUM 3.9 MMOL/L (3.6-5.0); SODIUM 134 MMOL/L (135-145); TOTAL PROTEIN 7.5 GM/DL (6.4-8.2)
[2022-04-21 21:33] LABS: PROTHROMBIN TIME PATIENT 13.4 SEC (12.2-14.7)
--- NOTE | 2022-04-21 21:34 | Diagnostic Imaging Report ---
PROCEDURE: CT head and CT cervical spine without contrast. TECHNIQUE: Multiple contiguous axial images were obtained through the brain and cervical spine without the use of intravenous contrast. Sagittal and coronal reformations through the cervical spine were then performed. Auto Exposure Controls were utilized during the CT exam to meet ALARA standards for radiation dose reduction. INDICATION: Weakness. COMPARISON: Head CT 11/22/2017. FINDINGS: CT HEAD: Patchy periventricular white matter hypodensities are unchanged from the prior and while nonspecific are typically associated with chronic small vessel disease. Cerebral cortical volume is stable and there is no hydrocephalus. No sulcal effacement and no cortical edema. There are intracranial atherosclerotic vascular calcifications, chronic. There is no hemorrhage. There are no abnormal extra-axial fluid collections. No findings of an elevation of the intracranial pressures. No calvarial fracture deformity. CT CERVICAL SPINE: Degenerative changes to the discs, endplates and facets, on a chronic basis, present at the C5-C6 level resulting in mild to moderate canal and biforaminal stenoses. However, no cervical spinal fracture or traumatic malalignment. No paravertebral mass, hemorrhage or fluid collection. There are carotid atherosclerotic vascular calcifications. There is no traumatic deformity to the hyoid or tracheal cartilage. No airway embarrassment. IMPRESSION: 1. Head shows chronic periventricular white matter disease and mild stable atrophy without hemorrhage, hydrocephalus, edema or acute finding. 2. The cervical spine shows degenerative changes without fracture or traumatic malalignment. No acute appearing abnormality. Dictated by: Dictated on workstation # [id number]
--- NOTE | 2022-04-21 21:41 | Diagnostic Imaging Report ---
PROCEDURE: CT thoracic and lumbar spine without contrast. TECHNIQUE: Multiple contiguous axial images were obtained through the thoracic and lumbar spine without the use of intravenous contrast. Sagittal and coronal reformations were then performed. All CT scans use one or more of the following dose optimizing techniques: automated exposure control, MA and/or KvP adjustment based on patient size and exam type or iterative reconstruction. INDICATION: Weakness. COMPARISON: Limited to CT angio chest performed 01/27/2019. CT THORACIC SPINE: There is postsurgical repair of the ascending thoracic aorta and heavy coronary artery atherosclerotic vascular calcifications with displacement of the descending thoracic aortas calcified intima in keeping with the known chronic dissection. This extends into the upper abdomen. No evidence for vessel rupture and this showed no obvious change from the correlative study. The thoracic vertebral statures, themselves, are unremarkable. They are aligned anatomically. No thoracic spinal fracture. CT LUMBAR SPINE: Having developed since the previous correlative CT, there is a mildly retropulsed 2 mm fracture of the superior endplate at the L1 segment. At its middle third it is down about 60% in stature loss; however, the fracture appears sclerotic, well marginated and no residual fracture line lucencies. There was no paraspinal hemorrhage. While new from the prior, believed nonacute. Remaining thoracic levels are normal and aligned anatomically. No acute spinal fracture. The pedicles and pars intact. There are chronic degenerative changes without high-grade stenosis. Aortic atherosclerosis with displacement of intimal calcifications through the lower abdominal aorta. This is in keeping with the known chronic dissection. No vessel rupture. No periaortic or retroperitoneal hemorrhage. No visualized free intraperitoneal fluid. IMPRESSION: 1. An L1 mildly retropulsed superior endplate fracture, while having developed since 2019, appears healed and chronic. No acute thoracolumbar injury or traumatic malalignment. 2. Partially visualized postsurgical repair of the ascending aorta with known descending thoracoabdominal aortic dissection. No visualized hemorrhage. Dictated by: Dictated on workstation # [id number]
--- NOTE | 2022-04-21 21:42 | Diagnostic Imaging Report ---
INDICATION: Falls, pain, weakness. COMPARISON: 12/21/2021. TECHNIQUE: Single radiograph of the chest dated April 21, 2022. FINDINGS: Postsurgical changes of a CABG are again identified. The cardiac silhouette is enlarged, though stable. Mild central pulmonary vascular congestion. The lungs are however clear focal pulmonary opacity. No pleural effusion. No pneumothorax. No acute osseous abnormality. IMPRESSION: Stable mild cardiomegaly with mild central pulmonary vascular congestion without focal pulmonary opacity or pleural effusion. Dictated by: Dictated on workstation # [id number]
--- NOTE | 2022-04-21 21:43 | Diagnostic Imaging Report ---
INDICATION: Pain. COMPARISON: CT from the same date. TECHNIQUE: Single radiograph of the pelvis dated April 21, 2022. FINDINGS: Contrast is noted within the urinary bladder related to recent CT examination. No acute fracture or dislocation. No destructive osseous process. The sacroiliac joints and pubic symphysis appear intact. Surgical clips overlie the right inguinal region. 7 mm sclerotic focus is noted overlying the right femoral neck. Phleboliths within the lower pelvis. IMPRESSION: No acute osseous abnormality with mild degenerative changes. 7 mm sclerotic focus involving the right femoral neck, which is favored to relate to a bone island. Sclerotic osseous metastatic disease not completely excluded. Dictated by: Dictated on workstation # [id number]
[2022-04-21] MEDS ORDERED: HOLD METFORMIN - RECEIVED CONTRAST 20 ML VIAL IV SCH (21:45)
[2022-04-21] MEDS ORDERED: NS 100 ML (IVPB) BAG IV ONE (21:45)
[2022-04-21] MEDS ORDERED: IOHEXOL 350 MG/ML 100 ML (OMNIPAQUE 350) VIAL IV ONE (21:45)
[2022-04-21 21:50] LABS: CREATINE KINASE MB 1.4 NG/ML (<6.6); TSH (THYROID ANALYZER) 0.95 UIU/ML (0.35-4.94)
--- NOTE | 2022-04-21 21:57 | Diagnostic Imaging Report ---
PROCEDURE: CT chest, abdomen, and pelvis with contrast. TECHNIQUE: Multiple contiguous axial images were obtained through the chest, abdomen, and pelvis after the administration of intravenous contrast. Auto Exposure Controls were utilized during the CT exam to meet ALARA standards for radiation dose reduction. INDICATION: Weakness. COMPARISON: CT angio chest performed 03/31/2020. FINDINGS: CT CHEST: Calcifications and/or grafting of the ascending aorta is present, the root nonaneurysmal. The ascending aorta shows no dissection or mural hematoma. Its arch unremarkable. The great vessels unremarkable. There is a descending thoracic aortic dissection showing no progression from the prior exam and extending into the abdomen. Prior pleural effusions have since resolved. There is some shotty mediastinal lymphadenopathy having significantly improved since the previous study, most notably a periaortic subaortic and lower paratracheal as well as subcarinal mediastinum. No new london mass and again these are significantly smaller than prior. The axilla unremarkable. No lung mass. No findings of lung cancer. No evidence for edema or pneumonia. There is prior sternotomy. There is heavy coronary artery atherosclerotic vascular calcifications. There is no pulmonary edema. No effusion or pneumothorax. This patient has a mildly retropulsed L1 vertebral body fracture while this has progressed from the CT of 03/31/2020, it appears chronic without lucent component, adjacent hemorrhage or acute bony pathology. CT ABDOMEN/PELVIS: Descending thoracic aortic dissection extends into the abdomen with the false lumen on the left. The celiac and superior mesenteric as well as right renal arises off the true lumen. The left kidney is supplied by the false lumen. The dissection terminates prior to the aortas bifurcation and shows no progression from prior. No vascular rupture. No findings of acute visceral end organ ischemia. The left kidney is relatively small compared to the right and this may be from some chronic hypoperfusion. There are a few renal cysts without obstruction or solid renal mass. The adrenals are negative. The liver, spleen and pancreas are unremarkable. The gallbladder and bile ducts are normal. There is no bowel obstruction. There is no mesenteric thrombus. No acute end organ ischemia. There is noninflamed sigmoid diverticulosis. There is no ascites, abscess, hematoma or acute fluid collection. Atherosclerotic iliac disease is non-stenosing. No pelvic aneurysm, intramural hematoma or dissection. There is no acute bony pathology. No abdominopelvic mesenteric or retroperitoneal lymphadenopathy. IMPRESSION: 1. Chest: No failure, pneumonia or effusion. Significant improvements in nonspecific presumed benign and chronic reactive mediastinal adenopathy with no lung mass or adverse development. Descending thoracic aortic dissection unchanged from prior. 2. Abdomen/pelvis: Descending thoracic dissection extends into the abdomen and terminates prior to the aortas bifurcation without evidence for its progression or vessel rupture. No acute end organ ischemia. There may be some chronic hyperperfusion of the left kidney accounting for its relatively small volume. Its artery is off the false lumen. 3. No acute abdominopelvic solid or hollow visceral pathology. Noninflamed diverticulosis. No adenopathy or mass. No hemorrhage or focal inflammatory process. Benign renal cysts, chronic. 4. Mild progression of a nonacute, mildly retropulsed L1 superior endplate fracture. No acute appearing abnormality. 5. No post traumatic sequelae identified at today's study. Dictated by: Dictated on workstation # [id number]
--- NOTE | 2022-04-21 22:00 | ED General ---
General Chief Complaint: General Problems/Pain Stated Complaint: WEAKNESS Nursing Triage Note: PT TO RM 7 BY EMS WITH CC OF WEAKNESS, PAIN AND 3 FALL YESTERDAY. PT STATES CALLED EMS BEACUSE HE WAS UNABLE TO GET UP OFF OF THE FLOOR HOWEVER, WAS ABLE TO WALK TO THE AMBULANCE AND GET ON THEIR COT. PT HAS A CARDIAC HALTER MONITOR IN PREPERATION FOR PACEMAKER PLACEMENT ON THE . PT DENIES PAIN AT THIS TIME AND STATES DID NOT HIT HIS HEAD DURING HIS FALLS. EMS REPORTS PT VOMITING IN ROUTE. 4 ZOFRAN GIVEN BY EMS Source of Information: Patient (VERY POOR HISTORIAN AND GIVES MUCH CONVOLUTED AND INCONSISTENT INFORMATION ), EMS, Old Records History of Present Illness Date Seen by Provider: Apr 21, 2022 Time Seen by Provider: 20:46 Initial Comments PT ARRIVES VIA EMS FROM HOME PT HAD AT LEAST 3 FALLS YESTERDAY STATES HE "HURTS ALL OVER" AND FEELS GENERALLY WEAK HE DID REPORT TO EMS THAT GETS DIZZY WHEN HE GETS UP AND WALKS AND THEN HE FALLS. HE IS DENYING DIZZINESS TO ME AT THIS TIME HE DENIES HITTING HIS HEAD OR PASSING OUT OR HAVING LOSS OF CONSCIOUSNESS AT ANYTIME. HE STATES HE MOSTLY LANDED ON HIS BACK. HE DENIES HEADACHE DENIES PARESTHESIAS OR MOTOR DEFICITS NO CHEST PAIN NO SHORTNESS OF BREATH NO PALPITATIONS NO HEADACHE NO VISION CHANGES NO SWEATS NO SWELLING IN LEGS/ FEET HE STATES HE HAS NOT HAD NAUSEA OR VOMITING, BUT HE DID VOMIT ENROUTE AND EMS GAVE ZOFRAN 4 MG. PT DENIES NAUSEA AT THIS TIME. PT CALLED EMS TONIGHT BECAUSE HE COULDN'T GET UP OFF THE FLOOR-, BUT THEN HE WAS ABLE TO WALK OUT TO THE AMBULANCE AND GET HIMSELF ONTO EMS COT ON HIS OWN WITHOUT DIFFICULTY. PT STATES THAT HE WAS TRYING TO GET UP AND SLID OUT OF HIS RECLINER, AND THEN COULD NOT GET UP--HE DENIES ACTUALLY FALLING OR INJURING HIMSELF. HE REPORTS TO NURSE ON ARRIVAL THAT HE DOESN'T HURT ANYWHERE. HE BRINGS A LIST OF MEDICATIONS WITH HIM, BUT HE DOES NOT KNOW WHAT ANY OF THEM ARE OR WHAT THEY ARE FOR, OR WHICH ONES HE IS TAKING PLAVIX AND ASPIRIN ARE ON THE LIST, BUT HE HAS NO IDEA IF HE HAS BEEN TAKING THOSE OR NOT. HE IS DIABETIC AND TAKES INSULIN WELL PILLS, BUT DOES NOT CHECK BLOOD SUGAR HE DOES NOT KNOW IF HE TOOK HIS DIABETIC MEDICATION TODAY OR NOT PT IS WEARING AN EXTERNAL DEFIBRILLATOR, AND IS SCHEDULED TO HAVE A PERMANENT ICD PLACED ON 04/28/22--HE STATES ON ARRIVAL THAT THIS IS TO BE DONE AT THE CO IN [place]. HE LATER STATES THAT IT IS TO BE DONE AT [facility] BY DR. BAZAN "THE CO APPROVED IT" PT STATES IT HAS NOT SHOCKED HIM IN THE LAST 2 DAYS, BUT IT HAS SHOCKED HIM SEVERAL TIMES IN THE PASTE--HE STATES IT IS FROM THE CLOTHING HE WAS WEARING THE CAUSE FOR IT TO SHOCK HIM. HE IS UNABLE TO STATE HOW LONG HE HAS HAD THIS ON. PAPERS WITH HIM LIST THAT HE WAS SCHEDULED TO HAVE AN MRI OF CHEST DONE 04/12/[address] HE [address] ONLY [address] IS DR. BAZAN, "AT THE CO IN [place]", PER PT (DR. BAZAN IS A [facility] REGULATED PROGRAM MANAGER). LATER STATES THAT HE SEES DR. BAZAN AT HIS [facility] OFFICE. PT HAS A LONG HISTORY OF NON-COMPLIANCE IN ALL ASPECTS OF CARE. PCP: [facility] [place] Allergies and Home Medications Allergies Coded Allergies: Penicillins (Verified Allergy, Unknown, 07/16/15) watermelon (Verified Allergy, Unknown, 05/07/21) Patient Home Medication List Albuterol Sulfate (Ventolin Hfa) 1 Puff Puff, 2 PUFF IH Q4H PRN for SHORTNESS OF BREATH, (Reported) Entered as Reported by: TEDDY SANDY on 12/22/21 1201 Amiodarone HCl (Amiodarone HCl) 400 Mg Tablet, 400 MG PO BID Prescribed by: TATUM FRANKS on 12/23/21 07 Aspirin (Children's Aspirin) 81 Mg Tab.chew, 81 MG PO DAILY@0900 Prescribed by: TATUM FRANKS on 12/23/21 07 Carvedilol (Coreg) 6.25 Mg Tablet, 6.25 MG PO BID Prescribed by: TATUM FRANKS on 12/23/21 0871 Clopidogrel Bisulfate (Clopidogrel) 75 Mg Tablet, 75 MG PO DAILY Prescribed by: TATUM FRANKS on 12/23/21733 Empagliflozin (Jardiance) 10 Mg Tablet, 10 MG PO DAILY Prescribed by: TATUM FRANKS on 12/23/21 07 Ezetimibe (Ezetimibe) 10 Mg Tablet, 10 MG PO DAILY, (Reported) Entered as Reported by: TEDDY SANDY on 12/22/21 120 Furosemide (Lasix) 80 Mg Tablet, 80 MG PO DAILY Prescribed by: TATUM FRANKS on 12/23/21 07 Metformin HCl (Metformin HCl ER) 500 Mg Tab.er.24, 500 MG PO DAILY, (Reported) Entered as Reported by: TEDDY SANDY on 12/22/21 120 Potassium Chloride (Potassium Chloride) 20 Meq Tablet.er, 10 MEQ PO BID, (Reported) Entered as Reported by: TEDDY SANDY on 12/22/21 120 Sacubitril/Valsartan (Entresto 24 mg-26 mg Tablet) 24 Mg-26 Mg Tablet, 1 TAB PO BID Prescribed by: TATUM FRANKS on 12/23/21 07 Spironolactone (Spironolactone) 25 Mg Tablet, 25 MG PO DAILY Prescribed by: TATUM FRANKS on 12/23/21 07 Tamsulosin HCl (Flomax) 0.4 Mg Cap, 0.8 MG PO 1800, (Reported) Entered as Reported by: TEDDY SANDY on 12/22/21 120 Review of Systems Review of Systems Constitutional: see HPI, dizziness EENTM: no symptoms reported Respiratory: no symptoms reported; No short of breath Cardiovascular: no symptoms reported; No chest pain, No edema, No palpitations, No syncope Gastrointestinal: no symptoms reported Genitourinary: no symptoms reported Musculoskeletal: see HPI Skin: no symptoms reported Psychiatric/Neurological: No Symptoms Reported Hematologic/Lymphatic: No Symptoms Reported Immunological/Allergic: no symptoms reported Past Erqoglz-Lnklom-Femvnp Hx Patient Social History Tobacco Use?: Yes Tobacco type used: Cigarettes Smoking Status: Former Smoker Substance use?: No Alcohol Use?: No Pt feels they are or have been: No Immunizations Up To Date Tetanus Booster (TDap): More than 5yrs PED Vaccines UTD: No First/Initial COVID19 Vaccinat: NONE Second COVID19 Vaccination Rajat: NONE Third COVID19 Vaccination Date: NONE Seasonal Allergies Seasonal Allergies: Yes Past Medical History Surgeries: Yes (CARDIAC CATHS) Abdominal, Cardiac, CABG, Coronary Stent, Orthopedic, Vascular Surgery Respiratory: Yes (POSSIBLE COPD, ASTHMA CHILD) Asthma, COPD Currently Using CPAP: No Currently Using BIPAP: No Cardiac: Yes (4 VESSEL CABG 2004; THORACIC AORTIC ANEURYSM DISSECTION/REPAIR 2013;STENTS) Aneurysm, Cardiomyopathy, Coronary Artery Disease, High Cholesterol, Hypertension Neurological: No Reproductive Disorders: No Sexually Transmitted Disease: No HIV/AIDS: No Genitourinary: Yes Prostate Problems Gastrointestinal: Yes (UMBILICAL HERNIA REPAIR 01/24/19) Abdominal Hernia, Polyps Musculoskeletal: No Endocrine: Yes Diabetes, Non-Insulin dep HEENT: No (GLASSES) Loss of Vision: Denies Hearing Impairment: Hard of Hearing, Bilateral Hearing Aide Cancer: No Psychosocial: No Integumentary: No Blood Disorders: No Adverse Reaction/Blood Tranf: No (N/A) Family Medical History Alcoholism 09 BROTHER Cancer 03 MOTHER 09 SISTER Chest pain 03 FATHER 09 BROTHER Family history: Allergy Family history: Arthritis 09 SISTER Family history: Breast disease 03 MOTHER Family history: Cardiovascular disease 03 FATHER 03 MOTHER 09 BROTHER Family history: Coronary thrombosis 03 FATHER Family history: Diabetes mellitus 03 MOTHER Family history: Hypertension 03 FATHER 03 MOTHER 09 BROTHER Heart disease 03 FATHER 03 MOTHER 09 BROTHER History of drug abuse 09 SISTER Hypercholesterolemia 09 SISTER Myocardial infarction 03 FATHER 03 MOTHER Stroke 03 FATHER No Family History of: Abdominal aortic aneurysm [place]'s disease Aphasia Cancer of colon Cataract Congenital heart disease Congestive heart failure Cystic fibrosis Dementia Dysphagia Family history: Alzheimer's disease Family history: Asthma Family history: Gastrointestinal disease Family history: Glaucoma Family history: Osteoporosis Family history: Thyroid disorder Headache Hearing loss Hereditary disease History of - anemia History of - disorder History of - respiratory disease Human immunodeficiency virus (HIV) seropositivity Infertile Kidney disease Malignant neoplasm of lung Parkinson's disease Prostate cancer Psychotic disorder Seizure disorder Tuberculosis Visual impairment CARDIAC CATH 12/22/[address] JEFFREY: CONCLUSION: 1. Three-vessel coronary artery disease as described above. This includes mid vessel occlusion of the left anterior and proximal occlusion of the right coronary. The left circumflex artery is patent with patent proximal stented segment (stents placed in [place], [place] in 2019). 2. Chronically occluded saphenous vein grafts. 3. Patent left internal mammary artery graft to left anterior descending, but the distal left anterior descending artery has moderately severe diffuse disease. 4. Severe impairment of global left ventricular systolic function with global hypokinesis and left ventricular ejection fraction approximately 20%. 6. Elevated left ventricular end-diastolic pressure. 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 Gomez's note of Mar 2020 - reported coronary stent placed in Mar 2021 at [facility] by Dr. Hunt Physical Exam Vital Signs Vital Signs - First Documented 04/21/22 04/21/22 20:50 23:16 Temp 36.4 Pulse 104 Resp 20 B/P (MAP) 135/87 (103) Pulse Ox 94 O2 Delivery Room Air O2 Flow Rate 2.00 Capillary Refill : Less Than 3 Seconds Height, Weight, BMI Height: 5'8.00" Weight: 213lbs. 0.6oz. 96.511962vg; 29.00 BMI Method:Stated General Appearance: No Apparent Distress, WD/WN HEENT: PERRL/EOMI Neck: Normal Inspection Respiratory: Chest Non Tender, Normal Breath Sounds, No Accessory Muscle Use, No Respiratory Distress Cardiovascular: Regular Rate, Rhythm, No Edema, No JVD, No Murmur, Normal Peripheral Pulses Gastrointestinal: Non Tender, Soft Back: Normal Inspection, No CVA Tenderness, No Vertebral Tenderness Extremity: Normal Capillary Refill, Normal Inspection, Normal Range of Motion, Non Tender, No Calf Tenderness, No Pedal Edema Neurologic/Psychiatric: Alert, Oriented x3, No Motor/Sensory Deficits, Normal Mood/Affect, gandy dancer II-XII Norm as Tested Skin: Normal Color, Warm/Dry, Other (NO EXTERNAL EVIDENCE OF TRAUMA. ) Progress/Results/Core Measures Suspected Sepsis SIRS Temperature: Pulse: 104 Respiratory Rate: 20 Laboratory Tests 04/21/22 20:55: White Blood Count 8.5 Blood Pressure 135 /87 Mean: 103 Laboratory Tests 04/21/22 20:55: Creatinine 1.24, INR Comment 1.0, Platelet Count 141, Total Bilirubin 0.6 Results/Orders Lab Results Laboratory Tests Test 04/21/22 20:55 04/21/22 21:05 04/21/22 21:58 04/21/22 22:54 Range/Units White Blood Count 8.5 4.3-11.0 10^3/uL Red Blood Count 4.79 4.30-5.52 10^6/uL Hemoglobin 14.4 13.3-17.7 g/dL Hematocrit 43 40-54 % Mean Corpuscular Volume 89 80-99 fL Mean Corpuscular Hemoglobin 30 25-34 pg Mean Corpuscular Hemoglobin Concent 34 32-36 g/dL Red Cell Distribution Width 14.5 10.0-14.5 % Platelet Count 141 130-400 10^3/uL Mean Platelet Volume 10.1 9.0-12.2 fL Immature Granulocyte % (Auto) 0 % Neutrophils (%) (Auto) 81 H 42-75 % Lymphocytes (%) (Auto) 9 L 12-44 % Monocytes (%) (Auto) 10 0-12 % Eosinophils (%) (Auto) 1 0-10 % Basophils (%) (Auto) 0 0-10 % Neutrophils # (Auto) 6.8 1.8-7.8 10^3/uL Lymphocytes # (Auto) 0.7 L 1.0-4.0 10^3/uL Monocytes # (Auto) 0.8 0.0-1.0 10^3/uL Eosinophils # (Auto) 0.1 0.0-0.3 10^3/uL Basophils # (Auto) 0.0 0.0-0.1 10^3/uL Immature Granulocyte # (Auto) 0.0 0.0-0.1 10^3/uL Prothrombin Time 13.4 12.2-14.7 SEC INR Comment 1.0 0.8-1.4 Activated Partial Thromboplast Time 33 24-35 SEC Sodium Level 134 L 135-145 MMOL/L Potassium Level 3.9 3.6-5.0 MMOL/L Chloride Level 103 98-107 MMOL/L Carbon Dioxide Level 20 L 21-32 MMOL/L Anion Gap 11 5-14 MMOL/L Blood Urea Nitrogen 23 H 7-18 MG/DL Creatinine 1.24 0.60-1.30 MG/DL Estimat Glomerular Filtration Rate 63 BUN/Creatinine Ratio 19 Glucose Level 130 H 70-105 MG/DL Calcium Level 8.9 8.5-10.1 MG/DL Corrected Calcium 8.7 8.5-10.1 MG/DL Magnesium Level 1.7 1.6-2.4 MG/DL Total Bilirubin 0.6 0.1-1.0 MG/DL Aspartate Amino Transf (AST/SGOT) 35 H 5-34 U/L Alanine Aminotransferase (ALT/SGPT) 28 0-55 U/L Alkaline Phosphatase 61 40-136 U/L Total Creatine Kinase 119 30-200 U/L Creatine Kinase MB 1.4 <6.6 NG/ML Myoglobin 62.2 10.0-92.0 NG/ML Troponin I 0.057 H 0.067 H <0.028 NG/ML B-Type Natriuretic Peptide 138.8 H <100.0 PG/ML Total Protein 7.5 6.4-8.2 GM/DL Albumin 4.2 3.2-4.5 GM/DL TSH Martin Testing 0.95 0.35-4.94 UIU/ML Serum Alcohol < 10 <10 MG/DL Glucometer 113 H 70-110 MG/DL Urine Color YELLOW Urine Clarity CLEAR Urine pH 5.5 5-9 Urine Specific [place] 1.015 L 1.016-1.022 Urine Protein NEGATIVE NEGATIVE Urine Glucose (UA) 3+ H NEGATIVE Urine Ketones NEGATIVE NEGATIVE Urine Nitrite NEGATIVE NEGATIVE Urine Bilirubin NEGATIVE NEGATIVE Urine Urobilinogen 0.2 < = 1.0 MG/DL Urine Leukocyte Esterase NEGATIVE NEGATIVE Urine RBC (Auto) TRACE-L H NEGATIVE Urine RBC RARE /HPF Urine WBC RARE /HPF Urine Squamous Epithelial Cells NONE /HPF Urine Crystals NONE /LPF Urine Bacteria TRACE /HPF Urine Casts NONE /LPF Urine Mucus NEGATIVE /LPF Urine Culture Indicated NO Urine Opiates Screen NEGATIVE NEGATIVE Urine Oxycodone Screen NEGATIVE NEGATIVE Urine Methadone Screen NEGATIVE NEGATIVE Urine Propoxyphene Screen NEGATIVE NEGATIVE Urine Barbiturates Screen NEGATIVE NEGATIVE Ur Tricyclic Antidepressants Screen NEGATIVE NEGATIVE Urine Phencyclidine Screen NEGATIVE NEGATIVE Urine Amphetamines Screen NEGATIVE NEGATIVE Urine Methamphetamines Screen NEGATIVE NEGATIVE Urine Benzodiazepines Screen NEGATIVE NEGATIVE Urine Cocaine Screen NEGATIVE NEGATIVE Urine Cannabinoids Screen NEGATIVE NEGATIVE Test 04/22/22 02:10 Range/Units Troponin I 0.082 H <0.028 NG/ML My Orders Orders - WESTON CEDEÑO DO Chest 1 View, Ap/Pa Only (04/21/22 20:53) Pelvis 1 To 2 Views (04/21/22 20:53) Accucheck Stat ONCE (04/21/22 20:53) Ekg Tracing (04/21/22 20:53) O2 (04/21/22 20:53) Monitor-Rhythm Ecg Trace Only (04/21/22 20:53) Ct Head/Cervical Spine Wo (04/21/22 20:53) Ct Thoracic/Lumbar Spine Wo (04/21/22 20:53) Alcohol (04/21/22 20:53) Bnp [place] (04/21/22 20:53) Cbc With Automated Diff (04/21/22 20:53) Comprehensive Metabolic Panel (04/21/22 20:53) Creatine Kinase (04/21/22 20:53) Creatine Kinase Mb (04/21/22 20:53) Drug Screen Stat (Urine) (04/21/22 20:53) Magnesium (04/21/22 20:53) Protime With Inr (04/21/22 20:53) Partial Thromboplastin Time (04/21/22 20:53) Thyroid Analyzer (04/21/22 20:53) Ua Culture If Indicated (04/21/22 20:53) Myoglobin Serum (04/21/22 20:53) Troponin I [place] (04/21/22 20:53) Ct Chest/Abdomen/Pelvis W (04/21/22 20:53) Iohexol Injection (Omnipaque 350 Mg/Ml 1 (04/21/22 21:45) Received Contrast (Hold Metformin- Contr (04/21/22 21:45) Ns (Ivpb) (Sodium Chloride 0.9% Ivpb Bag (04/21/22 21:45) Troponin I [place] (04/21/22 22:49) Ekg Tracing (04/22/22 02:05) Troponin I [place] (04/22/22 02:05) Medications Given in ED Current Medications Medications Dose Ordered Sig/Reyes Route Start Time Stop Time Status Last Admin Dose Admin Iohexol 100 ml ONCE ONCE IV 04/21/22 21:45 04/21/22 21:50 DC 04/21/22 21:50 80 ML Sodium Chloride 100 ml ONCE ONCE IV 04/21/22 21:45 04/21/22 21:50 DC 04/21/22 21:50 80 ML Vital Signs/I&O 04/21/22 04/21/22 20:50 23:16 Temp 36.4 Pulse 104 Resp 20 B/P (MAP) 135/87 (103) Pulse Ox 94 96 O2 Delivery Room Air Nasal Cannula O2 Flow Rate 2.00 Capillary Refill : Less Than 3 Seconds Blood Pressure Mean: 103 Point of Care Testing Finger Stick Blood Glucose: 113 Blood Glucose Action Taken: RN notified Progress Note : Progress Note PT HELD IN ER CURRENTLY THERE ARE NO BEDS AVAILABLE HERE, AND NO BEDS ARE AVAILABLE AT [facility] OR ANY OF THE LOCAL OR [facility]. PT HAD NO COMPLAINTS OF ANY KIND FOR ENTIRE ER STAY O2 SAT DID DROP TO 89-90% ON ROOM AIR ON RETURN FROM CT. PLACED ON O2 AT 2L/NC AND O2 SATS QUICKLY UP TO 95%. PT DENIES FEELING SHORT OF BREATH. PT DOES NOT HAVE HOME O2. BP 152/74, HR 90, RESPIRATIONS 12-14. REVIEWED PREVIOUS RECORDS, PT'S TROPONIN APPEARS TO BE CHRONICALLY ELEVATED, SINCE AT LEAST 2018, RANGING FROM 0.048-0.092 LAST ADMIT IN 2021--LEVEL CONSISTENTLY 0.055-0.058 HAD CARDIAC CATH AT THAT ADMIT AND NO INTERVENTION WAS DONE. PREVIOUS ER VISITS, ADMITS INCLUDING H&P'S, TESTS/PROCEDURES, CONSULTS AND DISCHARGE SUMMARIES REVIEWED. PT'S ARRIVED LATER, THEN WENT BACK HOME TO BRING BACK OTHER PART OF ZOLL DEVICE, IN ORDER TO DO INTERROGATION. 0023--INTERROGATION HAS BEEN DONE. NO RECORDED EVENTS-NO DEFIBRILLATOR DISCHARGE, NO ELEVATED HEART RATE > 150, ARTIFACT 04/12. REPEAT TROPONIN LEVELS AND EKG'S WERE DONE TROPONIN DID CONTINUE TO ELEVATE. EKG REMAINED UNCHANGED. COMPLEX MANAGEMENT DUE TO MULTIPLE CO-MORBIDITIES. 0600--AM LABS ORDERED. PT HAS RESTED QUIETLY FOR ENTIRE NIGHT, NO COMPLAINTS. REPORT TO DR. CORREA. HAVE BEEN INFORMED BY CONCESSION STAND ATTENDANT THAT CARDIAC STEP DOWN BED SHOULD BE AVAILABLE AFTER SHIFT CHANGE AT 0700 ECG Initial ECG Impression Date: Apr 21, 2022 Initial ECG Impression Time: 20:53 Initial ECG Rate: 106 Initial ECG Rhythm: S.Tach (WITH PVC'S AND LBBB) Initial ECG Comparisson: Unchanged (NO CHANGE FROM 12/21/21) EKG : EKG Time: 02:37 Rate: 83 Rhythm: Normal Sinus (LBBB) ECG Comparisson: Unchanged Diagnostic Imaging Comments ALL PER RADIOLOGIST REPORTS AT 2209: CXR-- FINDINGS: Postsurgical changes of a CABG are again identified. The cardiac silhouette is enlarged, though stable. Mild central pulmonary vascular congestion. The lungs are however clear focal pulmonary opacity. No pleural effusion. No pneumothorax. No acute osseous abnormality. IMPRESSION: Stable mild cardiomegaly with mild central pulmonary vascular congestion without focal pulmonary opacity or pleural effusion. PELVIS-- FINDINGS: Contrast is noted within the urinary bladder related to recent CT examination. No acute fracture or dislocation. No destructive osseous process. The sacroiliac joints and pubic symphysis appear intact. Surgical clips overlie the right inguinal region. 7 mm sclerotic focus is noted overlying the right femoral neck. Phleboliths within the lower pelvis. IMPRESSION: No acute osseous abnormality with mild degenerative changes. 7 mm sclerotic focus involving the right femoral neck, which is favored to relate to a bone island. Sclerotic osseous metastatic disease not completely excluded. CT HEAD/CERVICAL SPINE-- FINDINGS: CT HEAD: Patchy periventricular white matter hypodensities are unchanged from the prior and while nonspecific are typically associated with chronic small vessel disease. Cerebral cortical volume is stable and there is no hydrocephalus. No sulcal effacement and no cortical edema. There are intracranial atherosclerotic vascular calcifications, chronic. There is no hemorrhage. There are no abnormal extra-axial fluid collections. No findings of an elevation of the intracranial pressures. No calvarial fracture deformity. CT CERVICAL SPINE: Degenerative changes to the discs, endplates and facets, on a chronic basis, present at the C5-C6 level resulting in mild to moderate canal and biforaminal stenoses. However, no cervical spinal fracture or traumatic malalignment. No paravertebral mass, hemorrhage or fluid collection. There are carotid atherosclerotic vascular calcifications. There is no traumatic deformity to the hyoid or tracheal cartilage. No airway embarrassment. IMPRESSION: 1. Head shows chronic periventricular white matter disease and mild stable atrophy without hemorrhage, hydrocephalus, edema or acute finding. 2. The cervical spine shows degenerative changes without fracture or traumatic malalignment. No acute appearing abnormality. CT THORACIC/LUMBAR SPINE-- CT THORACIC SPINE: There is postsurgical repair of the ascending thoracic aorta and heavy coronary artery atherosclerotic vascular calcifications with displacement of the descending thoracic aortas calcified intima in keeping with the known chronic dissection. This extends into the upper abdomen. No evidence for vessel rupture and this showed no obvious change from the correlative study. The thoracic vertebral statures, themselves, are unremarkable. They are aligned anatomically. No thoracic spinal fracture. CT LUMBAR SPINE: Having developed since the previous correlative CT, there is a mildly retropulsed 2 mm fracture of the superior endplate at the L1 segment. At its middle third it is down about 60% in stature loss; however, the fracture appears sclerotic, well marginated and no residual fracture line lucencies. There was no paraspinal hemorrhage. While new from the prior, believed nonacute. Remaining thoracic levels are normal and aligned anatomically. No acute spinal fracture. The pedicles and pars intact. There are chronic degenerative changes without high-grade stenosis. Aortic atherosclerosis with displacement of intimal calcifications through the lower abdominal aorta. This is in keeping with the known chronic dissection. No vessel rupture. No periaortic or retroperitoneal hemorrhage. No visualized free intraperitoneal fluid. IMPRESSION: 1. An L1 mildly retropulsed superior endplate fracture, while having developed since 2019, appears healed and chronic. No acute thoracolumbar injury or traumatic malalignment. 2. Partially visualized postsurgical repair of the ascending aorta with known descending thoracoabdominal aortic dissection. No visualized hemorrhage. CT CHEST/ABDOMEN/PELVIS--FINDINGS: CT CHEST: Calcifications and/or grafting of the ascending aorta is present, the root nonaneurysmal. The ascending aorta shows no dissection or mural hematoma. Its arch unremarkable. The great vessels unremarkable. There is a descending thoracic aortic dissection showing no progression from the prior exam and extending into the abdomen. Prior pleural effusions have since resolved. There is some shotty mediastinal lymphadenopathy having significantly improved since the previous study, most notably a periaortic subaortic and lower paratracheal as well as subcarinal mediastinum. No new [place] mass and again these are significantly smaller than prior. The axilla unremarkable. No lung mass. No findings of lung cancer. No evidence for edema or pneumonia. There is prior sternotomy. There is heavy coronary artery atherosclerotic vascular calcifications. There is no pulmonary edema. No effusion or pneumothorax. This patient has a mildly retropulsed L1 vertebral body fracture while this has progressed from the CT of 03/31/2020, it appears chronic without lucent component, adjacent hemorrhage or acute bony pathology. CT ABDOMEN/PELVIS: Descending thoracic aortic dissection extends into the abdomen with the false lumen on the left. The celiac and superior mesenteric as well as right renal arises off the true lumen. The left kidney is supplied by the false lumen. The dissection terminates prior to the aortas bifurcation and shows no progression from prior. No vascular rupture. No findings of acute visceral end organ ischemia. The left kidney is relatively small compared to the right and this may be from some chronic hypoperfusion. There are a few renal cysts without obstruction or solid renal mass. The adrenals are negative. The liver, spleen and pancreas are unremarkable. The gallbladder and bile ducts are normal. There is no bowel obstruction. There is no mesenteric thrombus. No acute end organ ischemia. There is noninflamed sigmoid diverticulosis. There is no ascites, abscess, hematoma or acute fluid collection. Atherosclerotic iliac disease is non-stenosing. No pelvic aneurysm, intramural hematoma or dissection. There is no acute bony pathology. No abdominopelvic mesenteric or retroperitoneal lymphadenopathy. IMPRESSION: 1. Chest: No failure, pneumonia or effusion. Significant improvements in nonspecific presumed benign and chronic reactive mediastinal adenopathy with no lung mass or adverse development. Descending thoracic aortic dissection unchanged from prior. 2. Abdomen/pelvis: Descending thoracic dissection extends into the abdomen and terminates prior to the aortas bifurcation without evidence for its progression or vessel rupture. No acute end organ ischemia. There may be some chronic hyperperfusion of the left kidney accounting for its relatively small volume. Its artery is off the false lumen. 3. No acute abdominopelvic solid or hollow visceral pathology. Noninflamed diverticulosis. No adenopathy or mass. No hemorrhage or focal inflammatory process. Benign renal cysts, chronic. 4. Mild progression of a nonacute, mildly retropulsed L1 superior endplate fracture. No acute appearing abnormality. 5. No post traumatic sequelae identified at today's study. Reviewed: Reviewed by Me Departure Communication (Admissions) NO ICU OR CARDIAC STEP DOWN BEDS AVAILABLE HERE AT THIS TIME. NO HOSPITALS IN THE AREA HAVE ANY AVAILABLE BEDS, AT THIS TIME. WILL HOLD PT IN ER AND CONTINUE TO ATTEMPT TO ADMIT HERE, IF BED BECOMES AVAILABLE HERE OR FIND PLACEMENT AT ANOTHER FACILITY 5--CALLED [facility]. NO ANSWER, LEFT MESSAGE ON MACHINE 2253--[facility] CALLED BACK. THEY ARE AT [facility] AND CANNOT ACCEPT PT AT THIS TIME. 2257--SPOKE WITH DR. OLIVERA, REGULATED PROGRAM MANAGER HERE, HE AGREES WITH REPEAT TROPONIN AND MONITORING PT HERE IN ER. ARE IN PROCESS OF DOING AN INTERROGATION OF THE ZOLL EXTERNAL DEFIBRILLATOR. 0027--CALLED [facility] AGAIN. LEFT MESSAGE ON MACHINE. 0059--[facility] CALLED BACK. STILL ARE UNABLE TO ACCEPT THE PT AT THIS TIME, THEY ARE AT CAPACITY. WILL PUT ON WAIT LIST, THEY ARE BOARDING MULTIPLE PATIENTS IN THEIR ER WELL. 0239--HAVE JUST BEEN INFORMED BY CONCESSION STAND ATTENDANT THAT A CARDIAC STEP DOWN BED JUST BECAME AVAILABLE. 0240--CALLED DR. OLIVERA AGAIN, TROPONIN LEVEL CONTINUES TO ELEVATE. HE IS AGREEABLE WITH ADMIT HERE TO HOSPITALIST AND WILL HAVE CARDIOLOGY CONSULT. 0242--DISCUSSED WITH CONCESSION STAND ATTENDANT AGAIN. 0244--SPOKE WITH DR. DAY, HOSPITALIST, ACCEPTS PT FOR ADMIT. 0250--HAVE JUST BEEN INFORMED THAT WILL HAVE TO CONTINUE TO BOARD PT IN ER, UNTIL AFTER 0700, THEN WILL BE ABLE TO SEND PT UPSTAIRS. Impression Primary Impression: Elevated troponin Additional Impressions: Multiple falls Generalized weakness CARDIOMYOPATHY WITH LOW EJECTION FRACTION CAD WITH HX OF CABG AND STENTS Hypoxia Presence of external cardiac defibrillator Disposition: ADMITTED INPATIENT Condition: Stable Admissions Decision to Admit Reason: Admit from ER (General) Decision to Admit/Date: Apr 22, 2022 Time/Decision to Admit Time: 02:45 Departure-Patient Inst. Referrals: WILVER SIMS MD (PCP/Family) Primary Care Physician WESTON CEDEÑO DO Apr 21, 2022 22:00
[2022-04-21 22:08] LABS: BILIRUBIN,URINE NEGATIVE (NEGATIVE); CLARITY,URINE CLEAR; COLOR,URINE YELLOW; GLUCOSE, URINE (UA) 3+ (NEGATIVE); KETONES,URINE NEGATIVE (NEGATIVE); LEUKOCYTE ESTERASE ,URINE NEGATIVE (NEGATIVE); NITRITE,URINE NEGATIVE (NEGATIVE); PH,URINE 5.5 (5-9); PROTEIN,URINE NEGATIVE (NEGATIVE)
[2022-04-21 22:26] LABS: BACTERIA,URINE TRACE /HPF; RBC,URINE RARE /HPF; WBC,URINE RARE /HPF
[2022-04-21 22:55] LABS: AMPHETAMINE SCREEN, URINE NEGATIVE (NEGATIVE); BARBITURATE SCREEN URINE NEGATIVE (NEGATIVE); BENZODIAZEPINES SCREEN URINE NEGATIVE (NEGATIVE); CANNABINOID SCREEN, URINE NEGATIVE (NEGATIVE); COCAINE SCREEN URINE NEGATIVE (NEGATIVE); METHADONE STAT NEGATIVE (NEGATIVE); OPIATE SCREEN URINE NEGATIVE (NEGATIVE); OXYCODONE STAT NEGATIVE (NEGATIVE); PROPOXYPHENE STAT NEGATIVE (NEGATIVE); TRICYCLIC ANTIDEPRESSANTS SCRE NEGATIVE (NEGATIVE)
[2022-04-22 06:34] LABS: BASOPHILS % (AUTO) 0 % (0-10); EOSINOPHILS % (AUTO) 0 % (0-10); HEMATOCRIT 42 % (40-54); LYMPHOCYTES # (AUTO) 1.4 10^3/uL (1.0-4.0); LYMPHOCYTES % (AUTO) 16 % (12-44); MEAN CORPUSCULAR HEMOGLOBIN 30 pg (25-34); MEAN CORPUSCULAR HGB CONC 33 g/dL (32-36); MEAN CORPUSCULAR VOLUME 90 fL (80-99); MEAN PLATELET VOLUME 10.3 fL (9.0-12.2); MONOCYTES # (AUTO) 1.2 10^3/uL (0.0-1.0); MONOCYTES % (AUTO) 14 % (0-12); NEUTROPHILS # (AUTO) 6.1 10^3/uL (1.8-7.8); NEUTROPHILS % (AUTO) 70 % (42-75); PLATELET COUNT 128 10^3/uL (130-400); WHITE BLOOD COUNT 8.8 10^3/uL (4.3-11.0)
[2022-04-22 06:52] LABS: ALBUMIN 3.8 GM/DL (3.2-4.5); BILIRUBIN,TOTAL 0.6 MG/DL (0.1-1.0); CALCIUM 8.7 MG/DL (8.5-10.1); CREATININE SERUM 1.15 MG/DL (0.60-1.30); MAGNESIUM 1.9 MG/DL (1.6-2.4); POTASSIUM 3.9 MMOL/L (3.6-5.0)
[2022-04-22] MEDS ORDERED: ONDANSETRON 4 MG (ZOFRAN) ORAL DISSOLVE TAB PO PRN (08:15)
[2022-04-22] MEDS ORDERED: ANTACID SUSP 30 ML UDC (MYLANTA) PO PRN (08:15)
[2022-04-22] MEDS ORDERED: ONDANSETRON 4 MG/2 ML (SDV) Z0FRAN IV PRN (08:15)
[2022-04-22] MEDS ORDERED: NS IV 1000 ML 1,000 ML IV SCH (08:15)
[2022-04-22] MEDS ORDERED: diphenhydrAMINE 25 MG TAB (BENADRYL) PO PRN (08:15)
[2022-04-22] MEDS ORDERED: diphenhydrAMINE 50 MG/ML INJ (BENADRYL) IVP PRN (08:15)
[2022-04-22] MEDS ORDERED: ACETAMINOPHEN 325 MG TABLET PO PRN (08:15)
[2022-04-22] MEDS ORDERED: ALPRAZolam 0.5 MG (XANAX) TAB PO PRN (08:15)
[2022-04-22] MEDS ORDERED: MELATONIN 3 MG TABLET PO PRN (08:15)
[2022-04-22] MEDS ORDERED: MILK OF MAGNESIA 400 MG/5 ML 30 ML UDC PO PRN (08:15)
[2022-04-22] MEDS ORDERED: morphine INJ 4 MG/ML 1 ML (VIAL/SYRINGE) IV PRN (08:15)
[2022-04-22] MEDS ORDERED: CALCIUM CARBONATE 500 MG (TUMS) TAB.CHEW PO PRN (08:15)
[2022-04-22] MEDS ORDERED: BISACODYL 10 MG SUPP (DULCOLAX) PR PRN (08:15)
[2022-04-22] MEDS ORDERED: polyethylene glycoL POWDER 17 GM (MIRALAX) PACK PO PRN (08:15)
[2022-04-22] MEDS ORDERED: LACTULOSE SYRUP 10GM/15ML (ENULOSE) 30ML UDC PO PRN (08:15)
[2022-04-22 08:30] VITALS: BP 139/68
[2022-04-22 08:42] LABS: CHOLESTEROL 118 MG/DL (< 200); HDL CHOLESTEROL 43 MG/DL (40-60); TRIGLYCERIDES 60 MG/DL (<150); VLDL CHOLESTEROL 12 MG/DL (5-40)
[2022-04-22] MEDS: ENOXAPARIN 100 MG/1 ML (LOVENOX) SYR SC SCH ×2 (08:53→08:56)
[2022-04-22] MEDS ORDERED: ASPIRIN 81 MG CHEW (CHILDREN'S ASA) PO SCH (09:00)
[2022-04-22] MEDS ORDERED: SENNOSIDES 8.6 MG (SENOKOT) TAB PO SCH (09:00)
[2022-04-22] MEDS ORDERED: DOCUSATE SODIUM 100 MG (COLACE) CAP PO SCH (09:00)
--- NOTE | 2022-04-22 09:12 | Consultation-Cardiology ---
HPI-Cardiology Cardiology Consultation: Date of Consultation 04/22/22 Date of Admission 04/21/22 Attending Physician Citlaly,Local Physician Admitting Physician Admitting Physician: Ximena Rodgers DO Attending Physician: Lia German MD Consulting Physician WILVER OLIVERA JR, MD HPI: Time Seen by a Provider: 09:20 Chief Complaint: REASON FOR CONSULTATION: Non-ST elevation myocardial infarction I had the pleasure of seeing Iron in the cardiac stepdown unit at [facility] in [place], [place] today. He normally follows with Dr. Beth at [facility] in [place], [place]. He has a history of coronary artery disease with previous coronary bypass surgery years ago and 2 subsequent coronary stents, ischemic cardiomyopathy, chronic heart failure with reduced ejection fraction, ventricular tachycardia, hypertension, hyperlipidemia, and type 2 diabetes mellitus. He is actually scheduled to have an implantable defibrillator placed within the next 1-2 weeks at [place]. He was in his usual state of health until 2 days ago when he was trying to install a ceiling fan and lost his balance and fell backwards onto the bed he was standing on. He then rolled off onto the floor. He injured his and but nothing else. He had 2 more falls later that day. He did not seek medical attention as his was able to help him get up off the floor. Then yesterday he was sitting in a chair and slid down onto the floor. He was again able to get up off the floor and make his way to the bathroom to change his diaper which he wears for urinary incontinence. His called 911 and he was brought to the hospital for further evaluation. His initial troponin level was mildly elevated but similar to his chronic troponin elevation. However, 2 subsequent troponin levels became more elevated and therefore, he was admitted to the hospital for possible non-ST elevation myocardial infarction. He denies chest discomfort, dyspnea, paroxysmal nocturnal dyspnea, orthopnea, palpitations, lightheadedness, syncope, or ankle edema. He denies any discharges from his LifeVest. Because of the possible non-ST elevation myocardial infarction, a cardiology consultation was requested. Certain portions of this document may have been dictated utilizing voice recognition technology. Inherent to this technology, typographical and grammatical errors may exist. As much as I am diligent to identify and correct these mistakes, some errors may remain in the document. Review of Systems-Cardiology Review of Systems Other comments Review of 10 organ systems is as per the history of present illness, otherwise negative. BLI-Xawurd-Ktyonq Hx Patient Social History Marrital Status: Employed/Student: part-time employed Smoking Status: Former Smoker Former smoker/When Quit: Apr 17, 1995 2nd Hand Smoke Exposure: Yes Have you traveled recently?: No Alcohol Use?: No Pt feels they are or have been: No Tobacco type used: Cigarettes Immunizations Up To Date Tetanus Booster (TDap): More than 5yrs Date of Pneumonia Vaccine: Apr 17, 2016 Date of Influenza Vaccine: Jan 30, 2020 Past Medical History PMH As described under Assessment. Family Medical History Family Medical History: He reports his father had a CVA and CAD first dx in his 60's. He reports his mother had CAD. He reports a brother of a myocardial infarction in his 30's. Family History: Alcoholism 09 BROTHER Cancer 03 MOTHER 09 SISTER Chest pain 03 FATHER 09 BROTHER Family history: Allergy Family history: Arthritis 09 SISTER Family history: Breast disease 03 MOTHER Family history: Cardiovascular disease 03 FATHER 03 MOTHER 09 BROTHER Family history: Coronary thrombosis 03 FATHER Family history: Diabetes mellitus 03 MOTHER Family history: Hypertension 03 FATHER 03 MOTHER 09 BROTHER Heart disease 03 FATHER 03 MOTHER 09 BROTHER History of drug abuse 09 SISTER Hypercholesterolemia 09 SISTER Myocardial infarction 03 FATHER 03 MOTHER Stroke 03 FATHER No Family History of: Abdominal aortic aneurysm Temple's disease Aphasia Cancer of colon Cataract Congenital heart disease Congestive heart failure Cystic fibrosis Dementia Dysphagia Family history: Alzheimer's disease Family history: Asthma Family history: Gastrointestinal disease Family history: Glaucoma Family history: Osteoporosis Family history: Thyroid disorder Headache Hearing loss Hereditary disease History of - anemia History of - disorder History of - respiratory disease Human immunodeficiency virus (HIV) seropositivity Infertile Kidney disease Malignant neoplasm of lung Parkinson's disease Prostate cancer Psychotic disorder Seizure disorder Tuberculosis Visual impairment Allergies and Home Medications Allergies Coded Allergies: Penicillins (Verified Allergy, Unknown, 07/16/15) watermelon (Verified Allergy, Unknown, 05/07/21) Patient Home Medication List Home Medication List Reviewed: Yes Albuterol Sulfate (Ventolin Hfa) 1 Puff Puff, 2 PUFF IH Q4H PRN for SHORTNESS OF BREATH, (Reported) Entered as Reported by: TEDDY SANDY on 12/22/21 1201 Amiodarone HCl (Amiodarone HCl) 200 Mg Tablet, 400 MG PO DAILY Prescribed by: WILVER OLIVERA JR, MD on 04/22/22 1013 Aspirin (Children's Aspirin) 81 Mg Tab.chew, 81 MG PO DAILY@0900 Prescribed by: TATUM FRANKS on 12/23/21 07 Carvedilol (Coreg) 6.25 Mg Tablet, 6.25 MG PO BID Prescribed by: TATUM FRANKS on 12/23/21 0825 Clopidogrel Bisulfate (Clopidogrel) 75 Mg Tablet, 75 MG PO DAILY Prescribed by: TATUM FRANKS on 12/23/21733 Empagliflozin (Jardiance) 10 Mg Tablet, 10 MG PO DAILY Prescribed by: TATUM FRANKS on 12/23/21733 Ezetimibe (Ezetimibe) 10 Mg Tablet, 10 MG PO DAILY, (Reported) Entered as Reported by: TEDDY SANDY on 12/22/21 120 Furosemide (Lasix) 80 Mg Tablet, 80 MG PO DAILY Prescribed by: TATUM FRANKS on 12/23/21733 Metformin HCl (Metformin HCl ER) 500 Mg Tab.er.24, 500 MG PO DAILY, (Reported) Entered as Reported by: TEDDY SANDY on 12/22/21 120 Potassium Chloride (Potassium Chloride) 20 Meq Tablet.er, 10 MEQ PO BID, (Reported) Entered as Reported by: TEDDY SANDY on 12/22/21 120 Sacubitril/Valsartan (Entresto 24 mg-26 mg Tablet) 24 Mg-26 Mg Tablet, 1 TAB PO BID Prescribed by: TATUM FRANKS on 12/23/21733 Spironolactone (Spironolactone) 25 Mg Tablet, 25 MG PO DAILY Prescribed by: TATUM FRANKS on 12/23/21733 Tamsulosin HCl (Flomax) 0.4 Mg Cap, 0.8 MG PO 1800, (Reported) Entered as Reported by: TEDDY SANDY on 12/22/21 120 Discontinued Medications Amiodarone HCl (Amiodarone HCl) 400 Mg Tablet, 400 MG PO BID Prescribed by: TATUM FRANKS on 12/23/21733 Exam Vital Signs Vital Signs Date Time Temp Pulse Resp B/P (MAP) Pulse Ox O2 Delivery O2 Flow Rate FiO2 04/22/22 13:15 04/22/22 11:31 37.1 70 18 94 Nasal Cannula 2.00 Physical Exam General: Alert. No acute distress. Well nourished and appears stated age. He is wearing a LifeVest. Eye: Extraocular movements are intact. Conjunctivae are clear. There are no xanthelasma. HENT: Normocephalic. Atraumatic. Carotid pulsations 2/2 without bruits. Neck: Jugular venous pressure does not appear elevated. No thyromegaly appreciated. Respiratory: Lungs are clear to auscultation. Respirations are non-labored. Breath sounds are equal. Symmetrical chest wall expansion. Cardiovascular: Normal rate. Regular rhythm. No murmur. No gallop. Point of maximal impulse is not appear displaced. Good pulses equal in all extremities. No edema. Gastrointestinal: Soft. Normal bowel sounds. Skin: Skin turgor is normal. There is no pallor. Musculoskeletal: No kyphosis or scoliosis appreciated. Neurologic: Alert and oriented to person, place, time. Cranial nerves 3-12 appear grossly intact. The patient has good motor tone strength in the upper and lower extremities bilaterally. Psychiatric: Cooperative. Appropriate mood & affect. Labs Laboratory Tests Test 04/21/22 20:55 04/21/22 21:05 04/21/22 21:58 04/21/22 22:54 Range/Units White Blood Count 8.5 4.3-11.0 10^3/uL Red Blood Count 4.79 4.30-5.52 10^6/uL Hemoglobin 14.4 13.3-17.7 g/dL Hematocrit 43 40-54 % Mean Corpuscular Volume 89 80-99 fL Mean Corpuscular Hemoglobin 30 25-34 pg Mean Corpuscular Hemoglobin Concent 34 32-36 g/dL Red Cell Distribution Width 14.5 10.0-14.5 % Platelet Count 141 130-400 10^3/uL Mean Platelet Volume 10.1 9.0-12.2 fL Immature Granulocyte % (Auto) 0 % Neutrophils (%) (Auto) 81 H 42-75 % Lymphocytes (%) (Auto) 9 L 12-44 % Monocytes (%) (Auto) 10 0-12 % Eosinophils (%) (Auto) 1 0-10 % Basophils (%) (Auto) 0 0-10 % Neutrophils # (Auto) 6.8 1.8-7.8 10^3/uL Lymphocytes # (Auto) 0.7 L 1.0-4.0 10^3/uL Monocytes # (Auto) 0.8 0.0-1.0 10^3/uL Eosinophils # (Auto) 0.1 0.0-0.3 10^3/uL Basophils # (Auto) 0.0 0.0-0.1 10^3/uL Immature Granulocyte # (Auto) 0.0 0.0-0.1 10^3/uL Prothrombin Time 13.4 12.2-14.7 SEC INR Comment 1.0 0.8-1.4 Activated Partial Thromboplast Time 33 24-35 SEC Sodium Level 134 L 135-145 MMOL/L Potassium Level 3.9 3.6-5.0 MMOL/L Chloride Level 103 98-107 MMOL/L Carbon Dioxide Level 20 L 21-32 MMOL/L Anion Gap 11 5-14 MMOL/L Blood Urea Nitrogen 23 H 7-18 MG/DL Creatinine 1.24 0.60-1.30 MG/DL Estimat Glomerular Filtration Rate 63 BUN/Creatinine Ratio 19 Glucose Level 130 H 70-105 MG/DL Calcium Level 8.9 8.5-10.1 MG/DL Corrected Calcium 8.7 8.5-10.1 MG/DL Magnesium Level 1.7 1.6-2.4 MG/DL Total Bilirubin 0.6 0.1-1.0 MG/DL Aspartate Amino Transf (AST/SGOT) 35 H 5-34 U/L Alanine Aminotransferase (ALT/SGPT) 28 0-55 U/L Alkaline Phosphatase 61 40-136 U/L Total Creatine Kinase 119 30-200 U/L Creatine Kinase MB 1.4 <6.6 NG/ML Myoglobin 62.2 10.0-92.0 NG/ML Troponin I 0.057 H 0.067 H <0.028 NG/ML B-Type Natriuretic Peptide 138.8 H <100.0 PG/ML Total Protein 7.5 6.4-8.2 GM/DL Albumin 4.2 3.2-4.5 GM/DL TSH [place] Testing 0.95 0.35-4.94 UIU/ML Serum Alcohol < 10 <10 MG/DL Glucometer 113 H 70-110 MG/DL Urine Color YELLOW Urine Clarity CLEAR Urine pH 5.5 5-9 Urine Specific [place] 1.015 L 1.016-1.022 Urine Protein NEGATIVE NEGATIVE Urine Glucose (UA) 3+ H NEGATIVE Urine Ketones NEGATIVE NEGATIVE Urine Nitrite NEGATIVE NEGATIVE Urine Bilirubin NEGATIVE NEGATIVE Urine Urobilinogen 0.2 < = 1.0 MG/DL Urine Leukocyte Esterase NEGATIVE NEGATIVE Urine RBC (Auto) TRACE-L H NEGATIVE Urine RBC RARE /HPF Urine WBC RARE /HPF Urine Squamous Epithelial Cells NONE /HPF Urine Crystals NONE /LPF Urine Bacteria TRACE /HPF Urine Casts NONE /LPF Urine Mucus NEGATIVE /LPF Urine Culture Indicated NO Urine Opiates Screen NEGATIVE NEGATIVE Urine Oxycodone Screen NEGATIVE NEGATIVE Urine Methadone Screen NEGATIVE NEGATIVE Urine Propoxyphene Screen NEGATIVE NEGATIVE Urine Barbiturates Screen NEGATIVE NEGATIVE Ur Tricyclic Antidepressants Screen NEGATIVE NEGATIVE Urine Phencyclidine Screen NEGATIVE NEGATIVE Urine Amphetamines Screen NEGATIVE NEGATIVE Urine Methamphetamines Screen NEGATIVE NEGATIVE Urine Benzodiazepines Screen NEGATIVE NEGATIVE Urine Cocaine Screen NEGATIVE NEGATIVE Urine Cannabinoids Screen NEGATIVE NEGATIVE Test 04/22/22 02:10 04/22/22 06:26 Range/Units Troponin I 0.082 H 0.109 H <0.028 NG/ML White Blood Count 8.8 4.3-11.0 10^3/uL Red Blood Count 4.66 4.30-5.52 10^6/uL Hemoglobin 14.0 13.3-17.7 g/dL Hematocrit 42 40-54 % Mean Corpuscular Volume 90 80-99 fL Mean Corpuscular Hemoglobin 30 25-34 pg Mean Corpuscular Hemoglobin Concent 33 32-36 g/dL Red Cell Distribution Width 14.6 H 10.0-14.5 % Platelet Count 128 L 130-400 10^3/uL Mean Platelet Volume 10.3 9.0-12.2 fL Immature Granulocyte % (Auto) 0 % Neutrophils (%) (Auto) 70 42-75 % Lymphocytes (%) (Auto) 16 12-44 % Monocytes (%) (Auto) 14 H 0-12 % Eosinophils (%) (Auto) 0 0-10 % Basophils (%) (Auto) 0 0-10 % Neutrophils # (Auto) 6.1 1.8-7.8 10^3/uL Lymphocytes # (Auto) 1.4 1.0-4.0 10^3/uL Monocytes # (Auto) 1.2 H 0.0-1.0 10^3/uL Eosinophils # (Auto) 0.0 0.0-0.3 10^3/uL Basophils # (Auto) 0.0 0.0-0.1 10^3/uL Immature Granulocyte # (Auto) 0.0 0.0-0.1 10^3/uL Sodium Level 135 135-145 MMOL/L Potassium Level 3.9 3.6-5.0 MMOL/L Chloride Level 103 98-107 MMOL/L Carbon Dioxide Level 22 21-32 MMOL/L Anion Gap 10 5-14 MMOL/L Blood Urea Nitrogen 19 H 7-18 MG/DL Creatinine 1.15 0.60-1.30 MG/DL Estimat Glomerular Filtration Rate 69 BUN/Creatinine Ratio 17 Glucose Level 101 70-105 MG/DL Calcium Level 8.7 8.5-10.1 MG/DL Corrected Calcium 8.9 8.5-10.1 MG/DL Magnesium Level 1.9 1.6-2.4 MG/DL Total Bilirubin 0.6 0.1-1.0 MG/DL Aspartate Amino Transf (AST/SGOT) 30 5-34 U/L Alanine Aminotransferase (ALT/SGPT) 24 0-55 U/L Alkaline Phosphatase 53 40-136 U/L B-Type Natriuretic Peptide 380.4 H <100.0 PG/ML Total Protein 7.0 6.4-8.2 GM/DL Albumin 3.8 3.2-4.5 GM/DL Triglycerides Level 60 <150 MG/DL Cholesterol Level 118 < 200 MG/DL LDL Cholesterol Direct 60 1-129 MG/DL VLDL Cholesterol 12 5-40 MG/DL HDL Cholesterol 43 40-60 MG/DL ECG Impression ECG Comment Sinus rhythm with left bundle branch block (chronic). Diagnosis/Problems Diagnosis/Problems (1) Non-ST elevation myocardial infarction (NSTEMI), initial care episode Assessment & Plan: He may have suffered a type II non-ST elevation myocardial infarction. He has not been having any symptoms consistent with angina. He has known diffuse distal disease. He is on the appropriate guideline directed medical therapy. I spoke to a driveway attendant at [facility] about transferring the patient to their facility but they are still on diversion due to bed capacity. I recommend the patient continue on the current guideline directed medical therapy and he can be discharged home and should follow-up with his regular driveway attendant at the outside facility as planned in the next 1-2 weeks. (2) Coronary artery disease with unstable angina pectoris Assessment & Plan: As above, he had elevated troponin levels but no symptoms consistent with angina. We will continue the current therapy. (3) Chronic HFrEF (heart failure with reduced ejection fraction) Assessment & Plan: There was no evidence of volume overload during this admission. He has been taking the appropriate guideline directed medical therapy for heart failure prior to admission. (4) Ischemic cardiomyopathy Assessment & Plan: He has a ZOLL LifeVest in place. He is scheduled to have a prophylactic defibrillator implantation within the next 1-2 weeks with his regular driveway attendant at the outside facility as noted above. (5) Ventricular tachycardia Assessment & Plan: He has a reported history of ventricular tachycardia but has not been having any evidence of this during the current hospitalization. He actually ran out of his amiodarone within the past week. I recommend decreasing the dose of amiodarone to 400 mg daily and I will send a prescription to his pharmacy for a 1 month supply with no refills. (6) Primary hypertension Assessment & Plan: He has been normotensive on his regular outpatient medication. (7) Mixed hyperlipidemia Assessment & Plan: He has been taking ezetimibe at home and his LDL level is under excellent control with this monotherapy. I am not sure why he does not take a statin medication. (8) Type 2 diabetes mellitus with complication Assessment & Plan: The diabetes needs to be kept under good control to help prevent cardiac complications from the diabetes. WILVER OLIVERA JR, MD Apr 22, 2022 09:12
[2022-04-22] MEDS ORDERED: AMIO200T65 PO (10:13)
[2022-04-22] MEDS ORDERED: AMIODARONE 200 MG (CORDARONE) TAB PO SCH (10:15)
[2022-04-22 11:31] VITALS: BP 152/85
--- NOTE | 2022-04-23 09:26 | Discharge Summary ---
Discharge Summary Hospital Course Was the Problem List Reviewed?: Yes Problems/Dx: (1) Non-ST elevation myocardial infarction (NSTEMI), initial care episode (2) Coronary artery disease with unstable angina pectoris (3) Chronic HFrEF (heart failure with reduced ejection fraction) (4) Ischemic cardiomyopathy (5) Ventricular tachycardia (6) Primary hypertension (7) Mixed hyperlipidemia (8) Type 2 diabetes mellitus with complication Hospital Course Date of Admission: Apr 22, 2022 at 02:44 Admission Diagnosis: NSTEMI Family Physician/Provider: Citlaly,Local Physician Date of Discharge: 04/23/22 Discharge Diagnosis: NSTEMI, chronic HFrEF, ischemic cardiomyopathy Hospital Course: Iron Bright is a 71 year old male with PMH HTN, T2DM, HLD, CAD, HFrEF, ischemic cardiomyopathy, who presented after several falls. He fell off a bed while working on a fan. He also says he slipped out of a chair while seated. He denies any chest pain or shortness of breath. His troponin was mildly elevated at 0.06 and trended up to 0.1. He was admitted for possible NSTEMI. Cardiology was consulted and assisted with his care. He was treated with conservative medical management. He has a LifeVest in place and is scheduled to have an AICD placed next week at [facility]. Dr. East discussed his case with his school services officer. He was discharged home in stable condition and will follow up at [facility] as scheduled. Labs and Pending Lab Test: Home Meds Active Amiodarone HCl 200 Mg Tablet 400 Mg PO DAILY Coreg (Carvedilol) 6.25 Mg Tablet 6.25 Mg PO BID Lasix (Furosemide) 80 Mg Tablet 80 Mg PO DAILY Jardiance (Empagliflozin) 10 Mg Tablet 10 Mg PO DAILY Children's Aspirin (Aspirin) 81 Mg Tab.chew 81 Mg PO DAILY@0900 Spironolactone 25 Mg Tablet 25 Mg PO DAILY Entresto 24 mg-26 mg Tablet (Sacubitril/Valsartan) 24 Mg-26 Mg Tablet 1 Tab PO BID Clopidogrel (Clopidogrel Bisulfate) 75 Mg Tablet 75 Mg PO DAILY Reported Flomax (Tamsulosin HCl) 0.4 Mg Cap 0.8 Mg PO 1800 TAKES 2 (0.4MG) CAPS Ezetimibe 10 Mg Tablet 10 Mg PO DAILY Ventolin Hfa (Albuterol Sulfate) 1 Puff Puff 2 Puff IH Q4H PRN Potassium Chloride 20 Meq Tablet.er 10 Meq PO BID TAKES OF A 20MEQ Metformin HCl ER (Metformin HCl) 500 Mg Tab.er.24 500 Mg PO DAILY Assessment/Pt Instructions See instructions Discharge Planning: <30 minutes discharge planning Discharge Instructions Discharge Diet: Low Sodium Diet Activity as Tolerated: Yes Consultations Cardiology Discharge Physical Examination Vital Signs Vital Signs Date Time Temp Pulse Resp B/P (MAP) Pulse Ox O2 Delivery O2 Flow Rate FiO2 04/22/22 13:15 04/22/22 11:31 37.1 70 18 94 Nasal Cannula 2.00 General Appearance: No Apparent Distress, Chronically ill Respiratory: Lungs Clear, No Respiratory Distress Cardiovascular: Regular Rate, Rhythm, No Murmur, Other (wearing LifeVest) Gastrointestinal: Normal Bowel Sounds, Non Tender, Soft Extremity: Normal Inspection, No Pedal Edema Skin: Normal Color, Warm/Dry Neurologic/Psychiatric: Alert, No Motor/Sensory Deficits Allergies: Coded Allergies: Penicillins (Verified Allergy, Unknown, 07/16/15) watermelon (Verified Allergy, Unknown, 05/07/21) Discharge Summary Date of Admission Apr 22, 2022 at 02:44 Date of Discharge Apr 22, 2022 at 13:15 Discharge Date: Apr 22, 2022 Discharge Time: 13:15 Admission Diagnosis NSTEMI Consults/Procedures Consulations Cardiology Discharge Diagnosis (1) Non-ST elevation myocardial infarction (NSTEMI), initial care episode (2) Coronary artery disease with unstable angina pectoris (3) Chronic HFrEF (heart failure with reduced ejection fraction) (4) Ischemic cardiomyopathy (5) Ventricular tachycardia (6) Primary hypertension (7) Mixed hyperlipidemia (8) Type 2 diabetes mellitus with complication SUNITA JOHNS MD Apr 23, 2022 09:21
== END 2022-04-22 13:15 | disposition home or self-care (01) ==
LOC: ER 20:48 → EDUNIT# 20:48 → CSD 04-22 02:44 → INTOOBSV 04-22 02:44
PROVIDERS: ADMIT Internal Medicine; ATTEND Internal Medicine
DX: I21.4 Non-ST elevation (NSTEMI) myocardial infarction (principal); I25.110 Atherosclerotic heart disease of native coronary artery with unstable angina pectoris; I11.0 Hypertensive heart disease with heart failure; I50.22 Chronic systolic (congestive) heart failure; I25.5 Ischemic cardiomyopathy; I47.20 Ventricular tachycardia, unspecified; E78.2 Mixed hyperlipidemia; E11.69 Type 2 diabetes mellitus with other specified complication; Z87.891 Personal history of nicotine dependence; Z79.82 Long term (current) use of aspirin; Z79.01 Long term (current) use of anticoagulants; Z79.84 Long term (current) use of oral hypoglycemic drugs
CPT/HCPCS: 36415; 70450; 71045; 71260; 72125; 72128; 72131; 72170; 74177; 80053; 80061; 80306; 80320; 81000; 82550; 82553; 82947; 83735; 83874; 83880; 84443; 84484; 85025; 85610; 85730; 93005; 93041; G0378